=== PATIENT | male | born 1955 | race Caucasian/White ===

== ENCOUNTER 2016-09-22 17:16 | Inpatient (IN) | payer MEDICARE, MEDICAID ==
--- NOTE | 2016-09-22 17:53 | ED Physician Chart ---
Chief Complaint/HPI - Patient Information Date Seen:: 09/22/16 Time Seen:: 17:45 Chief Complaint:: aggressive behavior History of Present Illness:: Patient has been exhibiting aggressive behavior towards staff at his retirement facility for the last 2 weeks. His aggressive behavior was apparently more severe today. Patient was medicated at the facility before being transferred here. Historian:: EMS Review:: Transfer documents Reviewed Review of Systems - Review of Systems General/Constitutional: No fever, No chills Skin: Skin lesions Head: No headache Eyes: No loss of vision ENT: No earache Neck: No neck pain Cardio Vascular: No chest pain, No palpitations Pulmonary: No SOB GI: No nausea, No vomiting G/U: No dysuria, No frequency Musculoskeletal: Bone or joint pain Endocrine: No polyuria, Polydipsia Psychiatric: Prior psych history Hematopoietic: No bruising Neurological: No syncope Past Medical History - Past Medical History Past Medical History: HTN (hyperlipidemia; hypothyroidism; schizophrenia; anxiety; MRSA), DM, Asthma/COPD, PUD/GERD, Thyroid disorder, Other Family History: Other (unavailable) Social History: Smoker, Alcohol, Homeless Surgical History: other (unavailable) Psychiatricy History: Schizophrenia Medication Reviewed:: Unavailable Family Medical History - Family Member Mother History Unknown: Yes Ethnicity: Living Status: Physical Exam - Physical Examination Other Gen/Cons comments:: Somnolent Head: Atraumatic Eyes: Lids, conjuctiva normal, PERRL Skin: Nl inspection, No rash ENMT: External ears, nose nl Other ENMT comments:: Several dental caries noted Neck: No nuchal rigidity Respiratory: Nl effort/Exclusion, Clear to Auscultation Cardio Vascular: RRR, No murmur, gallop, rubs GI: No tenderness/rebounding/guarding : No CVA tenderness Extremities: Normal digits & nails Neuro/Psych: No focal deficits Misc: No paraspinal tenderness Labs/Radiology/EKG Results - Lab Results Results: Laboratory Results - last 24 hr 09/22/16 09/22/16 09/22/16 18:11 18:11 18:11 WBC 4.7 L RBC 4.41 Hgb 13.2 Hct 38.2 L MCV 86.6 MCH 30.0 MCHC Differential 34.6 RDW 13.6 Plt Count 163 MPV 8.9 Neutrophils % 54.3 Lymphocytes % 24.7 Monocytes % 14.9 H Eosinophils % 5.4 H Basophils % 0.7 Sodium 137 Potassium 3.9 Chloride 108 H Carbon Dioxide 25.7 Anion Gap 7.2 BUN 27 H Creatinine 1.6 H Est GFR ( Amer) 57.2 Est GFR (Non-Af Amer) 47.3 BUN/Creatinine Ratio 16.9 Glucose 104 Calcium 9.8 Triglycerides 122 Cholesterol 143 LDL Cholesterol Direct 97 HDL Cholesterol 36 TSH 0.74 RPR 09/22/16 18:11 WBC RBC Hgb Hct MCV MCH MCHC Differential RDW Plt Count MPV Neutrophils % Lymphocytes % Monocytes % Eosinophils % Basophils % Sodium Potassium Chloride Carbon Dioxide Anion Gap BUN Creatinine Est GFR ( Amer) Est GFR (Non-Af Amer) BUN/Creatinine Ratio Glucose Calcium Triglycerides Cholesterol LDL Cholesterol Direct HDL Cholesterol TSH RPR NONREACTIVE - Radiology Results Results: CXR normal; no infiltrate; no cardiomegaly ED Septic Shock - . Is Septic Shock (SBP<90, OR Lactate>4 mmol\L) present?: No Reassessment (Disposition) - Reassessment Reassessment Condition:: Unchanged - Diagnosis Diagnosis:: schizophrenia; altered mental status; aggressive behavior - Patient Disposition Admitted to:: Med/Surg Condition at Disposition:: Stable, Unchanged ED Discharge Plan - Patient Disposition Instructions: Psychosis
[2016-09-22 18:22] LABS: % BASOPHILS 0.7 % (0.0-2.0); % EOSINOPHILS 5.4 % (0.0-5.0); % LYMPHOCYTES 24.7 % (20.0-50.0); % MONOCYTES 14.9 % (2.0-10.0); % NEUTROPHILS 54.3 % (40.0-80.0); HEMATOCRIT 38.2 % (39.0-49.0); HEMOGLOBIN 13.2 gm/dL (13.2-17.3); MEAN CELL VOLUME 86.6 fl (80-99); MEAN CORPUSCULAR HGB CONC 34.6 pg (28.0-36.0); MEAN PLATELET VOLUME 8.9 fl; NEUTROPHILE ABSOLUTE 2.5 Th/cmm (1.8-8.0); PLATELET COUNT 163 Th/cmm (150-400); RED BLOOD COUNT 4.41 Mil/cmm (4.30-5.70); RED CELL DISTRIBUTION WIDTH 13.6 % (11.5-20.0); WHITE BLOOD COUNT 4.7 Th/cmm (4.8-10.8)
[2016-09-22 18:35] LABS: ANION GAP 7.2 (7.0-16.0); BUN/CREATININE RATIO 16.9; CALCIUM SERUM 9.8 mg/dL (8.6-10.3); CARBON DIOXIDE 25.7 mEq/L (21.0-31.0); CREATININE - SERUM 1.6 mg/dL (0.7-1.3); POTASSIUM SERUM 3.9 mEq/L (3.5-5.1)
[2016-09-22] MEDS ORDERED: Maalox 30 mL Cup PO PRN (22:35)
[2016-09-23] MEDS: Sodium Chloride 0.45% 1,000 ML IV SCH ×2 (00:32→09:03)
[2016-09-23] MEDS ORDERED: Levothyroxine 0.088 Mg Tab PO SCH (07:30)
[2016-09-23] MEDS ORDERED: Pantoprazole 40 mg EC Tab PO SCH (07:30)
--- NOTE | 2016-09-23 08:09 | Diagnostic Imaging Report ---
Portable chest x-ray History: Cough Allowing for portable technique the heart size is normal. No focal pulmonary parenchymal processes. No hilar or mediastinal abnormalities. Impression: No acute abnormalities.
[2016-09-23] MEDS ORDERED: Benztropine 1 MG TAB PO SCH (09:00)
[2016-09-23] MEDS ORDERED: Vitamin B Complex w/Vitamin C Tab PO SCH (09:00)
[2016-09-23] MEDS ORDERED: Fenofibrate, Micronized 134 mg Cap PO SCH ×2 (09:00→16:38)
[2016-09-23] MEDS: INSULIN ASPART, RECOMBINANT 100 UNITS/ML SUBQ SCH ×2 (09:02→11:29)
[2016-09-23 11:12] LABS: HEP B CORE IGM Negative (Negative); HEP C ANTIBODY <0.1 s/co ratio (0.0-0.9)
--- NOTE | 2016-09-23 13:21 | Admit Criteria Form ---
Admit Criteria Forms - Admit Criteria Diagnosis: MENTAL STATUS CHANGE Clinical Indications for Inpatient Care (Place 'X' for any and all applicable criteria): Ongoing inpatient care may be needed for ANY ONE of the following(1)(2)(3)(5)(6) : [ ]I. Suspected serious etiology (eg, medical disorder, [employer] event) of mental status change [ ]II. Danger to self or others not manageable at lower level of care [ ]III. Grave disability (eg, inability to perform self care necessary at lower level of care) [X]IV. Agitation or inappropriate behavior interfering with care for primary condition (eg, attempting to discontinue lines or drains prematurely, unable to cooperate with respiratory care) [ ]V. Delirium [A] [D][E] as described by ANY ONE of the following(26): [ ]a) Delirium due to alcohol or sedative [F] withdrawal [ ]b) Delirium of uncertain etiology that has not responded to appropriate empiric treatment [ ]c) Delirium that prevents performance of a life-sustaining function (eg, feeding or hydrating oneself) [ ]. General contraindications and/or Inappropriate clinical situations for Observational Care in patients with Mental Status Change, when ANY ONE of the following is required: [ ]a) Prediction of prolongation of LOS based on ANY ONE of the following may be considered as a contraindication for observational care 2, 3, 4, 5, 6, 7, 8, 9, 10, 11 [ ]i) Age > 65 yrs. [ ]ii) Patient arriving by ambulance [ ]iii) Patient with high acuity [ ]iv) Patient requiring vital sign monitoring [ ]v) Patient on IV medication [ ]b) Systolic blood pressures 180mmHg 3,12 [ ]c) Patient with altered mental status including delirium and other alteration of consciousness, (3) [ ]d) Patient whose discharge disposition will be to a group home home or rehabilitation home should not be managed in Emergency Department Observation Unit. CMS rule requires 3 days hospital stay before such placement.3,13 [ ]e) Patient with failure to thrive due to broad array of etiologies 3,16,17 [ ]f) Inability to ambulate 3,14 Extended stay beyond goal length of stay for the primary condition may be needed until ALL of the following are present(3)(5): [ ]a) Underlying medical etiology of mental status change is absent, or has been established and adequately treated [ ]b) Danger to self or others is absent or manageable at lower level of care. [ ]c) Behavior crisis management, including physical or chemical restraints, is not required or available at lower level of car [ ]d) Substance or alcohol withdrawal is absent or manageable at lower level of care. [ ]e) Behavioral symptoms (eg, agitation, somnolence, inappropriate behavior) are absent, or are manageable at lower level of care. The original [facility] content created by [facility] has been revised. The portions of the content which have been revised are identified through the use of italic text or in bold, and [facility] has neither reviewed nor approved the modified material. All other unmodified content is copyright [facility]. Please see references footnoted in the original [facility] edition 2016 Admit Criteria Met?: Yes
--- NOTE | 2016-09-23 16:40 | Internal Medicine Prog Note ---
Internal Medicine Subjective - Subjective Service Date: 09/23/16 ([id number]) Internal Medicine Objective - Results Result Diagrams: 09/22/16 18:11 09/22/16 18:11 Recent Labs: Laboratory Last Values WBC 4.7 Th/cmm (4.8-10.8) L 09/22/16 18:11 RBC 4.41 Mil/cmm (4.30-5.70) 09/22/16 18:11 Hgb 13.2 gm/dL (13.2-17.3) 09/22/16 18:11 Hct 38.2 % (39.0-49.0) L 09/22/16 18:11 MCV 86.6 fl (80-99) 09/22/16 18:11 MCH 30.0 pg (26.0-30.0) 09/22/16 18:11 MCHC Differential 34.6 pg (28.0-36.0) 09/22/16 18:11 RDW 13.6 % (11.5-20.0) 09/22/16 18:11 Plt Count 163 Th/cmm (150-400) 09/22/16 18:11 MPV 8.9 fl 09/22/16 18:11 Neutrophils % 54.3 % (40.0-80.0) 09/22/16 18:11 Lymphocytes % 24.7 % (20.0-50.0) 09/22/16 18:11 Monocytes % 14.9 % (2.0-10.0) H 09/22/16 18:11 Eosinophils % 5.4 % (0.0-5.0) H 09/22/16 18:11 Basophils % 0.7 % (0.0-2.0) 09/22/16 18:11 Sodium 137 mEq/L (136-145) 09/22/16 18:11 Potassium 3.9 mEq/L (3.5-5.1) 09/22/16 18:11 Chloride 108 mEq/L (98-107) H 09/22/16 18:11 Carbon Dioxide 25.7 mEq/L (21.0-31.0) 09/22/16 18:11 Anion Gap 7.2 (7.0-16.0) 09/22/16 18:11 BUN 27 mg/dL (7-25) H 09/22/16 18:11 Creatinine 1.6 mg/dL (0.7-1.3) H 09/22/16 18:11 Est GFR ( Amer) 57.2 ml/min (>90) 09/22/16 18:11 Est GFR (Non-Af Amer) 47.3 ml/min 09/22/16 18:11 BUN/Creatinine Ratio 16.9 09/22/16 18:11 Glucose 104 mg/dL (70-105) 09/22/16 18:11 Calcium 9.8 mg/dL (8.6-10.3) 09/22/16 18:11 Triglycerides 122 mg/dL (<150) 09/22/16 18:11 Cholesterol 143 mg/dL (<200) 09/22/16 18:11 LDL Cholesterol Direct 97 mg/dL (75-193) 09/22/16 18:11 HDL Cholesterol 36 mg/dL (23-92) 09/22/16 18:11 TSH 0.74 uIU/ml (0.34-5.60) 09/22/16 18:11 RPR NONREACTIVE (NONREACTIVE) 09/22/16 18:11 Hepatitis A IgM Ab Negative (Negative) 09/22/16 18:11 Hep Bs Antigen Negative (Negative) 09/22/16 18:11 Hep B Core IgM Ab Negative (Negative) 09/22/16 18:11 Hepatitis C Antibody <0.1 s/co ratio (0.0-0.9) 09/22/16 18:11 - Physical Exam Vitals and I&O: Vital Signs Temp 97.8 F 09/23/16 15:10 Pulse 94 09/23/16 15:10 Resp 18 09/23/16 15:10 BP 147/89 09/23/16 15:10 Pulse Ox 99 09/23/16 15:10 Intake & Output 09/22/16 09/23/16 09/23/16 18:59 06:59 18:59 Intake Total 100 350 Balance 100 350 Intake: Oral 100 350 Other: # Voids 3 Active Medications: Current Medications Fenofibrate (Tricor) 67 mg PO DAILY [facility] Stop: 11/22/16 08:59 Internal Medicine Assmt/Plan - Assessment Assessment: aloc agitation htn hyperlipidemia hypothyroid dm-2
--- NOTE | 2016-09-23 17:54 | History & Physical ---
CHIEF COMPLAINT: Aggressive behavior. HISTORY OF PRESENT ILLNESS: This is a 60-year-old male who is a detention resident who is brought here to [facility] for 1-day history of aggressive behavior towards the staff. For medical evaluation and clearance, the patient is admitted. PAST MEDICAL HISTORY: Hypertension, hypothyroidism, schizophrenia and anxiety, MRSA, COPD, GERD, hypothyroidism. SOCIAL HISTORY: The patient is a detention resident, requiring 24-hour nursing care. The patient is also a smoker. PAST SURGICAL HISTORY: Unknown. REVIEW OF SYSTEMS: Unable to obtain, patient is refusing to answer my questions. PHYSICAL EXAMINATION: GENERAL: The patient is well developed, well nourished, no acute distress. VITAL SIGNS: Temperature 97.8, heart rate ____, blood pressure 147/89, respirations 18, O2 99. HEENT: Head: Normocephalic, atraumatic. NECK: Supple. No mass. LUNGS: Clear bilaterally. HEART: Regular rhythm. ABDOMEN: Soft, nontender. LABORATORY DATA: WBC ____, H and H 13.2 and 38.2. Sodium 137, potassium 3.9, chloride 108, carbon dioxide 25.7, BUN 27, creatinine 1.6. The patient had a chest x-ray done and the impression is no acute abnormalities. ASSESSMENT: Altered level of consciousness, increased agitation. PLAN: The patient to be admitted to the med/surg unit. Once bed available, the patient will be at the Geropsych Unit. JOB# [id number]
[2016-09-23] MEDS ORDERED: Non-Formulary Item 1 EA (Melatonin [Melatonin] 3 MG) PO SCH (21:00)
== END 2016-09-23 16:15 | DRG 884 ==
LOC: ER 17:16 → MERGE 23:09 → MSI 23:09
PROVIDERS: ADMIT Internal Medicine; ATTEND Internal Medicine
DX: R40.4 Transient alteration of awareness (principal); F20.9 Schizophrenia, unspecified; I10 Essential (primary) hypertension; E03.9 Hypothyroidism, unspecified; F41.9 Anxiety disorder, unspecified; E11.9 Type 2 diabetes mellitus without complications; F17.210 Nicotine dependence, cigarettes, uncomplicated; J44.9 Chronic obstructive pulmonary disease, unspecified; K21.9 Gastro-esophageal reflux disease without esophagitis; Z59.0 Homelessness; Z88.0 Allergy status to penicillin; I12.9 Hypertensive chronic kidney disease with stage 1 through stage 4 chronic kidney disease, or unspecified chronic kidney disease; N18.9 Chronic kidney disease, unspecified
CPT/HCPCS: 36415-UA; 71010-TC; 80048-TC; 80061-TC; 80074-90; 84443-TC; 85025-TC; 86592-TC; 93005; J1815; Z7610

== ENCOUNTER 2016-09-23 16:15 | Inpatient (IN) | payer MEDICARE, MEDICAID ==
[2016-09-23] MEDS ORDERED: Maalox 30 mL Cup PO PRN (17:15)
[2016-09-23 17:16] VITALS: BP 139/79
[2016-09-23] MEDS ORDERED: INSULIN ASPART, RECOMBINANT 100 UNITS/ML SUBQ SCH (21:00)
[2016-09-23] MEDS ORDERED: Non-Formulary Item 1 EA (Melatonin [Melatonin] 3 MG) PO SCH (21:00)
[2016-09-23] MEDS: INSULIN ASPART, RECOMBINANT 100 UNITS/ML SUBQ SCH (21:24)
--- NOTE | 2016-09-23 22:23 | Consultation ---
The patient was seen, chart reviewed, and discussed with staff. HISTORY OF PRESENT ILLNESS: The patient is a 60-year-old male with a history of schizoaffective disorder, has been becoming more agitating, angry, paranoid, talking to himself. The patient has altered level of consciousness, currently on medical floor. The patient has been displaying bizarre sexual behavior, attempting to masturbate at times and has been inappropriate with staff. PAST PSYCHIATRIC HISTORY: Multiple hospitalizations and chronic history of mental illness. PAST MEDICAL HISTORY: As per Dr. Sagastume. PSYCHOSOCIAL HISTORY: The patient resides in a longterm facility and requires complete care. MENTAL STATUS EXAMINATION: The patient is guarded and irritable. The patient appears to be paranoid, internally preoccupied, remains aggressive at times, attempting to push staff. His insight is poor and judgment is impaired. He is oriented to person, knows he is in the hospital, not oriented to time. ASSESSMENT: Schizoaffective disorder in psychotic phase. Medical, as per medical history. PLAN: At this time, it was recommended continuation of medical supportive measures. We will increase Seroquel to 250 mg p.o. b.i.d. for day or two, then increase it to 300 mg p.o. b.i.d. as tolerated. Monitor condition closely. The patient would require inpatient psychiatric hospitalization once medically stable. Thank you for the consultation. JOB# [id number]
[2016-09-24] MEDS: Levothyroxine 0.088 Mg Tab PO SCH ×2 (07:04→07:51)
[2016-09-24] MEDS: Pantoprazole 40 mg EC Tab PO SCH ×2 (07:04→07:51)
[2016-09-24] MEDS: INSULIN ASPART, RECOMBINANT 100 UNITS/ML SUBQ SCH ×4 (07:05→20:17)
[2016-09-24] MEDS ORDERED: Haloperidol Lactate 5 mg/mL 1mL Vial ONE (07:18)
[2016-09-24] MEDS ORDERED: Haloperidol Lactate 5 mg/mL 1mL Vial IM ONE (07:52)
[2016-09-24] MEDS: Benztropine 1 MG TAB PO SCH ×2 (09:18→16:43)
[2016-09-24] MEDS: Fenofibrate, Micronized 134 mg Cap PO SCH (09:18)
[2016-09-24] MEDS: Vitamin B Complex w/Vitamin C Tab PO SCH (09:19)
--- NOTE | 2016-09-24 10:07 | Internal Medicine Prog Note ---
Internal Medicine Subjective - Subjective Service Date: 09/24/16 Patient seen and examined:: with staff Patient is:: awake Per staff patient is:: no adverse event Internal Medicine Objective - Results Recent Labs: Laboratory Last Values POC Glucose 141 MG/DL (70 - 105) H 09/24/16 06:52 - Physical Exam Vitals and I&O: Vital Signs Temp 97.1 F 09/23/16 20:51 Pulse 101 09/24/16 09:18 Resp 18 09/23/16 20:51 BP 132/100 09/24/16 09:18 Pulse Ox 97 09/23/16 20:51 Intake & Output 09/23/16 09/24/16 09/24/16 18:59 06:59 18:59 Intake Total 460 Balance 460 Intake: Oral 460 Other: # Voids 1 2 # Bowel Movements 0 Active Medications: Current Medications Acetaminophen (Tylenol) 650 mg PO Q4H PRN PRN Reason: Pain (Mild) Stop: 11/22/16 17:14 Al Hydrox/Mg Hydrox/Simethicone (Maalox) 30 ml PO Q6H PRN PRN Reason: GI UPSET Stop: 11/22/16 17:14 Benztropine Mesylate (Cogentin) 1 mg PO BID [facility] Stop: 11/23/16 08:59 Last Admin: 09/24/16 09:18 Dose: 1 mg Clonidine HCl (Catapres) 0.1 mg PO Q6H PRN PRN Reason: FOR SBP > 160 Stop: 11/22/16 17:14 Docusate Sodium (Colace) 100 mg PO BID [facility] Stop: 11/23/16 08:59 Last Admin: 09/24/16 09:18 Dose: Not Given Fenofibrate (Tricor) 134 mg PO QOD [facility] Stop: 11/23/16 08:59 Last Admin: 09/24/16 09:18 Dose: Not Given Glipizide (Glucotrol) 10 mg PO BIDAC [facility] Stop: 11/23/16 07:29 Last Admin: 09/24/16 07:11 Dose: Not Given Insulin Aspart (Novolog) 0 units SUBQ ACHS [facility] PRN Reason: Protocol Stop: 11/22/16 20:59 Last Admin: 09/24/16 07:05 Dose: Not Given Levothyroxine Sodium (Synthroid) 0.088 mg PO QDAC [facility] Stop: 11/23/16 07:29 Last Admin: 09/24/16 07:51 Dose: Not Given Lisinopril (Zestril) 10 mg PO DAILY [facility] Stop: 11/23/16 08:59 Last Admin: 09/24/16 09:18 Dose: 10 mg Lorazepam (Ativan) 1 mg PO Q6H PRN; Protocol PRN Reason: Anxiety Stop: 11/22/16 17:14 Last Admin: 09/24/16 00:24 Dose: 1 mg Pantoprazole Sodium (Protonix) 40 mg PO QDAC [facility] Stop: 11/23/16 07:29 Last Admin: 09/24/16 07:51 Dose: Not Given Pioglitazone HCl (Actos) 30 mg PO QDAC [facility] Stop: 11/23/16 07:29 Last Admin: 09/24/16 07:12 Dose: Not Given Quetiapine Fumarate (Seroquel) 250 mg PO Q12H [facility] PRN Reason: Protocol Stop: 11/22/16 18:59 Last Admin: 09/24/16 07:51 Dose: Not Given Sodium Bicarbonate (Sodium Bicarbonate) 650 mg PO TID [facility] PRN Reason: Protocol Stop: 11/22/16 20:59 Last Admin: 09/24/16 09:18 Dose: Not Given Vitamin B Complex/Vit C/Folic Acid (Vitamin B Complex W/Vitamin C) 1 tab PO DAILY [facility] Stop: 11/23/16 08:59 Last Admin: 09/24/16 09:19 Dose: Not Given General: alert HEENT: NC/AT, PERRLA Neck: Supple Lungs: CTAB Cardiovascular: RRR, Normal S1, Normal S2, without murmur Abdomen: soft non-tender, non-distended Extremities: clear Internal Medicine Assmt/Plan - Assessment Assessment: agitation htn hyperlipidemia hypothyroid dm-2
--- NOTE | 2016-09-24 15:22 | Admit Criteria Form ---
Admit Criteria Forms - Admit Criteria Diagnosis: PSYCHIATRIC DISORDERS Clinical Indications for Inpatient Care (Place 'X' for any and all applicable criteria): Ongoing inpatient care may be needed for ANY ONE of the following(1)(2)(3)(4)(6) (7)(8): [ ]I. Danger to self or others not manageable at lower level of care. [ ]II. Grave disability (eg, inability to perform self care necessary at lower level of care) [X]III. Agitation or inappropriate behavior interfering with care for primary condition (eg, attempting to discontinue lines or drains prematurely, unable to cooperate with respiratory care) [ ]IV. Severe disability or disorder indicated by ALL of the following: [ ]a) Severe behavioral health disorder-related symptoms or condition indicated by ANY ONE of the following: [ ]i) Severe problem with cognition, memory, judgment, or impulse control [ ]ii) Severe clinical manifestations (eg, hallucinations, delusions, other acute psychotic symptoms, cassie, extreme agitation or anxiety) [ ]b) Patient management at lower level of care is not feasible until acute intervention or modification is initiated. Extended stay beyond goal length of stay for the primary condition may be indicated when ANY ONE of the following is present: (1)(2)(3)(4): [ ]a) Patient is a danger to self or others and not manageable at lower level of care. [ ]b) Behavior crisis management, including physical or chemical restraints, is required and is not available at a lower level of care. [ ]c) Behavioral symptoms (e.g., agitation, somnolence, inappropriate behavior) are present, and are not manageable at a lower level of care. [ ]d) Patient cannot understand follow-up treatment and crisis plan. [ ]e) Provider and supports are not sufficiently available at lower level of care. [ ]f) Patient cannot participate (e.g., verify absence of plan for harm) and is in needed of monitoring. The original [facility] [employer] content created by [facility] [employer] has been revised. The portions of the content which have been revised are identified through the use of italic text or in bold, and [facility] [employer] has neither reviewed nor approved the modified material. All other unmodified content is copyright [facility] [employer]. Please see references footnoted in the original [facility] edition 2016 Admit Criteria Met?: Yes
--- NOTE | 2016-09-25 03:42 | Psychosocial Evaluation ---
ATTENDING PHYSICIAN: Dr. Kerns. IDENTIFYING DATA: The patient is a 60-year-old male, resident of [facility], admitted here on a voluntary basis in view of his acute psychosis. CHIEF COMPLAINT: "I don't know they are trying to hurt me." HISTORY OF PRESENT ILLNESS: This is the first psychiatric hospitalization to [facility] for this 60-year-old who is reported to have been out of control, screaming and yelling and actively responding to internal stimuli. The patient could not be contained at a lower level of care and hence the patient has been referred over here for stabilization. Chart is reviewed. The patient is interviewed. During the interview, the patient has been not able to contract for safety. The patient is actively responding to internal stimuli. The patient is laughing and giggling and making gestures with his hands. The patient has to be redirected. Sleep and appetite prior to the hospitalization are reported to be poor. PAST PSYCHIATRIC HISTORY: Details are not known. MEDICAL HISTORY AND PHYSICAL EXAMINATION: Requested to be done by Dr. Sagastume. SUBSTANCE ABUSE HISTORY: None. PHYSICAL OR SEXUAL ABUSE HISTORY: None. LEGAL PROBLEMS: None at this time. STRENGTH AND ASSETS: The patient is motivated. MENTAL STATUS EXAMINATION: The patient is a 60-year-old, looking his stated age, superficially cooperative. Eye contact is poor. Mood is noted to be irritable. Affect is constricted. Insight and judgment at this time are noted to be very much impaired. Impulse control is noted to be poor. Coping skills are also noted to be poor. The patient is actively responding to internal stimuli. The patient is alert and oriented. DIAGNOSTIC IMPRESSION: The patient's behavior is likely a danger to self and others. DIAGNOSTIC IMPRESSION: ASIX I: Schizophrenia, chronic paranoid type with acute exacerbation. AXIS II: None. AXIS III: As per Dr. Sagastume. IMMEDIATE TREATMENT PLAN: The patient is going to be continued on the Seroquel 250 mg twice a day. The patient is going to be continued on the Haldol Decanoate once a month and the patient is going to be closely observed. Once stabilized, the patient is going to be discharged to [facility] for further followup. ESTIMATED LENGTH OF STAY: 5-7 days. JOB# [id number]
[2016-09-25] MEDS: Levothyroxine 0.088 Mg Tab PO SCH (06:41)
[2016-09-25] MEDS: Pantoprazole 40 mg EC Tab PO SCH (06:41)
[2016-09-25] MEDS: INSULIN ASPART, RECOMBINANT 100 UNITS/ML SUBQ SCH ×4 (06:44→22:26)
[2016-09-25] MEDS: Benztropine 1 MG TAB PO SCH ×2 (08:15→17:04)
[2016-09-25] MEDS: Vitamin B Complex w/Vitamin C Tab PO SCH (08:16)
--- NOTE | 2016-09-25 14:32 | Internal Medicine Prog Note ---
Internal Medicine Subjective - Subjective Service Date: 09/25/16 Patient seen and examined:: with staff Patient is:: awake Per staff patient is:: no adverse event Internal Medicine Objective - Results Recent Labs: Laboratory Last Values POC Glucose 90 MG/DL (70 - 105) 09/25/16 11:34 - Physical Exam Vitals and I&O: Vital Signs Temp 98.6 F 09/24/16 19:55 Pulse 83 09/25/16 08:15 Resp 19 09/24/16 19:55 BP 130/78 09/25/16 08:15 Pulse Ox 92 09/24/16 19:55 Intake & Output 09/24/16 09/25/16 09/25/16 18:59 06:59 18:59 Intake Total 750 240 Balance 750 240 Intake: Oral 750 240 Other: # Voids 3 1 # Bowel Movements 1 Active Medications: Current Medications Acetaminophen (Tylenol) 650 mg PO Q4H PRN PRN Reason: Pain (Mild) Stop: 11/22/16 17:14 Al Hydrox/Mg Hydrox/Simethicone (Maalox) 30 ml PO Q6H PRN PRN Reason: GI UPSET Stop: 11/22/16 17:14 Benztropine Mesylate (Cogentin) 1 mg PO BID [facility] Stop: 11/23/16 08:59 Last Admin: 09/25/16 08:15 Dose: 1 mg Clonidine HCl (Catapres) 0.1 mg PO Q6H PRN PRN Reason: FOR SBP > 160 Stop: 11/22/16 17:14 Docusate Sodium (Colace) 100 mg PO BID [facility] Stop: 11/23/16 08:59 Last Admin: 09/25/16 08:14 Dose: 100 mg Fenofibrate (Tricor) 134 mg PO QOD [facility] Stop: 11/23/16 08:59 Last Admin: 09/24/16 09:18 Dose: Not Given Glipizide (Glucotrol) 10 mg PO BIDAC [facility] Stop: 11/23/16 07:29 Last Admin: 09/25/16 06:41 Dose: 10 mg Insulin Aspart (Novolog) 0 units SUBQ ACHS [facility] PRN Reason: Protocol Stop: 11/22/16 20:59 Last Admin: 09/25/16 12:05 Dose: Not Given Levothyroxine Sodium (Synthroid) 0.088 mg PO QDAC [facility] Stop: 11/23/16 07:29 Last Admin: 09/25/16 06:41 Dose: 0.088 mg Lisinopril (Zestril) 10 mg PO DAILY [facility] Stop: 11/23/16 08:59 Last Admin: 09/25/16 08:15 Dose: 10 mg Lorazepam (Ativan) 1 mg PO Q6H PRN; Protocol PRN Reason: Anxiety Stop: 11/22/16 17:14 Last Admin: 09/25/16 14:06 Dose: 1 mg Pantoprazole Sodium (Protonix) 40 mg PO QDAC [facility] Stop: 11/23/16 07:29 Last Admin: 09/25/16 06:41 Dose: 40 mg Pioglitazone HCl (Actos) 30 mg PO QDAC [facility] Stop: 11/23/16 07:29 Last Admin: 09/25/16 06:40 Dose: 30 mg Quetiapine Fumarate (Seroquel) 250 mg PO Q12H [facility] PRN Reason: Protocol Stop: 11/22/16 18:59 Last Admin: 09/25/16 06:41 Dose: 250 mg Sodium Bicarbonate (Sodium Bicarbonate) 650 mg PO TID [facility] PRN Reason: Protocol Stop: 11/22/16 20:59 Last Admin: 09/25/16 14:06 Dose: 650 mg Vitamin B Complex/Vit C/Folic Acid (Vitamin B Complex W/Vitamin C) 1 tab PO DAILY [facility] Stop: 11/23/16 08:59 Last Admin: 09/25/16 08:16 Dose: 1 tab General: alert HEENT: NC/AT, PERRLA Neck: Supple Lungs: CTAB Cardiovascular: RRR, Normal S1, Normal S2, without murmur Abdomen: soft non-tender, non-distended Extremities: clear Internal Medicine Assmt/Plan - Assessment Assessment: agitation htn hyperlipidemia hypothyroid dm-2 - Plan Plan: monitor glucose low fat diet cpm
[2016-09-25] MEDS: Triple Antibiotic 0.94 gm Pkt TP SCH (22:29)
--- NOTE | 2016-09-25 23:10 | Progress Notes ---
TIME PATIENT SEEN: 12 noon. SUBJECTIVE: Staff was spoken to. The patient is interviewed. Mood is noted to be irritable. Affect is constricted. The patient is still responding to internal stimuli and trying to follow the staff members. The patient has no insight into his illness. Coping skills are noted to be very poor. Sleep and appetite are also noted to be very poor. ASSESSMENT: The patient is still grossly psychotic. PLAN: To continue the patient with the current medications. I encouraged the patient to verbalize the concerns rather than to act out. JOB# [id number]
[2016-09-26] MEDS: INSULIN ASPART, RECOMBINANT 100 UNITS/ML SUBQ SCH ×4 (06:54→20:31)
[2016-09-26] MEDS: Levothyroxine 0.088 Mg Tab PO SCH (06:56)
[2016-09-26] MEDS: Pantoprazole 40 mg EC Tab PO SCH (06:56)
[2016-09-26] MEDS: Vitamin B Complex w/Vitamin C Tab PO SCH (09:39)
[2016-09-26] MEDS: Triple Antibiotic 0.94 gm Pkt TP SCH (09:39)
[2016-09-26] MEDS: Benztropine 1 MG TAB PO SCH ×2 (09:39→16:46)
[2016-09-26] MEDS: Fenofibrate, Micronized 134 mg Cap PO SCH (09:39)
--- NOTE | 2016-09-26 15:48 | Internal Medicine Prog Note ---
Internal Medicine Subjective - Subjective Patient seen and examined:: with staff, chart reviewed Patient is:: awake, verbal, interactive Per staff patient is:: no adverse event, agitated, noncompliant Internal Medicine Objective - Results Recent Labs: Laboratory Last Values POC Glucose 81 MG/DL (70 - 105) 09/26/16 12:01 - Physical Exam Vitals and I&O: Vital Signs Temp 97.2 F 09/26/16 15:09 Pulse 90 09/26/16 15:09 Resp 18 09/26/16 15:09 BP 142/82 09/26/16 15:09 Pulse Ox 99 09/26/16 15:09 Intake & Output 09/25/16 09/26/16 09/26/16 18:59 06:59 18:59 Intake Total 240 Balance 240 Intake: Oral 240 Other: # Voids 2 # Bowel Movements 0 Active Medications: Current Medications Acetaminophen (Tylenol) 650 mg PO Q4H PRN PRN Reason: Pain (Mild) Stop: 11/22/16 17:14 Al Hydrox/Mg Hydrox/Simethicone (Maalox) 30 ml PO Q6H PRN PRN Reason: GI UPSET Stop: 11/22/16 17:14 Benztropine Mesylate (Cogentin) 1 mg PO BID [facility] Stop: 11/23/16 08:59 Last Admin: 09/26/16 09:39 Dose: 1 mg Clonidine HCl (Catapres) 0.1 mg PO Q6H PRN PRN Reason: FOR SBP > 160 Stop: 11/22/16 17:14 Docusate Sodium (Colace) 100 mg PO BID [facility] Stop: 11/23/16 08:59 Last Admin: 09/26/16 09:39 Dose: 100 mg Fenofibrate (Tricor) 134 mg PO QOD [facility] Stop: 11/23/16 08:59 Last Admin: 09/26/16 09:39 Dose: 134 mg Glipizide (Glucotrol) 10 mg PO BIDAC [facility] Stop: 11/23/16 07:29 Last Admin: 09/26/16 06:58 Dose: Not Given Insulin Aspart (Novolog) 0 units SUBQ ACHS GARRY PRN Reason: Protocol Stop: 11/22/16 20:59 Last Admin: 09/26/16 12:13 Dose: Not Given Levothyroxine Sodium (Synthroid) 0.088 mg PO QDAC [facility] Stop: 11/23/16 07:29 Last Admin: 09/26/16 06:56 Dose: Not Given Lisinopril (Zestril) 10 mg PO DAILY GARR[facility] Stop: 11/23/16 08:59 Last Admin: 09/26/16 09:39 Dose: 10 mg Lorazepam (Ativan) 1 mg PO Q6H PRN; Protocol PRN Reason: Anxiety Stop: 11/22/16 17:14 Last Admin: 09/26/16 01:05 Dose: 1 mg Neomycin/Polymyxin/Bacitracin (Triple Antibiotic Pkt) 1 pkt TP DAILY GARR[facility] Stop: 09/29/16 09:01 Last Admin: 09/26/16 09:39 Dose: 1 pkt Pantoprazole Sodium (Protonix) 40 mg PO QDAC [facility] Stop: 11/23/16 07:29 Last Admin: 09/26/16 06:56 Dose: Not Given Pioglitazone HCl (Actos) 30 mg PO QDAC [facility] Stop: 11/23/16 07:29 Last Admin: 09/26/16 06:56 Dose: Not Given Quetiapine Fumarate (Seroquel) 300 mg PO Q12H GARRY PRN Reason: Protocol Stop: 11/25/16 13:33 Last Admin: 09/26/16 15:29 Dose: 300 mg Sodium Bicarbonate (Sodium Bicarbonate) 650 mg PO TID GARRY PRN Reason: Protocol Stop: 11/22/16 20:59 Last Admin: 09/26/16 15:29 Dose: 650 mg Vitamin B Complex/Vit C/Folic Acid (Vitamin B Complex W/Vitamin C) 1 tab PO DAILY GARRY Stop: 11/23/16 08:59 Last Admin: 09/26/16 09:39 Dose: 1 tab Zolpidem Tartrate (Ambien) 5 mg PO HS PRN PRN Reason: Insomnia Stop: 11/25/16 00:23 General: demented HEENT: NC/AT, PERRLA Neck: Supple, No JVD Lungs: CTAB Cardiovascular: RRR, Normal S1, Normal S2 Abdomen: soft non-tender, globular Extremities: excoriation Neurological: no change, disorganized, unable to follow command Internal Medicine Assmt/Plan - Assessment Assessment: agitation htn hyperlipidemia hypothyroid dm-2 - Plan Plan: cont on ada iss fall precaution dw rn
--- NOTE | 2016-09-27 00:30 | Progress Notes ---
SUBJECTIVE: The patient was seen. Remains anxious, angry, still irritable, easily agitated, with episodes where he still tries to expose himself, especially to female staff. The patient also has some episodes where he is trying to masturbate. His insight is poor. Judgment remains impaired. ASSESSMENT: The patient is still in psychotic phase. PLAN: We will continue stabilization. Continue to monitor closely. Increase Seroquel to 300 mg p.o. b.i.d. Monitor condition closely for any sedation. JOB# [id number]
[2016-09-27] MEDS: INSULIN ASPART, RECOMBINANT 100 UNITS/ML SUBQ SCH ×4 (06:30→20:31)
[2016-09-27] MEDS: Pantoprazole 40 mg EC Tab PO SCH (06:32)
[2016-09-27] MEDS: Levothyroxine 0.088 Mg Tab PO SCH (06:32)
[2016-09-27] MEDS: Triple Antibiotic 0.94 gm Pkt TP SCH (09:33)
[2016-09-27] MEDS: Benztropine 1 MG TAB PO SCH ×2 (09:33→17:03)
[2016-09-27] MEDS: Vitamin B Complex w/Vitamin C Tab PO SCH (09:33)
--- NOTE | 2016-09-27 15:11 | Internal Medicine Prog Note ---
Internal Medicine Subjective - Subjective Patient seen and examined:: with staff, chart reviewed Patient is:: awake, verbal, interactive Per staff patient is:: no adverse event, no episodes of fall, noncompliant, confused Internal Medicine Objective - Results Recent Labs: Laboratory Last Values POC Glucose 73 MG/DL (70 - 105) 09/27/16 12:08 - Physical Exam Vitals and I&O: Vital Signs Temp 0 F 09/27/16 06:12 Pulse 100 09/27/16 09:33 Resp 20 09/26/16 20:00 BP 150/94 09/27/16 09:33 Pulse Ox 98 09/26/16 20:00 Intake & Output 09/26/16 09/27/16 09/27/16 18:59 06:59 18:59 Intake Total 900 0 Balance 900 0 Intake: Oral 900 0 Other: # Voids 3 4 # Bowel Movements 1 0 Active Medications: Current Medications Acetaminophen (Tylenol) 650 mg PO Q4H PRN PRN Reason: Pain (Mild) Stop: 11/22/16 17:14 Al Hydrox/Mg Hydrox/Simethicone (Maalox) 30 ml PO Q6H PRN PRN Reason: GI UPSET Stop: 11/22/16 17:14 Benztropine Mesylate (Cogentin) 1 mg PO BID [facility] Stop: 11/23/16 08:59 Last Admin: 09/27/16 09:33 Dose: 1 mg Clonidine HCl (Catapres) 0.1 mg PO Q6H PRN PRN Reason: FOR SBP > 160 Stop: 11/22/16 17:14 Docusate Sodium (Colace) 100 mg PO BID [facility] Stop: 11/23/16 08:59 Last Admin: 09/27/16 09:33 Dose: 100 mg Fenofibrate (Tricor) 134 mg PO QOD [facility] Stop: 11/23/16 08:59 Last Admin: 09/26/16 09:39 Dose: 134 mg Glipizide (Glucotrol) 10 mg PO BIDAC [facility] Stop: 11/23/16 07:29 Last Admin: 09/27/16 06:32 Dose: Not Given Insulin Aspart (Novolog) 0 units SUBQ ACHS GARRY PRN Reason: Protocol Stop: 11/22/16 20:59 Last Admin: 09/27/16 11:49 Dose: Not Given Levothyroxine Sodium (Synthroid) 0.088 mg PO QDAC [facility] Stop: 11/23/16 07:29 Last Admin: 09/27/16 06:32 Dose: Not Given Lisinopril (Zestril) 10 mg PO DAILY [facility] Stop: 11/23/16 08:59 Last Admin: 09/27/16 09:33 Dose: 10 mg [place] Carbonate (Eskalith) 300 mg PO BID [facility] PRN Reason: Protocol Stop: 11/26/16 16:59 Lorazepam (Ativan) 1 mg PO Q6H PRN; Protocol PRN Reason: Anxiety Stop: 11/22/16 17:14 Last Admin: 09/27/16 09:39 Dose: 1 mg Neomycin/Polymyxin/Bacitracin (Triple Antibiotic Pkt) 1 pkt TP DAILY [facility] Stop: 09/29/16 09:01 Last Admin: 09/27/16 09:33 Dose: 1 pkt Pantoprazole Sodium (Protonix) 40 mg PO QDAC [facility] Stop: 11/23/16 07:29 Last Admin: 09/27/16 06:32 Dose: Not Given Pioglitazone HCl (Actos) 30 mg PO QDAC [facility] Stop: 11/23/16 07:29 Last Admin: 09/27/16 06:32 Dose: Not Given Quetiapine Fumarate (Seroquel) 300 mg PO Q12H GARRY PRN Reason: Protocol Stop: 11/25/16 13:33 Last Admin: 09/27/16 13:51 Dose: 300 mg Sodium Bicarbonate (Sodium Bicarbonate) 650 mg PO TID GARRY PRN Reason: Protocol Stop: 11/22/16 20:59 Last Admin: 09/27/16 13:51 Dose: 650 mg Vitamin B Complex/Vit C/Folic Acid (Vitamin B Complex W/Vitamin C) 1 tab PO DAILY [facility] Stop: 11/23/16 08:59 Last Admin: 09/27/16 09:33 Dose: 1 tab Zolpidem Tartrate (Ambien) 5 mg PO HS PRN PRN Reason: Insomnia Stop: 11/25/16 00:23 General: demented HEENT: NC/AT, PERRLA Neck: Supple, No JVD Lungs: CTAB Cardiovascular: RRR, Normal S1, Normal S2 Abdomen: soft non-tender, globular, positive bowel sound Extremities: excoriation Neurological: no change, disorganized Internal Medicine Assmt/Plan - Assessment Assessment: agitation htn hyperlipidemia hypothyroid dm-2 - Plan Plan: cont on ada iss fall precaution dw rn
--- NOTE | 2016-09-28 01:48 | Progress Notes ---
SUBJECTIVE: The patient was seen, chart reviewed, and discussed with staff. Still agitated, angry, and still irritable. Continues to have mood swings and episodes where he is hypersexual. He was trying to masturbate in front of others, ____ discussed his condition in detail. The patient took lithium many years ago, and the patient had a history of some manic symptoms. PLAN: We will add lithium 300 mg p.o. b.i.d. We will monitor closely. Continue supportive measures. [facility]# [id number]
[2016-09-28] MEDS: Levothyroxine 0.088 Mg Tab PO SCH (06:32)
[2016-09-28] MEDS: Pantoprazole 40 mg EC Tab PO SCH (06:32)
[2016-09-28] MEDS: INSULIN ASPART, RECOMBINANT 100 UNITS/ML SUBQ SCH ×4 (06:32→20:21)
[2016-09-28] MEDS: Fenofibrate, Micronized 134 mg Cap PO SCH (08:14)
[2016-09-28] MEDS: Benztropine 1 MG TAB PO SCH ×2 (08:14→16:53)
[2016-09-28] MEDS: Vitamin B Complex w/Vitamin C Tab PO SCH (08:15)
[2016-09-28] MEDS: Triple Antibiotic 0.94 gm Pkt TP SCH (10:15)
--- NOTE | 2016-09-28 14:55 | Internal Medicine Prog Note ---
Internal Medicine Subjective - Subjective Patient seen and examined:: with staff, chart reviewed Patient is:: awake, verbal, interactive Per staff patient is:: no episodes of fall, noncompliant, confused Internal Medicine Objective - Results Recent Labs: Laboratory Last Values POC Glucose 66 MG/DL (70 - 105) L 09/28/16 12:17 - Physical Exam Vitals and I&O: Vital Signs Temp 97.6 F 09/27/16 20:00 Pulse 101 09/28/16 08:16 Resp 20 09/28/16 08:00 BP 130/75 09/28/16 08:16 Pulse Ox 98 09/27/16 20:00 Intake & Output 09/27/16 09/28/16 09/28/16 18:59 06:59 18:59 Intake Total 1800 120 Balance 1800 120 Intake: Oral 1800 120 Other: # Voids 7 3 # Bowel Movements 1 Active Medications: Current Medications Acetaminophen (Tylenol) 650 mg PO Q4H PRN PRN Reason: Pain (Mild) Stop: 11/22/16 17:14 Al Hydrox/Mg Hydrox/Simethicone (Maalox) 30 ml PO Q6H PRN PRN Reason: GI UPSET Stop: 11/22/16 17:14 Benztropine Mesylate (Cogentin) 1 mg PO BID [facility] Stop: 11/23/16 08:59 Last Admin: 09/28/16 08:14 Dose: 1 mg Clonidine HCl (Catapres) 0.1 mg PO Q6H PRN PRN Reason: FOR SBP > 160 Stop: 11/22/16 17:14 Docusate Sodium (Colace) 100 mg PO BID [facility] Stop: 11/23/16 08:59 Last Admin: 09/28/16 08:14 Dose: 100 mg Fenofibrate (Tricor) 134 mg PO QOD [facility] Stop: 11/23/16 08:59 Last Admin: 09/28/16 08:14 Dose: 134 mg Glipizide (Glucotrol) 10 mg PO BIDAC [facility] Stop: 11/23/16 07:29 Last Admin: 09/28/16 06:32 Dose: 10 mg Insulin Aspart (Novolog) 0 units SUBQ ACHS GARRY PRN Reason: Protocol Stop: 11/22/16 20:59 Last Admin: 09/28/16 12:41 Dose: Not Given Levothyroxine Sodium (Synthroid) 0.088 mg PO QDAC [facility] Stop: 11/23/16 07:29 Last Admin: 09/28/16 06:32 Dose: 0.088 mg Lisinopril (Zestril) 10 mg PO DAILY [facility] Stop: 11/23/16 08:59 Last Admin: 09/28/16 08:16 Dose: 10 mg [place] Carbonate (Eskalith) 300 mg PO BID [facility] PRN Reason: Protocol Stop: 11/26/16 16:59 Last Admin: 09/28/16 08:16 Dose: 300 mg Lorazepam (Ativan) 1 mg PO Q6H PRN; Protocol PRN Reason: Anxiety Stop: 11/22/16 17:14 Last Admin: 09/28/16 08:55 Dose: 1 mg Neomycin/Polymyxin/Bacitracin (Triple Antibiotic Pkt) 1 pkt TP DAILY [facility] Stop: 09/29/16 09:01 Last Admin: 09/28/16 10:15 Dose: 1 pkt Pantoprazole Sodium (Protonix) 40 mg PO QDAC [facility] Stop: 11/23/16 07:29 Last Admin: 09/28/16 06:32 Dose: 40 mg Pioglitazone HCl (Actos) 30 mg PO QDAC [facility] Stop: 11/23/16 07:29 Last Admin: 09/28/16 06:31 Dose: 30 mg Quetiapine Fumarate (Seroquel) 300 mg PO Q12HR [facility] PRN Reason: Protocol Stop: 11/26/16 23:44 Last Admin: 09/28/16 08:15 Dose: 300 mg Sodium Bicarbonate (Sodium Bicarbonate) 650 mg PO TID [facility] PRN Reason: Protocol Stop: 11/22/16 20:59 Last Admin: 09/28/16 08:10 Dose: 650 mg Vitamin B Complex/Vit C/Folic Acid (Vitamin B Complex W/Vitamin C) 1 tab PO DAILY [facility] Stop: 11/23/16 08:59 Last Admin: 09/28/16 08:15 Dose: 1 tab Zolpidem Tartrate (Ambien) 5 mg PO HS PRN PRN Reason: Insomnia Stop: 11/25/16 00:23 General: demented HEENT: NC/AT, PERRLA Neck: Supple, No JVD Lungs: CTAB Cardiovascular: RRR, Normal S1, Normal S2 Abdomen: soft non-tender, non-distended, positive bowel sound Extremities: excoriation Neurological: no change, disorganized Internal Medicine Assmt/Plan - Assessment Assessment: agitation htn hyperlipidemia hypothyroid dm-2 - Plan Plan: cont on ada iss fall precaution dw rn Nutritional Asmnt/Malnutr-PDOC - Dietary Evaluation Malnutrition Findings (Please click <Entered> for more info): Nutritional Asmnt/Malnutrition Start: 09/27/16 16: 56 Text: Status: Complete Freq: Document 09/27/16 16:56 GSUN (Rec: 09/27/16 17:09 [email or web address] [email or web address]) Nutritional Asmnt/Malnutrition Patient General Information Nutritional Screening Diagnosis Diagnosis Schizophrenia chronic paranoid thype with acute exacerbation Pertinent Medical Hx/Surgical Hx HTN, hyperlipidemia, hypothyroidism, DM2 Subjective Information 60 [facility] Pt was asleep during visit, unable to be woken up. Pt usually seen ambulating around unit. RD has spoken to pt on unit prior to initial assessment, pt was verbally sexual, unable to have proper conversation with RD. Per nursing staff, pt is a poor historian, often times inappropriate, no nutrition concerns noted. Avg PO intake 100% since adm, meeting nutritional needs. Current Diet Order/ Nutrition Support [id number] Pertinent Medications Maalox, Colace, Glucotrol, Novolog, Synthroid, Protonix, Seroquel, Vitamin B Complex w/ Vitamin C Pertinent Labs POC glucose 73-128 past 3 days with 1 episode of 62L Nutritional Hx/Data Height 1.83 m Height (Calculated Centimeters) 182.9 Current Weight (lbs) 84.822 kg Weight (Calculated Kilograms) 84.8 Weight (Calculated Grams) 13707.8 [place] Body Weight 178lb Weight Status Approriate GI Symptoms Food Allergies No Skin Integrity/Comment: Richard 19. Skin intact, some scratches. Current %PO Good (75-100%) Estimated Nutritional Goals BEE in Kcals: Using Current wt Calories/Kcals/Kg IBW 178lb/80.9kg Kcals Calculated 2022-2427kcal (25-30kcal/kg) Protein: Using Current wt Protein Calculated 65-81g (0.8-1g/kg) Fluid: ml 2022-2427ml (1ml/kcal) Nutritional Problem 1. Problem Problem Inadequate carbohydrate intake related to Etiology estimated nutritional needs aeb Signs/Symptoms: current [id number] not meeting estimated cho/kcal needs Intervention/Recommendation Comments 1. Recommend [id number]. Current [id number] is inadequate to meet nutritional needs. Avg PO intake 100%. 2. Nursing staff to monitor glucose levels, 1 episode of hypoglycemia 62L noted. If multiple episodes of hypoglycemia noted, recommend liberalizing diet to regular diet. Expected Outcomes/Goals Expected Outcomes/Goals 1. PO intake to meet at least 75% of estimated nutritional needs.
--- NOTE | 2016-09-29 03:56 | Progress Notes ---
SUBJECTIVE: The patient was seen today, remains anxious and irritable, still easily agitated, and continues to have episodes of hypersexual behavior. Continues to require redirecting by staff, but he is taking his medications and he was started on lithium, so far has no side effects. ASSESSMENT: The patient is still in psychotic phase and highly impulsive. PLAN: We will continue medication management. We will continue stabilization. We will continue to monitor closely. [facility]# [id number]
[2016-09-29] MEDS: Pantoprazole 40 mg EC Tab PO SCH (06:33)
[2016-09-29] MEDS: Levothyroxine 0.088 Mg Tab PO SCH (06:34)
[2016-09-29] MEDS: INSULIN ASPART, RECOMBINANT 100 UNITS/ML SUBQ SCH ×4 (06:34→20:54)
[2016-09-29] MEDS: Benztropine 1 MG TAB PO SCH ×2 (08:26→16:44)
[2016-09-29] MEDS: Triple Antibiotic 0.94 gm Pkt TP SCH (08:26)
[2016-09-29] MEDS: Vitamin B Complex w/Vitamin C Tab PO SCH (08:28)
--- NOTE | 2016-09-29 21:26 | Internal Medicine Prog Note ---
Internal Medicine Subjective - Subjective Patient seen and examined:: with staff, chart reviewed Patient is:: awake, verbal, interactive Per staff patient is:: no adverse event, confused Internal Medicine Objective - Results Recent Labs: Laboratory Last Values POC Glucose 119 MG/DL (70 - 105) H 09/29/16 20:37 - Physical Exam Vitals and I&O: Vital Signs Temp 98.0 F 09/29/16 14:00 Pulse 87 09/29/16 14:00 Resp 19 09/29/16 14:00 BP 128/74 09/29/16 14:00 Pulse Ox 97 09/29/16 14:00 Intake & Output 09/29/16 09/29/16 09/30/16 06:59 18:59 06:59 Intake Total 1200 Balance 1200 Intake: Oral 1200 Other: # Voids 2 3 # Bowel Movements 1 Stool Characteristics Soft Soft Formed Formed Active Medications: Current Medications Acetaminophen (Tylenol) 650 mg PO Q4H PRN PRN Reason: Pain (Mild) Stop: 11/22/16 17:14 Al Hydrox/Mg Hydrox/Simethicone (Maalox) 30 ml PO Q6H PRN PRN Reason: GI UPSET Stop: 11/22/16 17:14 Benztropine Mesylate (Cogentin) 1 mg PO BID [facility] Stop: 11/23/16 08:59 Last Admin: 09/29/16 16:44 Dose: 1 mg Clonidine HCl (Catapres) 0.1 mg PO Q6H PRN PRN Reason: FOR SBP > 160 Stop: 11/22/16 17:14 Docusate Sodium (Colace) 100 mg PO BID [facility] Stop: 11/23/16 08:59 Last Admin: 09/29/16 16:48 Dose: 100 mg Fenofibrate (Tricor) 134 mg PO QOD [facility] Stop: 11/23/16 08:59 Last Admin: 09/28/16 08:14 Dose: 134 mg Glipizide (Glucotrol) 10 mg PO BIDAC [facility] Stop: 11/23/16 07:29 Last Admin: 09/29/16 16:44 Dose: 10 mg Insulin Aspart (Novolog) 0 units SUBQ ACHS [facility] PRN Reason: Protocol Stop: 11/22/16 20:59 Last Admin: 09/29/16 20:54 Dose: Not Given Levothyroxine Sodium (Synthroid) 0.088 mg PO QDAC [facility] Stop: 11/23/16 07:29 Last Admin: 09/29/16 06:34 Dose: 0.088 mg Lisinopril (Zestril) 10 mg PO DAILY [facility] Stop: 11/23/16 08:59 Last Admin: 09/29/16 08:27 Dose: 10 mg [place] Carbonate (Eskalith) 300 mg PO BID [facility] PRN Reason: Protocol Stop: 11/26/16 16:59 Last Admin: 09/29/16 16:40 Dose: 300 mg Lorazepam (Ativan) 1 mg PO Q6H PRN; Protocol PRN Reason: Anxiety Stop: 11/22/16 17:14 Last Admin: 09/29/16 16:44 Dose: 1 mg Pantoprazole Sodium (Protonix) 40 mg PO QDAC [facility] Stop: 11/23/16 07:29 Last Admin: 09/29/16 06:33 Dose: 40 mg Pioglitazone HCl (Actos) 30 mg PO QDAC [facility] Stop: 11/23/16 07:29 Last Admin: 09/29/16 06:34 Dose: Not Given Quetiapine Fumarate (Seroquel) 300 mg PO Q12HR [facility] PRN Reason: Protocol Stop: 11/26/16 23:44 Last Admin: 09/29/16 20:52 Dose: 300 mg Sodium Bicarbonate (Sodium Bicarbonate) 650 mg PO TID [facility] PRN Reason: Protocol Stop: 11/22/16 20:59 Last Admin: 09/29/16 20:52 Dose: 650 mg Vitamin B Complex/Vit C/Folic Acid (Vitamin B Complex W/Vitamin C) 1 tab PO DAILY [facility] Stop: 11/23/16 08:59 Last Admin: 09/29/16 08:28 Dose: 1 tab Zolpidem Tartrate (Ambien) 5 mg PO HS PRN PRN Reason: Insomnia Stop: 11/25/16 00:23 General: demented HEENT: NC/AT, PERRLA Neck: Supple Lungs: CTAB Cardiovascular: RRR, Normal S1, Normal S2 Abdomen: soft non-tender, globular, positive bowel sound Extremities: excoriation Internal Medicine Assmt/Plan - Assessment Assessment: agitation htn hyperlipidemia hypothyroid dm-2 - Plan Plan: cont on ada iss fall precaution dw rn Nutritional Asmnt/Malnutr-PDOC - Dietary Evaluation Malnutrition Findings (Please click <Entered> for more info): Nutritional Asmnt/Malnutrition Start: 09/27/16 16: 56 Text: Status: Complete Freq: Document 09/27/16 16:56 GSUN (Rec: 09/27/16 17:09 [email or web address] [id number]) Nutritional Asmnt/Malnutrition Patient General Information Nutritional Screening Diagnosis Diagnosis Schizophrenia chronic paranoid thype with acute exacerbation Pertinent Medical Hx/Surgical Hx HTN, hyperlipidemia, hypothyroidism, DM2 Subjective Information 60 [facility] Pt was asleep during visit, unable to be woken up. Pt usually seen ambulating around unit. RD has spoken to pt on unit prior to initial assessment, pt was verbally sexual, unable to have proper conversation with RD. Per nursing staff, pt is a poor historian, often times inappropriate, no nutrition concerns noted. Avg PO intake 100% since adm, meeting nutritional needs. Current Diet Order/ Nutrition Support [id number] Pertinent Medications Maalox, Colace, Glucotrol, Novolog, Synthroid, Protonix, Seroquel, Vitamin B Complex w/ Vitamin C Pertinent Labs POC glucose 73-128 past 3 days with 1 episode of 62L Nutritional Hx/Data Height 1.83 m Height (Calculated Centimeters) 182.9 Current Weight (lbs) 84.822 kg Weight (Calculated Kilograms) 84.8 Weight (Calculated Grams) 89615.8 [place] Body Weight 178lb Weight Status Approriate GI Symptoms Food Allergies No Skin Integrity/Comment: Richard 19. Skin intact, some scratches. Current %PO Good (75-100%) Estimated Nutritional Goals BEE in Kcals: Using Current wt Calories/Kcals/Kg IBW 178lb/80.9kg Kcals Calculated 202-2427kcal (25-30kcal/kg) Protein: Using Current wt Protein Calculated 65-81g (0.8-1g/kg) Fluid: ml 2022-2427ml (1ml/kcal) Nutritional Problem 1. Problem Problem Inadequate carbohydrate intake related to Etiology estimated nutritional needs aeb Signs/Symptoms: current [id number] not meeting estimated cho/kcal needs Intervention/Recommendation Comments 1. Recommend [id number]. Current [id number] is inadequate to meet nutritional needs. Avg PO intake 100%. 2. Nursing staff to monitor glucose levels, 1 episode of hypoglycemia 62L noted. If multiple episodes of hypoglycemia noted, recommend liberalizing diet to regular diet. Expected Outcomes/Goals Expected Outcomes/Goals 1. PO intake to meet at least 75% of estimated nutritional needs.
--- NOTE | 2016-09-30 04:06 | Progress Notes ---
SUBJECTIVE: The patient was seen, discussed with staff, chart is reviewed. Still intrusive, talking to himself, easily agitated, but his anger outbursts are less frequent, he is easier to redirect by staff. His insight remains poor, judgment remains impaired, his hypersexual behavior appears to be slightly less compared to at time of admission. ASSESSMENT: The patient still in psychotic phase. PLAN: We will continue stabilization, continue to monitor closely. Check lithium level in a.m. JOB# [id number]
[2016-09-30] MEDS: Levothyroxine 0.088 Mg Tab PO SCH (06:39)
[2016-09-30] MEDS: Pantoprazole 40 mg EC Tab PO SCH (06:39)
[2016-09-30] MEDS: INSULIN ASPART, RECOMBINANT 100 UNITS/ML SUBQ SCH ×4 (06:53→21:13)
[2016-09-30] MEDS: Fenofibrate, Micronized 134 mg Cap PO SCH (09:08)
[2016-09-30] MEDS: Vitamin B Complex w/Vitamin C Tab PO SCH (09:08)
[2016-09-30] MEDS: Benztropine 1 MG TAB PO SCH ×2 (09:08→16:58)
[2016-09-30] MEDS ORDERED: Haloperidol Lactate 5 mg/mL 1mL Vial IM ONE (12:30)
[2016-09-30] MEDS ORDERED: Haloperidol Lactate 5 mg/mL 1mL Vial ONE (12:32)
[2016-09-30] MEDS ORDERED: guaiFENesin 200 MG/10 ML UDC PO PRN (13:32)
--- NOTE | 2016-09-30 15:39 | Internal Medicine Prog Note ---
Internal Medicine Subjective - Subjective Patient seen and examined:: with staff, chart reviewed Patient is:: verbal, interactive Patient Complaints of:: cough Per staff patient is:: no adverse event, confused Internal Medicine Objective - Results Recent Labs: Laboratory Last Values POC Glucose 178 MG/DL (70 - 105) H 09/30/16 11:46 [place] 0.42 MEQ/L (0.50-1.00) 09/30/16 08:10 - Physical Exam Vitals and I&O: Vital Signs Temp 97 F 09/30/16 06:47 Pulse 89 09/30/16 09:08 Resp 18 09/30/16 06:47 BP 136/79 09/30/16 09:08 Pulse Ox 97 09/30/16 06:47 Intake & Output 09/29/16 09/30/16 09/30/16 18:59 06:59 18:59 Intake Total 1200 Balance 1200 Intake: Oral 1200 Other: # Voids 3 2 # Bowel Movements 1 Stool Characteristics Soft Formed Active Medications: Current Medications Acetaminophen (Tylenol) 650 mg PO Q4H PRN PRN Reason: Pain (Mild) Stop: 11/22/16 17:14 Al Hydrox/Mg Hydrox/Simethicone (Maalox) 30 ml PO Q6H PRN PRN Reason: GI UPSET Stop: 11/22/16 17:14 Benztropine Mesylate (Cogentin) 1 mg PO BID [facility] Stop: 11/23/16 08:59 Last Admin: 09/30/16 09:08 Dose: 1 mg Clonidine HCl (Catapres) 0.1 mg PO Q6H PRN PRN Reason: FOR SBP > 160 Stop: 11/22/16 17:14 Docusate Sodium (Colace) 100 mg PO BID [facility] Stop: 11/23/16 08:59 Last Admin: 09/30/16 09:08 Dose: 100 mg Fenofibrate (Tricor) 134 mg PO QOD [facility] Stop: 11/23/16 08:59 Last Admin: 09/30/16 09:08 Dose: 134 mg Glipizide (Glucotrol) 10 mg PO BIDAC [facility] Stop: 11/23/16 07:29 Last Admin: 09/30/16 06:39 Dose: 10 mg Guaifenesin (Robitussin) 200 mg PO Q4HR PRN PRN Reason: Cough or Congestion Stop: 11/29/16 13:31 Insulin Aspart (Novolog) 0 units SUBQ ACHS GARRY PRN Reason: Protocol Stop: 11/22/16 20:59 Last Admin: 09/30/16 11:47 Dose: Not Given Levothyroxine Sodium (Synthroid) 0.088 mg PO QDAC GARRY Stop: 11/23/16 07:29 Last Admin: 09/30/16 06:39 Dose: 0.088 mg Lisinopril (Zestril) 10 mg PO DAILY GARRY Stop: 11/23/16 08:59 Last Admin: 09/30/16 09:08 Dose: 10 mg [place] Carbonate (Eskalith) 300 mg PO BID GARRY PRN Reason: Protocol Stop: 11/26/16 16:59 Last Admin: 09/30/16 09:08 Dose: 300 mg Lorazepam (Ativan) 1 mg PO Q6H PRN; Protocol PRN Reason: Anxiety Stop: 11/22/16 17:14 Last Admin: 09/30/16 09:36 Dose: 1 mg Pantoprazole Sodium (Protonix) 40 mg PO QDAC GARRY Stop: 11/23/16 07:29 Last Admin: 09/30/16 06:39 Dose: 40 mg Pioglitazone HCl (Actos) 30 mg PO QDAC GARRY Stop: 11/23/16 07:29 Last Admin: 09/30/16 06:39 Dose: 30 mg Quetiapine Fumarate 300 mg/ (Quetiapine Fumarate 50 mg) 350 mg PO Q12HR GARRY Stop: 11/29/16 20:59 Sodium Bicarbonate (Sodium Bicarbonate) 650 mg PO TID GARRY PRN Reason: Protocol Stop: 11/22/16 20:59 Last Admin: 09/30/16 14:00 Dose: Not Given Vitamin B Complex/Vit C/Folic Acid (Vitamin B Complex W/Vitamin C) 1 tab PO DAILY GARRY Stop: 11/23/16 08:59 Last Admin: 09/30/16 09:08 Dose: 1 tab Zolpidem Tartrate (Ambien) 5 mg PO HS PRN PRN Reason: Insomnia Stop: 11/25/16 00:23 General: demented HEENT: NC/AT, PERRLA Neck: Supple, No JVD Lungs: CTAB Cardiovascular: RRR, Normal S1, Normal S2 Abdomen: soft non-tender, globular, distended Extremities: excoriation Neurological: no change, disorganized, unable to follow command Internal Medicine Assmt/Plan - Assessment Assessment: cough agitation htn hyperlipidemia hypothyroid dm-2 - Plan Plan: cont on ada iss fall precaution dw rn Nutritional Asmnt/Malnutr-PDOC - Dietary Evaluation Malnutrition Findings (Please click <Entered> for more info): Nutritional Asmnt/Malnutrition Start: 09/27/16 16: 56 Text: Status: Complete Freq: Document 09/27/16 16:56 GSUN (Rec: 09/27/16 17:09 GSUN [email or web address]) Nutritional Asmnt/Malnutrition Patient General Information Nutritional Screening Diagnosis Diagnosis Schizophrenia chronic paranoid thype with acute exacerbation Pertinent Medical Hx/Surgical Hx HTN, hyperlipidemia, hypothyroidism, DM2 Subjective Information 60 [facility] Pt was asleep during visit, unable to be woken up. Pt usually seen ambulating around unit. RD has spoken to pt on unit prior to initial assessment, pt was verbally sexual, unable to have proper conversation with RD. Per nursing staff, pt is a poor historian, often times inappropriate, no nutrition concerns noted. Avg PO intake 100% since adm, meeting nutritional needs. Current Diet Order/ Nutrition Support [id number] Pertinent Medications Maalox, Colace, Glucotrol, Novolog, Synthroid, Protonix, Seroquel, Vitamin B Complex w/ Vitamin C Pertinent Labs POC glucose 73-128 past 3 days with 1 episode of 62L Nutritional Hx/Data Height 1.83 m Height (Calculated Centimeters) 182.9 Current Weight (lbs) 84.822 kg Weight (Calculated Kilograms) 84.8 Weight (Calculated Grams) 88419.8 [place] Body Weight 178lb Weight Status Approriate GI Symptoms Food Allergies No Skin Integrity/Comment: Richard 19. Skin intact, some scratches. Current %PO Good (75-100%) Estimated Nutritional Goals BEE in Kcals: Using Current wt Calories/Kcals/Kg IBW 178lb/80.9kg Kcals Calculated 2022-2427kcal (25-30kcal/kg) Protein: Using Current wt Protein Calculated 65-81g (0.8-1g/kg) Fluid: ml 2022-2427ml (1ml/kcal) Nutritional Problem 1. Problem Problem Inadequate carbohydrate intake related to Etiology estimated nutritional needs aeb Signs/Symptoms: current [id number] not meeting estimated cho/kcal needs Intervention/Recommendation Comments 1. Recommend [id number]. Current [id number] is inadequate to meet nutritional needs. Avg PO intake 100%. 2. Nursing staff to monitor glucose levels, 1 episode of hypoglycemia 62L noted. If multiple episodes of hypoglycemia noted, recommend liberalizing diet to regular diet. Expected Outcomes/Goals Expected Outcomes/Goals 1. PO intake to meet at least 75% of estimated nutritional needs.
--- NOTE | 2016-09-30 22:20 | Progress Notes ---
SUBJECTIVE: The patient was seen, discussed with staff, still hostile, irritable, angry. Still easily agitated, woke up this morning, was yelling at staff for no apparent reason. The patient, on the other hand, is taking his medications, does not appear to have any side effects. His insight is still poor, judgment remains impaired. ASSESSMENT: The patient still in psychotic phase. PLAN: We will continue stabilization, increase Seroquel to 350 mg p.o. b.i.d. Monitor mood closely. JOB# [id number]
[2016-10-01] MEDS: INSULIN ASPART, RECOMBINANT 100 UNITS/ML SUBQ SCH ×4 (06:44→20:09)
[2016-10-01] MEDS: Levothyroxine 0.088 Mg Tab PO SCH (06:45)
[2016-10-01] MEDS: Pantoprazole 40 mg EC Tab PO SCH (06:45)
[2016-10-01] MEDS: Vitamin B Complex w/Vitamin C Tab PO SCH (08:24)
[2016-10-01] MEDS: Benztropine 1 MG TAB PO SCH ×2 (08:25→16:50)
--- NOTE | 2016-10-01 21:45 | Internal Medicine Prog Note ---
Internal Medicine Subjective - Subjective Patient seen and examined:: with staff, chart reviewed Patient is:: awake, verbal, interactive Per staff patient is:: no adverse event, agitated Internal Medicine Objective - Results Recent Labs: Laboratory Last Values POC Glucose 95 MG/DL (70 - 105) 10/01/16 19:58 [place] 0.42 MEQ/L (0.50-1.00) 09/30/16 08:10 - Physical Exam Vitals and I&O: Vital Signs Temp 97.6 F 10/01/16 14:00 Pulse 98 10/01/16 14:00 Resp 18 10/01/16 14:00 BP 128/82 10/01/16 14:00 Pulse Ox 96 10/01/16 14:00 Intake & Output 10/01/16 10/01/16 10/02/16 06:59 18:59 06:59 Intake Total 2600 Output Total 2 Balance -2 2600 Intake: Oral 2600 Output: Stool 2 Other: # Voids 2 4 # Bowel Movements 0 Active Medications: Current Medications Acetaminophen (Tylenol) 650 mg PO Q4H PRN PRN Reason: Pain (Mild) Stop: 11/22/16 17:14 Al Hydrox/Mg Hydrox/Simethicone (Maalox) 30 ml PO Q6H PRN PRN Reason: GI UPSET Stop: 11/22/16 17:14 Benztropine Mesylate (Cogentin) 1 mg PO BID [facility] Stop: 11/23/16 08:59 Last Admin: 10/01/16 16:50 Dose: 1 mg Clonidine HCl (Catapres) 0.1 mg PO Q6H PRN PRN Reason: FOR SBP > 160 Stop: 11/22/16 17:14 Docusate Sodium (Colace) 100 mg PO BID [facility] Stop: 11/23/16 08:59 Last Admin: 10/01/16 16:50 Dose: 100 mg Fenofibrate (Tricor) 134 mg PO QOD [facility] Stop: 11/23/16 08:59 Last Admin: 09/30/16 09:08 Dose: 134 mg Glipizide (Glucotrol) 10 mg PO BIDAC [facility] Stop: 11/23/16 07:29 Last Admin: 10/01/16 16:50 Dose: 10 mg Guaifenesin (Robitussin) 200 mg PO Q4HR PRN PRN Reason: Cough or Congestion Stop: 11/29/16 13:31 Insulin Aspart (Novolog) 0 units SUBQ ACHS GARRY PRN Reason: Protocol Stop: 11/22/16 20:59 Last Admin: 10/01/16 20:09 Dose: Not Given Levothyroxine Sodium (Synthroid) 0.088 mg PO QDAC GARRY Stop: 11/23/16 07:29 Last Admin: 10/01/16 06:45 Dose: 0.088 mg Lisinopril (Zestril) 10 mg PO DAILY GARRY Stop: 11/23/16 08:59 Last Admin: 10/01/16 08:24 Dose: 10 mg [place] Carbonate (Eskalith) 300 mg PO BID GARRY PRN Reason: Protocol Stop: 11/26/16 16:59 Last Admin: 10/01/16 16:50 Dose: 300 mg Lorazepam (Ativan) 1 mg PO Q6H PRN; Protocol PRN Reason: Anxiety Stop: 11/22/16 17:14 Last Admin: 10/01/16 16:49 Dose: 1 mg Pantoprazole Sodium (Protonix) 40 mg PO QDAC [facility]ARRY Stop: 11/23/16 07:29 Last Admin: 10/01/16 06:45 Dose: 40 mg Pioglitazone HCl (Actos) 30 mg PO QDAC [facility] Stop: 11/23/16 07:29 Last Admin: 10/01/16 06:45 Dose: Not Given Quetiapine Fumarate 300 mg/ (Quetiapine Fumarate 50 mg) 350 mg PO Q12HR GARRY Stop: 11/29/16 20:59 Last Admin: 10/01/16 20:10 Dose: 350 mg Sodium Bicarbonate (Sodium Bicarbonate) 650 mg PO TID GARRY PRN Reason: Protocol Stop: 11/22/16 20:59 Last Admin: 10/01/16 20:10 Dose: 650 mg Vitamin B Complex/Vit C/Folic Acid (Vitamin B Complex W/Vitamin C) 1 tab PO DAILY GARRY Stop: 11/23/16 08:59 Last Admin: 10/01/16 08:24 Dose: 1 tab Zolpidem Tartrate (Ambien) 5 mg PO HS PRN PRN Reason: Insomnia Stop: 11/25/16 00:23 General: demented HEENT: NC/AT, PERRLA Neck: Supple, No JVD Lungs: CTAB Cardiovascular: RRR, Normal S1, Normal S2 Abdomen: soft non-tender, non-distended, positive bowel sound Extremities: excoriation Neurological: disorganized Internal Medicine Assmt/Plan - Assessment Assessment: cough agitation htn hyperlipidemia hypothyroid dm-2 - Plan Plan: cont on ada iss fall precaution dw rn Nutritional Asmnt/Malnutr-PDOC - Dietary Evaluation Malnutrition Findings (Please click <Entered> for more info): Nutritional Asmnt/Malnutrition Start: 09/27/16 16: 56 Text: Status: Complete Freq: Document 09/27/16 16:56 GSUN (Rec: 09/27/16 17:09 GSUN [email or web address]) Nutritional Asmnt/Malnutrition Patient General Information Nutritional Screening Diagnosis Diagnosis Schizophrenia chronic paranoid thype with acute exacerbation Pertinent Medical Hx/Surgical Hx HTN, hyperlipidemia, hypothyroidism, DM2 Subjective Information 60 [facility] Pt was asleep during visit, unable to be woken up. Pt usually seen ambulating around unit. RD has spoken to pt on unit prior to initial assessment, pt was verbally sexual, unable to have proper conversation with RD. Per nursing staff, pt is a poor historian, often times inappropriate, no nutrition concerns noted. Avg PO intake 100% since adm, meeting nutritional needs. Current Diet Order/ Nutrition Support [id number] Pertinent Medications Maalox, Colace, Glucotrol, Novolog, Synthroid, Protonix, Seroquel, Vitamin B Complex w/ Vitamin C Pertinent Labs POC glucose 73-128 past 3 days with 1 episode of 62L Nutritional Hx/Data Height 1.83 m Height (Calculated Centimeters) 182.9 Current Weight (lbs) 84.822 kg Weight (Calculated Kilograms) 84.8 Weight (Calculated Grams) 09390.8 [place] Body Weight 178lb Weight Status Approriate GI Symptoms Food Allergies No Skin Integrity/Comment: Richard 19. Skin intact, some scratches. Current %PO Good (75-100%) Estimated Nutritional Goals BEE in Kcals: Using Current wt Calories/Kcals/Kg IBW 178lb/80.9kg Kcals Calculated 2022-2427kcal (25-30kcal/kg) Protein: Using Current wt Protein Calculated 65-81g (0.8-1g/kg) Fluid: ml 2023-2427ml (1ml/kcal) Nutritional Problem 1. Problem Problem Inadequate carbohydrate intake related to Etiology estimated nutritional needs aeb Signs/Symptoms: current [id number] not meeting estimated cho/kcal needs Intervention/Recommendation Comments 1. Recommend [id number]. Current [id number] is inadequate to meet nutritional needs. Avg PO intake 100%. 2. Nursing staff to monitor glucose levels, 1 episode of hypoglycemia 62L noted. If multiple episodes of hypoglycemia noted, recommend liberalizing diet to regular diet. Expected Outcomes/Goals Expected Outcomes/Goals 1. PO intake to meet at least 75% of estimated nutritional needs.
[2016-10-02] MEDS: INSULIN ASPART, RECOMBINANT 100 UNITS/ML SUBQ SCH ×4 (06:56→21:00)
[2016-10-02] MEDS: Pantoprazole 40 mg EC Tab PO SCH (06:57)
[2016-10-02] MEDS: Levothyroxine 0.088 Mg Tab PO SCH (06:57)
--- NOTE | 2016-10-02 07:28 | Progress Notes ---
PSYCHIATRIC PROGRESS NOTE TIME PATIENT SEEN: 10:00 a.m. SUBJECTIVE: Staff was spoken to. The patient is interviewed. Mood is noted to be irritable. Affect is constricted. Insight and judgment are noted to be still impaired. The patient is still responding to the internal stimuli. The patient is pacing most of the time on the unit. No side effects to the medications are noted. The patient is currently on quetiapine 350 mg ____. The patient has been able to tolerate these medications. No side effects to the medications are noted. The patient has been having difficult time to cope with the stress. The patient is grossly psychotic at this time and is not ready to be discharged to a lower level of care. ASSESSMENT: The patient is still psychotic. PLAN: To continue the patient with the current medications and followup. JOB# [id number]
[2016-10-02] MEDS: Vitamin B Complex w/Vitamin C Tab PO SCH (08:18)
[2016-10-02] MEDS: Fenofibrate, Micronized 134 mg Cap PO SCH (08:20)
[2016-10-02] MEDS: Benztropine 1 MG TAB PO SCH ×2 (08:20→16:48)
--- NOTE | 2016-10-02 20:18 | Internal Medicine Prog Note ---
Internal Medicine Subjective - Subjective Patient seen and examined:: with staff, chart reviewed Patient is:: awake, verbal, interactive Per staff patient is:: no adverse event, poor oral intake, noncompliant Internal Medicine Objective - Results Recent Labs: Laboratory Last Values POC Glucose 127 MG/DL (70 - 105) H 10/02/16 16:28 [place] 0.42 MEQ/L (0.50-1.00) 09/30/16 08:10 - Physical Exam Vitals and I&O: Vital Signs Temp 97 F 10/02/16 14:00 Pulse 95 10/02/16 14:00 Resp 20 10/02/16 14:00 BP 134/72 10/02/16 14:00 Pulse Ox 99 10/02/16 14:00 Intake & Output 10/02/16 10/02/16 10/03/16 06:59 18:59 06:59 Intake Total 120 2400 Balance 120 2400 Intake: Oral 120 2400 Other: # Voids 3 4 # Bowel Movements 1 Active Medications: Current Medications Acetaminophen (Tylenol) 650 mg PO Q4H PRN PRN Reason: Pain (Mild) Stop: 11/22/16 17:14 [place] Hydrox/Mg Hydrox/Simethicone (Maalox) 30 ml PO Q6H PRN PRN Reason: GI UPSET Stop: 11/22/16 17:14 Benztropine Mesylate (Cogentin) 1 mg PO BID [facility] Stop: 11/23/16 08:59 Last Admin: 10/02/16 16:48 Dose: 1 mg Clonidine HCl (Catapres) 0.1 mg PO Q6H PRN PRN Reason: FOR SBP > 160 Stop: 11/22/16 17:14 Docusate Sodium (Colace) 100 mg PO BID [facility] Stop: 11/23/16 08:59 Last Admin: 10/02/16 16:48 Dose: 100 mg Fenofibrate (Tricor) 134 mg PO QOD [facility] Stop: 11/23/16 08:59 Last Admin: 10/02/16 08:20 Dose: 134 mg Glipizide (Glucotrol) 10 mg PO BIDAC [facility] Stop: 11/23/16 07:29 Last Admin: 10/02/16 16:48 Dose: 10 mg Guaifenesin (Robitussin) 200 mg PO Q4HR PRN PRN Reason: Cough or Congestion Stop: 11/29/16 13:31 Insulin Aspart (Novolog) 0 units SUBQ ACHS GARRY PRN Reason: Protocol Stop: 11/22/16 20:59 Last Admin: 10/02/16 16:43 Dose: Not Given Levothyroxine Sodium (Synthroid) 0.088 mg PO QDAC GARRY Stop: 11/23/16 07:29 Last Admin: 10/02/16 06:57 Dose: 0.088 mg Lisinopril (Zestril) 10 mg PO DAILY [facility]Y Stop: 11/23/16 08:59 Last Admin: 10/02/16 08:20 Dose: 10 mg [place] Carbonate (Eskalith) 300 mg PO BID GARRY PRN Reason: Protocol Stop: 11/26/16 16:59 Last Admin: 10/02/16 16:48 Dose: 300 mg Lorazepam (Ativan) 1 mg PO Q6H PRN; Protocol PRN Reason: Anxiety Stop: 11/22/16 17:14 Last Admin: 10/02/16 16:48 Dose: 1 mg Pantoprazole Sodium (Protonix) 40 mg PO QDAC GARRY Stop: 11/23/16 07:29 Last Admin: 10/02/16 06:57 Dose: 40 mg Pioglitazone HCl (Actos) 30 mg PO QDAC GARRY Stop: 11/23/16 07:29 Last Admin: 10/02/16 06:57 Dose: 30 mg Quetiapine Fumarate 300 mg/ (Quetiapine Fumarate 50 mg) 350 mg PO Q12HR GARRY Stop: 11/29/16 20:59 Last Admin: 10/02/16 08:19 Dose: 350 mg Sodium Bicarbonate (Sodium Bicarbonate) 650 mg PO TID GARRY PRN Reason: Protocol Stop: 11/22/16 20:59 Last Admin: 10/02/16 13:55 Dose: 650 mg Vitamin B Complex/Vit C/Folic Acid (Vitamin B Complex W/Vitamin C) 1 tab PO DAILY GARRY Stop: 11/23/16 08:59 Last Admin: 10/02/16 08:18 Dose: 1 tab Zolpidem Tartrate (Ambien) 5 mg PO HS PRN PRN Reason: Insomnia Stop: 11/25/16 00:23 Last Admin: 10/01/16 23:09 Dose: 5 mg General: demented HEENT: NC/AT, PERRLA Neck: Supple, No JVD Lungs: CTAB Cardiovascular: RRR, Normal S1, Normal S2 Abdomen: soft non-tender, globular, non-distended, positive bowel sound Extremities: excoriation Neurological: no change, disorganized Internal Medicine Assmt/Plan - Assessment Assessment: cough agitation htn hyperlipidemia hypothyroid dm-2 - Plan Plan: cont on ada iss fall precaution dw rn Nutritional Asmnt/Malnutr-PDOC - Dietary Evaluation Malnutrition Findings (Please click <Entered> for more info): Nutritional Asmnt/Malnutrition Start: 09/27/16 16: 56 Text: Status: Complete Freq: Document 09/27/16 16:56 GSUN (Rec: 09/27/16 17:09 GSUN [email or web address]) Nutritional Asmnt/Malnutrition Patient General Information Nutritional Screening Diagnosis Diagnosis Schizophrenia chronic paranoid thype with acute exacerbation Pertinent Medical Hx/Surgical Hx HTN, hyperlipidemia, hypothyroidism, DM2 Subjective Information 60 [facility] male[facility] Pt was asleep during visit, unable to be woken up. Pt usually seen ambulating around unit. RD has spoken to pt on unit prior to initial assessment, pt was verbally sexual, unable to have proper conversation with RD. Per nursing staff, pt is a poor historian, often times inappropriate, no nutrition concerns noted. Avg PO intake 100% since adm, meeting nutritional needs. Current Diet Order/ Nutrition Support [id number] Pertinent Medications Maalox, Colace, Glucotrol, Novolog, Synthroid, Protonix, Seroquel, Vitamin B Complex w/ Vitamin C Pertinent Labs POC glucose 73-128 past 3 days with 1 episode of 62L Nutritional Hx/Data Height 1.83 m Height (Calculated Centimeters) 182.9 Current Weight (lbs) 84.822 kg Weight (Calculated Kilograms) 84.8 Weight (Calculated Grams) 54554.8 [place] Body Weight 178lb Weight Status Approriate GI Symptoms Food Allergies No Skin Integrity/Comment: Richard 19. Skin intact, some scratches. Current %PO Good (75-100%) Estimated Nutritional Goals BEE in Kcals: Using Current wt Calories/Kcals/Kg IBW 178lb/80.9kg Kcals Calculated 3-2427kcal (25-30kcal/kg) Protein: Using Current wt Protein Calculated 65-81g (0.8-1g/kg) Fluid: ml 2023-2427ml (1ml/kcal) Nutritional Problem 1. Problem Problem Inadequate carbohydrate intake related to Etiology estimated nutritional needs aeb Signs/Symptoms: current [id number] not meeting estimated cho/kcal needs Intervention/Recommendation Comments 1. Recommend [id number]. Current [id number] is inadequate to meet nutritional needs. Avg PO intake 100%. 2. Nursing staff to monitor glucose levels, 1 episode of hypoglycemia 62L noted. If multiple episodes of hypoglycemia noted, recommend liberalizing diet to regular diet. Expected Outcomes/Goals Expected Outcomes/Goals 1. PO intake to meet at least 75% of estimated nutritional needs.
--- NOTE | 2016-10-03 00:02 | Progress Notes ---
TIME PATIENT SEEN: 12 noon. SUBJECTIVE: Staff was spoken to. The patient is interviewed. Mood is noted to be irritable. Affect is constricted. The patient is screaming and yelling. The patient needs to be relocated to a different room close to the nurses' station. The patient has no insight into his illness. Coping skills are noted to be extremely poor at this time. ASSESSMENT: The patient is still grossly psychotic and impulsive. PLAN: To continue the patient with the supportive therapy. I encouraged the patient to verbalize the concerns rather than to act out. JOB# [id number]
[2016-10-03] MEDS: INSULIN ASPART, RECOMBINANT 100 UNITS/ML SUBQ SCH ×4 (06:38→20:32)
[2016-10-03] MEDS: Levothyroxine 0.088 Mg Tab PO SCH (06:43)
[2016-10-03] MEDS: Pantoprazole 40 mg EC Tab PO SCH (06:43)
[2016-10-03] MEDS: Vitamin B Complex w/Vitamin C Tab PO SCH (08:36)
[2016-10-03] MEDS: Benztropine 1 MG TAB PO SCH ×2 (08:37→16:45)
--- NOTE | 2016-10-03 20:21 | Internal Medicine Prog Note ---
Internal Medicine Subjective - Subjective Patient seen and examined:: with staff, chart reviewed Patient is:: awake, verbal, interactive, ambulating, denies SOB Per staff patient is:: no adverse event, confused Internal Medicine Objective - Results Recent Labs: Laboratory Last Values POC Glucose 112 MG/DL (70 - 105) H 10/03/16 17:16 [place] 0.83 MEQ/L (0.50-1.00) 10/03/16 13:00 - Physical Exam Vitals and I&O: Vital Signs Temp 98.4 F 10/03/16 19:51 Pulse 93 10/03/16 19:51 Resp 19 10/03/16 19:51 BP 137/79 10/03/16 19:51 Pulse Ox 98 10/03/16 19:51 Intake & Output 10/03/16 10/03/16 10/04/16 06:59 18:59 06:59 Intake Total 900 480 Balance 900 480 Intake: Oral 900 480 Other: # Voids 4 2 # Bowel Movements 1 Active Medications: Current Medications Acetaminophen (Tylenol) 650 mg PO Q4H PRN PRN Reason: Pain (Mild) Stop: 11/22/16 17:14 Al Hydrox/Mg Hydrox/Simethicone (Maalox) 30 ml PO Q6H PRN PRN Reason: GI UPSET Stop: 11/22/16 17:14 Benztropine Mesylate (Cogentin) 1 mg PO BID [facility] Stop: 11/23/16 08:59 Last Admin: 10/03/16 16:45 Dose: 1 mg Clonidine HCl (Catapres) 0.1 mg PO Q6H PRN PRN Reason: FOR SBP > 160 Stop: 11/22/16 17:14 Docusate Sodium (Colace) 100 mg PO BID [facility] Stop: 11/23/16 08:59 Last Admin: 10/03/16 16:46 Dose: 100 mg Fenofibrate (Tricor) 134 mg PO QOD [facility] Stop: 11/23/16 08:59 Last Admin: 10/02/16 08:20 Dose: 134 mg Glipizide (Glucotrol) 10 mg PO BIDAC [facility] Stop: 11/23/16 07:29 Last Admin: 10/03/16 15:52 Dose: Not Given Guaifenesin (Robitussin) 200 mg PO Q4HR PRN PRN Reason: Cough or Congestion Stop: 11/29/16 13:31 Insulin Aspart (Novolog) 0 units SUBQ ACHS [facility] PRN Reason: Protocol Stop: 11/22/16 20:59 Last Admin: 10/03/16 17:22 Dose: Not Given Levothyroxine Sodium (Synthroid) 0.088 mg PO QDAC [facility] Stop: 11/23/16 07:29 Last Admin: 10/03/16 06:43 Dose: 0.088 mg Lisinopril (Zestril) 10 mg PO DAILY [facility] Stop: 11/23/16 08:59 Last Admin: 10/03/16 08:43 Dose: 10 mg [place] Carbonate (Eskalith) 300 mg PO BID [facility] PRN Reason: Protocol Stop: 11/26/16 16:59 Last Admin: 10/03/16 16:45 Dose: 300 mg Lorazepam (Ativan) 1 mg PO Q6H PRN; Protocol PRN Reason: Anxiety Stop: 11/22/16 17:14 Last Admin: 10/03/16 08:37 Dose: 1 mg Pantoprazole Sodium (Protonix) 40 mg PO QDAC [facility] Stop: 11/23/16 07:29 Last Admin: 10/03/16 06:43 Dose: 40 mg Pioglitazone HCl (Actos) 30 mg PO QDAC [facility] Stop: 11/23/16 07:29 Last Admin: 10/03/16 06:43 Dose: 30 mg Quetiapine Fumarate (Seroquel) 400 mg PO Q12HR [facility] Stop: 12/02/16 12:44 Last Admin: 10/03/16 15:49 Dose: Not Given Sodium Bicarbonate (Sodium Bicarbonate) 650 mg PO TID [facility] PRN Reason: Protocol Stop: 11/22/16 20:59 Last Admin: 10/03/16 15:48 Dose: 650 mg Vitamin B Complex/Vit C/Folic Acid (Vitamin B Complex W/Vitamin C) 1 tab PO DAILY [facility] Stop: 11/23/16 08:59 Last Admin: 10/03/16 08:36 Dose: 1 tab Zolpidem Tartrate (Ambien) 5 mg PO HS PRN PRN Reason: Insomnia Stop: 11/25/16 00:23 Last Admin: 10/02/16 21:24 Dose: 5 mg General: demented HEENT: NC/AT, PERRLA Neck: Supple, No JVD Lungs: CTAB Cardiovascular: RRR, Normal S1, Normal S2 Abdomen: soft non-tender, globular, positive bowel sound Extremities: excoriation Neurological: no change Internal Medicine Assmt/Plan - Assessment Assessment: cough agitation htn hyperlipidemia hypothyroid dm-2 - Plan Plan: cont on ada iss fall precaution dw rn Nutritional Asmnt/Malnutr-PDOC - Dietary Evaluation Malnutrition Findings (Please click <Entered> for more info): Nutritional Asmnt/Malnutrition Start: 09/27/16 16: 56 Text: Status: Complete Freq: Document 09/27/16 16:56 GSUN (Rec: 09/27/16 17:09 GSUN [email or web address]) Nutritional Asmnt/Malnutrition Patient General Information Nutritional Screening Diagnosis Diagnosis Schizophrenia chronic paranoid thype with acute exacerbation Pertinent Medical Hx/Surgical Hx HTN, hyperlipidemia, hypothyroidism, DM2 Subjective Information 60 [facility] male, [facility] Pt was asleep during visit, unable to be woken up. Pt usually seen ambulating around unit. RD has spoken to pt on unit prior to initial assessment, pt was verbally sexual, unable to have proper conversation with RD. Per nursing staff, pt is a poor historian, often times inappropriate, no nutrition concerns noted. Avg PO intake 100% since adm, meeting nutritional needs. Current Diet Order/ Nutrition Support [id number] Pertinent Medications Maalox, Colace, Glucotrol, Novolog, Synthroid, Protonix, Seroquel, Vitamin B Complex w/ Vitamin C Pertinent Labs POC glucose 73-128 past 3 days with 1 episode of 62L Nutritional Hx/Data Height 1.83 m Height (Calculated Centimeters) 182.9 Current Weight (lbs) 84.822 kg Weight (Calculated Kilograms) 84.8 Weight (Calculated Grams) 76829.8 [place] Body Weight 178lb Weight Status Approriate GI Symptoms Food Allergies No Skin Integrity/Comment: Richard 19. Skin intact, some scratches. Current %PO Good (75-100%) Estimated Nutritional Goals BEE in Kcals: Using Current wt Calories/Kcals/Kg IBW 178lb/80.9kg Kcals Calculated 2022-7kcal (25-30kcal/kg) Protein: Using Current wt Protein Calculated 65-81g (0.8-1g/kg) Fluid: ml 2022-2427ml (1ml/kcal) Nutritional Problem 1. Problem Problem Inadequate carbohydrate intake related to Etiology estimated nutritional needs aeb Signs/Symptoms: current [id number] not meeting estimated cho/kcal needs Intervention/Recommendation Comments 1. Recommend [id number]. Current [id number] is inadequate to meet nutritional needs. Avg PO intake 100%. 2. Nursing staff to monitor glucose levels, 1 episode of hypoglycemia 62L noted. If multiple episodes of hypoglycemia noted, recommend liberalizing diet to regular diet. Expected Outcomes/Goals Expected Outcomes/Goals 1. PO intake to meet at least 75% of estimated nutritional needs.
--- NOTE | 2016-10-04 00:24 | Progress Notes ---
DATE: 10/03/2016 SUBJECTIVE: The patient was seen, discussed with staff, and chart reviewed. Still anxious, intrusive, irritable, and still with episodes of agitation, yelling, some episodes of hypersexual behavior. His insight is poor and judgment remains impaired. ASSESSMENT: The patient is still in psychotic phase. PLAN: We will continue stabilization. Increase Seroquel to 400 mg p.o. b.i.d. Monitor closely. The patient also was started on lithium 300 mg p.o. b.i.d. We will check lithium level. JOB# [id number]
[2016-10-04] MEDS: Levothyroxine 0.088 Mg Tab PO SCH (06:46)
[2016-10-04] MEDS: Pantoprazole 40 mg EC Tab PO SCH (06:46)
[2016-10-04] MEDS: INSULIN ASPART, RECOMBINANT 100 UNITS/ML SUBQ SCH ×4 (07:00→21:07)
[2016-10-04] MEDS: Vitamin B Complex w/Vitamin C Tab PO SCH (08:30)
[2016-10-04] MEDS: Fenofibrate, Micronized 134 mg Cap PO SCH (08:30)
[2016-10-04] MEDS: Benztropine 1 MG TAB PO SCH ×2 (08:31→16:35)
--- NOTE | 2016-10-04 13:04 | Internal Medicine Prog Note ---
Internal Medicine Subjective - Subjective Patient seen and examined:: with staff, chart reviewed Patient is:: verbal, interactive Per staff patient is:: no adverse event, noncompliant, confused Internal Medicine Objective - Results Recent Labs: Laboratory Last Values POC Glucose 89 MG/DL (70 - 105) 10/04/16 11:49 [place] 0.83 MEQ/L (0.50-1.00) 10/03/16 13:00 - Physical Exam Vitals and I&O: Vital Signs Temp 98.0 F 10/04/16 05:54 Pulse 88 10/04/16 08:31 Resp 20 10/04/16 05:54 BP 145/75 10/04/16 08:31 Pulse Ox 95 10/04/16 05:54 Intake & Output 10/03/16 10/04/16 10/04/16 18:59 06:59 18:59 Intake Total 900 480 Balance 900 480 Intake: Oral 900 480 Other: # Voids 4 2 # Bowel Movements 1 0 Active Medications: Current Medications Acetaminophen (Tylenol) 650 mg PO Q4H PRN PRN Reason: Pain (Mild) Stop: 11/22/16 17:14 Al Hydrox/Mg Hydrox/Simethicone (Maalox) 30 ml PO Q6H PRN PRN Reason: GI UPSET Stop: 11/22/16 17:14 Benztropine Mesylate (Cogentin) 1 mg PO BID [facility] Stop: 11/23/16 08:59 Last Admin: 10/04/16 08:31 Dose: 1 mg Clonidine HCl (Catapres) 0.1 mg PO Q6H PRN PRN Reason: FOR SBP > 160 Stop: 11/22/16 17:14 Docusate Sodium (Colace) 100 mg PO BID [facility] Stop: 11/23/16 08:59 Last Admin: 10/04/16 08:31 Dose: 100 mg Fenofibrate (Tricor) 134 mg PO QOD [facility] Stop: 11/23/16 08:59 Last Admin: 10/04/16 08:30 Dose: 134 mg Glipizide (Glucotrol) 10 mg PO BIDAC [facility] Stop: 11/23/16 07:29 Last Admin: 10/04/16 06:45 Dose: 10 mg Guaifenesin (Robitussin) 200 mg PO Q4HR PRN PRN Reason: Cough or Congestion Stop: 11/29/16 13:31 Insulin Aspart (Novolog) 0 units SUBQ ACHS [facility] PRN Reason: Protocol Stop: 11/22/16 20:59 Last Admin: 10/04/16 12:04 Dose: Not Given Levothyroxine Sodium (Synthroid) 0.088 mg PO QDAC [facility] Stop: 11/23/16 07:29 Last Admin: 10/04/16 06:46 Dose: 0.088 mg Lisinopril (Zestril) 10 mg PO DAILY [facility] Stop: 11/23/16 08:59 Last Admin: 10/04/16 08:31 Dose: 10 mg [place] Carbonate (Eskalith) 300 mg PO BID [facility] PRN Reason: Protocol Stop: 11/26/16 16:59 Last Admin: 10/04/16 08:31 Dose: 300 mg Lorazepam (Ativan) 1 mg PO Q6H PRN; Protocol PRN Reason: Anxiety Stop: 11/22/16 17:14 Last Admin: 10/03/16 08:37 Dose: 1 mg Pantoprazole Sodium (Protonix) 40 mg PO QDAC [facility] Stop: 11/23/16 07:29 Last Admin: 10/04/16 06:46 Dose: 40 mg Pioglitazone HCl (Actos) 30 mg PO QDAC [facility] Stop: 11/23/16 07:29 Last Admin: 10/04/16 06:46 Dose: 30 mg Quetiapine Fumarate (Seroquel) 400 mg PO Q12HR [facility] Stop: 12/02/16 12:44 Last Admin: 10/04/16 08:29 Dose: 400 mg Sodium Bicarbonate (Sodium Bicarbonate) 650 mg PO TID [facility] PRN Reason: Protocol Stop: 11/22/16 20:59 Last Admin: 10/04/16 08:29 Dose: 650 mg Vitamin B Complex/Vit C/Folic Acid (Vitamin B Complex W/Vitamin C) 1 tab PO DAILY [facility] Stop: 11/23/16 08:59 Last Admin: 10/04/16 08:30 Dose: 1 tab Zolpidem Tartrate (Ambien) 5 mg PO HS PRN PRN Reason: Insomnia Stop: 11/25/16 00:23 Last Admin: 10/02/16 21:24 Dose: 5 mg General: demented HEENT: NC/AT, PERRLA Neck: Supple, No JVD Lungs: CTAB Cardiovascular: RRR, Normal S1, Normal S2 Abdomen: soft non-tender, globular, distended Extremities: excoriation Neurological: no change Internal Medicine Assmt/Plan - Assessment Assessment: cough agitation htn hyperlipidemia hypothyroid dm-2 - Plan Plan: cont on ada iss fall precaution dw rn Nutritional Asmnt/Malnutr-PDOC - Dietary Evaluation Malnutrition Findings (Please click <Entered> for more info): Nutritional Asmnt/Malnutrition Start: 09/27/16 16: 56 Text: Status: Complete Freq: Document 09/27/16 16:56 GSUN (Rec: 09/27/16 17:09 GSUN [email or web address]) Nutritional Asmnt/Malnutrition Patient General Information Nutritional Screening Diagnosis Diagnosis Schizophrenia chronic paranoid thype with acute exacerbation Pertinent Medical Hx/Surgical Hx HTN, hyperlipidemia, hypothyroidism, DM2 Subjective Information 60 [facility] male, [facility] Pt was asleep during visit, unable to be woken up. Pt usually seen ambulating around unit. RD has spoken to pt on unit prior to initial assessment, pt was verbally sexual, unable to have proper conversation with RD. Per nursing staff, pt is a poor historian, often times inappropriate, no nutrition concerns noted. Avg PO intake 100% since adm, meeting nutritional needs. Current Diet Order/ Nutrition Support [id number] Pertinent Medications Maalox, Colace, Glucotrol, Novolog, Synthroid, Protonix, Seroquel, Vitamin B Complex w/ Vitamin C Pertinent Labs POC glucose 73-128 past 3 days with 1 episode of 62L Nutritional Hx/Data Height 1.83 m Height (Calculated Centimeters) 182.9 Current Weight (lbs) 84.822 kg Weight (Calculated Kilograms) 84.8 Weight (Calculated Grams) 81020.8 [place] Body Weight 178lb Weight Status Approriate GI Symptoms Food Allergies No Skin Integrity/Comment: [place] 19. Skin intact, some scratches. Current %PO Good (75-100%) Estimated Nutritional Goals BEE in Kcals: Using Current wt Calories/Kcals/Kg IBW 178lb/80.9kg Kcals Calculated 2022-2427kcal (25-30kcal/kg) Protein: Using Current wt Protein Calculated 65-81g (0.8-1g/kg) Fluid: ml 2023-2427ml (1ml/kcal) Nutritional Problem 1. Problem Problem Inadequate carbohydrate intake related to Etiology estimated nutritional needs aeb Signs/Symptoms: current [id number] not meeting estimated cho/kcal needs Intervention/Recommendation Comments 1. Recommend [id number]. Current [id number] is inadequate to meet nutritional needs. Avg PO intake 100%. 2. Nursing staff to monitor glucose levels, 1 episode of hypoglycemia 62L noted. If multiple episodes of hypoglycemia noted, recommend liberalizing diet to regular diet. Expected Outcomes/Goals Expected Outcomes/Goals 1. PO intake to meet at least 75% of estimated nutritional needs.
--- NOTE | 2016-10-05 04:15 | Progress Notes ---
DATE: 10/04/2016 SUBJECTIVE: I met this patient, discussed with staff. Still anxious, angry, still irritable, labile, intrusive, episodes of yelling. His insight is poor. Judgment remains impaired. The patient is taking his medications. He does not appear to have any side effects. His Seroquel was increased. ASSESSMENT: The patient is still in psychotic phase, highly agitated. PLAN: We will continue medication management. Consider the use of the second antipsychotic medication. JOB# [id number]
[2016-10-05] MEDS: Pantoprazole 40 mg EC Tab PO SCH (06:44)
[2016-10-05] MEDS: Levothyroxine 0.088 Mg Tab PO SCH (06:45)
[2016-10-05] MEDS: INSULIN ASPART, RECOMBINANT 100 UNITS/ML SUBQ SCH ×4 (06:47→20:32)
[2016-10-05] MEDS: Vitamin B Complex w/Vitamin C Tab PO SCH (08:51)
[2016-10-05] MEDS: Benztropine 1 MG TAB PO SCH ×2 (08:51→16:57)
--- NOTE | 2016-10-05 15:23 | Internal Medicine Prog Note ---
Internal Medicine Subjective - Subjective Patient seen and examined:: with staff, chart reviewed Patient is:: awake, verbal, interactive Per staff patient is:: no adverse event, confused Internal Medicine Objective - Results Recent Labs: Laboratory Last Values POC Glucose 99 MG/DL (70 - 105) 10/05/16 12:05 [place] 0.83 MEQ/L (0.50-1.00) 10/03/16 13:00 - Physical Exam Vitals and I&O: Vital Signs Temp 97.9 F 10/05/16 06:12 Pulse 82 10/05/16 11:05 Resp 20 10/05/16 11:05 BP 139/89 10/05/16 08:50 Pulse Ox 97 10/05/16 06:12 Intake & Output 10/04/16 10/05/16 10/05/16 18:59 06:59 18:59 Intake Total 1000 480 Balance 1000 480 Intake: Oral 1000 480 Other: # Voids 4 3 # Bowel Movements 1 0 Active Medications: Current Medications Acetaminophen (Tylenol) 650 mg PO Q4H PRN PRN Reason: Pain (Mild) Stop: 11/22/16 17:14 Al Hydrox/Mg Hydrox/Simethicone (Maalox) 30 ml PO Q6H PRN PRN Reason: GI UPSET Stop: 11/22/16 17:14 Benztropine Mesylate (Cogentin) 1 mg PO BID [facility] Stop: 11/23/16 08:59 Last Admin: 10/05/16 08:51 Dose: 1 mg Clonidine HCl (Catapres) 0.1 mg PO Q6H PRN PRN Reason: FOR SBP > 160 Stop: 11/22/16 17:14 Docusate Sodium (Colace) 100 mg PO BID [facility] Stop: 11/23/16 08:59 Last Admin: 10/05/16 08:50 Dose: 100 mg Fenofibrate (Tricor) 134 mg PO QOD [facility] Stop: 11/23/16 08:59 Last Admin: 10/04/16 08:30 Dose: 134 mg Glipizide (Glucotrol) 10 mg PO BIDAC [facility] Stop: 11/23/16 07:29 Last Admin: 10/05/16 06:44 Dose: 10 mg Guaifenesin (Robitussin) 200 mg PO Q4HR PRN PRN Reason: Cough or Congestion Stop: 11/29/16 13:31 Insulin Aspart (Novolog) 0 units SUBQ ACHS GARRY PRN Reason: Protocol Stop: 11/22/16 20:59 Last Admin: 10/05/16 13:13 Dose: Not Given Levothyroxine Sodium (Synthroid) 0.088 mg PO QDAC [facility] Stop: 11/23/16 07:29 Last Admin: 10/05/16 06:45 Dose: 0.088 mg Lisinopril (Zestril) 10 mg PO DAILY [facility] Stop: 11/23/16 08:59 Last Admin: 10/05/16 08:50 Dose: 10 mg [place] Carbonate (Eskalith) 300 mg PO BID [facility] PRN Reason: Protocol Stop: 11/26/16 16:59 Last Admin: 10/05/16 08:50 Dose: 300 mg Lorazepam (Ativan) 1 mg PO Q6H PRN; Protocol PRN Reason: Anxiety Stop: 11/22/16 17:14 Last Admin: 10/03/16 08:37 Dose: 1 mg Pantoprazole Sodium (Protonix) 40 mg PO QDAC [facility] Stop: 11/23/16 07:29 Last Admin: 10/05/16 06:44 Dose: 40 mg Pioglitazone HCl (Actos) 30 mg PO QDAC [facility] Stop: 11/23/16 07:29 Last Admin: 10/05/16 06:44 Dose: 30 mg Quetiapine Fumarate (Seroquel) 400 mg PO Q12HR [facility] Stop: 12/02/16 12:44 Last Admin: 10/05/16 08:50 Dose: 400 mg Sodium Bicarbonate (Sodium Bicarbonate) 650 mg PO TID [facility] PRN Reason: Protocol Stop: 11/22/16 20:59 Last Admin: 10/05/16 08:50 Dose: 650 mg Vitamin B Complex/Vit C/Folic Acid (Vitamin B Complex W/Vitamin C) 1 tab PO DAILY [facility] Stop: 11/23/16 08:59 Last Admin: 10/05/16 08:51 Dose: 1 tab Zolpidem Tartrate (Ambien) 5 mg PO HS PRN PRN Reason: Insomnia Stop: 11/25/16 00:23 Last Admin: 10/02/16 21:24 Dose: 5 mg General: demented, cachectic HEENT: PERRLA Neck: Supple, No JVD Lungs: CTAB Cardiovascular: RRR, Normal S1, Normal S2 Abdomen: soft non-tender, globular Extremities: excoriation, contracture Neurological: disorganized, unable to follow command Internal Medicine Assmt/Plan - Assessment Assessment: cough agitation htn hyperlipidemia hypothyroid dm-2 - Plan Plan: cont on ada iss fall precaution dw rn Nutritional Asmnt/Malnutr-PDOC - Dietary Evaluation Malnutrition Findings (Please click <Entered> for more info): Nutritional Asmnt/Malnutrition Start: 09/27/16 16: 56 Text: Status: Complete Freq: Document 09/27/16 16:56 GSUN (Rec: 09/27/16 17:09 GSUN [email or web address]) Nutritional Asmnt/Malnutrition Patient General Information Nutritional Screening Diagnosis Diagnosis Schizophrenia chronic paranoid thype with acute exacerbation Pertinent Medical Hx/Surgical Hx HTN, hyperlipidemia, hypothyroidism, DM2 Subjective Information 60 [facility] male[facility] Pt was asleep during visit, unable to be woken up. Pt usually seen ambulating around unit. RD has spoken to pt on unit prior to initial assessment, pt was verbally sexual, unable to have proper conversation with RD. Per nursing staff, pt is a poor historian, often times inappropriate, no nutrition concerns noted. Avg PO intake 100% since adm, meeting nutritional needs. Current Diet Order/ Nutrition Support [id number] Pertinent Medications Maalox, Colace, Glucotrol, Novolog, Synthroid, Protonix, Seroquel, Vitamin B Complex w/ Vitamin C Pertinent Labs POC glucose 73-128 past 3 days with 1 episode of 62L Nutritional Hx/Data Height 1.83 m Height (Calculated Centimeters) 182.9 Current Weight (lbs) 84.822 kg Weight (Calculated Kilograms) 84.8 Weight (Calculated Grams) 20117.8 [place] Body Weight 178lb Weight Status Approriate GI Symptoms Food Allergies No Skin Integrity/Comment: Richard 19. Skin intact, some scratches. Current %PO Good (75-100%) Estimated Nutritional Goals BEE in Kcals: Using Current wt Calories/Kcals/Kg IBW 178lb/80.9kg Kcals Calculated 2022-2427kcal (25-30kcal/kg) Protein: Using Current wt Protein Calculated 65-81g (0.8-1g/kg) Fluid: ml 2023-2427ml (1ml/kcal) Nutritional Problem 1. Problem Problem Inadequate carbohydrate intake related to Etiology estimated nutritional needs aeb Signs/Symptoms: current [id number] not meeting estimated cho/kcal needs Intervention/Recommendation Comments 1. Recommend [id number]. Current [id number] is inadequate to meet nutritional needs. Avg PO intake 100%. 2. Nursing staff to monitor glucose levels, 1 episode of hypoglycemia 62L noted. If multiple episodes of hypoglycemia noted, recommend liberalizing diet to regular diet. Expected Outcomes/Goals Expected Outcomes/Goals 1. PO intake to meet at least 75% of estimated nutritional needs.
--- NOTE | 2016-10-05 23:17 | Progress Notes ---
DATE: 10/05/2016 SUBJECTIVE: The patient was seen, discussed with staff. Still restless, paranoid, some agitation, irritability and he is pacing on the unit. On the other hand, he is taking his medications and his anger outbursts have decreased. His insight is still limited, judgment remains impaired. The patient is tolerating lithium and Seroquel well. ASSESSMENT: The patient is still in psychotic phase. PLAN: Continue hospitalization, monitor closely, continue supportive measures. JOB# [id number]
[2016-10-06] MEDS: Levothyroxine 0.088 Mg Tab PO SCH (06:40)
[2016-10-06] MEDS: Pantoprazole 40 mg EC Tab PO SCH (06:40)
[2016-10-06] MEDS: INSULIN ASPART, RECOMBINANT 100 UNITS/ML SUBQ SCH ×4 (06:41→20:54)
[2016-10-06] MEDS: Vitamin B Complex w/Vitamin C Tab PO SCH (09:49)
[2016-10-06] MEDS: Fenofibrate, Micronized 134 mg Cap PO SCH (09:49)
[2016-10-06] MEDS: Benztropine 1 MG TAB PO SCH ×2 (09:49→16:51)
--- NOTE | 2016-10-06 13:50 | Internal Medicine Prog Note ---
Internal Medicine Subjective - Subjective Patient seen and examined:: with staff, chart reviewed Patient is:: awake, verbal, interactive Per staff patient is:: no adverse event, no episodes of fall, confused Internal Medicine Objective - Results Recent Labs: Laboratory Last Values POC Glucose 158 MG/DL (70 - 105) H 10/06/16 11:30 [place] 1.86 MEQ/L (0.50-1.00) H* 10/05/16 16:05 - Physical Exam Vitals and I&O: Vital Signs Temp 97.4 F 10/06/16 07:22 Pulse 78 10/06/16 09:50 Resp 19 10/06/16 07:22 BP 126/87 10/06/16 09:50 Pulse Ox 98 10/06/16 07:22 Intake & Output 10/05/16 10/06/16 10/06/16 18:59 06:59 18:59 Intake Total 1200 Balance 1200 Intake: Oral 1200 Other: # Voids 3 2 # Bowel Movements 1 Active Medications: Current Medications Acetaminophen (Tylenol) 650 mg PO Q4H PRN PRN Reason: Pain (Mild) Stop: 11/22/16 17:14 Al Hydrox/Mg Hydrox/Simethicone (Maalox) 30 ml PO Q6H PRN PRN Reason: GI UPSET Stop: 11/22/16 17:14 Benztropine Mesylate (Cogentin) 1 mg PO BID [facility] Stop: 11/23/16 08:59 Last Admin: 10/06/16 09:49 Dose: 1 mg Clonidine HCl (Catapres) 0.1 mg PO Q6H PRN PRN Reason: FOR SBP > 160 Stop: 11/22/16 17:14 Docusate Sodium (Colace) 100 mg PO BID [facility] Stop: 11/23/16 08:59 Last Admin: 10/06/16 09:49 Dose: 100 mg Fenofibrate (Tricor) 134 mg PO QOD [facility] Stop: 11/23/16 08:59 Last Admin: 10/06/16 09:49 Dose: 134 mg Glipizide (Glucotrol) 10 mg PO BIDAC [facility] Stop: 11/23/16 07:29 Last Admin: 10/06/16 06:40 Dose: 10 mg Guaifenesin (Robitussin) 200 mg PO Q4HR PRN PRN Reason: Cough or Congestion Stop: 11/29/16 13:31 Insulin Aspart (Novolog) 0 units SUBQ ACHS GARRY PRN Reason: Protocol Stop: 11/22/16 20:59 Last Admin: 10/06/16 11:43 Dose: Not Given Levothyroxine Sodium (Synthroid) 0.088 mg PO QDAC [facility] Stop: 11/23/16 07:29 Last Admin: 10/06/16 06:40 Dose: 0.088 mg Lisinopril (Zestril) 10 mg PO DAILY [facility] Stop: 11/23/16 08:59 Last Admin: 10/06/16 09:50 Dose: 10 mg Lorazepam (Ativan) 1 mg PO Q6H PRN; Protocol PRN Reason: Anxiety Stop: 11/22/16 17:14 Last Admin: 10/03/16 08:37 Dose: 1 mg Pantoprazole Sodium (Protonix) 40 mg PO QDAC [facility] Stop: 11/23/16 07:29 Last Admin: 10/06/16 06:40 Dose: 40 mg Pioglitazone HCl (Actos) 30 mg PO QDAC [facility] Stop: 11/23/16 07:29 Last Admin: 10/06/16 06:40 Dose: 30 mg Quetiapine Fumarate (Seroquel) 400 mg PO Q12HR [facility] Stop: 12/02/16 12:44 Last Admin: 10/06/16 09:49 Dose: 400 mg Sodium Bicarbonate (Sodium Bicarbonate) 650 mg PO TID [facility]ARRY PRN Reason: Protocol Stop: 11/22/16 20:59 Last Admin: 10/06/16 09:49 Dose: 650 mg Vitamin B Complex/Vit C/Folic Acid (Vitamin B Complex W/Vitamin C) 1 tab PO DAILY [facility] Stop: 11/23/16 08:59 Last Admin: 10/06/16 09:49 Dose: 1 tab Zolpidem Tartrate (Ambien) 5 mg PO HS PRN PRN Reason: Insomnia Stop: 11/25/16 00:23 Last Admin: 10/02/16 21:24 Dose: 5 mg General: demented HEENT: NC/AT, PERRLA Neck: Supple, No JVD Lungs: CTAB Cardiovascular: RRR, Normal S1, Normal S2 Abdomen: soft non-tender, globular, non-distended, positive bowel sound Extremities: excoriation Neurological: no change Internal Medicine Assmt/Plan - Assessment Assessment: cough agitation htn hyperlipidemia hypothyroid dm-2 - Plan Plan: cont on ada iss fall precaution dw rn Nutritional Asmnt/Malnutr-PDOC - Dietary Evaluation Malnutrition Findings (Please click <Entered> for more info): Nutritional Asmnt/Malnutrition Start: 09/27/16 16: 56 Text: Status: Complete Freq: Document 09/27/16 16:56 GSUN (Rec: 09/27/16 17:09 GSUN [email or web address]) Nutritional Asmnt/Malnutrition Patient General Information Nutritional Screening Diagnosis Diagnosis Schizophrenia chronic paranoid thype with acute exacerbation Pertinent Medical Hx/Surgical Hx HTN, hyperlipidemia, hypothyroidism, DM2 Subjective Information 60 year old male, [facility] Pt was asleep during visit, unable to be woken up. Pt usually seen ambulating around unit. RD has spoken to pt on unit prior to initial assessment, pt was verbally sexual, unable to have proper conversation with RD. Per nursing staff, pt is a poor historian, often times inappropriate, no nutrition concerns noted. Avg PO intake 100% since adm, meeting nutritional needs. Current Diet Order/ Nutrition Support [id number] Pertinent Medications Maalox, Colace, Glucotrol, Novolog, Synthroid, Protonix, Seroquel, Vitamin B Complex w/ Vitamin C Pertinent Labs POC glucose 73-128 past 3 days with 1 episode of 62L Nutritional Hx/Data Height 1.83 m Height (Calculated Centimeters) 182.9 Current Weight (lbs) 84.822 kg Weight (Calculated Kilograms) 84.8 Weight (Calculated Grams) 98873.8 [place] Body Weight 178lb Weight Status Approriate GI Symptoms Food Allergies No Skin Integrity/Comment: Richard 19. Skin intact, some scratches. Current %PO Good (75-100%) Estimated Nutritional Goals BEE in Kcals: Using Current wt Calories/Kcals/Kg IBW 178lb/80.9kg Kcals Calculated 2022-2427kcal (25-30kcal/kg) Protein: Using Current wt Protein Calculated 65-81g (0.8-1g/kg) Fluid: ml 2022-2427ml (1ml/kcal) Nutritional Problem 1. Problem Problem Inadequate carbohydrate intake related to Etiology estimated nutritional needs aeb Signs/Symptoms: current [id number] not meeting estimated cho/kcal needs Intervention/Recommendation Comments 1. Recommend [id number]. Current [id number] is inadequate to meet nutritional needs. Avg PO intake 100%. 2. Nursing staff to monitor glucose levels, 1 episode of hypoglycemia 62L noted. If multiple episodes of hypoglycemia noted, recommend liberalizing diet to regular diet. Expected Outcomes/Goals Expected Outcomes/Goals 1. PO intake to meet at least 75% of estimated nutritional needs.
--- NOTE | 2016-10-07 01:48 | Progress Notes ---
DATE: 10/06/2016 SUBJECTIVE: The patient was seen, discussed with staff, and chart reviewed. Still restless at times and episodes of agitation, requires redirecting by staff. The patient, however, is eating better and sleeps fair. The patient's lithium level was 1.86, high. ASSESSMENT: The patient is still disorganized, highly confused, and still has some episodes of irritability. PLAN: We will hold lithium for a day or so, then restart at a lower dose and monitor closely. JOB# [id number]
[2016-10-07] MEDS: Levothyroxine 0.088 Mg Tab PO SCH (06:38)
[2016-10-07] MEDS: Pantoprazole 40 mg EC Tab PO SCH (06:38)
[2016-10-07] MEDS: INSULIN ASPART, RECOMBINANT 100 UNITS/ML SUBQ SCH ×4 (06:46→21:00)
[2016-10-07] MEDS: Vitamin B Complex w/Vitamin C Tab PO SCH (08:40)
[2016-10-07] MEDS: Benztropine 1 MG TAB PO SCH ×2 (08:41→16:31)
--- NOTE | 2016-10-07 13:22 | Internal Medicine Prog Note ---
Internal Medicine Subjective - Subjective Patient seen and examined:: with staff, chart reviewed Patient is:: awake, verbal, interactive Per staff patient is:: no adverse event, confused Internal Medicine Objective - Results Recent Labs: Laboratory Last Values POC Glucose 141 MG/DL (70 - 105) H 10/07/16 11:05 [place] 1.86 MEQ/L (0.50-1.00) H* 10/05/16 16:05 - Physical Exam Vitals and I&O: Vital Signs Temp 97.4 F 10/07/16 07:01 Pulse 89 10/07/16 08:40 Resp 18 10/07/16 07:01 BP 126/78 10/07/16 08:40 Pulse Ox 97 10/07/16 07:01 Intake & Output 10/06/16 10/07/16 10/07/16 18:59 06:59 18:59 Intake Total 1200 Balance 1200 Intake: Oral 1200 Other: # Voids 3 2 # Bowel Movements 1 Active Medications: Current Medications Acetaminophen (Tylenol) 650 mg PO Q4H PRN PRN Reason: Pain (Mild) Stop: 11/22/16 17:14 Al Hydrox/Mg Hydrox/Simethicone (Maalox) 30 ml PO Q6H PRN PRN Reason: GI UPSET Stop: 11/22/16 17:14 Benztropine Mesylate (Cogentin) 1 mg PO BID [facility] Stop: 11/23/16 08:59 Last Admin: 10/07/16 08:41 Dose: 1 mg Clonidine HCl (Catapres) 0.1 mg PO Q6H PRN PRN Reason: FOR SBP > 160 Stop: 11/22/16 17:14 Docusate Sodium (Colace) 100 mg PO BID [facility] Stop: 11/23/16 08:59 Last Admin: 10/07/16 08:41 Dose: 100 mg Fenofibrate (Tricor) 134 mg PO QOD [facility] Stop: 11/23/16 08:59 Last Admin: 10/06/16 09:49 Dose: 134 mg Glipizide (Glucotrol) 10 mg PO BIDAC [facility] Stop: 11/23/16 07:29 Last Admin: 10/07/16 06:38 Dose: 10 mg Guaifenesin (Robitussin) 200 mg PO Q4HR PRN PRN Reason: Cough or Congestion Stop: 11/29/16 13:31 Haloperidol Lactate (Haldol Concentrate 10mg/5ml Susp) 2 mg PO BID GARRY PRN Reason: Protocol Stop: 12/06/16 16:59 Insulin Aspart (Novolog) 0 units SUBQ ACHS GARRY PRN Reason: Protocol Stop: 11/22/16 20:59 Last Admin: 10/07/16 11:22 Dose: Not Given Levothyroxine Sodium (Synthroid) 0.088 mg PO QDAC [facility] Stop: 11/23/16 07:29 Last Admin: 10/07/16 06:38 Dose: 0.088 mg Lisinopril (Zestril) 10 mg PO DAILY [facility] Stop: 11/23/16 08:59 Last Admin: 10/07/16 08:40 Dose: 10 mg [place] Carbonate (Eskalith) 150 mg PO BID [facility]ARRY PRN Reason: Protocol Stop: 12/06/16 16:59 Lorazepam (Ativan) 1 mg PO Q6H PRN; Protocol PRN Reason: Anxiety Stop: 11/22/16 17:14 Last Admin: 10/03/16 08:37 Dose: 1 mg Pantoprazole Sodium (Protonix) 40 mg PO QDAC [facility] Stop: 11/23/16 07:29 Last Admin: 10/07/16 06:38 Dose: 40 mg Pioglitazone HCl (Actos) 30 mg PO QDAC [facility] Stop: 11/23/16 07:29 Last Admin: 10/07/16 06:37 Dose: 30 mg Quetiapine Fumarate (Seroquel) 400 mg PO Q12HR [facility] Stop: 12/02/16 12:44 Last Admin: 10/07/16 08:40 Dose: 400 mg Sodium Bicarbonate (Sodium Bicarbonate) 650 mg PO TID [facility]ARRY PRN Reason: Protocol Stop: 11/22/16 20:59 Last Admin: 10/07/16 08:40 Dose: 650 mg Vitamin B Complex/Vit C/Folic Acid (Vitamin B Complex W/Vitamin C) 1 tab PO DAILY [facility] Stop: 11/23/16 08:59 Last Admin: 10/07/16 08:40 Dose: 1 tab Zolpidem Tartrate (Ambien) 5 mg PO HS PRN PRN Reason: Insomnia Stop: 11/25/16 00:23 Last Admin: 10/02/16 21:24 Dose: 5 mg General: demented HEENT: NC/AT, PERRLA Neck: Supple Lungs: CTAB Cardiovascular: RRR, Normal S1, Normal S2 Abdomen: soft non-tender, globular, positive bowel sound Extremities: excoriation Neurological: no change Internal Medicine Assmt/Plan - Assessment Assessment: cough agitation htn hyperlipidemia hypothyroid dm-2 - Plan Plan: cont on ada iss fall precaution dw rn Nutritional Asmnt/Malnutr-PDOC - Dietary Evaluation Malnutrition Findings (Please click <Entered> for more info): Nutritional Asmnt/Malnutrition Start: 09/27/16 16: 56 Text: Status: Complete Freq: Document 09/27/16 16:56 GSUN (Rec: 09/27/16 17:09 GSUN [email or web address]) Nutritional Asmnt/Malnutrition Patient General Information Nutritional Screening Diagnosis Diagnosis Schizophrenia chronic paranoid thype with acute exacerbation Pertinent Medical Hx/Surgical Hx HTN, hyperlipidemia, hypothyroidism, DM2 Subjective Information 60 year old male, transfered from [facility] unit. Pt was asleep during visit, unable to be woken up. Pt usually seen ambulating around unit. RD has spoken to pt on unit prior to initial assessment, pt was verbally sexual, unable to have proper conversation with RD. Per nursing staff, pt is a poor historian, often times inappropriate, no nutrition concerns noted. Avg PO intake 100% since adm, meeting nutritional needs. Current Diet Order/ Nutrition Support [id number] Pertinent Medications Maalox, Colace, Glucotrol, Novolog, Synthroid, Protonix, Seroquel, Vitamin B Complex w/ Vitamin C Pertinent Labs POC glucose 73-128 past 3 days with 1 episode of 62L Nutritional Hx/Data Height 1.83 m Height (Calculated Centimeters) 182.9 Current Weight (lbs) 84.822 kg Weight (Calculated Kilograms) 84.8 Weight (Calculated Grams) 47288.8 [place] Body Weight 178lb Weight Status Approriate GI Symptoms Food Allergies No Skin Integrity/Comment: Richard 19. Skin intact, some scratches. Current %PO Good (75-100%) Estimated Nutritional Goals BEE in Kcals: Using Current wt Calories/Kcals/Kg IBW 178lb/80.9kg Kcals Calculated 2022-2427kcal (25-30kcal/kg) Protein: Using Current wt Protein Calculated 65-81g (0.8-1g/kg) Fluid: ml 3-2427ml (1ml/kcal) Nutritional Problem 1. Problem Problem Inadequate carbohydrate intake related to Etiology estimated nutritional needs aeb Signs/Symptoms: current [id number] not meeting estimated cho/kcal needs Intervention/Recommendation Comments 1. Recommend [id number]. Current [id number] is inadequate to meet nutritional needs. Avg PO intake 100%. 2. Nursing staff to monitor glucose levels, 1 episode of hypoglycemia 62L noted. If multiple episodes of hypoglycemia noted, recommend liberalizing diet to regular diet. Expected Outcomes/Goals Expected Outcomes/Goals 1. PO intake to meet at least 75% of estimated nutritional needs.
--- NOTE | 2016-10-08 04:59 | Progress Notes ---
DATE: 10/07/2016 SUBJECTIVE: The patient was seen. Still anxious, restless, still paranoid, talking about people trying to kill him. The patient still has mood swings, episodes of agitation, and anger outburst. ASSESSMENT: The patient is still highly paranoid and still agitated. PLAN: We will add Haldol to 2 mg p.o. b.i.d. Continue rest of his medications. Restart lithium at 150 mg p.o. b.i.d., which is a small dose. We will check lithium level in 3-4. [facility]# [id number]
[2016-10-08] MEDS: Levothyroxine 0.088 Mg Tab PO SCH (06:50)
[2016-10-08] MEDS: Pantoprazole 40 mg EC Tab PO SCH (06:52)
[2016-10-08] MEDS: INSULIN ASPART, RECOMBINANT 100 UNITS/ML SUBQ SCH ×4 (06:54→20:34)
[2016-10-08] MEDS: Vitamin B Complex w/Vitamin C Tab PO SCH (08:09)
[2016-10-08] MEDS: Fenofibrate, Micronized 134 mg Cap PO SCH (08:09)
[2016-10-08] MEDS: Benztropine 1 MG TAB PO SCH ×2 (08:10→16:12)
[2016-10-08] MEDS: Haldol Oral Sol.(concentrate) 10 mg/5 mL Udc PO SCH ×3 (10:59→16:11)
--- NOTE | 2016-10-08 16:53 | Internal Medicine Prog Note ---
Internal Medicine Subjective - Subjective Patient seen and examined:: with staff, chart reviewed Patient is:: awake, verbal, interactive Per staff patient is:: no adverse event, confused Internal Medicine Objective - Results Recent Labs: Laboratory Last Values POC Glucose 89 MG/DL (70 - 105) 10/08/16 11:52 [place] 1.86 MEQ/L (0.50-1.00) H* 10/05/16 16:05 - Physical Exam Vitals and I&O: Vital Signs Temp 98.0 F 10/08/16 14:38 Pulse 98 10/08/16 14:38 Resp 18 10/08/16 14:38 BP 133/76 10/08/16 14:38 Pulse Ox 97 10/08/16 14:38 Intake & Output 10/07/16 10/08/16 10/08/16 18:59 06:59 18:59 Intake Total 1200 Balance 1200 Intake: Oral 1200 Other: # Voids 3 2 # Bowel Movements 1 Stool Characteristics Soft Formed Active Medications: Current Medications Acetaminophen (Tylenol) 650 mg PO Q4H PRN PRN Reason: Pain (Mild) Stop: 11/22/16 17:14 Al Hydrox/Mg Hydrox/Simethicone (Maalox) 30 ml PO Q6H PRN PRN Reason: GI UPSET Stop: 11/22/16 17:14 Benztropine Mesylate (Cogentin) 1 mg PO BID [facility] Stop: 11/23/16 08:59 Last Admin: 10/08/16 16:12 Dose: 1 mg Clonidine HCl (Catapres) 0.1 mg PO Q6H PRN PRN Reason: FOR SBP > 160 Stop: 11/22/16 17:14 Docusate Sodium (Colace) 100 mg PO BID [facility] Stop: 11/23/16 08:59 Last Admin: 10/08/16 16:10 Dose: 100 mg Fenofibrate (Tricor) 134 mg PO QOD [facility] Stop: 11/23/16 08:59 Last Admin: 10/08/16 08:09 Dose: 134 mg Glipizide (Glucotrol) 10 mg PO BIDAC [facility] Stop: 11/23/16 07:29 Last Admin: 10/08/16 16:11 Dose: 10 mg Guaifenesin (Robitussin) 200 mg PO Q4HR PRN PRN Reason: Cough or Congestion Stop: 11/29/16 13:31 Haloperidol Lactate (Haldol Concentrate 10mg/5ml Susp) 2 mg PO BID GARRY PRN Reason: Protocol Stop: 12/06/16 16:59 Last Admin: 10/08/16 16:11 Dose: 2 mg Insulin Aspart (Novolog) 0 units SUBQ ACHS GARRY PRN Reason: Protocol Stop: 11/22/16 20:59 Last Admin: 10/08/16 11:57 Dose: Not Given Levothyroxine Sodium (Synthroid) 0.088 mg PO QDAC [facility] Stop: 11/23/16 07:29 Last Admin: 10/08/16 06:50 Dose: 0.088 mg Lisinopril (Zestril) 10 mg PO DAILY [facility] Stop: 11/23/16 08:59 Last Admin: 10/08/16 08:10 Dose: 10 mg Lorazepam (Ativan) 1 mg PO Q6H PRN; Protocol PRN Reason: Anxiety Stop: 11/22/16 17:14 Last Admin: 10/03/16 08:37 Dose: 1 mg Pantoprazole Sodium (Protonix) 40 mg PO QDAC [facility] Stop: 11/23/16 07:29 Last Admin: 10/08/16 06:52 Dose: 40 mg Pioglitazone HCl (Actos) 30 mg PO QDAC [facility] Stop: 11/23/16 07:29 Last Admin: 10/08/16 06:52 Dose: 30 mg Quetiapine Fumarate (Seroquel) 400 mg PO Q12HR [facility] Stop: 12/02/16 12:44 Last Admin: 10/08/16 08:10 Dose: 400 mg Sodium Bicarbonate (Sodium Bicarbonate) 650 mg PO TID GARRY PRN Reason: Protocol Stop: 11/22/16 20:59 Last Admin: 10/08/16 14:23 Dose: 650 mg Vitamin B Complex/Vit C/Folic Acid (Vitamin B Complex W/Vitamin C) 1 tab PO DAILY [facility] Stop: 11/23/16 08:59 Last Admin: 10/08/16 08:09 Dose: 1 tab Zolpidem Tartrate (Ambien) 5 mg PO HS PRN PRN Reason: Insomnia Stop: 11/25/16 00:23 Last Admin: 10/02/16 21:24 Dose: 5 mg General: demented HEENT: NC/AT, PERRLA Neck: Supple, No JVD Lungs: CTAB Cardiovascular: RRR, Normal S1, Normal S2 Abdomen: soft non-tender, globular, positive bowel sound Extremities: excoriation Neurological: disorganized Internal Medicine Assmt/Plan - Assessment Assessment: cough agitation htn hyperlipidemia hypothyroid dm-2 - Plan Plan: cont on ada iss fall precaution dw rn Nutritional Asmnt/Malnutr-PDOC - Dietary Evaluation Malnutrition Findings (Please click <Entered> for more info): Nutritional Asmnt/Malnutrition Start: 09/27/16 16: 56 Text: Status: Complete Freq: Document 09/27/16 16:56 GSUN (Rec: 09/27/16 17:09 GSUN [email or web address]) Nutritional Asmnt/Malnutrition Patient General Information Nutritional Screening Diagnosis Diagnosis Schizophrenia chronic paranoid thype with acute exacerbation Pertinent Medical Hx/Surgical Hx HTN, hyperlipidemia, hypothyroidism, DM2 Subjective Information 60 [facility] old male, [facility] Pt was asleep during visit, unable to be woken up. Pt usually seen ambulating around unit. RD has spoken to pt on unit prior to initial assessment, pt was verbally sexual, unable to have proper conversation with RD. Per nursing staff, pt is a poor historian, often times inappropriate, no nutrition concerns noted. Avg PO intake 100% since adm, meeting nutritional needs. Current Diet Order/ Nutrition Support [id number] Pertinent Medications Maalox, Colace, Glucotrol, Novolog, Synthroid, Protonix, Seroquel, Vitamin B Complex w/ Vitamin C Pertinent Labs POC glucose 73-128 past 3 days with 1 episode of 62L Nutritional Hx/Data Height 1.83 m Height (Calculated Centimeters) 182.9 Current Weight (lbs) 84.822 kg Weight (Calculated Kilograms) 84.8 Weight (Calculated Grams) 42604.8 [place] Body Weight 178lb Weight Status Approriate GI Symptoms Food Allergies No Skin Integrity/Comment: Richard 19. Skin intact, some scratches. Current %PO Good (75-100%) Estimated Nutritional Goals BEE in Kcals: Using Current wt Calories/Kcals/Kg IBW 178lb/80.9kg Kcals Calculated 2022-7kcal (25-30kcal/kg) Protein: Using Current wt Protein Calculated 65-81g (0.8-1g/kg) Fluid: ml 2022-2427ml (1ml/kcal) Nutritional Problem 1. Problem Problem Inadequate carbohydrate intake related to Etiology estimated nutritional needs aeb Signs/Symptoms: current [id number] not meeting estimated cho/kcal needs Intervention/Recommendation Comments 1. Recommend [id number]. Current [id number] is inadequate to meet nutritional needs. Avg PO intake 100%. 2. Nursing staff to monitor glucose levels, 1 episode of hypoglycemia 62L noted. If multiple episodes of hypoglycemia noted, recommend liberalizing diet to regular diet. Expected Outcomes/Goals Expected Outcomes/Goals 1. PO intake to meet at least 75% of estimated nutritional needs.
--- NOTE | 2016-10-09 03:46 | Progress Notes ---
DATE: 10/08/2016 TIME PATIENT SEEN: 11:00 a.m. SUBJECTIVE: Staff was spoken to. The patient is interviewed. Mood is noted to be irritable. Affect is constricted. The patient is pacing most of the time on the unit. Insight and judgment at this time are noted to be still impaired. Impulse control seems to be limited. Coping skills are noted to be poor. No side effects to the medications are noted. The patient is currently on Haldol 2 mg twice a day and has been able to tolerate the medications. The patient is also on Seroquel 400 mg twice a day. The patient has been able to verbalize the concerns rather than to act out. The patient is currently on lithium 150 mg twice a day along with the lisinopril. The patient's coping skills are noted to be fair at this time. ASSESSMENT: The patient is still psychotic. PLAN: To continue the patient with the supportive therapy. I encouraged the patient to verbalize the concerns rather than to act out. [facility]# [id number]
[2016-10-09] MEDS: INSULIN ASPART, RECOMBINANT 100 UNITS/ML SUBQ SCH ×4 (07:38→21:52)
[2016-10-09] MEDS: Levothyroxine 0.088 Mg Tab PO SCH (07:58)
[2016-10-09] MEDS: Pantoprazole 40 mg EC Tab PO SCH (07:58)
[2016-10-09] MEDS: Benztropine 1 MG TAB PO SCH ×2 (08:04→17:27)
[2016-10-09] MEDS: Vitamin B Complex w/Vitamin C Tab PO SCH (08:04)
[2016-10-09] MEDS: Haldol Oral Sol.(concentrate) 10 mg/5 mL Udc PO SCH ×2 (08:05→17:26)
--- NOTE | 2016-10-09 21:48 | Internal Medicine Prog Note ---
Internal Medicine Subjective - Subjective Patient seen and examined:: with staff, chart reviewed Patient is:: awake, verbal, interactive Per staff patient is:: no adverse event, confused Internal Medicine Objective - Results Recent Labs: Laboratory Last Values POC Glucose 129 MG/DL (70 - 105) H 10/09/16 20:18 [place] 1.86 MEQ/L (0.50-1.00) H* 10/05/16 16:05 - Physical Exam Vitals and I&O: Vital Signs Temp 98.1 F 10/09/16 19:52 Pulse 99 10/09/16 19:52 Resp 19 10/09/16 19:52 BP 143/82 10/09/16 19:52 Pulse Ox 98 10/09/16 19:52 Intake & Output 10/09/16 10/09/16 10/10/16 06:59 18:59 06:59 Intake Total 480 1000 480 Balance 480 1000 480 Intake: Oral 480 1000 480 Other: # Voids 1 4 1 # Bowel Movements 1 Stool Characteristics Soft Formed Active Medications: Current Medications Acetaminophen (Tylenol) 650 mg PO Q4H PRN PRN Reason: Pain (Mild) Stop: 11/22/16 17:14 Al Hydrox/Mg Hydrox/Simethicone (Maalox) 30 ml PO Q6H PRN PRN Reason: GI UPSET Stop: 11/22/16 17:14 Benztropine Mesylate (Cogentin) 1 mg PO BID [facility] Stop: 11/23/16 08:59 Last Admin: 10/09/16 17:27 Dose: 1 mg Clonidine HCl (Catapres) 0.1 mg PO Q6H PRN PRN Reason: FOR SBP > 160 Stop: 11/22/16 17:14 Docusate Sodium (Colace) 100 mg PO BID [facility] Stop: 11/23/16 08:59 Last Admin: 10/09/16 17:26 Dose: 100 mg Fenofibrate (Tricor) 134 mg PO QOD [facility] Stop: 11/23/16 08:59 Last Admin: 10/08/16 08:09 Dose: 134 mg Glipizide (Glucotrol) 10 mg PO BIDAC [facility] Stop: 11/23/16 07:29 Last Admin: 10/09/16 17:27 Dose: 10 mg Guaifenesin (Robitussin) 200 mg PO Q4HR PRN PRN Reason: Cough or Congestion Stop: 11/29/16 13:31 Haloperidol Lactate (Haldol Concentrate 10mg/5ml Susp) 2 mg PO BID GARRY PRN Reason: Protocol Stop: 12/06/16 16:59 Last Admin: 10/09/16 17:26 Dose: 2 mg Insulin Aspart (Novolog) 0 units SUBQ ACHS GARRY PRN Reason: Protocol Stop: 11/22/16 20:59 Last Admin: 10/09/16 17:27 Dose: Not Given Levothyroxine Sodium (Synthroid) 0.088 mg PO QDAC [facility] Stop: 11/23/16 07:29 Last Admin: 10/09/16 07:58 Dose: 0.088 mg Lisinopril (Zestril) 10 mg PO DAILY [facility] Stop: 11/23/16 08:59 Last Admin: 10/09/16 08:04 Dose: 10 mg Lorazepam (Ativan) 1 mg PO Q6H PRN; Protocol PRN Reason: Anxiety Stop: 11/22/16 17:14 Last Admin: 10/03/16 08:37 Dose: 1 mg Pantoprazole Sodium (Protonix) 40 mg PO QDAC [facility] Stop: 11/23/16 07:29 Last Admin: 10/09/16 07:58 Dose: 40 mg Pioglitazone HCl (Actos) 30 mg PO QDAC [facility] Stop: 11/23/16 07:29 Last Admin: 10/09/16 07:55 Dose: 30 mg Quetiapine Fumarate (Seroquel) 400 mg PO Q12HR [facility] Stop: 12/02/16 12:44 Last Admin: 10/09/16 21:02 Dose: 400 mg Sodium Bicarbonate (Sodium Bicarbonate) 650 mg PO TID GARRY PRN Reason: Protocol Stop: 11/22/16 20:59 Last Admin: 10/09/16 21:01 Dose: 650 mg Vitamin B Complex/Vit C/Folic Acid (Vitamin B Complex W/Vitamin C) 1 tab PO DAILY [facility] Stop: 11/23/16 08:59 Last Admin: 10/09/16 08:04 Dose: 1 tab Zolpidem Tartrate (Ambien) 5 mg PO HS PRN PRN Reason: Insomnia Stop: 11/25/16 00:23 Last Admin: 10/02/16 21:24 Dose: 5 mg General: demented HEENT: NC/AT, PERRLA Neck: Supple, No JVD Lungs: CTAB Cardiovascular: RRR, Normal S1, Normal S2 Abdomen: soft non-tender, globular, positive bowel sound Extremities: excoriation Neurological: no change Internal Medicine Assmt/Plan - Assessment Assessment: cough agitation htn hyperlipidemia hypothyroid dm-2 - Plan Plan: cont on ada iss fall precaution dw rn Nutritional Asmnt/Malnutr-PDOC - Dietary Evaluation Malnutrition Findings (Please click <Entered> for more info): Nutritional Asmnt/Malnutrition Start: 09/27/16 16: 56 Text: Status: Complete Freq: Document 09/27/16 16:56 GSUN (Rec: 09/27/16 17:09 [email or web address] [email or web address]) Nutritional Asmnt/Malnutrition Patient General Information Nutritional Screening Diagnosis Diagnosis Schizophrenia chronic paranoid thype with acute exacerbation Pertinent Medical Hx/Surgical Hx HTN, hyperlipidemia, hypothyroidism, DM2 Subjective Information 60 [facility] Pt was asleep during visit, unable to be woken up. Pt usually seen ambulating around unit. RD has spoken to pt on unit prior to initial assessment, pt was verbally sexual, unable to have proper conversation with RD. Per nursing staff, pt is a poor historian, often times inappropriate, no nutrition concerns noted. Avg PO intake 100% since adm, meeting nutritional needs. Current Diet Order/ Nutrition Support [id number] Pertinent Medications Maalox, Colace, Glucotrol, Novolog, Synthroid, Protonix, Seroquel, Vitamin B Complex w/ Vitamin C Pertinent Labs POC glucose 73-128 past 3 days with 1 episode of 62L Nutritional Hx/Data Height 1.83 m Height (Calculated Centimeters) 182.9 Current Weight (lbs) 84.822 kg Weight (Calculated Kilograms) 84.8 Weight (Calculated Grams) 42265.8 [place] Body Weight 178lb Weight Status Approriate GI Symptoms Food Allergies No Skin Integrity/Comment: Richard 19. Skin intact, some scratches. Current %PO Good (75-100%) Estimated Nutritional Goals BEE in Kcals: Using Current wt Calories/Kcals/Kg IBW 178lb/80.9kg Kcals Calculated 3-2427kcal (25-30kcal/kg) Protein: Using Current wt Protein Calculated 65-81g (0.8-1g/kg) Fluid: ml 2023-2427ml (1ml/kcal) Nutritional Problem 1. Problem Problem Inadequate carbohydrate intake related to Etiology estimated nutritional needs aeb Signs/Symptoms: current [id number] not meeting estimated cho/kcal needs Intervention/Recommendation Comments 1. Recommend [id number]. Current [id number] is inadequate to meet nutritional needs. Avg PO intake 100%. 2. Nursing staff to monitor glucose levels, 1 episode of hypoglycemia 62L noted. If multiple episodes of hypoglycemia noted, recommend liberalizing diet to regular diet. Expected Outcomes/Goals Expected Outcomes/Goals 1. PO intake to meet at least 75% of estimated nutritional needs.
--- NOTE | 2016-10-10 04:30 | Progress Notes ---
DATE: 10/09/2016 TIME PATIENT SEEN: 10:45 a.m. SUBJECTIVE: Staff was spoken to. The patient is interviewed. The patient's family, particularly his sister has been spoken to in detail yesterday. They are very much worried. The patient has been pacing on the unit. Continues to be responding to the internal stimuli, but denies any command hallucinations today because of the interaction between the lisinopril and then lithium. [place] has been discontinued and patient is going to be maintained on antipsychotics. The patient's coping skills are noted to be still poor. The patient is not ready to be discharged to a lower level of care. PLAN: To continue the patient with the supportive therapy. I encouraged the patient to verbalize the concerns rather than to act out. JOB# [id number]
[2016-10-10] MEDS: Levothyroxine 0.088 Mg Tab PO SCH (06:47)
[2016-10-10] MEDS: Pantoprazole 40 mg EC Tab PO SCH (06:47)
[2016-10-10] MEDS: INSULIN ASPART, RECOMBINANT 100 UNITS/ML SUBQ SCH ×3 (06:49→17:06)
[2016-10-10] MEDS: Haldol Oral Sol.(concentrate) 10 mg/5 mL Udc PO SCH ×2 (08:37→16:26)
[2016-10-10] MEDS: Fenofibrate, Micronized 134 mg Cap PO SCH (08:38)
[2016-10-10] MEDS: Benztropine 1 MG TAB PO SCH ×2 (08:38→16:27)
[2016-10-10] MEDS: Vitamin B Complex w/Vitamin C Tab PO SCH (08:38)
--- NOTE | 2016-10-10 12:35 | Internal Medicine Prog Note ---
Internal Medicine Subjective - Subjective Patient seen and examined:: with staff, chart reviewed Patient is:: awake, verbal, interactive Per staff patient is:: no adverse event, confused Internal Medicine Objective - Results Recent Labs: Laboratory Last Values POC Glucose 85 MG/DL (70 - 105) 10/10/16 11:59 [place] 1.86 MEQ/L (0.50-1.00) H* 10/05/16 16:05 - Physical Exam Vitals and I&O: Vital Signs Temp 97.9 F 10/10/16 06:02 Pulse 89 10/10/16 08:38 Resp 20 10/10/16 06:02 BP 154/86 10/10/16 08:38 Pulse Ox 98 10/10/16 06:02 Intake & Output 10/09/16 10/10/16 10/10/16 18:59 06:59 18:59 Intake Total 1000 480 Balance 1000 480 Intake: Oral 1000 480 Other: # Voids 4 1 # Bowel Movements 1 0 Stool Characteristics Soft Formed Active Medications: Current Medications Acetaminophen (Tylenol) 650 mg PO Q4H PRN PRN Reason: Pain (Mild) Stop: 11/22/16 17:14 Al Hydrox/Mg Hydrox/Simethicone (Maalox) 30 ml PO Q6H PRN PRN Reason: GI UPSET Stop: 11/22/16 17:14 Benztropine Mesylate (Cogentin) 1 mg PO BID [facility] Stop: 11/23/16 08:59 Last Admin: 10/10/16 08:38 Dose: 1 mg Clonidine HCl (Catapres) 0.1 mg PO Q6H PRN PRN Reason: FOR SBP > 160 Stop: 11/22/16 17:14 Docusate Sodium (Colace) 100 mg PO BID [facility] Stop: 11/23/16 08:59 Last Admin: 10/10/16 08:38 Dose: 100 mg Fenofibrate (Tricor) 134 mg PO QOD [facility] Stop: 11/23/16 08:59 Last Admin: 10/10/16 08:38 Dose: 134 mg Glipizide (Glucotrol) 10 mg PO BIDAC [facility] Stop: 11/23/16 07:29 Last Admin: 10/10/16 06:47 Dose: 10 mg Guaifenesin (Robitussin) 200 mg PO Q4HR PRN PRN Reason: Cough or Congestion Stop: 06/06/17 13:31 Haloperidol Lactate (Haldol Concentrate 10mg/5ml Susp) 2 mg PO BID GARRY PRN Reason: Protocol Stop: 12/06/16 16:59 Last Admin: 10/10/16 08:37 Dose: 2 mg Insulin Aspart (Novolog) 0 units SUBQ ACHS GARRY PRN Reason: Protocol Stop: 11/22/16 20:59 Last Admin: 10/10/16 12:01 Dose: Not Given Levothyroxine Sodium (Synthroid) 0.088 mg PO QDAC [facility] Stop: 11/23/16 07:29 Last Admin: 10/10/16 06:47 Dose: 0.088 mg Lisinopril (Zestril) 10 mg PO DAILY [facility] Stop: 11/23/16 08:59 Last Admin: 10/10/16 08:38 Dose: 10 mg Lorazepam (Ativan) 1 mg PO Q6H PRN; Protocol PRN Reason: Anxiety Stop: 11/22/16 17:14 Last Admin: 10/10/16 08:38 Dose: 1 mg Pantoprazole Sodium (Protonix) 40 mg PO QDAC [facility] Stop: 11/23/16 07:29 Last Admin: 10/10/16 06:47 Dose: 40 mg Pioglitazone HCl (Actos) 30 mg PO QDAC [facility] Stop: 11/23/16 07:29 Last Admin: 10/10/16 06:46 Dose: 30 mg Quetiapine Fumarate (Seroquel) 400 mg PO Q12HR [facility] Stop: 12/02/16 12:44 Last Admin: 10/10/16 08:38 Dose: 400 mg Sodium Bicarbonate (Sodium Bicarbonate) 650 mg PO TID GARRY PRN Reason: Protocol Stop: 11/22/16 20:59 Last Admin: 10/10/16 08:38 Dose: 650 mg Vitamin B Complex/Vit C/Folic Acid (Vitamin B Complex W/Vitamin C) 1 tab PO DAILY [facility] Stop: 11/23/16 08:59 Last Admin: 10/10/16 08:38 Dose: 1 tab Zolpidem Tartrate (Ambien) 5 mg PO HS PRN PRN Reason: Insomnia Stop: 11/25/16 00:23 Last Admin: 10/02/16 21:24 Dose: 5 mg General: demented HEENT: NC/AT, PERRLA Neck: Supple, No JVD Lungs: CTAB Cardiovascular: RRR, Normal S1, Normal S2 Abdomen: soft non-tender, globular, positive bowel sound Extremities: excoriation Neurological: no change, disorganized Internal Medicine Assmt/Plan - Assessment Assessment: cough agitation htn hyperlipidemia hypothyroid dm-2 - Plan Plan: cont on ada iss fall precaution dw rn Nutritional Asmnt/Malnutr-PDOC - Dietary Evaluation Malnutrition Findings (Please click <Entered> for more info): Nutritional Asmnt/Malnutrition Start: 09/27/16 16: 56 Text: Status: Complete Freq: Document 09/27/16 16:56 GSUN (Rec: 09/27/16 17:09 [email or web address] [email or web address]) Nutritional Asmnt/Malnutrition Patient General Information Nutritional Screening Diagnosis Diagnosis Schizophrenia chronic paranoid thype with acute exacerbation Pertinent Medical Hx/Surgical Hx HTN, hyperlipidemia, hypothyroidism, DM2 Subjective Information 60 year old male, transfered from [facility] unit. Pt was asleep during visit, unable to be woken up. Pt usually seen ambulating around unit. RD has spoken to pt on unit prior to initial assessment, pt was verbally sexual, unable to have proper conversation with RD. Per nursing staff, pt is a poor historian, often times inappropriate, no nutrition concerns noted. Avg PO intake 100% since adm, meeting nutritional needs. Current Diet Order/ Nutrition Support [id number] Pertinent Medications Maalox, Colace, Glucotrol, Novolog, Synthroid, Protonix, Seroquel, Vitamin B Complex w/ Vitamin C Pertinent Labs POC glucose 73-128 past 3 days with 1 episode of 62L Nutritional Hx/Data Height 1.83 m Height (Calculated Centimeters) 182.9 Current Weight (lbs) 84.822 kg Weight (Calculated Kilograms) 84.8 Weight (Calculated Grams) 47128.8 [place] Body Weight 178lb Weight Status Approriate GI Symptoms Food Allergies No Skin Integrity/Comment: [place] 19. Skin intact, some scratches. Current %PO Good (75-100%) Estimated Nutritional Goals BEE in Kcals: Using Current wt Calories/Kcals/Kg IBW 178lb/80.9kg Kcals Calculated 2022-2427kcal (25-30kcal/kg) Protein: Using Current wt Protein Calculated 65-81g (0.8-1g/kg) Fluid: ml 3-2427ml (1ml/kcal) Nutritional Problem 1. Problem Problem Inadequate carbohydrate intake related to Etiology estimated nutritional needs aeb Signs/Symptoms: current [id number] not meeting estimated cho/kcal needs Intervention/Recommendation Comments 1. Recommend [id number]. Current [id number] is inadequate to meet nutritional needs. Avg PO intake 100%. 2. Nursing staff to monitor glucose levels, 1 episode of hypoglycemia 62L noted. If multiple episodes of hypoglycemia noted, recommend liberalizing diet to regular diet. Expected Outcomes/Goals Expected Outcomes/Goals 1. PO intake to meet at least 75% of estimated nutritional needs.
--- NOTE | 2016-10-10 23:12 | Discharge Summary ---
DATE OF DISCHARGE: 10/10/2016 REASON FOR HOSPITALIZATION: Schizoaffective disorder, psychotic phase. HISTORY OF PRESENT ILLNESS: The patient is a 61-year-old male, who was sent from his longterm facility for increased agitation, paranoia, anger outburst. The patient was also masturbating in front of other patients who become hypersexual. The patient was having yelling episodes, aggressive behavior. The patient was admitted. HOSPITALIZATION COURSE: Individual, milieu, and group therapy was started. Medications were implemented Seroquel dose was maximized at 400 mg p.o. b.i.d. The patient continued to have symptoms of anger outburst and agitation. [place] was added. Unfortunately, on a small dose 300 mg p.o. b.i.d., the patient developed some toxicity. Even though he was asymptomatic but his level was over 1.6, so this medication was discontinued. The patient was given Haldol 2 mg p.o. b.i.d. Anger outburst and agitation subsided down. The patient on 10/10/2016 was discharged back to his longterm facility. The patient denied feeling depressed; he was no longer angry or agitated. The patient was taking his medications. His sleep was fair. The patient was no longer having hypersexual behavior. FINAL DIAGNOSIS: Schizoaffective disorder. MEDICAL: Hypertension. CONDITION ON DISCHARGE: Improved. No agitation, no aggressive behavior. DISPOSITION: The patient was discharged to [facility]. EXPECTED COURSE OF RECOVERY: Chronic. [facility]# [id number]
== END 2016-10-10 18:30 | DRG 885 ==
LOC: GERO 16:15 → MERGE 16:15 → GERO 10-09 13:28
DX: F20.0 Paranoid schizophrenia (principal); E11.9 Type 2 diabetes mellitus without complications; I10 Essential (primary) hypertension; E78.5 Hyperlipidemia, unspecified; E03.9 Hypothyroidism, unspecified; Z91.14 Patient's other noncompliance with medication regimen; Z88.0 Allergy status to penicillin
CPT/HCPCS: 80178-TC; 82948-90; 90899; J1200; J1630; J1815; J2060; Z7610

== ENCOUNTER 2017-02-28 12:51 | Inpatient (IN) | payer MEDICARE, MEDICAID ==
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
[2017-02-28] MEDS ORDERED: Levofloxacin 750mg/150mL 750 MG/150 ML BAG IV ONE ×2 (13:32→13:53)
[2017-02-28 13:47] LABS: % BASOPHILS 0.6 % (0.0-2.0); % EOSINOPHILS 0.7 % (0.0-5.0); % LYMPHOCYTES 11.8 % (20.0-50.0); % MONOCYTES 9.4 % (2.0-10.0); % NEUTROPHILS 77.5 % (40.0-80.0); HEMATOCRIT 37.4 % (39.0-49.0); HEMOGLOBIN 12.8 gm/dL (13.2-17.3); MEAN CELL VOLUME 92.4 fl (80-99); MEAN CORPUSCULAR HEMOGLOBIN 31.5 pg (26.0-30.0); MEAN CORPUSCULAR HGB CONC 34.1 pg (28.0-36.0); MEAN PLATELET VOLUME 9.5 fl; NEUTROPHILE ABSOLUTE 8.4 Th/cmm (1.8-8.0); PLATELET COUNT 204 Th/cmm (150-400); RED BLOOD COUNT 4.05 Mil/cmm (4.30-5.70); RED CELL DISTRIBUTION WIDTH 12.6 % (11.5-20.0); WHITE BLOOD COUNT 10.9 Th/cmm (4.8-10.8)
[2017-02-28 13:57] LABS: ALB/GLOB RATIO 1.2 (1.0-1.8); ALKALINE PHOSPHATASE 74 U/L (34-104); ANION GAP 10.3 (7.0-16.0); BILIRUBIN,TOTAL 0.6 mg/dL (0.3-1.0); BUN - UREA NITROGEN 27 mg/dL (7-25); BUN/CREATININE RATIO 19.3; CALCIUM SERUM 9.7 mg/dL (8.6-10.3); CARBON DIOXIDE 22.6 mEq/L (21.0-31.0); CHLORIDE 104 mEq/L (98-107); CREATININE - SERUM 1.4 mg/dL (0.7-1.3); GLUCOSE 93 mg/dL (70-105); POTASSIUM SERUM 3.9 mEq/L (3.5-5.1); SGOT 26 U/L (13-39); SGPT/ALT 17 U/L (7-52); SODIUM SERUM 133 mEq/L (136-145)
[2017-02-28] MEDS ORDERED: Magnesium Hydroxide (MOM) 30 mL UDC PO PRN (15:21)
[2017-02-28] MEDS ORDERED: GLUCAGON HCl 1 MG KIT IM PRN (15:21)
[2017-02-28] MEDS ORDERED: Maalox 30 mL Cup PO PRN (15:21)
[2017-02-28] MEDS ORDERED: Albuterol Nebulizer 2.5mg/3mL HHN PRN (15:26)
[2017-02-28] MEDS ORDERED: Hydrocodone/APAP 5mg/325mg Tab PO PRN (15:26)
--- NOTE | 2017-02-28 15:33 | Diagnostic Imaging Report ---
Ultrasound soft tissues right elbow HISTORY: Swelling Sonographic sector images were obtained of the soft tissues of the right elbow. The exam demonstrates an ill-defined heterogeneous hypoechoic area within the soft tissues over the posterior aspect of the elbow. This extends over the region of approximately 5.0 x 3 point centimeters. No discrete margins are seen. IMPRESSION: 1. Ill-defined heterogeneous changes within the soft tissues over the posterior aspect of the elbow. Findings may be associated with inflammatory change. However, no discrete loculated abscess is defined.
--- NOTE | 2017-02-28 15:59 | History & Physical ---
ADMIT DATE: 02/28/2017 CHIEF COMPLAINT: Fever and right arm pain. HISTORY OF PRESENT ILLNESS: This is a 61 years old male with history of schizoaffective disorder, hypertension, hypothyroidism, diabetes, COPD, noncompliant, was admitted from nursing facility secondary to fever and right hand pain and swelling. The patient is not the best historian. Denies any trauma but pain has been increasing and same thing with the swelling. PAST MEDICAL HISTORY: As mentioned in the history of present illness. PAST SURGICAL HISTORY: Denies previous surgeries in the past. ALLERGIES: PENICILLIN. MEDICATIONS: Glipizide, Tylenol, glucagon, Haldol, Zestril, Seroquel, Actos, Protonix, sodium bicarbonate. FAMILY HISTORY: Noncontributory. SOCIAL HISTORY: The patient is nonsmoker and nondrinker, no intravenous drug use. REVIEW OF SYSTEMS: This is limited secondary to the patient's current mental state. We will try to obtain more detailed review of systems at a later date by talking to family members. There is a sister, Kassie Jimenez, ____ [phone]. We will also try to get information from nursing staff at [facility] at [phone]. PHYSICAL EXAMINATION: VITAL SIGNS: Blood pressure 126/74, respirations 16, pulse 76, temperature 101.0. GENERAL: Elderly male who appears his stated age. NECK: Supple. No mass. LUNGS: Equal breath sounds, few rhonchi. HEART: Regular rate and rhythm without appreciable murmurs. ABDOMEN: Soft, nontender. EXTREMITIES: Positive excoriations. Positive right elbow redness and edema. LABORATORY DATA: WBC 10.9, hemoglobin 12, platelets 204. Sodium 133, potassium 3.9, BUN 27, creatinine 1.4, albumin 3.6. ASSESSMENT AND PLAN: Right elbow cellulitis, fever, leukocytosis, anemia, hyponatremia, moderate protein calorie malnutrition, renal insufficiency, hypertension, hypothyroidism, schizoaffective disorder, COPD, diabetes. We will continue the patient on IV antibiotics. Continue oxygen and bronchodilator treatment. We will perform blood culture if not done. We will review the patient's x-ray. We will continue monitoring the patient closely. We will also has Psychiatry to adjust his psychotropic medication. JOB# [id number]
[2017-02-28] MEDS ORDERED: VTE Chemical Prophylaxis Screen/Admission MC PRN (17:09)
[2017-02-28] MEDS: INSULIN ASPART, RECOMBINANT 100 UNITS/ML SUBQ SCH ×2 (17:11→21:01)
[2017-02-28] MEDS: Benztropine 1 MG TAB PO SCH (17:15)
[2017-02-28] MEDS: Ascorbic Acid/Vit B Complex Tab PO SCH (17:45)
[2017-02-28] MEDS: Sodium Chloride 0.45% 1,000 ML IV SCH (18:12)
[2017-03-01] MEDS: INSULIN ASPART, RECOMBINANT 100 UNITS/ML SUBQ SCH ×4 (06:48→21:55)
[2017-03-01] MEDS: Benztropine 1 MG TAB PO SCH ×2 (08:48→17:09)
[2017-03-01] MEDS: Levofloxacin 500mg/100mL 500 MG/100 ML BAG IV SCH (08:55)
[2017-03-01] MEDS ORDERED: Fenofibrate, Micronized 134 mg Cap PO SCH (09:00)
[2017-03-01] MEDS: Levothyroxine 0.088 Mg Tab PO SCH (09:04)
[2017-03-01] MEDS: Pantoprazole 40 mg EC Tab PO SCH (09:04)
--- NOTE | 2017-03-01 14:39 | Internal Medicine Prog Note ---
Internal Medicine Subjective - Subjective Service Date: 03/01/17 Patient seen and examined:: with staff Patient is:: awake, confused Per staff patient has:: no adverse event, tolerating meds Internal Medicine Objective - Results Result Diagrams: 02/28/17 13:28 02/28/17 13:28 Recent Labs: Laboratory Last Values WBC 10.9 Th/cmm (4.8-10.8) H D 02/28/17 13:28 RBC 4.05 Mil/cmm (4.30-5.70) L 02/28/17 13:28 Hgb 12.8 gm/dL (13.2-17.3) L 02/28/17 13:28 Hct 37.4 % (39.0-49.0) L 02/28/17 13:28 MCV 92.4 fl (80-99) 02/28/17 13:28 MCH 31.5 pg (26.0-30.0) H 02/28/17 13:28 MCHC Differential 34.1 pg (28.0-36.0) 02/28/17 13:28 RDW 12.6 % (11.5-20.0) 02/28/17 13:28 Plt Count 204 Th/cmm (150-400) D 02/28/17 13:28 MPV 9.5 fl 02/28/17 13:28 Neutrophils % 77.5 % (40.0-80.0) 02/28/17 13:28 Lymphocytes % 11.8 % (20.0-50.0) L 02/28/17 13:28 Monocytes % 9.4 % (2.0-10.0) 02/28/17 13:28 Eosinophils % 0.7 % (0.0-5.0) 02/28/17 13:28 Basophils % 0.6 % (0.0-2.0) 02/28/17 13:28 Sodium 133 mEq/L (136-145) L 02/28/17 13:28 Potassium 3.9 mEq/L (3.5-5.1) 02/28/17 13:28 Chloride 104 mEq/L (98-107) 02/28/17 13:28 Carbon Dioxide 22.6 mEq/L (21.0-31.0) 02/28/17 13:28 Anion Gap 10.3 (7.0-16.0) 02/28/17 13:28 BUN 27 mg/dL (7-25) H 02/28/17 13:28 Creatinine 1.4 mg/dL (0.7-1.3) H 02/28/17 13:28 Est GFR ( Amer) > 60.0 ml/min (>90) 02/28/17 13:28 Est GFR (Non-Af Amer) 54.9 ml/min 02/28/17 13:28 BUN/Creatinine Ratio 19.3 02/28/17 13:28 Glucose 93 mg/dL (70-105) 02/28/17 13:28 POC Glucose 130 MG/DL (70 - 105) H 03/01/17 06:45 Whole Bld Lactic Acid 0.66 mmol/L (0.60-1.99) 02/28/17 13:28 Calcium 9.7 mg/dL (8.6-10.3) 02/28/17 13:28 Total Bilirubin 0.6 mg/dL (0.3-1.0) 02/28/17 13:28 AST 26 U/L (13-39) 02/28/17 13:28 ALT 17 U/L (7-52) 02/28/17 13:28 Alkaline Phosphatase 74 U/L (34-104) 02/28/17 13:28 Total Protein 6.5 gm/dL (6.0-8.3) 02/28/17 13:28 Albumin 3.6 gm/dL (4.2-5.5) L 02/28/17 13:28 Globulin 2.9 gm/dL 02/28/17 13:28 Albumin/Globulin Ratio 1.2 (1.0-1.8) 02/28/17 13:28 - Physical Exam Vitals and I&O: Vital Signs Temp 97.3 F 03/01/17 12:00 Pulse 81 03/01/17 12:00 Resp 19 03/01/17 12:00 BP 120/74 03/01/17 08:49 Pulse Ox 100 03/01/17 12:00 Intake & Output 02/28/17 03/01/17 03/01/17 18:59 06:59 18:59 Intake Total 500 100 Balance 500 100 Weight (lbs) 168 lb 9.6 oz 163 lb 8 oz Intake: Intake, IV Amount 150 Levofloxacin 750mg/150mL 150 750 mg In 150 ml @ 100 mls/hr IV X1 ONE Rx#: [id number] Oral 350 100 Other: # Voids 0 5 # Bowel Movements 0 1 Active Medications: Current Medications Acetaminophen (Tylenol) 650 mg PO Q4H PRN PRN Reason: Pain (Mild) Stop: 04/29/17 15:20 Acetaminophen/Hydrocodone Bitart ([place] 5mg/325mg) 1 tab PO Q4H PRN PRN Reason: Pain (Severe) Stop: 04/29/17 15:25 Al Hydrox/Mg Hydrox/Simethicone (Maalox) 30 ml PO Q4HR PRN PRN Reason: GI DISTRESS Stop: 04/29/17 15:20 Albuterol Sulfate (Albuterol 2.5mg/3ml Neb Ud) 2.5 mg HHN Q2HRT PRN PRN Reason: Shortness of Breath or Wheeze Stop: 04/29/17 15:25 Aspirin (Ecotrin) 81 mg PO DAILY [facility] Stop: 04/30/17 08:59 Last Admin: 03/01/17 08:50 Dose: 81 mg Benztropine Mesylate (Cogentin) 1 mg PO BID [facility] Stop: 04/29/17 16:59 Last Admin: 03/01/17 08:48 Dose: 1 mg Docusate Sodium (Colace) 100 mg PO BID [facility] Stop: 04/29/17 16:59 Last Admin: 03/01/17 08:49 Dose: 100 mg Fenofibrate (Tricor) 48 mg PO DAILY [facility] Stop: 04/30/17 08:59 Glipizide (Glucotrol) 10 mg PO BIDAC [facility] Stop: 04/29/17 16:29 Last Admin: 03/01/17 06:55 Dose: 10 mg Glucagon (Glucagen) 1 mg IM PRN PRN PRN Reason: Blood Glucose Less Than 60 Stop: 04/29/17 15:20 Haloperidol (Haldol) 2 mg PO BID [facility] PRN Reason: Protocol Stop: 04/29/17 16:59 Last Admin: 03/01/17 08:48 Dose: 2 mg Haloperidol Decanoate (Haldol Dec) 50 mg IM QMONTH [facility] PRN Reason: Protocol Stop: 04/29/17 17:59 Last Admin: 02/28/17 17:27 Dose: Not Given Heparin Sodium (Porcine) (Heparin) 5,000 units SUBQ Q12HR [facility] Stop: 04/29/17 20:59 Last Admin: 03/01/17 08:56 Dose: 5,000 units Levofloxacin (Levaquin Pb) 500 mg in 100 mls @ 100 mls/hr IV Q24HR [facility] Stop: 04/30/17 08:59 Last Admin: 03/01/17 08:55 Dose: 100 mls/hr Sodium Chloride (Nacl 0.45%) 1,000 mls @ 80 mls/hr IV .[id number] [facility] Stop: 04/29/17 15:29 Last Admin: 02/28/17 18:12 Dose: 80 mls/hr Vancomycin HCl 1.5 gm/ Sodium (Chloride) 500 mls @ 250 mls/hr IV Q24HR@0900 [facility] Stop: 04/30/17 13:59 Insulin Aspart (Novolog) 0 units SUBQ ACHS [facility] PRN Reason: Protocol Stop: 04/29/17 16:29 Last Admin: 03/01/17 12:01 Dose: Not Given Levothyroxine Sodium (Synthroid) 0.088 mg PO QDAC [facility] Stop: 04/30/17 07:29 Last Admin: 03/01/17 09:04 Dose: 0.088 mg Lisinopril (Zestril) 10 mg PO DAILY [facility] Stop: 04/30/17 08:59 Last Admin: 03/01/17 08:49 Dose: 10 mg Lorazepam (Ativan) 1 mg PO Q6H PRN; Protocol PRN Reason: Anxiety Stop: 04/29/17 15:20 Last Admin: 03/01/17 01:58 Dose: 1 mg Magnesium Hydroxide (Milk Of Magnesia) 30 ml PO HS PRN PRN Reason: Constipation Stop: 04/29/17 15:20 Miscellaneous (Vte Chemical Prophylaxis Screen/ Admission) 1 ea PRN PRN PRN Reason: PROTOCOL Stop: 04/29/17 17:08 Miscellaneous (Vancomycin Iv Per Pharmacy) 1 ea PRN [facility] Stop: 04/30/17 12:59 Ondansetron HCl (Zofran) 4 mg IV Q8H PRN PRN Reason: Nausea / Vomiting Stop: 04/29/17 15:25 Pantoprazole Sodium (Protonix) 40 mg PO QDAC [facility] Stop: 04/30/17 07:29 Last Admin: 03/01/17 09:04 Dose: 40 mg Pioglitazone HCl (Actos) 30 mg PO QDAC [facility] Stop: 04/30/17 07:29 Last Admin: 03/01/17 09:04 Dose: 30 mg Quetiapine Fumarate (Seroquel) 400 mg PO Q12HR [facility] PRN Reason: Protocol Stop: 04/29/17 20:59 Last Admin: 03/01/17 08:48 Dose: 400 mg Sodium Bicarbonate (Sodium Bicarbonate) 650 mg PO TID [facility] PRN Reason: Protocol Stop: 04/29/17 20:59 Last Admin: 03/01/17 14:11 Dose: 650 mg Vitamin B Complex/Vitamin C (Vitamin B Complex W/C) 1 tab PO DAILY [facility] Stop: 04/29/17 17:59 Last Admin: 02/28/17 17:45 Dose: Not Given General: alert HEENT: NC/AT, PERRLA Neck: Supple Lungs: CTAB Cardiovascular: RRR, Normal S1, Normal S2, without murmur Abdomen: soft, non-tender, non-distended Extremities: excoriation Neurological: alert, disorganized - Procedures Procedures: Procedures Procedure Code Date COLONOSCOPY 45.23 09/19/11 DIAGNOSTIC COLONOSCOPY 38573 09/19/11 EMERGENCY DEPT VISIT 43987 09/19/11 OTHER GROUP THERAPY 94.44 10/17/11 RECREATIONAL THERAPY 93.81 10/17/11 Internal Medicine Assmt/Plan - Assessment Assessment: RIGHT ELBOW CELLULITIS FEVER LEUKOCYTOSIS ANEMIA HYPONATREMIA MODERATE PROTEIN CALORIE MALNUTRITION RENAL INSUFFICIENCY HTN HYPOTHYROIDISM SCHIZOAFFECTIVE DISORDER COPD DM-2 - Plan Plan: continue ivabx await for would cx psych f/u am labs continue current plan of care
[2017-03-01] MEDS: Ascorbic Acid/Vit B Complex Tab PO SCH (17:09)
[2017-03-01] MEDS: Vancomycin HCl 1.5 GM in Sodium Chloride 0.9% 500 ML IV SCH (17:17)
--- NOTE | 2017-03-02 00:17 | Consultation ---
DATE OF CONSULTATION: 03/01/2017 CHIEF COMPLAINT: Psychotic disorder. HISTORY OF PRESENT ILLNESS: The patient is a 61-year-old male with a history of schizophrenia, known to myself from treatment at his assisted facility. Also, he was recently at [facility], was transferred to the ER with possible cellulitis and now he is on medical floor for treatment. The patient has been agitated, restless, talking to himself, requiring redirecting by staff, but he is taking his medications mostly at time. PAST PSYCHIATRIC HISTORY: Multiple hospitalizations and chronic history of mental illness. PAST MEDICAL HISTORY: Upper extremity cellulitis, right elbow area. Please review H and P as per Dr. Sagastume, also ER notation report. PSYCHOSOCIAL HISTORY: The patient resides at [facility] and requires complete care. MENTAL STATUS EXAMINATION: The patient is oriented to person who is in the hospital, not oriented to time, but knew his age. The patient also knows his date of . The patient appears to be paranoid, suspicious, having episodes of talking to himself. Insight is poor. Judgment is impaired. ASSESSMENT: Schizophrenia, paranoid type versus schizoaffective disorder, bipolar type. PLAN: We will continue Seroquel at 400 mg p.o. b.i.d. and Haldol 2 mg p.o. b.i.d. The patient is also on Haldol Decanoate. Use Ativan 1 mg q. 6 hours p.r.n. anxiety. Monitor closely while on the medical floor. Consider psychiatric hospitalization if the patient continues to be agitated, once his treatment for his cellulitis is complete. Thank you for the consultation. JOB# [id number]
[2017-03-02 06:11] LABS: % BASOPHILS 0.1 % (0.0-2.0); % EOSINOPHILS 1.6 % (0.0-5.0); % LYMPHOCYTES 19.7 % (20.0-50.0); % MONOCYTES 11.2 % (2.0-10.0); % NEUTROPHILS 67.4 % (40.0-80.0); HEMATOCRIT 37.3 % (39.0-49.0); HEMOGLOBIN 12.6 gm/dL (13.2-17.3); MEAN CORPUSCULAR HEMOGLOBIN 30.9 pg (26.0-30.0); MEAN CORPUSCULAR HGB CONC 33.6 pg (28.0-36.0); MEAN PLATELET VOLUME 8.9 fl; PLATELET COUNT 220 Th/cmm (150-400); RED BLOOD COUNT 4.06 Mil/cmm (4.30-5.70); RED CELL DISTRIBUTION WIDTH 12.5 % (11.5-20.0)
[2017-03-02 06:29] LABS: WHITE BLOOD COUNT 5.8 Th/cmm (4.8-10.8)
[2017-03-02 06:31] LABS: ANION GAP 8.8 (7.0-16.0); BUN - UREA NITROGEN 28 mg/dL (7-25); BUN/CREATININE RATIO 18.7; CALCIUM SERUM 10.1 mg/dL (8.6-10.3); CARBON DIOXIDE 25.1 mEq/L (21.0-31.0); CHLORIDE 105 mEq/L (98-107); CREATININE - SERUM 1.5 mg/dL (0.7-1.3); GLUCOSE 149 mg/dL (70-105); POTASSIUM SERUM 3.9 mEq/L (3.5-5.1); SODIUM SERUM 135 mEq/L (136-145)
[2017-03-02] MEDS: INSULIN ASPART, RECOMBINANT 100 UNITS/ML SUBQ SCH ×4 (06:48→21:29)
[2017-03-02] MEDS: Levothyroxine 0.088 Mg Tab PO SCH (07:49)
[2017-03-02] MEDS: Pantoprazole 40 mg EC Tab PO SCH (07:49)
[2017-03-02] MEDS: Benztropine 1 MG TAB PO SCH ×2 (09:28→16:49)
[2017-03-02] MEDS: Fenofibrate, Micronized 134 mg Cap PO SCH (09:28)
[2017-03-02] MEDS: Sodium Chloride 0.45% 1,000 ML IV SCH (09:39)
[2017-03-02] MEDS: Levofloxacin 500mg/100mL 500 MG/100 ML BAG IV SCH (09:42)
[2017-03-02] MEDS: Vancomycin HCl 1.5 GM in Sodium Chloride 0.9% 500 ML IV SCH (09:58)
--- NOTE | 2017-03-02 10:36 | Internal Medicine Prog Note ---
Internal Medicine Subjective - Subjective Service Date: 03/02/17 Patient is:: awake, confused Per staff patient has:: no adverse event, tolerating meds Internal Medicine Objective - Results Result Diagrams: 03/02/17 05:40 03/02/17 05:40 Recent Labs: Laboratory Last Values WBC 5.8 Th/cmm (4.8-10.8) D 03/02/17 05:40 RBC 4.06 Mil/cmm (4.30-5.70) L 03/02/17 05:40 Hgb 12.6 gm/dL (13.2-17.3) L 03/02/17 05:40 Hct 37.3 % (39.0-49.0) L 03/02/17 05:40 MCV 92.0 fl (80-99) 03/02/17 05:40 MCH 30.9 pg (26.0-30.0) H 03/02/17 05:40 MCHC Differential 33.6 pg (28.0-36.0) 03/02/17 05:40 RDW 12.5 % (11.5-20.0) 03/02/17 05:40 Plt Count 220 Th/cmm (150-400) 03/02/17 05:40 MPV 8.9 fl 03/02/17 05:40 Neutrophils % 67.4 % (40.0-80.0) 03/02/17 05:40 Lymphocytes % 19.7 % (20.0-50.0) L 03/02/17 05:40 Monocytes % 11.2 % (2.0-10.0) H 03/02/17 05:40 Eosinophils % 1.6 % (0.0-5.0) 03/02/17 05:40 Basophils % 0.1 % (0.0-2.0) 03/02/17 05:40 ESR 61 mm/hr (0-20) H 03/02/17 05:40 Sodium 135 mEq/L (136-145) L 03/02/17 05:40 Potassium 3.9 mEq/L (3.5-5.1) 03/02/17 05:40 Chloride 105 mEq/L (98-107) 03/02/17 05:40 Carbon Dioxide 25.1 mEq/L (21.0-31.0) 03/02/17 05:40 Anion Gap 8.8 (7.0-16.0) 03/02/17 05:40 BUN 28 mg/dL (7-25) H 03/02/17 05:40 Creatinine 1.5 mg/dL (0.7-1.3) H 03/02/17 05:40 Est GFR ( Amer) > 60.0 ml/min (>90) 03/02/17 05:40 Est GFR (Non-Af Amer) 50.7 ml/min 03/02/17 05:40 BUN/Creatinine Ratio 18.7 03/02/17 05:40 Glucose 149 mg/dL (70-105) H 03/02/17 05:40 POC Glucose 108 MG/DL (70 - 105) H 03/02/17 06:35 Whole Bld Lactic Acid 0.66 mmol/L (0.60-1.99) 02/28/17 13:28 Calcium 10.1 mg/dL (8.6-10.3) 03/02/17 05:40 Total Bilirubin 0.6 mg/dL (0.3-1.0) 02/28/17 13:28 AST 26 U/L (13-39) 02/28/17 13:28 ALT 17 U/L (7-52) 02/28/17 13:28 Alkaline Phosphatase 74 U/L (34-104) 02/28/17 13:28 Total Protein 6.5 gm/dL (6.0-8.3) 02/28/17 13:28 Albumin 3.6 gm/dL (4.2-5.5) L 02/28/17 13:28 Globulin 2.9 gm/dL 02/28/17 13:28 Albumin/Globulin Ratio 1.2 (1.0-1.8) 02/28/17 13:28 - Physical Exam Vitals and I&O: Vital Signs Temp 97.6 F 03/02/17 04:00 Pulse 92 03/02/17 09:27 Resp 18 03/02/17 04:00 BP 138/95 03/02/17 09:27 Pulse Ox 97 03/02/17 04:00 Intake & Output 03/01/17 03/02/17 03/02/17 18:59 06:59 18:59 Intake Total 100 2350 Balance 100 2350 Weight (lbs) 168 lb Intake: Intake, IV Amount 100 500 Levofloxacin 500mg/100mL 100 500 mg In 100 ml @ 100 mls/hr IV Q24HR [facility] Rx#: [id number] Vancomycin HCl 1.5 gm In 500 Sodium Chloride 0.9% 500 ml @ 250 mls/hr IV Q24HR@ 0900 [facility] Rx#:[id number] Oral 1850 Other: # Voids 5 # Bowel Movements 0 Stool Characteristics Soft Formed Brown Active Medications: Current Medications Acetaminophen (Tylenol) 650 mg PO Q4H PRN PRN Reason: Pain (Mild) Stop: 04/29/17 15:20 Acetaminophen/Hydrocodone Bitart ([place] 5mg/325mg) 1 tab PO Q4H PRN PRN Reason: Pain (Severe) Stop: 04/29/17 15:25 Al Hydrox/Mg Hydrox/Simethicone (Maalox) 30 ml PO Q4HR PRN PRN Reason: GI DISTRESS Stop: 04/29/17 15:20 Albuterol Sulfate (Albuterol 2.5mg/3ml Neb Ud) 2.5 mg HHN Q2HRT PRN PRN Reason: Shortness of Breath or Wheeze Stop: 04/29/17 15:25 Aspirin (Ecotrin) 81 mg PO DAILY [facility] Stop: 04/30/17 08:59 Last Admin: 03/02/17 09:28 Dose: 81 mg Benztropine Mesylate (Cogentin) 1 mg PO BID [facility] Stop: 04/29/17 16:59 Last Admin: 03/02/17 09:28 Dose: 1 mg Docusate Sodium (Colace) 100 mg PO BID [facility] Stop: 04/29/17 16:59 Last Admin: 03/02/17 09:27 Dose: 100 mg Fenofibrate (Tricor) 134 mg PO DAILY [facility] Stop: 05/01/17 08:59 Last Admin: 03/02/17 09:28 Dose: 134 mg [facility] Stop: 04/29/17 16:29 Last Admin: 03/02/17 06:53 Dose: 10 mg Glucagon (Glucagen) 1 mg IM PRN PRN PRN Reason: Blood Glucose Less Than 60 Stop: 04/29/17 15:20 Haloperidol (Haldol) 2 mg PO BID [facility] PRN Reason: Protocol Stop: 04/29/17 16:59 Last Admin: 03/02/17 09:28 Dose: 2 mg Haloperidol Decanoate (Haldol Dec) 50 mg IM QMONTH [facility] PRN Reason: Protocol Stop: 04/29/17 17:59 Last Admin: 02/28/17 17:27 Dose: Not Given Heparin Sodium (Porcine) (Heparin) 5,000 units SUBQ Q12HR [facility] Stop: 04/29/17 20:59 Last Admin: 03/02/17 09:24 Dose: 5,000 units Levofloxacin (Levaquin Pb) 500 mg in 100 mls @ 100 mls/hr IV Q24HR [facility] Stop: 04/30/17 08:59 Last Admin: 03/02/17 09:42 Dose: 100 mls/hr Sodium Chloride (Nacl 0.45%) 1,000 mls @ 80 mls/hr IV .[id number] [facility] Stop: 04/29/17 15:29 Last Admin: 03/02/17 09:39 Dose: 80 mls/hr Vancomycin HCl 1.5 gm/ Sodium (Chloride) 500 mls @ 250 mls/hr IV Q24HR@0900 [facility] Stop: 04/30/17 13:59 Last Admin: 03/02/17 09:58 Dose: 250 mls/hr Insulin Aspart (Novolog) 0 units SUBQ ACHS [facility] PRN Reason: Protocol Stop: 04/29/17 16:29 Last Admin: 03/02/17 06:48 Dose: Not Given Levothyroxine Sodium (Synthroid) 0.088 mg PO QDAC [facility] Stop: 04/30/17 07:29 Last Admin: 03/02/17 07:49 Dose: 0.088 mg Lisinopril (Zestril) 10 mg PO DAILY [facility] Stop: 04/30/17 08:59 Last Admin: 03/02/17 09:27 Dose: 10 mg Lorazepam (Ativan) 1 mg PO Q6H PRN; Protocol PRN Reason: Anxiety Stop: 04/29/17 15:20 Last Admin: 03/01/17 20:42 Dose: 1 mg Magnesium Hydroxide (Milk Of Magnesia) 30 ml PO HS PRN PRN Reason: Constipation Stop: 04/29/17 15:20 Miscellaneous (Vte Chemical Prophylaxis Screen/ Admission) 1 ea [facility] PRN PRN PRN Reason: PROTOCOL Stop: 04/29/17 17:08 Miscellaneous (Vancomycin Iv Per Pharmacy) 1 ea [facility] PRN [facility] Stop: 04/30/17 12:59 Ondansetron HCl (Zofran) 4 mg IV Q8H PRN PRN Reason: Nausea / Vomiting Stop: 04/29/17 15:25 Pantoprazole Sodium (Protonix) 40 mg PO QDAC [facility] Stop: 04/30/17 07:29 Last Admin: 03/02/17 07:49 Dose: 40 mg Pioglitazone HCl (Actos) 30 mg PO QDAC [facility] Stop: 04/30/17 07:29 Last Admin: 03/02/17 07:49 Dose: 30 mg Quetiapine Fumarate (Seroquel) 400 mg PO Q12HR [facility] PRN Reason: Protocol Stop: 04/29/17 20:59 Last Admin: 03/02/17 09:28 Dose: 400 mg Sodium Bicarbonate (Sodium Bicarbonate) 650 mg PO TID [facility] PRN Reason: Protocol Stop: 04/29/17 20:59 Last Admin: 03/02/17 09:28 Dose: 650 mg Vitamin B Complex/Vitamin C (Vitamin B Complex W/C) 1 tab PO DAILY [facility] Stop: 04/29/17 17:59 Last Admin: 03/01/17 17:09 Dose: 1 tab General: alert HEENT: NC/AT, PERRLA Neck: Supple Lungs: CTAB Cardiovascular: RRR, Normal S1, Normal S2, without murmur Abdomen: soft, non-tender, non-distended Extremities: excoriation Neurological: alert, disorganized - Procedures Procedures: Procedures Procedure Code Date COLONOSCOPY 45.23 09/19/11 DIAGNOSTIC COLONOSCOPY 92917 09/19/11 EMERGENCY DEPT VISIT [id number] 09/19/11 OTHER GROUP THERAPY 94.44 10/17/11 RECREATIONAL THERAPY 93.81 10/17/11 Internal Medicine Assmt/Plan - Assessment Assessment: RIGHT ELBOW CELLULITIS FEVER LEUKOCYTOSIS- improved ANEMIA HYPONATREMIA MODERATE PROTEIN CALORIE MALNUTRITION RENAL INSUFFICIENCY HTN HYPOTHYROIDISM SCHIZOAFFECTIVE DISORDER COPD DM-2 - Plan Plan: continue ivabx monitor for fever psych f/u am labs continue current plan of care
[2017-03-02] MEDS: Ascorbic Acid/Vit B Complex Tab PO SCH (11:45)
--- NOTE | 2017-03-02 15:46 | Diagnostic Imaging Report ---
CT right upper extremity without IV contrast History: Pain rule out abscess Comparison: Right upper extremity ultrasound on 03/10/2017 Technique: Axial images were obtained from the proximal right humerus to the distal radius without IV contrast. Reconstructions were made. Findings: There is no evidence of an acute fracture. Mild distal olecranon spurring is noted. There is extensive subcutaneous edema greatest along the olecranon region. Evaluation for discrete fluid collections limited due to lack of IV contrast. No elbow effusion identified. There are mild edema involving the triceps muscles. A few mildly prominent lymph nodes of the distal humeral subcutaneous soft tissues are noted largest measuring 5 mm. IMPRESSION Extensive subcutaneous edema with edema extending deep to the fascial planes. Findings are likely due to extensive cellulitis. This appears to be most pronounced along the olecranon region. Small amount of fluid in this region cannot be completely excluded. Evaluation for discrete abscess was limited due to lack of IV contrast, however, no definite drainable abscess is suspected. Consider short-term follow-up exam would IV contrast.. Heterogeneously of the triceps muscles. Underlying myositis in this region cannot be excluded. A few borderline prominent lymph nodes along the distal humerus nonspecific and possibly reactive.
--- NOTE | 2017-03-02 23:19 | Progress Notes ---
DATE: 03/02/2017 SUBJECTIVE: The patient was seen, still intrusive, angry, irritable, still talking to himself, some episodes of yelling. The patient, however, is taking his medications, does not appear to have any side effects. ASSESSMENT: The patient still in psychotic phase. PLAN: We will increase Haldol to 5 mg p.o. b.i.d. Monitor closely for any EPS. [facility]# [id number]
--- NOTE | 2017-03-03 03:22 | Admit Criteria Form ---
Admit Criteria Forms - Admit Criteria Diagnosis: GENERAL ADMISSION CRITERIA (Place 'X' for any and all applicable criteria): Admission is indicated for ANY ONE of the following: [ ]I. Hemodynamic instability as indicated by ANY ONE of the following(1)(2) (3)(4)(5): [ ]a) Vital sign abnormality not readily corrected by appropriate treatment within 12 to 24 hours indicated by ANY ONE of the following: [ ]i) Hypotension [ ]ii) Symptomatic Tachycardia unresponsive to treatment (eg , analgesia, fluids, sedation as indicated) [ ]iii) Orthostatic vital sign changes unresponsive to treatment (eg, fluids) [ ]b) Vital sign abnormality that is severe indicated by ANY ONE of the following: [ ]i) Inadequate perfusion indicated by ANY ONE of the following: [ ]1) Lactic acidosis (greater than 2 mmol/L) [ ]2) New abnormal capillary refill (greater than 3 seconds) [ ]3) Other metabolic acidosis (arterial pH less than 7.35) not otherwise explained [ ]4) Reduced urine output [ ]5) Altered mental status [ ]6) Myocardial Ischemia [ ]v) Mean arterial pressure[A] less than 60 mm Hg [ ]vi) Mean arterial pressure[A] less than 70 mm Hg after 30 minutes of appropriate treatment (eg, fluid resuscitation) [ ]vii) IV inotropic or vasopressor medication required to maintain adequate blood pressure or perfusion [ ]viii) Sustained heart rate greater than 120 beats per minute in adult or child 6 years or older[B]] [ ]II. Hypertension requiring inpatient treatment as indicated by ANY ONE of the following(6)(7)(8): [ ]a) SBP greater than 220 mm Hg or DBP greater than 120 mm Hg despite treatment [ ]b) SBP greater than 140 mm Hg or DBP greater than 100 mm Hg with evidence of acute end organ damage as indicated by ANY ONE of the following: [ ]i) Encephalopathy [ ]ii) Acute renal failure as indicated by new onset of ANY ONE of the following(9)(10)(11)(12)(13): [ ]1) A 3-fold rise in serum creatinine from baseline [ ]2) Serum creatinine greater than 4 mg/dL ( 354 micromoles/L) with acute rise greater than 0.5 mg/dL (44.2 micromoles/L) [ ]3) Reduction of more than 75% in estimated glomerular filtration rate from baseline [ ]4) Estimated glomerular filtration rate less than 35 mL/min/1.73m2 (0.59 mL/sec/1.73m2) in child up to 18 years of age [ ]5) Cessation of urine output indicated by ALL of the following: [ ]A. Adequate volume status [ ]B. Inadequate urine output as indicated by ANY ONE of the following: [ ]a. Urine output less than 0.3 mL/kg/hr for 24 hours [ ]b. Anuria (urine output less than 0.1 mL/kg/hr) for 12 hours [ ]iii) Aortic dissection [ ]iv) Myocardial ischemia [ ]v) Left ventricular heart failure [ ]vi) Retinal hemorrhage [ ]vii) Other significant finding [ ]c) Hypertension in child requiring inpatient treatment as indicated by ALL of the following(14)(15)(16): [ ]i) Outpatient treatment not effective, not available, or not appropriate [ ]ii) SBP or DBP greater than 95th percentile for age [ ]iii) Evidence of acute end organ damage as indicated by ANY ONE of the following: [ ]1) Altered mental status [ ]2) Acute renal failure as indicated by new onset of ANY ONE of the following(9)(10)(11)(12)(13): [ ]A. A 3-fold rise in serum creatinine from baseline [ ]B. Serum creatinine greater than 4 mg/dL (354 micromoles/L) with acute rise greater than 0.5 mg/dL (44.2 micromoles/L) [ ]C. Reduction of more than 75% in estimated glomerular filtration rate from baseline [ ]D. Estimated glomerular filtration rate less than 35 mL/min/1.73m2 (0.59 mL/sec/1.73m2)in child up to 18 years of age [ ]E. Cessation of urine output indicated by ALL of the following: [ ]a. Adequate volume status [ ]b. Inadequate urine output as indicated by ANY ONE of the following: [ ]1) Urine output less than 0.3 mL/kg/hr for 24 hours [ ]2) Anuria (urine output less than 0.1 mL/kg/hr) for 12 hours [ ]3) Severe headache [ ]4) Visual disturbance [ ]5) Retinal hemorrhage [ ]6) Other significant finding [ ]III. Acute cardiac or peripheral ischemia as indicated by ANY ONE of the following: [ ]a) Acute coronary syndrome(17)(18) [ ]b) Acute peripheral ischemia (eg, pulseless, cool, mottled, or cyanotic extremity)(19) [ ]IV. Cardiac arrhythmias or findings of immediate concern indicated by ANY ONE of the following(20)(21): [ ]a) Heart rhythms that are inherently dangerous or unstable indicated by ANY ONE of the following(22)(23)(24): [ ]i) Resuscitated ventricular fibrillation or cardiac arrest [ ]ii) Ventricular escape rhythm [ ]iii) Sustained ventricular tachycardia (30 seconds or more of ventricular rhythm at greater than 100 beats per minute) [ ]iv) Nonsustained ventricular tachycardia and ANY ONE of the following: [ ]1) Suspected cardiac ischemia as cause or consequence of ventricular tachycardia [ ]2) In setting of acute myocarditis [ ]b) Unstable cardiac conduction defects indicated by ANY ONE of the following(24)(25)(26): [ ]i) Type II second-degree atrioventricular block [ ]ii) Third-degree atrioventricular block [ ]iii) New-onset left bundle branch block with suspected myocardial ischemia [ ]c) Any heart rhythm and ANY ONE of the following(22)(23)(27)(28)( 29): [ ] i) Continuous long-term ECG monitoring needed (eg, initiation of drug requiring monitoring for more than 24 hours) [ ] ii) Patient has automatic implanted cardioverter defibrillator that is repeatedly firing, malfunctioning, or in need of immediate adjustment of settings beyond the scope of ambulatory or observation care. [ ]d) Heart rhythms of concern due to ANY ONE of the following: [ ]i) Hypotension [ ]ii) Respiratory distress [ ]iii) Association with other significant symptoms (eg, bradycardia with syncope or ongoing dizziness, supraventricular tachycardia with chest pain) (27)(28) (30) [ ] V. Severe heart failure as indicated by ANY ONE of the following ( 31)(32): [ ]a) Respiratory distress [ ]b) Hypotension [ ]c) Anasarca (refractory to outpatient therapy) [ ]d) Cardiac arrhythmias of immediate concern [ ]e) Myocardial ischemia [ ]. Respiratory abnormalities, including ANY ONE of the following(33)(34) (35)(36): [ ]a) Respiratory rate greater than 30 breaths per minute unresponsive to treatment [A] [ ]b) New saturation of arterial oxygen less than 90% [ ]c) New partial pressure of carbon dioxide greater than 44 mm Hg ( 5.9 kPa) [ ]d) Supplemental oxygen or respiratory treatments needed that are new or not performable at other levels of care [ ]e) New-onset cyanosis [ ]f) Inability to protect airway [ ]g) Chronic lung disease with severe deterioration (not responsive to emergency and observation care treatment as appropriate) as indicated by ANY ONE of the following(34)(36 ): [ ]i) SaO2 5% below baseline in patient with chronic hypoxemia [ ]ii) New requirement for supplemental oxygen to keep SaO2 at baseline or acceptable level [ ]iii) Required supplemental oxygen performable only in acute inpatient setting [ ]iv) Severe airflow or ventilation abnormalities [ ]v) Previously mobile patient unable to walk between rooms [ ]vi Inability to eat or sleep due to dyspnea [ ]vii) Rapid rate of exacerbation onset [ ]viii) Altered mental status ]VII. Severe airflow or ventilation abnormalities (not responsive to emergency and observation care treatment as appropriate) as indicated by ANY ONE of the following(33)(34)(35)(37): [ ]a) PCO2 greater than 42 mm Hg (5.6 kPa) and pH less than 7.35 (new ) [ ]b) Documented PCO2 increased more than 5 mm Hg (0.7 kPa) from disease baseline [ ]c) Airflow measurements [B] less than 60% of previous best or predicted (eg, peak expiratory flow rate less than 300 L/minute) despite intensive emergent treatment [C] [ ]d) Required respiratory treatments that are performable only in acute inpatient setting [ ]VIII. Impending or actual respiratory arrest ( Also use Respiratory Failure GRG for severe respiratory disease and long-term mechanical ventilation patients) [ ]IX. Neurologic abnormalities, including ANY ONE of the following: [ ]a) New findings that suggest ANY ONE of the following: [ ]i) GLOST PLACER infection(38) [ ]ii) Cerebral bleeding, ischemia, or vasospasm(39)(40) [ ]iii) Increased intracranial pressure, hydrocephalus, or cerebral edema(41)(42)(43) [ ]iv) Spinal cord injury(44) [ ]b) Uncontrolled seizures(45) [ ]c) New-onset coma (eg, Eladia coma scale score less than 9) or unexplained abnormal mental status (eg, Eladia coma scale score less than 14) [D](41)(46)(47) [ ]X. New-onset severe neurologic findings requiring inpatient care; examples include(42)(48)(49): [ ]a) Papilledema [ ]b) Cerebral edema [ ]c) Mass effect on CT scan [ ]XI. Suspected acute intra-abdominal process with peritoneal signs, abdominal mass, or similar findings (50)(51)(52) [ ]XII. Severe physiologic disorder remaining after emergency or observation level care (as appropriate) as indicated by ANY ONE of the following (53): [ ]a) Significant dehydration [ ]b) Diabetic ketoacidosis [ ]c) Hyperglycemic hyperosmolar state (eg, osmolality greater than 320 mOsm/kg (mmol/kg) [ ]d) Hypoglycemia [ ]e) Other (new) acid-base disorder with pH less than 7.35 or greater than 7.5(54) [ ]f) Thyroid storm (55) [ ]g) Myxedema coma (55) [ ]XIII. Abdominal abnormalities with ANY ONE of the following(56)(57): [ ]a) Absent bowel sounds with complete ileus [ ]b) Signs of intestinal obstruction or peritonitis [E] [ ]c) Nausea and vomiting that cannot be controlled with outpatient or observation care [ ]XIV. Acute renal failure as indicated by new onset of ANY ONE of the following(9)(10)(11)(12)(13): [ ]a) A 3-fold rise in serum creatinine from baseline [ ]b) Serum creatinine greater than 4 mg/dL (354 micromoles/L) with acute rise greater than 0.5 mg/dL (44.2 micromoles/L) [ ]c) Reduction of more than 75% in estimated glomerular filtration rate from baseline [ ]d) Estimated glomerular filtration rate less than 35 mL/min/ 1.73m2 (0.59 mL/sec/1.73m2) in child up to 18 years of age [ ]e) Cessation of urine output indicated by ALL of the following: [ ]i) Adequate volume status [ ]ii) Inadequate urine output as indicated by ANY ONE of the following: [ ]1) Urine output less than 0.3 mL/kg/hr for 24 hours [ ]2) Anuria (urine output less than 0.1 mL/kg/hr) for 12 hours [ ]XV. Significant uremic complications as indicated by ANY ONE of the following(58)(59)(60): [ ]a) Outpatient therapy is ineffective or not feasible for ANY ONE of the following: [ ]i) Severe heart failure [ ]ii) Severehypertension [ ]iii) Pleural effusion [ ]iv) Pericarditis or pericardial effusion [ ]b) Cardiac arrhythmias of immediate concern [ ]c) Intractable nausea or vomiting [ ]d) Recurrent seizures [ ]e) Encephalopathy [ ]f) Bleeding abnormalities (eg, platelet dysfunction) with active (eg, gastrointestinal) bleeding [ ]g) Dialysis indicated before long-term access or ambulatory arrangements can be made [ ]h) Significant metabolic or electrolyte abnormalities (eg, severe acidosis or hyperkalemia) [ ]XVI. High fever or other high-risk infection situation as indicated by ANY ONE of the following(61)(62)(63)(64): [ ]a) Outpatient and observation care antimicrobial treatment unavailable, not effective, or not appropriate [ ]b) Documented bacteremia [ ]c) Temperature greater than 40.5 degrees C (104.9 degrees F) ( oral) [ ]d) Temperature greater than 39.5 degrees C (103.1 degrees F) ( oral) or less than 36 degrees C (96.8 degrees F) (rectal) that does not respond to e treatment and observation care [ ] XVII. Temperature less than 95 degrees F (35 degrees C)(rectal)(65) [ ] XVIII. Severe nutritional abnormalities as indicated by ALL of the following (66)(67): [ ]a) Inability to tolerate or establish sufficient oral or other enteral nutrition in outpatient setting [ ]b) Parenteral nutrition regimen need that must be implemented on inpatient basis [ ] XIX. Severe electrolyte abnormalities indicated by ALL of the following(68) (69)(70): [ ]a) Electrolytes and associated findings are not as expected for patient baseline or acceptable treatment effects. [ ]b) Severe abnormalities indicated by ANY ONE of the following: [ ]i) Sodium less than 130 mEq/L (mmol/L) (new) [ ]ii)Sodium less than 135 mEq/L (mmol/L) with ANY ONE of the following: [ ]1) Uncorrectable (to near normal or chronic baseline) after trial of outpatient and emergency treatment [ ]2) Altered mental status [ ]3) Seizures [ ]4) Severe medical etiology requiring inpatient management (eg, heart failure, hypovolemia) [ ]iii) Sodium greater than 155 mEq/L (mmol/L) [ ]iv) Sodium greater than 150 mEq/L (mmol/L) with ANY ONE of the following: [ ]1) Uncorrectable (to near normal or chronic baseline) with outpatient and emergency treatment [ ]2) Altered mental status [ ]3) Seizures [ ]4) Severe medical etiology (eg, hypovolemia, diabetes insipidus) [ ]v) Potassium less than 2.5 mEq/L (mmol/L) despite outpatient and emergency treatment [ ]vi) Potassium less than 3 mEq/L (mmol/L) with ANY ONE of the following: [ ]1) Weakness [ ]2) Cardiac abnormality (eg, arrhythmia, conduction disturbance) [ ]3) Cardiac ischemia [ ]4) Ileus [ ]5) Ongoing medical cause requiring inpatient management (eg, acute renal wasting or SIADH) [ ]6) Other severe symptoms [ ]vii) Potassium greater than 6.5 mEq/L (mmol/L) [ ]viii) Potassium greater than 5 mEq/L (mmol/L) with ANY ONE of the following: [ ]1) Uncorrectable (to near normal or chronic baseline) with outpatient and emergency treatment [ ]2) Severe ECG findings [F] [ ]3) Acute worsening of renal failure (creatinine greater than 2.5 mg/dL (221 micromoles/L) or significant elevation for age and size) [ ]4) Severe weakness [ ]5) Severe medical etiology (eg, hemolysis, infection, drug overdose) [ ]ix) Calcium less than 7 mg/dL (1.75 mmol/L) despite outpatient and emergency treatment (72) [ ]x) Calcium less than 8 mg/dL (2 mmol/L) with significant symptoms or findings; examples include(72): [ ]1) Altered mental status [ ]2) Muscle spasms [ ]3) Seizures [ ]4) Breathing difficulty [ ]5) Cardiac abnormality (eg, arrhythmia or conduction disturbance) [ ]xi) Calcium greater than 14 mg/dL (3.5 mmol/L)(72) [ ]xii) Calcium greater than 12 mg/dL (3 mmol/L) with ANY ONE of the following(72): [ ]1) Uncorrectable (to near normal or chronic baseline) with outpatient and emergency treatment [ ]2) Significant dehydration or hypovolemia as indicated by ALL of the following(70)(73)(74): [ ]A. Not resolved with initial treatments [ ]B. Clinically significant dehydration as indicated by ANY ONE of the following: [ ]a. Vomiting refractory to outpatient treatment (ie, precluding oral rehydration) [ ]b. Inability to drink [ ]c. Hypernatremia or other electrolyte abnormality unable to be corrected with outpatient and emergency treatment [ ]d. Failure to remain hydrated with outpatient therapy [ ]e. Reduced urine output [ ]f. Hypotension [ ]g. Serious cause for dehydration requiring acute hospitalization (eg, bowel obstruction, increased intracranial pressure, infectious cause) [ ]h. Child with ANY ONE of the following(75): [ ]1) Severe abdominal tenderness [ ]2) Adequate care not available at home [ ]3) Severe dehydration ( greater than 9% loss of body weight) [ ]4) Significant symptoms or findings; examples include: [ ]A. Altered mental status [ ]B. Cardiac abnormality (eg, arrhythmia, conduction disturbance) [ ]C. Malignant etiology requiring inpatient treatment [ ]xiii) Phosphorus less than 1 mg/dL (0.32 mmol/L) [ ]xiv) Phosphorus less than 1.5 mg/dL (0.48 mmol/L) with ANY ONE of the following: [ ]1) Patient unresponsive to outpatient and emergency treatment [ ]2) Significant symptoms or findings; examples include: [ ]A. Weakness [ ]B. Altered mental status [ ]C. Breathing difficulty [ ]D. Seizures [ ]E. Rhabdomyolysis [ ]xv) Phosphorus greater than 10 mg/dL (3.2 mmol/L) [ ]xvi) Phosphorus greater than 4.5 mg/dL (1.45 mmol/L) (new) with ANY ONE of the following: [ ]1) Severe medical etiology (eg, crush injury, acute renal failure) [ ]2) Associated hypocalcemia with significant findings; examples include: [ ]A. Neurologic symptoms [ ]B. Altered mental status [ ]C. Muscle spasms [ ]D. Seizures [ ]E. Breathing difficulty [ ]F. Cardiac abnormality (eg, arrhythmia, conduction disturbance) [ ]xvii) Magnesium less than 1 mg/dL (0.41 mmol/L) [ ]xviii) Magnesium less than 1.5 mg/dL (0.62 mmol/L) with ANY ONE of the following: [ ]1) Patient unresponsive to outpatient and emergency treatment [ ]2) Associated hypocalcemia with significant findings; examples include: [ ]A. Altered mental status [ ]B. Muscle spasms [ ]C. Seizures [ ]D. Breathing difficulty [ ]E. Cardiac abnormality (eg, arrhythmia , conduction disturbance) [ ]3) Associated hypokalemia (potassium less than 3 mEq/L (mmol/L)) with risk of arrhythmia [ ]xix) Magnesium greater than 4 mEq/L (2 mmol/L) [ ]xx) Magnesium greater than 2.5 mEq/L (1.25 mmol/L) with significant symptoms or findings; examples include: [ ]1) Weakness [ ]2) Altered mental status [ ]3) Cardiac abnormality (eg, arrhythmia, conduction disturbance) [ ]4) Breathing difficulty [ ]5) Severe medical etiology (eg, renal failure, hypovolemia) [ ]xxi) Uric acid greater than 20 mg/dL (1190 micromoles/L)(76) [ ]xxii) Uric acid greater than 8 mg/dL (476 micromoles/L) with significant symptoms or findings of tumor lysis syndrome; examples include(76): [ ]1) Creatinine greater than 1.5 times upper limit of normal [ ]2) Cardiac abnormality (eg, arrhythmia, conduction disturbance) [ ]3) Seizure [ ]XX. Acute blood loss causing significant abnormality as indicated by ANY ONE of the following(77)(78): [ ]a) Hemoglobin less than 10 g/dL (100 g/L) (not baseline) [ ]b) Hematocrit less than 30% (0.30) (not baseline) [ ]c) Repeat hematocrit decreased more than 2% (0.02) [ ]d) Uncontrolled bleeding [ ]XXI. Severe anemia indicated by ANY ONE of the following(78)(79): [ ]a) Altered mental status [ ]b) Chest pain [ ]c) Exertional dyspnea [ ]d) Syncope [ ]e) Other findings suggesting inadequate perfusion [ ]f) Treatment with transfusion or volume replacement is ineffective at resolving ANY ONE of the following [G]: [ ]i) Tachycardia for age [ ]ii) Orthostatic vital sign changes as indicated by ANY ONE of the following(80): [ ]1) Fall in SBP of 20 mm Hg or more 1 to 3 minutes after patient sits or stands from recumbent position [ ]2) Fall in DBP of 10 mm Hg or more 1 to 3 minutes after patient sits or stands from recumbent position [ ]XXII. High-risk low platelet count as indicated by ANY ONE of the following( 81)(82): [ ]a) Severe or life-threatening bleeding (eg, intracranial, major gastrointestinal, or extensive mucosal bleeding), with any reduced platelet count [ ]b) Platelet count less than 20,000/mm3 (20 x109/L) with any active bleeding [ ]c) Platelet count less than 10,000/mm3 (10 x109/L) with minor purpura or petechiae [ ]d) Platelet count less than 5000/mm3 (5 x109/L) [ ]e) Low platelet count with hemolytic anemia [ ]XXIII. Disseminated intravascular coagulation(77)(83) [ ]XXIV. Severe adverse drug or systemic toxin reaction requiring inpatient treatment; examples include(84)(85): [ ]a) Serotonin syndrome(86) [ ]b) Neuroleptic malignant syndrome(86) [ ]c) Cholinergic syndrome with severe symptoms (eg, bronchorrhea, weakness, mental status changes, seizures) [ ]d) Sympathetic syndrome with severe symptoms (eg, seizures, mental status changes, cardiac dysrhythmias) [ ]e) Anticholinergic syndrome [ ]XXV. Severe pain requiring acute inpatient management as indicated by ALL of the following (87)(88)(89): [ ]a) Continuous or frequent (eg, every 2 to 4 hours) parenteral analgesics required [H] [ ]b) Rapid improvement expected from treatment or acute intervention (eg, surgery, anesthesia procedure) [ ]XXVI.Severe behavioral health issues judged unmanageable at a lower level of care (eg, residential) in a patient who is ANY ONE of the following(91) [ ]a) Acutely suicidal [ ]b) A danger to self (eg, self-mutilating or suicidal behavior) [ ]c) A danger to others (eg, assaultive or homicidal behavior) [ ]d) Incapacitated because of grave disability (eg, inability to provide for self at lower level of care) (92) [X ]XXVII. Inpatient monitoring needed; examples include(1)(3)(87)(93)(94)(95)( 96): [X ]a) Vital signs, neurologic signs, or vascular checks more frequently than every 4 hours [ ]b) Cardiac or respiratory monitoring beyond the scope (eg, over 24 hours) of observation care [ ]c) Pulmonary artery catheter monitoring [ ]d) Suspected compartment syndrome(97) (98) [ ]e) Cerebral bleeding, hydrocephalus, or vasospasm monitoring [ ]f) Increased intracranial pressure or cerebral edema monitoring [ ]g) monitoring [ ]XXVIII. Treatment requiring inpatient care; examples include: [ ]a) IV fluid to replace significant ongoing losses (greater than 3 L/m2 per day)(53) [ ]b) High concentration oxygen (greater than 40%)(33)(99)(100) [ ]c) Frequent respiratory therapy (more frequently than every 4 hours) to maintain airflow rates greater than 60% of baseline(33)(99)(100) [ ]d) Epidural analgesia(87) [ ]e) IV anticoagulation, vasoactive, or antiarrhythmic medication(19 )(23) [ ]f) Acute thrombolytics (generally require 24 hours of observation )(101)(102) [ ]XXIX. Emergency procedures needed; examples include: [ ]a) Emergency inpatient surgery [ ]b) Temporary pacemaker placement(103) [ ]c) Chest tube placement with active evacuation (eg, suction, drainage)(104) [ ]d) Emergent cardioversion(105) [ ]e) Emergent cardiac or vascular procedures (eg, cardiac catheterization, angioplasty) (17)(18) [ ]f) Emergent dialysis access placement and institution(10)(106) [ ]g) Emergent pericardiocentesis(107) [ ]h) Emergent plasmapheresis or leukapheresis(83) [ ]i) Emergent tracheostomy The original [employer] content created by [employer] has been revised. The portions of the content which have been revised are identified through the use of italic text or in bold, and [facility] [employer] has neither reviewed nor approved the modified material. All other unmodified content is copyright [employer]. Please see references footnoted in the original [employer] edition 2016 Admit Criteria Met?: Yes
[2017-03-03 06:17] LABS: % BASOPHILS 0.1 % (0.0-2.0); % LYMPHOCYTES 23.4 % (20.0-50.0); % MONOCYTES 13.3 % (2.0-10.0); % NEUTROPHILS 61.2 % (40.0-80.0); HEMATOCRIT 37.1 % (39.0-49.0); HEMOGLOBIN 12.6 gm/dL (13.2-17.3); MEAN CELL VOLUME 90.7 fl (80-99); MEAN CORPUSCULAR HEMOGLOBIN 30.7 pg (26.0-30.0); MEAN CORPUSCULAR HGB CONC 33.9 pg (28.0-36.0); MEAN PLATELET VOLUME 9.2 fl; NEUTROPHILE ABSOLUTE 3.3 Th/cmm (1.8-8.0); PLATELET COUNT 234 Th/cmm (150-400); RED BLOOD COUNT 4.08 Mil/cmm (4.30-5.70); RED CELL DISTRIBUTION WIDTH 12.1 % (11.5-20.0); WHITE BLOOD COUNT 5.3 Th/cmm (4.8-10.8)
[2017-03-03 06:23] LABS: ANION GAP 9.4 (7.0-16.0); BUN - UREA NITROGEN 26 mg/dL (7-25); BUN/CREATININE RATIO 17.3; CALCIUM SERUM 10.3 mg/dL (8.6-10.3); CARBON DIOXIDE 27.5 mEq/L (21.0-31.0); CHLORIDE 103 mEq/L (98-107); CREATININE - SERUM 1.5 mg/dL (0.7-1.3); GLUCOSE 165 mg/dL (70-105); POTASSIUM SERUM 3.9 mEq/L (3.5-5.1); SODIUM SERUM 136 mEq/L (136-145)
[2017-03-03] MEDS: Fenofibrate, Micronized 134 mg Cap PO SCH (08:17)
[2017-03-03] MEDS: Benztropine 1 MG TAB PO SCH ×2 (08:17→16:07)
[2017-03-03] MEDS: Pantoprazole 40 mg EC Tab PO SCH (08:17)
[2017-03-03] MEDS: Levothyroxine 0.088 Mg Tab PO SCH (08:17)
[2017-03-03] MEDS: Levofloxacin 500mg/100mL 500 MG/100 ML BAG IV SCH (09:03)
[2017-03-03] MEDS: INSULIN ASPART, RECOMBINANT 100 UNITS/ML SUBQ SCH ×4 (09:31→20:20)
[2017-03-03] MEDS: Ascorbic Acid/Vit B Complex Tab PO SCH (10:37)
[2017-03-03] MEDS: Vancomycin HCl 1.5 GM in Sodium Chloride 0.9% 500 ML IV SCH (12:25)
--- NOTE | 2017-03-03 12:26 | Internal Medicine Prog Note ---
Internal Medicine Subjective - Subjective Service Date: 03/03/17 Patient seen and examined:: with staff Patient is:: awake, confused Per staff patient has:: no adverse event, tolerating meds Internal Medicine Objective - Results Result Diagrams: 03/03/17 05:30 03/03/17 05:30 Recent Labs: Laboratory Last Values WBC 5.3 Th/cmm (4.8-10.8) 03/03/17 05:30 RBC 4.08 Mil/cmm (4.30-5.70) L 03/03/17 05:30 Hgb 12.6 gm/dL (13.2-17.3) L 03/03/17 05:30 Hct 37.1 % (39.0-49.0) L 03/03/17 05:30 MCV 90.7 fl (80-99) 03/03/17 05:30 MCH 30.7 pg (26.0-30.0) H 03/03/17 05:30 MCHC Differential 33.9 pg (28.0-36.0) 03/03/17 05:30 RDW 12.1 % (11.5-20.0) 03/03/17 05:30 Plt Count 234 Th/cmm (150-400) 03/03/17 05:30 MPV 9.2 fl 03/03/17 05:30 Neutrophils % 61.2 % (40.0-80.0) 03/03/17 05:30 Lymphocytes % 23.4 % (20.0-50.0) 03/03/17 05:30 Monocytes % 13.3 % (2.0-10.0) H 03/03/17 05:30 Eosinophils % 2.0 % (0.0-5.0) 03/03/17 05:30 Basophils % 0.1 % (0.0-2.0) 03/03/17 05:30 ESR 61 mm/hr (0-20) H 03/02/17 05:40 Sodium 136 mEq/L (136-145) 03/03/17 05:30 Potassium 3.9 mEq/L (3.5-5.1) 03/03/17 05:30 Chloride 103 mEq/L (98-107) 03/03/17 05:30 Carbon Dioxide 27.5 mEq/L (21.0-31.0) 03/03/17 05:30 Anion Gap 9.4 (7.0-16.0) 03/03/17 05:30 BUN 26 mg/dL (7-25) H 03/03/17 05:30 Creatinine 1.5 mg/dL (0.7-1.3) H 03/03/17 05:30 Est GFR ( Amer) > 60.0 ml/min (>90) 03/03/17 05:30 Est GFR (Non-Af Amer) 50.7 ml/min 03/03/17 05:30 BUN/Creatinine Ratio 17.3 03/03/17 05:30 Glucose 165 mg/dL (70-105) H 03/03/17 05:30 POC Glucose 81 MG/DL (70 - 105) 03/03/17 11:43 Whole Bld Lactic Acid 0.66 mmol/L (0.60-1.99) 02/28/17 13:28 Calcium 10.3 mg/dL (8.6-10.3) 03/03/17 05:30 Total Bilirubin 0.6 mg/dL (0.3-1.0) 02/28/17 13:28 AST 26 U/L (13-39) 02/28/17 13:28 ALT 17 U/L (7-52) 02/28/17 13:28 Alkaline Phosphatase 74 U/L (34-104) 02/28/17 13:28 Total Protein 6.5 gm/dL (6.0-8.3) 02/28/17 13:28 Albumin 3.6 gm/dL (4.2-5.5) L 02/28/17 13:28 Globulin 2.9 gm/dL 02/28/17 13:28 Albumin/Globulin Ratio 1.2 (1.0-1.8) 02/28/17 13:28 Vancomycin Trough 10.1 ug/mL (10-20) 03/03/17 07:45 - Physical Exam Vitals and I&O: Vital Signs Temp 99.3 F 03/03/17 08:00 Pulse 89 03/03/17 08:47 Resp 16 03/03/17 08:47 BP 136/92 03/03/17 08:17 Pulse Ox 96 03/03/17 08:47 Intake & Output 03/02/17 03/03/1717 18:59 06:59 18:59 Intake Total 2500 120 Balance 2500 120 Weight (lbs) 168 lb 168 lb Intake: Intake, IV Amount 600 Levofloxacin 500mg/100mL 100 500 mg In 100 ml @ 100 mls/hr IV Q24HR [facility] Rx#: [id number] Vancomycin HCl 1.5 gm In 500 Sodium Chloride 0.9% 500 ml @ 250 mls/hr IV Q24HR@ 0900 [facility] Rx#:[id number] Oral 1900 120 Other: # Voids 4 # Bowel Movements 0 Stool Characteristics Soft Soft Formed Formed Brown Brown Active Medications: Current Medications Acetaminophen (Tylenol) 650 mg PO Q4H PRN PRN Reason: Pain (Mild) Stop: 04/29/17 15:20 Acetaminophen/Hydrocodone Bitart ([place] [employer] 5mg/325mg) 1 tab PO Q4H PRN PRN Reason: Pain (Severe) Stop: 04/29/17 15:25 Al Hydrox/Mg Hydrox/Simethicone (Maalox) 30 ml PO Q4HR PRN PRN Reason: GI DISTRESS Stop: 04/29/17 15:20 Albuterol Sulfate (Albuterol 2.5mg/3ml Neb Ud) 2.5 mg HHN Q2HRT PRN PRN Reason: Shortness of Breath or Wheeze Stop: 04/29/17 15:25 Aspirin (Ecotrin) 81 mg PO DAILY [facility] Stop: 04/30/17 08:59 Last Admin: 03/03/17 08:17 Dose: 81 mg Benztropine Mesylate (Cogentin) 1 mg PO BID [facility] Stop: 04/29/17 16:59 Last Admin: 03/03/17 08:17 Dose: 1 mg Docusate Sodium (Colace) 100 mg PO BID [facility] Stop: 04/29/17 16:59 Last Admin: 03/03/17 08:16 Dose: 100 mg Fenofibrate (Tricor) 134 mg PO DAILY [facility] Stop: 05/01/17 08:59 Last Admin: 03/03/17 08:17 Dose: 134 mg Glipizide (Glucotrol) 10 mg PO BIDAC [facility] Stop: 04/29/17 16:29 Last Admin: 03/03/17 08:18 Dose: 10 mg Glucagon (Glucagen) 1 mg IM PRN PRN PRN Reason: Blood Glucose Less Than 60 Stop: 04/29/17 15:20 Haloperidol (Haldol) 5 mg PO BID GARRY PRN Reason: Protocol Stop: 05/01/17 12:25 Last Admin: 03/03/17 08:18 Dose: 5 mg Haloperidol Decanoate (Haldol Dec) 50 mg IM QMONTH GARRY PRN Reason: Protocol Stop: 04/29/17 17:59 Last Admin: 02/28/17 17:27 Dose: Not Given Heparin Sodium (Porcine) (Heparin) 5,000 units SUBQ Q12HR [facility] Stop: 04/29/17 20:59 Last Admin: 03/03/17 08:16 Dose: 5,000 units Levofloxacin (Levaquin Pb) 500 mg in 100 mls @ 100 mls/hr IV Q24HR [facility] Stop: 04/30/17 08:59 Last Admin: 03/03/17 09:03 Dose: 100 mls/hr Sodium Chloride (Nacl 0.45%) 1,000 mls @ 80 mls/hr IV .[id number] [facility] Stop: 04/29/17 15:29 Last Admin: 03/02/17 09:39 Dose: 80 mls/hr Vancomycin HCl 1.5 gm/ Sodium (Chloride) 500 mls @ 250 mls/hr IV Q24HR@0900 [facility] Stop: 04/30/17 13:59 Last Admin: 03/03/17 12:25 Dose: 250 mls/hr Insulin Aspart (Novolog) 0 units SUBQ ACHS GARRY PRN Reason: Protocol Stop: 04/29/17 16:29 Last Admin: 03/03/17 11:46 Dose: Not Given Levothyroxine Sodium (Synthroid) 0.088 mg PO QDAC [facility] Stop: 04/30/17 07:29 Last Admin: 03/03/17 08:17 Dose: 0.088 mg Lisinopril (Zestril) 10 mg PO DAILY [facility] Stop: 04/30/17 08:59 Last Admin: 03/03/17 08:17 Dose: 10 mg Lorazepam (Ativan) 1 mg PO Q6H PRN; Protocol PRN Reason: Anxiety Stop: 04/29/17 15:20 Last Admin: 03/01/17 20:42 Dose: 1 mg Magnesium Hydroxide (Milk Of Magnesia) 30 ml PO HS PRN PRN Reason: Constipation Stop: 04/29/17 15:20 Miscellaneous (Vte Chemical Prophylaxis Screen/ Admission) 1 ea PRN PRN PRN Reason: PROTOCOL Stop: 04/29/17 17:08 Miscellaneous (Vancomycin Iv Per Pharmacy) 1 ea PRN [facility] Stop: 04/30/17 12:59 Ondansetron HCl (Zofran) 4 mg IV Q8H PRN PRN Reason: Nausea / Vomiting Stop: 04/29/17 15:25 Pantoprazole Sodium (Protonix) 40 mg PO QDAC [facility] Stop: 04/30/17 07:29 Last Admin: 03/03/17 08:17 Dose: 40 mg Pioglitazone HCl (Actos) 30 mg PO QDAC [facility] Stop: 04/30/17 07:29 Last Admin: 03/03/17 08:17 Dose: 30 mg Quetiapine Fumarate (Seroquel) 400 mg PO Q12HR [facility] PRN Reason: Protocol Stop: 04/29/17 20:59 Last Admin: 03/03/17 08:17 Dose: 400 mg Sodium Bicarbonate (Sodium Bicarbonate) 650 mg PO TID GARRY PRN Reason: Protocol Stop: 04/29/17 20:59 Last Admin: 03/03/17 08:17 Dose: 650 mg Vitamin B Complex/Vitamin C (Vitamin B Complex W/C) 1 tab PO DAILY [facility] Stop: 04/29/17 17:59 Last Admin: 03/03/17 10:37 Dose: Not Given General: alert HEENT: NC/AT, PERRLA Neck: Supple Lungs: CTAB Cardiovascular: RRR, Normal S1, Normal S2, without murmur Abdomen: soft, non-tender, non-distended Extremities: excoriation Neurological: alert, disorganized - Procedures Procedures: Procedures Procedure Code Date COLONOSCOPY 45.23 09/19/11 DIAGNOSTIC COLONOSCOPY 42863 09/19/11 EMERGENCY DEPT VISIT 37781 09/19/11 OTHER GROUP THERAPY 94.44 10/17/11 RECREATIONAL THERAPY 93.81 10/17/11 Internal Medicine Assmt/Plan - Assessment Assessment: RIGHT ELBOW CELLULITIS FEVER LEUKOCYTOSIS- improved ANEMIA HYPONATREMIA MODERATE PROTEIN CALORIE MALNUTRITION RENAL INSUFFICIENCY HTN HYPOTHYROIDISM SCHIZOAFFECTIVE DISORDER COPD DM-2 - Plan Plan: will order ct of right upper ext. with contrast continue ivabx monitor for fever psych f/u am labs continue current plan of care
[2017-03-03] MEDS ORDERED: IOHEXOL 300MG/ML 100 ML VIAL PO ONE (17:11)
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
[2017-03-04 05:46] LABS: % BASOPHILS 0.6 % (0.0-2.0); % EOSINOPHILS 1.8 % (0.0-5.0); % LYMPHOCYTES 27.9 % (20.0-50.0); % NEUTROPHILS 55.7 % (40.0-80.0); HEMATOCRIT 38.1 % (39.0-49.0); MEAN CELL VOLUME 90.7 fl (80-99); MEAN CORPUSCULAR HGB CONC 34.2 pg (28.0-36.0); MEAN PLATELET VOLUME 8.8 fl; NEUTROPHILE ABSOLUTE 2.6 Th/cmm (1.8-8.0); PLATELET COUNT 248 Th/cmm (150-400); RED CELL DISTRIBUTION WIDTH 12.3 % (11.5-20.0); WHITE BLOOD COUNT 4.6 Th/cmm (4.8-10.8)
[2017-03-04] MEDS: Sodium Chloride 0.45% 1,000 ML IV SCH ×2 (05:55→08:49)
[2017-03-04 06:02] LABS: ANION GAP 8.7 (7.0-16.0); BUN - UREA NITROGEN 24 mg/dL (7-25); BUN/CREATININE RATIO 17.1; CALCIUM SERUM 10.3 mg/dL (8.6-10.3); CARBON DIOXIDE 25.4 mEq/L (21.0-31.0); CHLORIDE 107 mEq/L (98-107); CREATININE - SERUM 1.4 mg/dL (0.7-1.3); GLUCOSE 113 mg/dL (70-105); POTASSIUM SERUM 4.1 mEq/L (3.5-5.1); SODIUM SERUM 137 mEq/L (136-145)
[2017-03-04] MEDS: Pantoprazole 40 mg EC Tab PO SCH (08:37)
[2017-03-04] MEDS: Benztropine 1 MG TAB PO SCH ×2 (08:37→16:35)
[2017-03-04] MEDS: Fenofibrate, Micronized 134 mg Cap PO SCH (08:37)
[2017-03-04] MEDS: Levofloxacin 500mg/100mL 500 MG/100 ML BAG IV SCH (09:46)
[2017-03-04] MEDS: INSULIN ASPART, RECOMBINANT 100 UNITS/ML SUBQ SCH ×4 (09:47→20:31)
[2017-03-04] MEDS: Levothyroxine 0.088 Mg Tab PO SCH (09:48)
[2017-03-04] MEDS: Ascorbic Acid/Vit B Complex Tab PO SCH (09:50)
[2017-03-04] MEDS: Vancomycin HCl 1.5 GM in Sodium Chloride 0.9% 500 ML IV SCH (11:10)
--- NOTE | 2017-03-04 13:40 | General Progress Note ---
Subjective - Review of Systems Service Date: 03/04/17 Events since last encounter: consult dictated no apparent abscess in irgfht arm on Ct and US cold legs, left more than right Plan: doppler arterial and venous study of both lower ext and right arm Objective - Results Result Diagrams: 03/04/17 05:30 03/04/17 05:30 Recent Labs: Laboratory Last Values WBC 4.6 Th/cmm (4.8-10.8) L 03/04/17 05:30 RBC 4.20 Mil/cmm (4.30-5.70) L 03/04/17 05:30 Hgb 13.0 gm/dL (13.2-17.3) L 03/04/17 05:30 Hct 38.1 % (39.0-49.0) L 03/04/17 05:30 MCV 90.7 fl (80-99) 03/04/17 05:30 MCH 31.0 pg (26.0-30.0) H 03/04/17 05:30 MCHC Differential 34.2 pg (28.0-36.0) 03/04/17 05:30 RDW 12.3 % (11.5-20.0) 03/04/17 05:30 Plt Count 248 Th/cmm (150-400) 03/04/17 05:30 MPV 8.8 fl 03/04/17 05:30 Neutrophils % 55.7 % (40.0-80.0) 03/04/17 05:30 Lymphocytes % 27.9 % (20.0-50.0) 03/04/17 05:30 Monocytes % 14.0 % (2.0-10.0) H 03/04/17 05:30 Eosinophils % 1.8 % (0.0-5.0) 03/04/17 05:30 Basophils % 0.6 % (0.0-2.0) 03/04/17 05:30 ESR 61 mm/hr (0-20) H 03/02/17 05:40 Sodium 137 mEq/L (136-145) 03/04/17 05:30 Potassium 4.1 mEq/L (3.5-5.1) 03/04/17 05:30 Chloride 107 mEq/L (98-107) 03/04/17 05:30 Carbon Dioxide 25.4 mEq/L (21.0-31.0) 03/04/17 05:30 Anion Gap 8.7 (7.0-16.0) 03/04/17 05:30 BUN 24 mg/dL (7-25) 03/04/17 05:30 Creatinine 1.4 mg/dL (0.7-1.3) H 03/04/17 05:30 Est GFR ( Amer) > 60.0 ml/min (>90) 03/04/17 05:30 Est GFR (Non-Af Amer) 54.9 ml/min 03/04/17 05:30 BUN/Creatinine Ratio 17.1 03/04/17 05:30 Glucose 113 mg/dL (70-105) H 03/04/17 05:30 POC Glucose 93 MG/DL (70 - 105) 03/04/17 11:45 Whole Bld Lactic Acid 0.66 mmol/L (0.60-1.99) 02/28/17 13:28 Calcium 10.3 mg/dL (8.6-10.3) 03/04/17 05:30 Total Bilirubin 0.6 mg/dL (0.3-1.0) 02/28/17 13:28 AST 26 U/L (13-39) 02/28/17 13:28 ALT 17 U/L (7-52) 02/28/17 13:28 Alkaline Phosphatase 74 U/L (34-104) 02/28/17 13:28 Total Protein 6.5 gm/dL (6.0-8.3) 02/28/17 13:28 Albumin 3.6 gm/dL (4.2-5.5) L 02/28/17 13:28 Globulin 2.9 gm/dL 02/28/17 13:28 Albumin/Globulin Ratio 1.2 (1.0-1.8) 02/28/17 13:28 Vancomycin Trough 10.1 ug/mL (10-20) 03/03/17 07:45 - Physical Exam Vitals and I&O: Vital Signs Temp 97.3 F 03/04/17 08:00 Pulse 86 03/04/17 09:47 Resp 20 03/04/17 08:00 BP 113/73 03/04/17 09:47 Pulse Ox 98 03/04/17 08:00 Intake & Output 03/03/17 03/04/17 03/04/17 18:59 06:59 18:59 Intake Total 800 332 Balance 800 332 Weight (lbs) 76.204 kg 76.204 kg Intake: Intake, IV Amount 600 332 Levofloxacin 500mg/100mL 100 100 500 mg In 100 ml @ 100 mls/hr IV Q24HR [facility] Rx#: [id number] Sodium Chloride 0.45% 1, 232 000 ml @ 80 mls/hr IV . [id number] [facility] Rx#:[id number] Vancomycin HCl 1.5 gm In 500 Sodium Chloride 0.9% 500 ml @ 250 mls/hr IV Q24HR@ 0900 [facility] Rx#:[id number] Oral 200 Other: # Voids 3 4 # Bowel Movements 1 Stool Characteristics Soft Formed Brown Active Medications: Current Medications Acetaminophen (Tylenol) 650 mg PO Q4H PRN PRN Reason: Pain (Mild) Stop: 04/29/17 15:20 Acetaminophen/Hydrocodone Bitart ([place] 5mg/325mg) 1 tab PO Q4H PRN PRN Reason: Pain (Severe) Stop: 04/29/17 15:25 Al Hydrox/Mg Hydrox/Simethicone (Maalox) 30 ml PO Q4HR PRN PRN Reason: GI DISTRESS Stop: 04/29/17 15:20 Albuterol Sulfate (Albuterol 2.5mg/3ml Neb Ud) 2.5 mg HHN Q2HRT PRN PRN Reason: Shortness of Breath or Wheeze Stop: 04/29/17 15:25 Benztropine Mesylate (Cogentin) 1 mg PO BID [facility] Stop: 04/29/17 16:59 Last Admin: 03/04/17 08:37 Dose: 1 mg Docusate Sodium (Colace) 100 mg PO BID [facility] Stop: 04/29/17 16:59 Last Admin: 03/04/17 08:37 Dose: 100 mg Fenofibrate (Tricor) 134 mg PO DAILY [facility] Stop: 05/01/17 08:59 Last Admin: 03/04/17 08:37 Dose: 134 mg Glipizide (Glucotrol) 10 mg PO BIDAC [facility] Stop: 04/29/17 16:29 Last Admin: 03/04/17 08:38 Dose: 10 mg Glucagon (Glucagen) 1 mg IM PRN PRN PRN Reason: Blood Glucose Less Than 60 Stop: 04/29/17 15:20 Haloperidol (Haldol) 5 mg PO BID [facility] PRN Reason: Protocol Stop: 05/01/17 12:25 Last Admin: 03/04/17 08:37 Dose: 5 mg Haloperidol Decanoate (Haldol Dec) 50 mg IM QMONTH [facility] PRN Reason: Protocol Stop: 04/29/17 17:59 Last Admin: 02/28/17 17:27 Dose: Not Given Heparin Sodium (Porcine) (Heparin) 5,000 units SUBQ Q12HR [facility] Stop: 04/29/17 20:59 Last Admin: 03/04/17 08:38 Dose: 5,000 units Levofloxacin (Levaquin Pb) 500 mg in 100 mls @ 100 mls/hr IV Q24HR [facility] Stop: 04/30/17 08:59 Last Infusion: 03/04/17 11:10 Dose: Infused Sodium Chloride (Nacl 0.45%) 1,000 mls @ 80 mls/hr IV .[id number] [facility] Stop: 04/29/17 15:29 Last Admin: 03/04/17 08:49 Dose: 80 mls/hr Vancomycin HCl 1.5 gm/ Sodium (Chloride) 500 mls @ 250 mls/hr IV Q24HR@0900 [facility] Stop: 04/30/17 13:59 Last Admin: 03/04/17 11:10 Dose: 250 mls/hr Insulin Aspart (Novolog) 0 units SUBQ ACHS [facility] PRN Reason: Protocol Stop: 04/29/17 16:29 Last Admin: 03/04/17 09:47 Dose: Not Given Levothyroxine Sodium (Synthroid) 0.088 mg PO QDAC [facility] Stop: 04/30/17 07:29 Last Admin: 03/04/17 09:48 Dose: 0.088 mg Lorazepam (Ativan) 1 mg PO Q6H PRN; Protocol PRN Reason: Anxiety Stop: 04/29/17 15:20 Last Admin: 03/01/17 20:42 Dose: 1 mg Losartan Potassium (Cozaar) 25 mg PO DAILY [facility] Stop: 05/03/17 08:59 Last Admin: 03/04/17 09:47 Dose: 25 mg Magnesium Hydroxide (Milk Of Magnesia) 30 ml PO HS PRN PRN Reason: Constipation Stop: 04/29/17 15:20 Miscellaneous (Vte Chemical Prophylaxis Screen/ Admission) 1 ea [facility] PRN PRN PRN Reason: PROTOCOL Stop: 04/29/17 17:08 Miscellaneous (Vancomycin Iv Per Pharmacy) 1 ea MC PRN [facility] Stop: 04/30/17 12:59 Ondansetron HCl (Zofran) 4 mg IV Q8H PRN PRN Reason: Nausea / Vomiting Stop: 04/29/17 15:25 Pantoprazole Sodium (Protonix) 40 mg PO QDAC [facility] Stop: 04/30/17 07:29 Last Admin: 03/04/17 08:37 Dose: 40 mg Pioglitazone HCl (Actos) 30 mg PO QDAC [facility] Stop: 04/30/17 07:29 Last Admin: 03/04/17 08:37 Dose: 30 mg Quetiapine Fumarate (Seroquel) 400 mg PO Q12HR [facility] PRN Reason: Protocol Stop: 04/29/17 20:59 Last Admin: 03/04/17 08:37 Dose: 400 mg Sodium Bicarbonate (Sodium Bicarbonate) 650 mg PO TID [facility] PRN Reason: Protocol Stop: 04/29/17 20:59 Last Admin: 03/04/17 08:38 Dose: 650 mg Vitamin B Complex/Vitamin C (Vitamin B Complex W/C) 1 tab PO DAILY [facility] Stop: 04/29/17 17:59 Last Admin: 03/04/17 09:50 Dose: 1 tab - Procedures Procedures: Procedures Procedure Code Date COLONOSCOPY 45.23 09/19/11 DIAGNOSTIC COLONOSCOPY 23587 09/19/11 EMERGENCY DEPT VISIT 14157 09/19/11 OTHER GROUP THERAPY 94.44 10/17/11 RECREATIONAL THERAPY 93.81 10/17/11 Assessment/Plan - Problem List Patient Problems: All Active Problems Abnormality of gait (Acute) R26.9 Aggressive behavior (Acute) R45.89 DM type 2 (diabetes mellitus, type 2) (Acute) HTN (Acute) Hypothyroidism (Acute) E03.9 INCREASED AGITATION (Acute ~09/22/16) Kidney failure (Acute) MUSCLE WEA (Acute) Muscle weakness (Acute) M62.81 Protein calorie malnutrition (Acute) E46 Psychosis (Acute) F29 Schizoaffective disorder (Acute) F25.9 Nutritional Asmnt/Malnutr-PDOC - Dietary Evaluation Malnutrition Findings (Please click <Entered> for more info): Nutritional Asmnt/Malnutrition Start: 03/04/17 12: 38 Text: Status: Complete Freq: Document 03/04/17 12:39 LISA (Rec: 03/04/17 12:44 LISA [id number]) Nutritional Asmnt/Malnutrition Patient General Information Nutritional Screening Moderate Risk Screening Diagnosis Upper extremity cellulitis Pertinent Medical Hx/Surgical Hx DM, COPD, schizoaffective d/o, HTN, hypothyroidism Subjective Information Pt unable to answer RD questions appropriately. Current Diet Order/ Nutrition Support [facility] Patient / S.O Not Indicated Pertinent Medications norco, maalox, colace, clipizide, haldol, heparin, novolog (not given), synthroid , MOM, zofran, protonix, NS @ 80ml/hr, vit B complex Pertinent Labs 03/04: Na 137, K 4.1, Cl 107, CO2 25.4, BUN 24, Cr 1.4, Ca 10.3, glucose 113 Nutritional Hx/Data Height 1.91 m Height (Calculated Centimeters) 190.5 Current Weight (lbs) 76.204 kg Weight (Calculated Kilograms) 76.2 Weight (Calculated Grams) 17422.5 Recent Weight Change No Weight Status Approriate GI Symptoms GI Symptoms None Food Allergies No Cultural/Ethnic/[place] Belief Unable to obtain from pt Usual diet at home unable to obtain from pt Skin Integrity/Comment: maribel score 15 Estimated Nutritional Goals BEE in Kcals: Using Current wt Calories/Kcals/Kg 25-30kcals/kg Kcals Calculated 1900-2280kcals/day Protein: Using Current wt Protein g/k-1.2g/kg Protein Calculated 76-91g/day Fluid: ml 1900-2280ml/day (1ml/kcal) Nutritional Problem 1. Problem Problem No nutrition Etiology diagnosis at Signs/Symptoms: this time. Intervention/Recommendation Comments Recommend continuing [facility] diet Expected Outcomes/Goals Expected Outcomes/Goals PO Intake >75%
--- NOTE | 2017-03-04 13:53 | Consultation ---
DATE OF CONSULTATION: 03/04/2017 REFERRING PHYSICIAN: Dr. Sagastume. REASON FOR CONSULTATION: 1. Swelling, right upper extremity. 2. Cold lower extremities. Thank you for referring this patient to me. HISTORY OF PRESENT ILLNESS: This is a 61-year-old male who, per information from the sister who is at bedside, started scratching himself in the right arm and this became inflamed and swollen. Because of psychiatric disorder, he was sent to [facility] and a week ago, was admitted here because of the cellulitis. PAST MEDICAL HISTORY: Includes schizoaffective disorder, hypertension, hypothyroidism, diabetes and COPD. LABORATORY STUDIES: On this admission, the WBC is just slightly elevated to 10.9, hemoglobin is normal, platelet count is normal. Chemistry, there was some elevation of the blood sugar, but otherwise is close to normal. X-ray studies which include an upper extremity ultrasound of the soft tissues showed some soft tissue changes over the posterior aspect of the right elbow. No abscess noted. He underwent CT scan of the upper extremity and this showed extensive subcutaneous edema deep to the fascial planes. Findings consistent with extensive cellulitis. There, however, was no evidence of abscess. PHYSICAL EXAMINATION: Shows right upper extremity that is swollen, particularly just above the elbow on the right side with firm and tender area. The circulation to the upper extremity appears to be normal, but will document this with Doppler arterial and venous study. Additionally, he has cold extremities, particularly on the right foot extending to about the knee and on the left to the mid leg. No pedal pulses are palpable. This apparently is rather new finding on this patient. PLAN: We will recommend Doppler study venous and arterial of the right upper extremity and venous and arterial study of the right and left lower extremities as well. We will follow with you. JOB# [id number]
--- NOTE | 2017-03-04 13:57 | Progress Notes ---
DATE: 03/04/2017 SUBJECTIVE: The patient was seen and discussed with staff, still restless, anxious and episodes of anger outburst, talking to himself. The patient still with delusional thoughts, but his agitation is decreasing after his Haldol dose was increased. PLAN: We will continue medication management. Continue stabilization. The patient will benefit from psychiatric hospitalization once he is medically cleared. [facility]# [id number]
--- NOTE | 2017-03-04 15:04 | Internal Medicine Prog Note ---
Internal Medicine Subjective - Subjective Patient seen and examined:: with staff, chart reviewed Patient is:: awake, verbal, interactive, in bed, confused Patient Complaints of:: constipation, bloated, unable to sleep Per staff patient has:: no adverse event, agitated, noncompliant, tolerating meds Internal Medicine Objective - Results Result Diagrams: 03/04/17 05:30 03/04/17 05:30 Recent Labs: Laboratory Last Values WBC 4.6 Th/cmm (4.8-10.8) L 03/04/17 05:30 RBC 4.20 Mil/cmm (4.30-5.70) L 03/04/17 05:30 Hgb 13.0 gm/dL (13.2-17.3) L 03/04/17 05:30 Hct 38.1 % (39.0-49.0) L 03/04/17 05:30 MCV 90.7 fl (80-99) 03/04/17 05:30 MCH 31.0 pg (26.0-30.0) H 03/04/17 05:30 MCHC Differential 34.2 pg (28.0-36.0) 03/04/17 05:30 RDW 12.3 % (11.5-20.0) 03/04/17 05:30 Plt Count 248 Th/cmm (150-400) 03/04/17 05:30 MPV 8.8 fl 03/04/17 05:30 Neutrophils % 55.7 % (40.0-80.0) 03/04/17 05:30 Lymphocytes % 27.9 % (20.0-50.0) 03/04/17 05:30 Monocytes % 14.0 % (2.0-10.0) H 03/04/17 05:30 Eosinophils % 1.8 % (0.0-5.0) 03/04/17 05:30 Basophils % 0.6 % (0.0-2.0) 03/04/17 05:30 ESR 61 mm/hr (0-20) H 03/02/17 05:40 Sodium 137 mEq/L (136-145) 03/04/17 05:30 Potassium 4.1 mEq/L (3.5-5.1) 03/04/17 05:30 Chloride 107 mEq/L (98-107) 03/04/17 05:30 Carbon Dioxide 25.4 mEq/L (21.0-31.0) 03/04/17 05:30 Anion Gap 8.7 (7.0-16.0) 03/04/17 05:30 BUN 24 mg/dL (7-25) 03/04/17 05:30 Creatinine 1.4 mg/dL (0.7-1.3) H 03/04/17 05:30 Est GFR ( Amer) > 60.0 ml/min (>90) 03/04/17 05:30 Est GFR (Non-Af Amer) 54.9 ml/min 03/04/17 05:30 BUN/Creatinine Ratio 17.1 03/04/17 05:30 Glucose 113 mg/dL (70-105) H 03/04/17 05:30 POC Glucose 93 MG/DL (70 - 105) 03/04/17 11:45 Whole Bld Lactic Acid 0.66 mmol/L (0.60-1.99) 02/28/17 13:28 Calcium 10.3 mg/dL (8.6-10.3) 03/04/17 05:30 Total Bilirubin 0.6 mg/dL (0.3-1.0) 02/28/17 13:28 AST 26 U/L (13-39) 02/28/17 13:28 ALT 17 U/L (7-52) 02/28/17 13:28 Alkaline Phosphatase 74 U/L (34-104) 02/28/17 13:28 Total Protein 6.5 gm/dL (6.0-8.3) 02/28/17 13:28 Albumin 3.6 gm/dL (4.2-5.5) L 02/28/17 13:28 Globulin 2.9 gm/dL 02/28/17 13:28 Albumin/Globulin Ratio 1.2 (1.0-1.8) 02/28/17 13:28 Vancomycin Trough 10.1 ug/mL (10-20) 03/03/17 07:45 - Physical Exam Vitals and I&O: Vital Signs Temp 97.3 F 03/04/17 08:00 Pulse 86 03/04/17 09:47 Resp 20 03/04/17 08:00 BP 113/73 03/04/17 09:47 Pulse Ox 98 03/04/17 08:00 Intake & Output 03/03/17 03/04/17 03/04/17 18:59 06:59 18:59 Intake Total 800 332 Balance 800 332 Weight (lbs) 76.204 kg 76.204 kg Intake: Intake, IV Amount 600 332 Levofloxacin 500mg/100mL 100 100 500 mg In 100 ml @ 100 mls/hr IV Q24HR [facility] Rx#: [id number] Sodium Chloride 0.45% 1, 232 000 ml @ 80 mls/hr IV . [id number] [facility] Rx#:[id number] Vancomycin HCl 1.5 gm In 500 Sodium Chloride 0.9% 500 ml @ 250 mls/hr IV Q24HR@ 0900 [facility] Rx#:[id number] Oral 200 Other: # Voids 3 4 # Bowel Movements 1 Stool Characteristics Soft Formed Brown Active Medications: Current Medications Acetaminophen (Tylenol) 650 mg PO Q4H PRN PRN Reason: Pain (Mild) Stop: 04/29/17 15:20 Acetaminophen/Hydrocodone Bitart (Zullinger 5mg/325mg) 1 tab PO Q4H PRN PRN Reason: Pain (Severe) Stop: 04/29/17 15:25 Al Hydrox/Mg Hydrox/Simethicone (Maalox) 30 ml PO Q4HR PRN PRN Reason: GI DISTRESS Stop: 04/29/17 15:20 Albuterol Sulfate (Albuterol 2.5mg/3ml Neb Ud) 2.5 mg HHN Q2HRT PRN PRN Reason: Shortness of Breath or Wheeze Stop: 04/29/17 15:25 Benztropine Mesylate (Cogentin) 1 mg PO BID [facility] Stop: 04/29/17 16:59 Last Admin: 03/04/17 08:37 Dose: 1 mg Docusate Sodium (Colace) 100 mg PO BID [facility] Stop: 04/29/17 16:59 Last Admin: 03/04/17 08:37 Dose: 100 mg Fenofibrate (Tricor) 134 mg PO DAILY [facility] Stop: 05/01/17 08:59 Last Admin: 03/04/17 08:37 Dose: 134 mg Glipizide (Glucotrol) 10 mg PO BIDAC [facility] Stop: 04/29/17 16:29 Last Admin: 03/04/17 08:38 Dose: 10 mg Glucagon (Glucagen) 1 mg IM PRN PRN PRN Reason: Blood Glucose Less Than 60 Stop: 04/29/17 15:20 Haloperidol (Haldol) 5 mg PO BID [facility] PRN Reason: Protocol Stop: 05/01/17 12:25 Last Admin: 03/04/17 08:37 Dose: 5 mg Haloperidol Decanoate (Haldol Dec) 50 mg IM QMONTH [facility] PRN Reason: Protocol Stop: 04/29/17 17:59 Last Admin: 02/28/17 17:27 Dose: Not Given Heparin Sodium (Porcine) (Heparin) 5,000 units SUBQ Q12HR [facility] Stop: 04/29/17 20:59 Last Admin: 03/04/17 08:38 Dose: 5,000 units Levofloxacin (Levaquin Pb) 500 mg in 100 mls @ 100 mls/hr IV Q24HR [facility] Stop: 04/30/17 08:59 Last Infusion: 03/04/17 11:10 Dose: Infused Vancomycin HCl 1.5 gm/ Sodium (Chloride) 500 mls @ 250 mls/hr IV Q24HR@0900 [facility] Stop: 04/30/17 13:59 Last Admin: 03/04/17 11:10 Dose: 250 mls/hr Insulin Aspart (Novolog) 0 units SUBQ ACHS [facility] PRN Reason: Protocol Stop: 04/29/17 16:29 Last Admin: 03/04/17 13:47 Dose: Not Given Levothyroxine Sodium (Synthroid) 0.088 mg PO QDAC [facility] Stop: 04/30/17 07:29 Last Admin: 03/04/17 09:48 Dose: 0.088 mg Lorazepam (Ativan) 1 mg PO Q6H PRN; Protocol PRN Reason: Anxiety Stop: 04/29/17 15:20 Last Admin: 03/01/17 20:42 Dose: 1 mg Losartan Potassium (Cozaar) 25 mg PO DAILY [facility] Stop: 05/03/17 08:59 Last Admin: 03/04/17 09:47 Dose: 25 mg Magnesium Hydroxide (Milk Of Magnesia) 30 ml PO HS PRN PRN Reason: Constipation Stop: 04/29/17 15:20 Miscellaneous (Vte Chemical Prophylaxis Screen/ Admission) 1 ea [facility] PRN PRN PRN Reason: PROTOCOL Stop: 04/29/17 17:08 Miscellaneous (Vancomycin Iv Per Pharmacy) 1 ea [facility] PRN [facility] Stop: 04/30/17 12:59 Ondansetron HCl (Zofran) 4 mg IV Q8H PRN PRN Reason: Nausea / Vomiting Stop: 04/29/17 15:25 Pantoprazole Sodium (Protonix) 40 mg PO QDAC [facility] Stop: 04/30/17 07:29 Last Admin: 03/04/17 08:37 Dose: 40 mg Pioglitazone HCl (Actos) 30 mg PO QDAC [facility] Stop: 04/30/17 07:29 Last Admin: 03/04/17 08:37 Dose: 30 mg Quetiapine Fumarate (Seroquel) 400 mg PO Q12HR [facility] PRN Reason: Protocol Stop: 04/29/17 20:59 Last Admin: 03/04/17 08:37 Dose: 400 mg Vitamin B Complex/Vitamin C (Vitamin B Complex W/C) 1 tab PO DAILY [facility] Stop: 04/29/17 17:59 Last Admin: 03/04/17 09:50 Dose: 1 tab General: alert HEENT: NC/AT, PERRLA Neck: Supple Lungs: CTAB Cardiovascular: RRR, Normal S1, Normal S2, without murmur Abdomen: soft, non-tender, non-distended Extremities: excoriation, other (r elbow edema) Neurological: alert, disorganized - Procedures Procedures: Procedures Procedure Code Date COLONOSCOPY 45.23 09/19/11 DIAGNOSTIC COLONOSCOPY 06768 09/19/11 EMERGENCY DEPT VISIT 18001 09/19/11 OTHER GROUP THERAPY 94.44 10/17/11 RECREATIONAL THERAPY 93.81 10/17/11 Internal Medicine Assmt/Plan - Assessment Assessment: RIGHT ELBOW CELLULITIS FEVER LEUKOCYTOSIS- improved ANEMIA HYPONATREMIA MODERATE PROTEIN CALORIE MALNUTRITION RENAL INSUFFICIENCY HTN HYPOTHYROIDISM SCHIZOAFFECTIVE DISORDER COPD DM-2 - Plan Plan: - Plan Plan: will order ct of right upper ext. with contrast continue ivabx monitor for fever psych f/u am labs continue current plan of care Nutritional Asmnt/Malnutr-PDOC - Dietary Evaluation Malnutrition Findings (Please click <Entered> for more info): Nutritional Asmnt/Malnutrition Start: 03/04/17 12: 38 Text: Status: Complete Freq: Document 03/04/17 12:39 EGRIFFITH (Rec: 03/04/17 12:44 LISA LIU- [id number]) Nutritional Asmnt/Malnutrition Patient General Information Nutritional Screening Moderate Risk Screening Diagnosis Upper extremity cellulitis Pertinent Medical Hx/Surgical Hx DM, COPD, schizoaffective d/o, HTN, hypothyroidism Subjective Information Pt unable to answer RD questions appropriately. Current Diet Order/ Nutrition Support [facility] Patient / S.O Not Indicated Pertinent Medications norco, maalox, colace, clipizide, haldol, heparin, novolog (not given), synthroid , MOM, zofran, protonix, NS @ 80ml/hr, vit B complex Pertinent Labs 03/04: Na 137, K 4.1, Cl 107, CO2 25.4, BUN 24, Cr 1.4, Ca 10.3, glucose 113 Nutritional Hx/Data Height 1.91 m Height (Calculated Centimeters) 190.5 Current Weight (lbs) 76.204 kg Weight (Calculated Kilograms) 76.2 Weight (Calculated Grams) 23116.5 Recent Weight Change No Weight Status Approriate GI Symptoms GI Symptoms None Food Allergies No Cultural/Ethnic/Confucianist Belief Unable to obtain from pt Usual diet at home unable to obtain from pt Skin Integrity/Comment: maribel score 15 Estimated Nutritional Goals BEE in Kcals: Using Current wt Calories/Kcals/Kg 25-30kcals/kg Kcals Calculated 1900-2280kcals/day Protein: Using Current wt Protein g/k-1.2g/kg Protein Calculated 76-91g/day Fluid: ml 1900-2280ml/day (1ml/kcal) Nutritional Problem 1. Problem Problem No nutrition Etiology diagnosis at Signs/Symptoms: this time. Intervention/Recommendation Comments Recommend continuing [facility] diet Expected Outcomes/Goals Expected Outcomes/Goals PO Intake >75%
[2017-03-05] MEDS: INSULIN ASPART, RECOMBINANT 100 UNITS/ML SUBQ SCH ×4 (06:31→20:44)
[2017-03-05] MEDS: Benztropine 1 MG TAB PO SCH ×2 (08:12→16:17)
[2017-03-05] MEDS: Fenofibrate, Micronized 134 mg Cap PO SCH (08:12)
[2017-03-05] MEDS: Levothyroxine 0.088 Mg Tab PO SCH (08:12)
[2017-03-05] MEDS: Pantoprazole 40 mg EC Tab PO SCH (08:12)
--- NOTE | 2017-03-05 08:28 | Diagnostic Imaging Report ---
Exam: Ultrasound examination of the deep venous circulation lower extremities bilaterally. HISTORY: DVT Findings: Real-time ultrasound examination of the deep venous circulation lower extremities bilaterally was performed multiple planes utilizing color Doppler technique. The study demonstrates normal compressibility and augmentation of deep venous system throughout. IMPRESSION: No evidence for deep venous thrombosis lower extremities bilaterally
--- NOTE | 2017-03-05 08:40 | Diagnostic Imaging Report ---
Exam: Deep arterial ultrasound examination of the right lower extremity venous HISTORY: Peripheral vascular disease. Findings: Real-time ultrasound examination left lower extremity deep posterior circulation was performed in multiple planes utilizing color Doppler technique. The study demonstrates moderate plaque formation along the course of the common femoral artery superficial femoral laterally popliteal artery extending below trifurcation. Triphasic flow is noted in the common femoral lateral and popliteal artery. The flow calcification of biphasic. The ankle brachial indexes within obtained due to patient being uncooperative. IMPRESSION: 1. No significant stenosis or alteration of flow deep arterial circulation left lower extremity, moderate plaque formation is noted along the course of major common femoral artery and popliteal artery.
[2017-03-05] MEDS: Levofloxacin 500mg/100mL 500 MG/100 ML BAG IV SCH (09:40)
--- NOTE | 2017-03-05 11:13 | General Progress Note ---
Subjective - Review of Systems Service Date: 03/05/17 Events since last encounter: doppler: no DVT, no significant PVD right arm: very swollen and hard just above the elbow, excellent arterial pulses distally Plan: I and D upper arm Objective - Results Result Diagrams: 03/04/17 05:30 03/04/17 05:30 Recent Labs: Laboratory Last Values WBC 4.6 Th/cmm (4.8-10.8) L 03/04/17 05:30 RBC 4.20 Mil/cmm (4.30-5.70) L 03/04/17 05:30 Hgb 13.0 gm/dL (13.2-17.3) L 03/04/17 05:30 Hct 38.1 % (39.0-49.0) L 03/04/17 05:30 MCV 90.7 fl (80-99) 03/04/17 05:30 MCH 31.0 pg (26.0-30.0) H 03/04/17 05:30 MCHC Differential 34.2 pg (28.0-36.0) 03/04/17 05:30 RDW 12.3 % (11.5-20.0) 03/04/17 05:30 Plt Count 248 Th/cmm (150-400) 03/04/17 05:30 MPV 8.8 fl 03/04/17 05:30 Neutrophils % 55.7 % (40.0-80.0) 03/04/17 05:30 Lymphocytes % 27.9 % (20.0-50.0) 03/04/17 05:30 Monocytes % 14.0 % (2.0-10.0) H 03/04/17 05:30 Eosinophils % 1.8 % (0.0-5.0) 03/04/17 05:30 Basophils % 0.6 % (0.0-2.0) 03/04/17 05:30 ESR 61 mm/hr (0-20) H 03/02/17 05:40 Sodium 137 mEq/L (136-145) 03/04/17 05:30 Potassium 4.1 mEq/L (3.5-5.1) 03/04/17 05:30 Chloride 107 mEq/L (98-107) 03/04/17 05:30 Carbon Dioxide 25.4 mEq/L (21.0-31.0) 03/04/17 05:30 Anion Gap 8.7 (7.0-16.0) 03/04/17 05:30 BUN 24 mg/dL (7-25) 03/04/17 05:30 Creatinine 1.4 mg/dL (0.7-1.3) H 03/04/17 05:30 Est GFR ( Amer) > 60.0 ml/min (>90) 03/04/17 05:30 Est GFR (Non-Af Amer) 54.9 ml/min 03/04/17 05:30 BUN/Creatinine Ratio 17.1 03/04/17 05:30 Glucose 113 mg/dL (70-105) H 03/04/17 05:30 POC Glucose 74 MG/DL (70 - 105) 03/05/17 05:55 Whole Bld Lactic Acid 0.66 mmol/L (0.60-1.99) 02/28/17 13:28 Calcium 10.3 mg/dL (8.6-10.3) 03/04/17 05:30 Total Bilirubin 0.6 mg/dL (0.3-1.0) 02/28/17 13:28 AST 26 U/L (13-39) 02/28/17 13:28 ALT 17 U/L (7-52) 02/28/17 13:28 Alkaline Phosphatase 74 U/L (34-104) 02/28/17 13:28 Total Protein 6.5 gm/dL (6.0-8.3) 02/28/17 13:28 Albumin 3.6 gm/dL (4.2-5.5) L 02/28/17 13:28 Globulin 2.9 gm/dL 02/28/17 13:28 Albumin/Globulin Ratio 1.2 (1.0-1.8) 02/28/17 13:28 Vancomycin Trough 10.1 ug/mL (10-20) 03/03/17 07:45 - Physical Exam Vitals and I&O: Vital Signs Temp 97.7 F 03/05/17 08:00 Pulse 94 03/05/17 08:12 Resp 18 03/05/17 08:00 BP 141/79 03/05/17 08:12 Pulse Ox 98 03/05/17 08:00 Intake & Output 03/04/17 03/05/17 03/05/17 18:59 06:59 18:59 Intake Total 332 Balance 332 Weight (lbs) 76.204 kg Intake: Intake, IV Amount 332 Levofloxacin 500mg/100mL 100 500 mg In 100 ml @ 100 mls/hr IV Q24HR [facility] Rx#: [id number] Sodium Chloride 0.45% 1, 232 000 ml @ 80 mls/hr IV . [id number] [facility] Rx#:[id number] Other: Stool Characteristics Brown Brown Black Black Active Medications: Current Medications Acetaminophen (Tylenol) 650 mg PO Q4H PRN PRN Reason: Pain (Mild) Stop: 04/29/17 15:20 Acetaminophen/Hydrocodone Bitart (Vining 5mg/325mg) 1 tab PO Q4H PRN PRN Reason: Pain (Severe) Stop: 04/29/17 15:25 Al Hydrox/Mg Hydrox/Simethicone (Maalox) 30 ml PO Q4HR PRN PRN Reason: GI DISTRESS Stop: 04/29/17 15:20 Albuterol Sulfate (Albuterol 2.5mg/3ml Neb Ud) 2.5 mg HHN Q2HRT PRN PRN Reason: Shortness of Breath or Wheeze Stop: 04/29/17 15:25 Benztropine Mesylate (Cogentin) 1 mg PO BID [facility] Stop: 04/29/17 16:59 Last Admin: 03/05/17 08:12 Dose: 1 mg Docusate Sodium (Colace) 100 mg PO BID [facility] Stop: 04/29/17 16:59 Last Admin: 03/05/17 08:12 Dose: 100 mg Fenofibrate (Tricor) 134 mg PO DAILY [facility] Stop: 05/01/17 08:59 Last Admin: 03/05/17 08:12 Dose: 134 mg Glipizide (Glucotrol) 10 mg PO BIDAC [facility] Stop: 04/29/17 16:29 Last Admin: 03/05/17 08:13 Dose: 10 mg Glucagon (Glucagen) 1 mg IM PRN PRN PRN Reason: Blood Glucose Less Than 60 Stop: 04/29/17 15:20 Haloperidol (Haldol) 5 mg PO BID [facility] PRN Reason: Protocol Stop: 05/01/17 12:25 Last Admin: 03/05/17 08:11 Dose: 5 mg Haloperidol Decanoate (Haldol Dec) 50 mg IM QMONTH [facility] PRN Reason: Protocol Stop: 04/29/17 17:59 Last Admin: 02/28/17 17:27 Dose: Not Given Heparin Sodium (Porcine) (Heparin) 5,000 units SUBQ Q12HR [facility] Stop: 04/29/17 20:59 Last Admin: 03/05/17 08:12 Dose: 5,000 units Levofloxacin (Levaquin Pb) 500 mg in 100 mls @ 100 mls/hr IV Q24HR [facility] Stop: 04/30/17 08:59 Last Admin: 03/05/17 09:40 Dose: 100 mls/hr Vancomycin HCl 1.5 gm/ Sodium (Chloride) 500 mls @ 250 mls/hr IV Q24HR@0900 [facility] Stop: 04/30/17 13:59 Last Admin: 03/04/17 11:10 Dose: 250 mls/hr Insulin Aspart (Novolog) 0 units SUBQ ACHS [facility] PRN Reason: Protocol Stop: 04/29/17 16:29 Last Admin: 03/05/17 06:31 Dose: Not Given Levothyroxine Sodium (Synthroid) 0.088 mg PO QDAC [facility] Stop: 04/30/17 07:29 Last Admin: 03/05/17 08:12 Dose: 0.088 mg Lorazepam (Ativan) 1 mg PO Q6H PRN; Protocol PRN Reason: Anxiety Stop: 04/29/17 15:20 Last Admin: 03/04/17 23:40 Dose: 1 mg Losartan Potassium (Cozaar) 25 mg PO DAILY [facility] Stop: 05/03/17 08:59 Last Admin: 03/05/17 08:12 Dose: 25 mg Magnesium Hydroxide (Milk Of Magnesia) 30 ml PO HS PRN PRN Reason: Constipation Stop: 04/29/17 15:20 Miscellaneous (Vte Chemical Prophylaxis Screen/ Admission) 1 ea PRN PRN PRN Reason: PROTOCOL Stop: 04/29/17 17:08 Miscellaneous (Vancomycin Iv Per Pharmacy) 1 ea PRN [facility] Stop: 04/30/17 12:59 Ondansetron HCl (Zofran) 4 mg IV Q8H PRN PRN Reason: Nausea / Vomiting Stop: 04/29/17 15:25 Pantoprazole Sodium (Protonix) 40 mg PO QDAC [facility] Stop: 04/30/17 07:29 Last Admin: 03/05/17 08:12 Dose: 40 mg Pioglitazone HCl (Actos) 30 mg PO QDAC [facility] Stop: 04/30/17 07:29 Last Admin: 03/05/17 08:12 Dose: 30 mg Quetiapine Fumarate (Seroquel) 400 mg PO Q12HR [facility] PRN Reason: Protocol Stop: 04/29/17 20:59 Last Admin: 03/05/17 08:12 Dose: 400 mg Vitamin B Complex/Vitamin C (Vitamin B Complex W/C) 1 tab PO DAILY [facility] Stop: 04/29/17 17:59 Last Admin: 03/04/17 09:50 Dose: 1 tab - Procedures Procedures: Procedures Procedure Code Date COLONOSCOPY 45.23 09/19/11 DIAGNOSTIC COLONOSCOPY 81162 09/19/11 EMERGENCY DEPT VISIT 72937 09/19/11 OTHER GROUP THERAPY 94.44 10/17/11 RECREATIONAL THERAPY 93.81 10/17/11 Assessment/Plan - Problem List Patient Problems: All Active Problems Abnormality of gait (Acute) R26.9 Aggressive behavior (Acute) R45.89 DM type 2 (diabetes mellitus, type 2) (Acute) HTN (Acute) Hypothyroidism (Acute) E03.9 INCREASED AGITATION (Acute ~09/22/16) Kidney failure (Acute) MUSCLE WEA (Acute) Muscle weakness (Acute) M62.81 Protein calorie malnutrition (Acute) E46 Psychosis (Acute) F29 Schizoaffective disorder (Acute) F25.9 Nutritional Asmnt/Malnutr-PDOC - Dietary Evaluation Malnutrition Findings (Please click <Entered> for more info): Nutritional Asmnt/Malnutrition Start: 03/04/17 12: 38 Text: Status: Complete Freq: Document 03/04/17 12:39 LISA (Rec: 03/04/17 12:44 [facility]) Nutritional Asmnt/Malnutrition Patient General Information Nutritional Screening Moderate Risk Screening Diagnosis Upper extremity cellulitis Pertinent Medical Hx/Surgical Hx DM, COPD, schizoaffective d/o, HTN, hypothyroidism Subjective Information Pt unable to answer RD questions appropriately. Current Diet Order/ Nutrition Support [facility] Patient / S.O Not Indicated Pertinent Medications norco, maalox, colace, clipizide, haldol, heparin, novolog (not given), synthroid , MOM, zofran, protonix, NS @ 80ml/hr, vit B complex Pertinent Labs 03/04: Na 137, K 4.1, Cl 107, CO2 25.4, BUN 24, Cr 1.4, Ca 10.3, glucose 113 Nutritional Hx/Data Height 1.91 m Height (Calculated Centimeters) 190.5 Current Weight (lbs) 76.204 kg Weight (Calculated Kilograms) 76.2 Weight (Calculated Grams) 83005.5 Recent Weight Change No Weight Status Approriate GI Symptoms GI Symptoms None Food Allergies No Cultural/Ethnic/Hinduism Belief Unable to obtain from pt Usual diet at home unable to obtain from pt Skin Integrity/Comment: maribel score 15 Estimated Nutritional Goals BEE in Kcals: Using Current wt Calories/Kcals/Kg 25-30kcals/kg Kcals Calculated 1900-2280kcals/day Protein: Using Current wt Protein g/k-1.2g/kg Protein Calculated 76-91g/day Fluid: ml 1900-2280ml/day (1ml/kcal) Nutritional Problem 1. Problem Problem No nutrition Etiology diagnosis at Signs/Symptoms: this time. Intervention/Recommendation Comments Recommend continuing [facility] diet Expected Outcomes/Goals Expected Outcomes/Goals PO Intake >75%
[2017-03-05] MEDS: Vancomycin HCl 1.5 GM in Sodium Chloride 0.9% 500 ML IV SCH (11:24)
--- NOTE | 2017-03-05 13:07 | Progress Notes ---
DATE: 03/05/2017 SUBJECTIVE: The patient was seen, chart reviewed, discussed with staff. Still guarded at times, episodes where he is talking to himself, some agitation, but he is easier to redirect by staff and he is taking his medications. Insight is still poor. ASSESSMENT: The patient is still in psychotic phase. PLAN: Continue medication management. Continue supportive measures. Consider psychiatric hospitalization once his medical condition is stable. [facility]# [id number]
[2017-03-05] MEDS: Ascorbic Acid/Vit B Complex Tab PO SCH (14:01)
--- NOTE | 2017-03-05 14:09 | Internal Medicine Prog Note ---
Internal Medicine Subjective - Subjective Patient seen and examined:: with staff, chart reviewed Patient is:: awake, verbal, interactive, in bed, confused Patient Complaints of:: constipation, bloated, unable to sleep Per staff patient has:: no adverse event, agitated, noncompliant, tolerating meds Internal Medicine Objective - Results Result Diagrams: 03/04/17 05:30 03/04/17 05:30 Recent Labs: Laboratory Last Values WBC 4.6 Th/cmm (4.8-10.8) L 03/04/17 05:30 RBC 4.20 Mil/cmm (4.30-5.70) L 03/04/17 05:30 Hgb 13.0 gm/dL (13.2-17.3) L 03/04/17 05:30 Hct 38.1 % (39.0-49.0) L 03/04/17 05:30 MCV 90.7 fl (80-99) 03/04/17 05:30 MCH 31.0 pg (26.0-30.0) H 03/04/17 05:30 MCHC Differential 34.2 pg (28.0-36.0) 03/04/17 05:30 RDW 12.3 % (11.5-20.0) 03/04/17 05:30 Plt Count 248 Th/cmm (150-400) 03/04/17 05:30 MPV 8.8 fl 03/04/17 05:30 Neutrophils % 55.7 % (40.0-80.0) 03/04/17 05:30 Lymphocytes % 27.9 % (20.0-50.0) 03/04/17 05:30 Monocytes % 14.0 % (2.0-10.0) H 03/04/17 05:30 Eosinophils % 1.8 % (0.0-5.0) 03/04/17 05:30 Basophils % 0.6 % (0.0-2.0) 03/04/17 05:30 ESR 61 mm/hr (0-20) H 03/02/17 05:40 Sodium 137 mEq/L (136-145) 03/04/17 05:30 Potassium 4.1 mEq/L (3.5-5.1) 03/04/17 05:30 Chloride 107 mEq/L (98-107) 03/04/17 05:30 Carbon Dioxide 25.4 mEq/L (21.0-31.0) 03/04/17 05:30 Anion Gap 8.7 (7.0-16.0) 03/04/17 05:30 BUN 24 mg/dL (7-25) 03/04/17 05:30 Creatinine 1.4 mg/dL (0.7-1.3) H 03/04/17 05:30 Est GFR ( Amer) > 60.0 ml/min (>90) 03/04/17 05:30 Est GFR (Non-Af Amer) 54.9 ml/min 03/04/17 05:30 BUN/Creatinine Ratio 17.1 03/04/17 05:30 Glucose 113 mg/dL (70-105) H 03/04/17 05:30 POC Glucose 92 MG/DL (70 - 105) 03/05/17 11:29 Whole Bld Lactic Acid 0.66 mmol/L (0.60-1.99) 02/28/17 13:28 Calcium 10.3 mg/dL (8.6-10.3) 03/04/17 05:30 Total Bilirubin 0.6 mg/dL (0.3-1.0) 02/28/17 13:28 AST 26 U/L (13-39) 02/28/17 13:28 ALT 17 U/L (7-52) 02/28/17 13:28 Alkaline Phosphatase 74 U/L (34-104) 02/28/17 13:28 Total Protein 6.5 gm/dL (6.0-8.3) 02/28/17 13:28 Albumin 3.6 gm/dL (4.2-5.5) L 02/28/17 13:28 Globulin 2.9 gm/dL 02/28/17 13:28 Albumin/Globulin Ratio 1.2 (1.0-1.8) 02/28/17 13:28 Vancomycin Trough 10.1 ug/mL (10-20) 03/03/17 07:45 - Physical Exam Vitals and I&O: Vital Signs Temp 98.0 F 03/05/17 12:00 Pulse 99 03/05/17 12:00 Resp 19 03/05/17 12:00 BP 134/79 03/05/17 12:00 Pulse Ox 98 03/05/17 12:00 Intake & Output 03/04/17 03/05/17 03/05/17 18:59 06:59 18:59 Intake Total 832 Balance 832 Weight (lbs) 76.204 kg Intake: Intake, IV Amount 832 Levofloxacin 500mg/100mL 100 500 mg In 100 ml @ 100 mls/hr IV Q24HR [facility] Rx#: [id number] Sodium Chloride 0.45% 1, 232 000 ml @ 80 mls/hr IV . [id number] [facility] Rx#:[id number] Vancomycin HCl 1.5 gm In 500 Sodium Chloride 0.9% 500 ml @ 250 mls/hr IV Q24HR@ 0900 [facility] Rx#:[id number] Other: Stool Characteristics Brown Brown Black Black Active Medications: Current Medications Acetaminophen (Tylenol) 650 mg PO Q4H PRN PRN Reason: Pain (Mild) Stop: 04/29/17 15:20 Acetaminophen/Hydrocodone Bitart ([place] 5mg/325mg) 1 tab PO Q4H PRN PRN Reason: Pain (Severe) Stop: 04/29/17 15:25 Al Hydrox/Mg Hydrox/Simethicone (Maalox) 30 ml PO Q4HR PRN PRN Reason: GI DISTRESS Stop: 04/29/17 15:20 Albuterol Sulfate (Albuterol 2.5mg/3ml Neb Ud) 2.5 mg HHN Q2HRT PRN PRN Reason: Shortness of Breath or Wheeze Stop: 04/29/17 15:25 Benztropine Mesylate (Cogentin) 1 mg PO BID [facility] Stop: 04/29/17 16:59 Last Admin: 03/05/17 08:12 Dose: 1 mg Docusate Sodium (Colace) 100 mg PO BID GARR[facility] Stop: 04/29/17 16:59 Last Admin: 03/05/17 08:12 Dose: 100 mg Fenofibrate (Tricor) 134 mg PO DAILY [facility] Stop: 05/01/17 08:59 Last Admin: 03/05/17 08:12 Dose: 134 mg Glipizide (Glucotrol) 10 mg PO BIDAC [facility] Stop: 04/29/17 16:29 Last Admin: 03/05/17 08:13 Dose: 10 mg Glucagon (Glucagen) 1 mg IM PRN PRN PRN Reason: Blood Glucose Less Than 60 Stop: 04/29/17 15:20 Haloperidol (Haldol) 5 mg PO BID GARRY PRN Reason: Protocol Stop: 05/01/17 12:25 Last Admin: 03/05/17 08:11 Dose: 5 mg Haloperidol Decanoate (Haldol Dec) 50 mg IM QMONTH [facility] PRN Reason: Protocol Stop: 04/29/17 17:59 Last Admin: 02/28/17 17:27 Dose: Not Given Heparin Sodium (Porcine) (Heparin) 5,000 units SUBQ Q12HR [facility] Stop: 04/29/17 20:59 Levofloxacin (Levaquin Pb) 500 mg in 100 mls @ 100 mls/hr IV Q24HR [facility] Stop: 04/30/17 08:59 Last Admin: 03/05/17 09:40 Dose: 100 mls/hr Vancomycin HCl 1.5 gm/ Sodium (Chloride) 500 mls @ 250 mls/hr IV Q24HR@0900 [facility] Stop: 04/30/17 13:59 Last Admin: 03/05/17 11:24 Dose: 250 mls/hr Insulin Aspart (Novolog) 0 units SUBQ ACHS [facility] PRN Reason: Protocol Stop: 04/29/17 16:29 Last Admin: 03/05/17 14:00 Dose: Not Given Levothyroxine Sodium (Synthroid) 0.088 mg PO QDAC [facility] Stop: 04/30/17 07:29 Last Admin: 03/05/17 08:12 Dose: 0.088 mg Lorazepam (Ativan) 1 mg PO Q6H PRN; Protocol PRN Reason: Anxiety Stop: 04/29/17 15:20 Last Admin: 03/04/17 23:40 Dose: 1 mg Losartan Potassium (Cozaar) 25 mg PO DAILY [facility] Stop: 05/03/17 08:59 Last Admin: 03/05/17 08:12 Dose: 25 mg Magnesium Hydroxide (Milk Of Magnesia) 30 ml PO HS PRN PRN Reason: Constipation Stop: 04/29/17 15:20 Miscellaneous (Vte Chemical Prophylaxis Screen/ Admission) 1 ea PRN PRN PRN Reason: PROTOCOL Stop: 04/29/17 17:08 Miscellaneous (Vancomycin Iv Per Pharmacy) 1 ea PRN [facility] Stop: 04/30/17 12:59 Ondansetron HCl (Zofran) 4 mg IV Q8H PRN PRN Reason: Nausea / Vomiting Stop: 04/29/17 15:25 Pantoprazole Sodium (Protonix) 40 mg PO QDAC [facility] Stop: 04/30/17 07:29 Last Admin: 03/05/17 08:12 Dose: 40 mg Pioglitazone HCl (Actos) 30 mg PO QDAC [facility] Stop: 04/30/17 07:29 Last Admin: 03/05/17 08:12 Dose: 30 mg Quetiapine Fumarate (Seroquel) 400 mg PO Q12HR [facility] PRN Reason: Protocol Stop: 04/29/17 20:59 Last Admin: 03/05/17 08:12 Dose: 400 mg Vitamin B Complex/Vitamin C (Vitamin B Complex W/C) 1 tab PO DAILY [facility] Stop: 04/29/17 17:59 Last Admin: 03/05/17 14:01 Dose: Not Given General: alert HEENT: NC/AT, PERRLA Neck: Supple Lungs: CTAB Cardiovascular: RRR, Normal S1, Normal S2, without murmur Abdomen: soft, non-tender, non-distended Extremities: excoriation, other (r elbow edema) Neurological: alert, disorganized - Procedures Procedures: Procedures Procedure Code Date COLONOSCOPY 45.23 09/19/11 DIAGNOSTIC COLONOSCOPY 07555 09/19/11 EMERGENCY DEPT VISIT 38775 09/19/11 OTHER GROUP THERAPY 94.44 10/17/11 RECREATIONAL THERAPY 93.81 10/17/11 Internal Medicine Assmt/Plan - Assessment Assessment: RIGHT ELBOW CELLULITIS FEVER LEUKOCYTOSIS- improved ANEMIA HYPONATREMIA MODERATE PROTEIN CALORIE MALNUTRITION RENAL INSUFFICIENCY HTN HYPOTHYROIDISM SCHIZOAFFECTIVE DISORDER COPD DM-2 - Plan Plan: - Plan Plan: will order ct of right upper ext. with contrast continue ivabx monitor for fever psych f/u am labs continue current plan of care dr stanley to do i and d on 03-06, lexus stanley Nutritional Asmnt/Malnutr-PDOC - Dietary Evaluation Malnutrition Findings (Please click <Entered> for more info): Nutritional Asmnt/Malnutrition Start: 03/04/17 12: 38 Text: Status: Complete Freq: Document 03/04/17 12:39 LISA (Rec: 03/04/17 12:44 LISA LIU- [email or web address]) Nutritional Asmnt/Malnutrition Patient General Information Nutritional Screening Moderate Risk Screening Diagnosis Upper extremity cellulitis Pertinent Medical Hx/Surgical Hx DM, COPD, schizoaffective d/o, HTN, hypothyroidism Subjective Information Pt unable to answer RD questions appropriately. Current Diet Order/ Nutrition Support [facility] [place] Patient / S.O Not Indicated Pertinent Medications norco, maalox, colace, clipizide, haldol, heparin, novolog (not given), synthroid , MOM, zofran, protonix, NS @ 80ml/hr, vit B complex Pertinent Labs 03/04: Na 137, K 4.1, Cl 107, CO2 25.4, BUN 24, Cr 1.4, Ca 10.3, glucose 113 Nutritional Hx/Data Height 1.91 m Height (Calculated Centimeters) 190.5 Current Weight (lbs) 76.204 kg Weight (Calculated Kilograms) 76.2 Weight (Calculated Grams) 38171.5 Recent Weight Change No Weight Status Approriate GI Symptoms GI Symptoms None Food Allergies No Cultural/Ethnic/Alevism Belief Unable to obtain from pt Usual diet at home unable to obtain from pt Skin Integrity/Comment: maribel score 15 Estimated Nutritional Goals BEE in Kcals: Using Current wt Calories/Kcals/Kg 25-30kcals/kg Kcals Calculated 1900-2280kcals/day Protein: Using Current wt Protein g/k-1.2g/kg Protein Calculated 76-91g/day Fluid: ml 1900-2280ml/day (1ml/kcal) Nutritional Problem 1. Problem Problem No nutrition Etiology diagnosis at Signs/Symptoms: this time. Intervention/Recommendation Comments Recommend continuing [facility] [place] diet Expected Outcomes/Goals Expected Outcomes/Goals PO Intake >75%
[2017-03-06 05:00] LABS: % EOSINOPHILS 2.5 % (0.0-5.0); HEMOGLOBIN 12.6 gm/dL (13.2-17.3)
[2017-03-06 05:10] LABS: % BASOPHILS 0.3 % (0.0-2.0); % LYMPHOCYTES 32.9 % (20.0-50.0); % MONOCYTES 13.6 % (2.0-10.0); % NEUTROPHILS 50.7 % (40.0-80.0); HEMATOCRIT 36.5 % (39.0-49.0); MEAN CELL VOLUME 89.5 fl (80-99); MEAN CORPUSCULAR HEMOGLOBIN 30.9 pg (26.0-30.0); MEAN CORPUSCULAR HGB CONC 34.5 pg (28.0-36.0); MEAN PLATELET VOLUME 8.7 fl; NEUTROPHILE ABSOLUTE 2.6 Th/cmm (1.8-8.0); PLATELET COUNT 264 Th/cmm (150-400); RED BLOOD COUNT 4.08 Mil/cmm (4.30-5.70); RED CELL DISTRIBUTION WIDTH 12.3 % (11.5-20.0)
[2017-03-06 05:15] LABS: INR 1.02 (0.5-1.4); PROTHROMBIN TIME (TEST) 10.6 SECONDS (9.5-11.5)
[2017-03-06 05:39] LABS: ALB/GLOB RATIO 1.2 (1.0-1.8); ANION GAP 8.7 (7.0-16.0); BILIRUBIN,TOTAL 0.3 mg/dL (0.3-1.0); BUN/CREATININE RATIO 16.3; CALCIUM SERUM 9.8 mg/dL (8.6-10.3); CARBON DIOXIDE 25.3 mEq/L (21.0-31.0); CREATININE - SERUM 1.6 mg/dL (0.7-1.3)
[2017-03-06] MEDS: INSULIN ASPART, RECOMBINANT 100 UNITS/ML SUBQ SCH ×2 (06:31→12:15)
[2017-03-06] MEDS: Levothyroxine 0.088 Mg Tab PO SCH (06:33)
[2017-03-06] MEDS: Pantoprazole 40 mg EC Tab PO SCH (06:33)
[2017-03-06] MEDS ORDERED: Midazolam 1mg/ml 2 ml vial IV ONE (08:05)
[2017-03-06] MEDS ORDERED: fentaNYL Citrate 100 mcg/2mL Vial ONE (08:13)
--- NOTE | 2017-03-06 08:32 | General Progress Note ---
Subjective - Review of Systems Service Date: 03/06/17 Events since last encounter: I and D - no abscess serous fluid aspirated C and S done Objective - Results Result Diagrams: 03/06/17 04:45 03/06/17 04:45 Recent Labs: Laboratory Last Values WBC 5.0 Th/cmm (4.8-10.8) 03/06/17 04:45 RBC 4.08 Mil/cmm (4.30-5.70) L 03/06/17 04:45 Hgb 12.6 gm/dL (13.2-17.3) L 03/06/17 04:45 Hct 36.5 % (39.0-49.0) L 03/06/17 04:45 MCV 89.5 fl (80-99) 03/06/17 04:45 MCH 30.9 pg (26.0-30.0) H 03/06/17 04:45 MCHC Differential 34.5 pg (28.0-36.0) 03/06/17 04:45 RDW 12.3 % (11.5-20.0) 03/06/17 04:45 Plt Count 264 Th/cmm (150-400) 03/06/17 04:45 MPV 8.7 fl 03/06/17 04:45 Neutrophils % 50.7 % (40.0-80.0) 03/06/17 04:45 Lymphocytes % 32.9 % (20.0-50.0) 03/06/17 04:45 Monocytes % 13.6 % (2.0-10.0) H 03/06/17 04:45 Eosinophils % 2.5 % (0.0-5.0) 03/06/17 04:45 Basophils % 0.3 % (0.0-2.0) 03/06/17 04:45 ESR 61 mm/hr (0-20) H 03/02/17 05:40 PT 10.6 SECONDS (9.5-11.5) 03/06/17 04:45 INR 1.02 (0.5-1.4) 03/06/17 04:45 PTT (Actin FS) 26.1 SECONDS (26.0-38.0) 03/06/17 04:45 Sodium 137 mEq/L (136-145) 03/06/17 04:45 Potassium 4.0 mEq/L (3.5-5.1) 03/06/17 04:45 Chloride 107 mEq/L (98-107) 03/06/17 04:45 Carbon Dioxide 25.3 mEq/L (21.0-31.0) 03/06/17 04:45 Anion Gap 8.7 (7.0-16.0) 03/06/17 04:45 BUN 26 mg/dL (7-25) H 03/06/17 04:45 Creatinine 1.6 mg/dL (0.7-1.3) H 03/06/17 04:45 Est GFR ( Amer) 57.0 ml/min (>90) 03/06/17 04:45 Est GFR (Non-Af Amer) 47.1 ml/min 03/06/17 04:45 BUN/Creatinine Ratio 16.3 03/06/17 04:45 Glucose 105 mg/dL (70-105) 03/06/17 04:45 POC Glucose 100 MG/DL (70 - 105) 03/06/17 05:57 Whole Bld Lactic Acid 0.66 mmol/L (0.60-1.99) 02/28/17 13:28 Calcium 9.8 mg/dL (8.6-10.3) 03/06/17 04:45 Total Bilirubin 0.3 mg/dL (0.3-1.0) 03/06/17 04:45 AST 18 U/L (13-39) 03/06/17 04:45 ALT 16 U/L (7-52) 03/06/17 04:45 Alkaline Phosphatase 55 U/L (34-104) 03/06/17 04:45 Total Protein 6.2 gm/dL (6.0-8.3) 03/06/17 04:45 Albumin 3.4 gm/dL (4.2-5.5) L 03/06/17 04:45 Globulin 2.8 gm/dL 03/06/17 04:45 Albumin/Globulin Ratio 1.2 (1.0-1.8) 03/06/17 04:45 Vancomycin Trough 10.1 ug/mL (10-20) 03/03/17 07:45 - Physical Exam Vitals and I&O: Vital Signs Temp 98.0 F 03/06/17 04:00 Pulse 89 03/06/17 04:00 Resp 20 03/06/17 04:00 BP 114/67 03/06/17 04:00 Pulse Ox 97 03/06/17 04:00 Intake & Output 03/05/17 03/06/17 03/06/17 18:59 06:59 18:59 Intake Total 800 360 Output Total 3 Balance 797 360 Weight (lbs) 76.204 kg 76.204 kg Intake: Intake, IV Amount 600 Levofloxacin 500mg/100mL 100 500 mg In 100 ml @ 100 mls/hr IV Q24HR [facility] Rx#: [id number] Vancomycin HCl 1.5 gm In 500 Sodium Chloride 0.9% 500 ml @ 250 mls/hr IV Q24HR@ 0900 [facility] Rx#:[id number] Oral 200 360 Output: Urine 3 Other: # Voids 1 # Bowel Movements 0 Stool Characteristics Brown Brown Black Black Active Medications: Current Medications Acetaminophen (Tylenol) 650 mg PO Q4H PRN PRN Reason: Pain (Mild) Stop: 04/29/17 15:20 Acetaminophen/Hydrocodone Bitart ([place] 5mg/325mg) 1 tab PO Q4H PRN PRN Reason: Pain (Severe) Stop: 04/29/17 15:25 Al Hydrox/Mg Hydrox/Simethicone (Maalox) 30 ml PO Q4HR PRN PRN Reason: GI DISTRESS Stop: 04/29/17 15:20 Albuterol Sulfate (Albuterol 2.5mg/3ml Neb Ud) 2.5 mg HHN Q2HRT PRN PRN Reason: Shortness of Breath or Wheeze Stop: 04/29/17 15:25 Benztropine Mesylate (Cogentin) 1 mg PO BID [facility] Stop: 04/29/17 16:59 Last Admin: 03/05/17 16:17 Dose: 1 mg Docusate Sodium (Colace) 100 mg PO BID [facility] Stop: 04/29/17 16:59 Last Admin: 03/05/17 16:17 Dose: 100 mg Fenofibrate (Tricor) 134 mg PO DAILY [facility] Stop: 05/01/17 08:59 Last Admin: 03/05/17 08:12 Dose: 134 mg Glipizide (Glucotrol) 10 mg PO BIDAC [facility] Stop: 04/29/17 16:29 Last Admin: 03/06/17 06:33 Dose: Not Given Glucagon (Glucagen) 1 mg IM PRN PRN PRN Reason: Blood Glucose Less Than 60 Stop: 04/29/17 15:20 Haloperidol (Haldol) 5 mg PO BID [facility] PRN Reason: Protocol Stop: 05/01/17 12:25 Last Admin: 03/05/17 16:17 Dose: 5 mg Haloperidol Decanoate (Haldol Dec) 50 mg IM QMONTH [facility] PRN Reason: Protocol Stop: 04/29/17 17:59 Last Admin: 02/28/17 17:27 Dose: Not Given Heparin Sodium (Porcine) (Heparin) 5,000 units SUBQ Q12HR [facility] Stop: 03/06/17 23:59 Last Admin: 03/05/17 20:44 Dose: 5,000 units Levofloxacin (Levaquin Pb) 500 mg in 100 mls @ 100 mls/hr IV Q24HR [facility] Stop: 04/30/17 08:59 Last Infusion: 03/05/17 18:38 Dose: Infused Vancomycin HCl 1.5 gm/ Sodium (Chloride) 500 mls @ 250 mls/hr IV Q24HR@0900 [facility] Stop: 04/30/17 13:59 Last Infusion: 03/05/17 18:38 Dose: Infused Insulin Aspart (Novolog) 0 units SUBQ ACHS [facility] PRN Reason: Protocol Stop: 04/29/17 16:29 Last Admin: 03/06/17 06:31 Dose: Not Given Levothyroxine Sodium (Synthroid) 0.088 mg PO QDAC [facility] Stop: 04/30/17 07:29 Last Admin: 03/06/17 06:33 Dose: Not Given Lorazepam (Ativan) 1 mg PO Q6H PRN; Protocol PRN Reason: Anxiety Stop: 04/29/17 15:20 Last Admin: 03/04/17 23:40 Dose: 1 mg Losartan Potassium (Cozaar) 25 mg PO DAILY [facility] Stop: 05/03/17 08:59 Last Admin: 03/05/17 08:12 Dose: 25 mg Magnesium Hydroxide (Milk Of Magnesia) 30 ml PO HS PRN PRN Reason: Constipation Stop: 04/29/17 15:20 Miscellaneous (Vte Chemical Prophylaxis Screen/ Admission) 1 ea [facility] PRN PRN PRN Reason: PROTOCOL Stop: 04/29/17 17:08 Miscellaneous (Vancomycin Iv Per Pharmacy) 1 ea [facility] PRN [facility] Stop: 04/30/17 12:59 Ondansetron HCl (Zofran) 4 mg IV Q8H PRN PRN Reason: Nausea / Vomiting Stop: 04/29/17 15:25 Pantoprazole Sodium (Protonix) 40 mg PO QDAC [facility] Stop: 04/30/17 07:29 Last Admin: 03/06/17 06:33 Dose: Not Given Pioglitazone HCl (Actos) 30 mg PO QDAC [facility] Stop: 04/30/17 07:29 Last Admin: 03/06/17 06:33 Dose: Not Given Quetiapine Fumarate (Seroquel) 400 mg PO Q12HR [facility] PRN Reason: Protocol Stop: 04/29/17 20:59 Last Admin: 03/05/17 20:44 Dose: 400 mg Vitamin B Complex/Vitamin C (Vitamin B Complex W/C) 1 tab PO DAILY [facility] Stop: 04/29/17 17:59 Last Admin: 03/05/17 14:01 Dose: Not Given - Procedures Procedures: Procedures Procedure Code Date COLONOSCOPY 45.23 09/19/11 DIAGNOSTIC COLONOSCOPY 12231 09/19/11 EMERGENCY DEPT VISIT 98679 09/19/11 OTHER GROUP THERAPY 94.44 10/17/11 RECREATIONAL THERAPY 93.81 10/17/11 Assessment/Plan - Problem List Patient Problems: All Active Problems Abnormality of gait (Acute) R26.9 Aggressive behavior (Acute) R45.89 DM type 2 (diabetes mellitus, type 2) (Acute) HTN (Acute) Hypothyroidism (Acute) E03.9 INCREASED AGITATION (Acute ~09/22/16) Kidney failure (Acute) MUSCLE WEA (Acute) Muscle weakness (Acute) M62.81 Protein calorie malnutrition (Acute) E46 Psychosis (Acute) F29 Schizoaffective disorder (Acute) F25.9 Nutritional Asmnt/Malnutr-PDOC - Dietary Evaluation Malnutrition Findings (Please click <Entered> for more info): Nutritional Asmnt/Malnutrition Start: 03/04/17 12: 38 Text: Status: Complete Freq: Document 03/04/17 12:39 LISA (Rec: 03/04/17 12:44 LISA [facility]U- [facility]) Nutritional Asmnt/Malnutrition Patient General Information Nutritional Screening Moderate Risk Screening Diagnosis Upper extremity cellulitis Pertinent Medical Hx/Surgical Hx DM, COPD, schizoaffective d/o, HTN, hypothyroidism Subjective Information Pt unable to answer RD questions appropriately. Current Diet Order/ Nutrition Support [facility] [place] Patient / S.O Not Indicated Pertinent Medications norco, maalox, colace, clipizide, haldol, heparin, novolog (not given), synthroid , MOM, zofran, protonix, NS @ 80ml/hr, vit B complex Pertinent Labs 03/04: Na 137, K 4.1, Cl 107, CO2 25.4, BUN 24, Cr 1.4, Ca 10.3, glucose 113 Nutritional Hx/Data Height 1.91 m Height (Calculated Centimeters) 190.5 Current Weight (lbs) 76.204 kg Weight (Calculated Kilograms) 76.2 Weight (Calculated Grams) 29843.5 Recent Weight Change No Weight Status Approriate GI Symptoms GI Symptoms None Food Allergies No Cultural/Ethnic/Samaritan Belief Unable to obtain from pt Usual diet at home unable to obtain from pt Skin Integrity/Comment: maribel score 15 Estimated Nutritional Goals BEE in Kcals: Using Current wt Calories/Kcals/Kg 25-30kcals/kg Kcals Calculated 1900-2280kcals/day Protein: Using Current wt Protein g/k-1.2g/kg Protein Calculated 76-91g/day Fluid: ml 1900-2280ml/day (1ml/kcal) Nutritional Problem 1. Problem Problem No nutrition Etiology diagnosis at Signs/Symptoms: this time. Intervention/Recommendation Comments Recommend continuing [facility] [place] diet Expected Outcomes/Goals Expected Outcomes/Goals PO Intake >75%
[2017-03-06] MEDS ORDERED: Meperidine 25 mg/mL 1mL Syr IVP PRN (08:34)
[2017-03-06] MEDS ORDERED: Lactated Ringer 1,000 ML IV SCH (08:45)
--- NOTE | 2017-03-06 09:11 | Operative Report ---
DATE OF SURGERY: 03/06/2017 PREOPERATIVE DIAGNOSES: 1. Abscess (?), right arm. 2. Schizophrenia. 3. Hypertension. 4. Diabetes mellitus. 5. Chronic obstructive pulmonary disease. POSTOPERATIVE DIAGNOSES: 1. Abscess (?), right arm. 2. Schizophrenia. 3. Hypertension. 4. Diabetes mellitus. 5. Chronic obstructive pulmonary disease. OPERATION DONE: Incision and drainage, right arm. SURGEON: Valeri Bucio M.D. ANESTHESIA: MAC. ANESTHESIOLOGIST: Miguel Malagon M.D. PROCEDURE: Given IV sedation. The right arm was prepped with Betadine and draped the site of marked swelling seen on the CT scan as subfascial edema and incision was made along the skin line. Hemostat was introduced to go down deep into the fascia. No abscess noted. Serous fluid was drained. Cultures were taken. Iodoform gauze was used to pack the wound. The patient tolerated the procedure well. JOB# [id number]
[2017-03-06] MEDS: Ascorbic Acid/Vit B Complex Tab PO SCH (09:30)
[2017-03-06] MEDS: Fenofibrate, Micronized 134 mg Cap PO SCH (09:30)
[2017-03-06] MEDS: Benztropine 1 MG TAB PO SCH ×2 (09:31→17:20)
[2017-03-06] MEDS: Vancomycin HCl 1.5 GM in Sodium Chloride 0.9% 500 ML IV SCH (10:05)
--- NOTE | 2017-03-06 11:28 | Internal Medicine Prog Note ---
Internal Medicine Subjective - Subjective Service Date: 03/06/17 (s/p i+d urine ) Patient is:: awake, verbal, interactive, in bed, confused Patient Complaints of:: constipation, bloated, unable to sleep Per staff patient has:: no adverse event, agitated, noncompliant, tolerating meds Internal Medicine Objective - Results Result Diagrams: 03/06/17 04:45 03/06/17 04:45 Recent Labs: Laboratory Last Values WBC 5.0 Th/cmm (4.8-10.8) 03/06/17 04:45 RBC 4.08 Mil/cmm (4.30-5.70) L 03/06/17 04:45 Hgb 12.6 gm/dL (13.2-17.3) L 03/06/17 04:45 Hct 36.5 % (39.0-49.0) L 03/06/17 04:45 MCV 89.5 fl (80-99) 03/06/17 04:45 MCH 30.9 pg (26.0-30.0) H 03/06/17 04:45 MCHC Differential 34.5 pg (28.0-36.0) 03/06/17 04:45 RDW 12.3 % (11.5-20.0) 03/06/17 04:45 Plt Count 264 Th/cmm (150-400) 03/06/17 04:45 MPV 8.7 fl 03/06/17 04:45 Neutrophils % 50.7 % (40.0-80.0) 03/06/17 04:45 Lymphocytes % 32.9 % (20.0-50.0) 03/06/17 04:45 Monocytes % 13.6 % (2.0-10.0) H 03/06/17 04:45 Eosinophils % 2.5 % (0.0-5.0) 03/06/17 04:45 Basophils % 0.3 % (0.0-2.0) 03/06/17 04:45 ESR 61 mm/hr (0-20) H 03/02/17 05:40 PT 10.6 SECONDS (9.5-11.5) 03/06/17 04:45 INR 1.02 (0.5-1.4) 03/06/17 04:45 PTT (Actin FS) 26.1 SECONDS (26.0-38.0) 03/06/17 04:45 Sodium 137 mEq/L (136-145) 03/06/17 04:45 Potassium 4.0 mEq/L (3.5-5.1) 03/06/17 04:45 Chloride 107 mEq/L (98-107) 03/06/17 04:45 Carbon Dioxide 25.3 mEq/L (21.0-31.0) 03/06/17 04:45 Anion Gap 8.7 (7.0-16.0) 03/06/17 04:45 BUN 26 mg/dL (7-25) H 03/06/17 04:45 Creatinine 1.6 mg/dL (0.7-1.3) H 03/06/17 04:45 Est GFR ( Amer) 57.0 ml/min (>90) 03/06/17 04:45 Est GFR (Non-Af Amer) 47.1 ml/min 03/06/17 04:45 BUN/Creatinine Ratio 16.3 03/06/17 04:45 Glucose 105 mg/dL (70-105) 03/06/17 04:45 POC Glucose 100 MG/DL (70 - 105) 03/06/17 05:57 Whole Bld Lactic Acid 0.66 mmol/L (0.60-1.99) 02/28/17 13:28 Calcium 9.8 mg/dL (8.6-10.3) 03/06/17 04:45 Total Bilirubin 0.3 mg/dL (0.3-1.0) 03/06/17 04:45 AST 18 U/L (13-39) 03/06/17 04:45 ALT 16 U/L (7-52) 03/06/17 04:45 Alkaline Phosphatase 55 U/L (34-104) 03/06/17 04:45 Total Protein 6.2 gm/dL (6.0-8.3) 03/06/17 04:45 Albumin 3.4 gm/dL (4.2-5.5) L 03/06/17 04:45 Globulin 2.8 gm/dL 03/06/17 04:45 Albumin/Globulin Ratio 1.2 (1.0-1.8) 03/06/17 04:45 Vancomycin Trough 10.1 ug/mL (10-20) 03/03/17 07:45 - Physical Exam Vitals and I&O: Vital Signs Temp 98.0 F 03/06/17 04:00 Pulse 80 03/06/17 09:30 Resp 20 03/06/17 04:00 BP 134/85 03/06/17 09:30 Pulse Ox 97 03/06/17 04:00 Intake & Output 03/05/17 03/06/17 03/06/17 18:59 06:59 18:59 Intake Total 800 360 Output Total 3 Balance 797 360 Weight (lbs) 168 lb 168 lb Intake: Intake, IV Amount 600 Levofloxacin 500mg/100mL 100 500 mg In 100 ml @ 100 mls/hr IV Q24HR [facility] Rx#: [id number] Vancomycin HCl 1.5 gm In 500 Sodium Chloride 0.9% 500 ml @ 250 mls/hr IV Q24HR@ 0900 [facility] Rx#:[id number] Oral 200 360 Output: Urine 3 Other: # Voids 1 # Bowel Movements 0 Stool Characteristics Brown Brown Black Black Active Medications: Current Medications Acetaminophen (Tylenol) 650 mg PO Q4H PRN PRN Reason: Pain (Mild) Stop: 04/29/17 15:20 Acetaminophen/Hydrocodone Bitart ([place] 5mg/325mg) 1 tab PO Q4H PRN PRN Reason: Pain (Severe) Stop: 04/29/17 15:25 Al Hydrox/Mg Hydrox/Simethicone (Maalox) 30 ml PO Q4HR PRN PRN Reason: GI DISTRESS Stop: 04/29/17 15:20 Albuterol Sulfate (Albuterol 2.5mg/3ml Neb Ud) 2.5 mg HHN Q2HRT PRN PRN Reason: Shortness of Breath or Wheeze Stop: 04/29/17 15:25 Benztropine Mesylate (Cogentin) 1 mg PO BID [facility] Stop: 04/29/17 16:59 Last Admin: 03/06/17 09:31 Dose: 1 mg Docusate Sodium (Colace) 100 mg PO BID [facility] Stop: 04/29/17 16:59 Last Admin: 03/06/17 09:31 Dose: 100 mg Fenofibrate (Tricor) 134 mg PO DAILY [facility] Stop: 05/01/17 08:59 Last Admin: 03/06/17 09:30 Dose: 134 mg Glipizide (Glucotrol) 10 mg PO BIDAC [facility] Stop: 04/29/17 16:29 Last Admin: 03/06/17 06:33 Dose: Not Given Glucagon (Glucagen) 1 mg IM PRN PRN PRN Reason: Blood Glucose Less Than 60 Stop: 04/29/17 15:20 Haloperidol (Haldol) 5 mg PO BID [facility] PRN Reason: Protocol Stop: 05/01/17 12:25 Last Admin: 03/06/17 09:30 Dose: 5 mg Haloperidol Decanoate (Haldol Dec) 50 mg IM QMONTH [facility] PRN Reason: Protocol Stop: 04/29/17 17:59 Last Admin: 02/28/17 17:27 Dose: Not Given Heparin Sodium (Porcine) (Heparin) 5,000 units SUBQ Q12HR [facility] Stop: 03/06/17 23:59 Last Admin: 03/06/17 09:31 Dose: Not Given Levofloxacin (Levaquin Pb) 500 mg in 100 mls @ 100 mls/hr IV Q24HR [facility] Stop: 04/30/17 08:59 Last Infusion: 03/05/17 18:38 Dose: Infused Vancomycin HCl 1.5 gm/ Sodium (Chloride) 500 mls @ 250 mls/hr IV Q24HR@0900 [facility] Stop: 04/30/17 13:59 Last Admin: 03/06/17 10:05 Dose: 250 mls/hr Lactated Ringer's (Lactated Ringer) 1,000 mls @ 0 mls/hr IV .Q0M [facility] PRN Reason: TKO Stop: 03/07/17 08:44 Insulin Aspart (Novolog) 0 units SUBQ ACHS [facility] PRN Reason: Protocol Stop: 04/29/17 16:29 Last Admin: 03/06/17 06:31 Dose: Not Given Levothyroxine Sodium (Synthroid) 0.088 mg PO QDAC [facility] Stop: 04/30/17 07:29 Last Admin: 03/06/17 06:33 Dose: Not Given Lorazepam (Ativan) 1 mg PO Q6H PRN; Protocol PRN Reason: Anxiety Stop: 04/29/17 15:20 Last Admin: 03/04/17 23:40 Dose: 1 mg Losartan Potassium (Cozaar) 25 mg PO DAILY [facility] Stop: 05/03/17 08:59 Last Admin: 03/06/17 09:30 Dose: 25 mg Magnesium Hydroxide (Milk Of Magnesia) 30 ml PO HS PRN PRN Reason: Constipation Stop: 04/29/17 15:20 Meperidine HCl (Demerol) 12.5 mg IVP UD PRN PRN Reason: POST-OP PAIN Stop: 03/07/17 08:33 Miscellaneous (Vte Chemical Prophylaxis Screen/ Admission) 1 ea [facility] PRN PRN PRN Reason: PROTOCOL Stop: 04/29/17 17:08 Miscellaneous (Vancomycin Iv Per Pharmacy) 1 ea [facility] PRN [facility] Stop: 04/30/17 12:59 Ondansetron HCl (Zofran) 4 mg IV Q8H PRN PRN Reason: Nausea / Vomiting Stop: 04/29/17 15:25 Ondansetron HCl (Zofran) 4 mg IV X1 PRN PRN Reason: Nausea / Vomiting Stop: 03/07/17 08:33 Pantoprazole Sodium (Protonix) 40 mg PO QDAC [facility] Stop: 04/30/17 07:29 Last Admin: 03/06/17 06:33 Dose: Not Given Pioglitazone HCl (Actos) 30 mg PO QDAC [facility] Stop: 04/30/17 07:29 Last Admin: 03/06/17 06:33 Dose: Not Given Quetiapine Fumarate (Seroquel) 400 mg PO Q12HR [facility] PRN Reason: Protocol Stop: 04/29/17 20:59 Last Admin: 03/06/17 09:30 Dose: 400 mg Vitamin B Complex/Vitamin C (Vitamin B Complex W/C) 1 tab PO DAILY [facility] Stop: 04/29/17 17:59 Last Admin: 03/06/17 09:30 Dose: 1 tab General: alert HEENT: NC/AT, PERRLA Neck: Supple Lungs: CTAB Cardiovascular: RRR, Normal S1, Normal S2, without murmur Abdomen: soft, non-tender, non-distended Extremities: excoriation, other (r elbow edema) Neurological: alert, disorganized - Procedures Procedures: Procedures Procedure Code Date COLONOSCOPY 45.23 09/19/11 DIAGNOSTIC COLONOSCOPY 62387 09/19/11 EMERGENCY DEPT VISIT 76366 09/19/11 OTHER GROUP THERAPY 94.44 10/17/11 RECREATIONAL THERAPY 93.81 04/23/12 Internal Medicine Assmt/Plan - Assessment Assessment: RIGHT ELBOW CELLULITIS FEVER LEUKOCYTOSIS- improved ANEMIA HYPONATREMIA MODERATE PROTEIN CALORIE MALNUTRITION RENAL INSUFFICIENCY HTN HYPOTHYROIDISM SCHIZOAFFECTIVE DISORDER COPD DM-2 - Plan Plan: continue ivabx monitor for fever psych f/u am labs continue current plan of care Nutritional Asmnt/Malnutr-PDOC - Dietary Evaluation Malnutrition Findings (Please click <Entered> for more info): Nutritional Asmnt/Malnutrition Start: 03/04/17 12: 38 Text: Status: Complete Freq: Document 03/04/17 12:39 LISA (Rec: 03/04/17 12:44 EGRIFFNGHIA NOE- [id number]) Nutritional Asmnt/Malnutrition Patient General Information Nutritional Screening Moderate Risk Screening Diagnosis Upper extremity cellulitis Pertinent Medical Hx/Surgical Hx DM, COPD, schizoaffective d/o, HTN, hypothyroidism Subjective Information Pt unable to answer RD questions appropriately. Current Diet Order/ Nutrition Support [facility] Patient / S.O Not Indicated Pertinent Medications norco, maalox, colace, clipizide, haldol, heparin, novolog (not given), synthroid , MOM, zofran, protonix, NS @ 80ml/hr, vit B complex Pertinent Labs 03/04: Na 137, K 4.1, Cl 107, CO2 25.4, BUN 24, Cr 1.4, Ca 10.3, glucose 113 Nutritional Hx/Data Height 6 ft 3 in Height (Calculated Centimeters) 190.5 Current Weight (lbs) 168 lb Weight (Calculated Kilograms) 76.2 Weight (Calculated Grams) 86612.5 Recent Weight Change No Weight Status Approriate GI Symptoms GI Symptoms None Food Allergies No Cultural/Ethnic/Scientology Belief Unable to obtain from pt Usual diet at home unable to obtain from pt Skin Integrity/Comment: maribel score 15 Estimated Nutritional Goals BEE in Kcals: Using Current wt Calories/Kcals/Kg 25-30kcals/kg Kcals Calculated 1900-2280kcals/day Protein: Using Current wt Protein g/k-1.2g/kg Protein Calculated 76-91g/day Fluid: ml 1900-2280ml/day (1ml/kcal) Nutritional Problem 1. Problem Problem No nutrition Etiology diagnosis at Signs/Symptoms: this time. Intervention/Recommendation Comments Recommend continuing CCHO diet Expected Outcomes/Goals Expected Outcomes/Goals PO Intake >75%
[2017-03-06] MEDS: Levofloxacin 500mg/100mL 500 MG/100 ML BAG IV SCH (12:36)
[2017-03-06] MEDS ORDERED: Probiotic Screen MC PRN (17:58)
[2017-03-07] MEDS ORDERED: Lactobacillus Rhamnosus 10 Billion CFU Capsule PO SCH (09:00)
--- NOTE | 2017-03-25 00:09 | Discharge Summary ---
DATE OF DISCHARGE: 03/06/2017 DISCHARGE DIAGNOSES: Right elbow cellulitis, fever, leukocytosis, anemia, hyponatremia, moderate protein calorie malnutrition, renal insufficiency, hypertension, hypothyroidism, schizoaffective disorder, chronic obstructive pulmonary disease, type 2 diabetes. HISTORY OF PRESENT ILLNESS: This is a 61-year-old male with a history of schizoaffective disorder, hypertension, hypothyroidism, diabetes, COPD, noncompliance, was admitted from the nursing facility secondary to fever and right hand pain and swelling. The patient is a poor historian. PHYSICAL EXAMINATION: GENERAL: The patient is well developed, well nourished, in no acute distress. VITAL SIGNS: Stable. HEENT: Head is normocephalic and atraumatic. NECK: Supple. No mass. LUNGS: Clear. ABDOMEN: Soft, nontender. HOSPITAL COURSE: During the hospital stay, the patient was admitted to the med/surg unit. The patient was kept on empiric IV antibiotics. The patient had a consultation with Dr. Bucio. His plan of care for this patient to do Venous Doppler studies and arterial of the right upper extremity, ____ of the right and left lower extremities. On 02/28/2017, the patient had upper extremity ultrasound done and the impression is ill-defined heterogenous changes within the soft tissues over the posterior aspect of the elbow. Findings may be associated with inflammatory changes, however no discrete loculated abscesses to find. A CT of the upper extremity was done. The impression is extensive subcutaneous edema, edema extending deep ____. The patient explains, findings are likely due to extended cellulitis. This appears to be ____ along the ____ region ____ fluid in this region cannot be completely excluded. Evaluation for discrete abscess was limited due to lack of IV contrast, however, ____ is suspected. On 03/06/2017, the patient had an I and D done on the right arm, the patient tolerated well. Due to the need of extensive IV therapy, the patient was referred to [facility]. CONDITION UPON DISCHARGE: Fair. DISPOSITION: [facility]. [facility]# [id number]
== END 2017-03-06 19:04 | DRG 579 ==
LOC: ER 12:51 → MSI 14:45
PROVIDERS: ADMIT Internal Medicine; ATTEND Internal Medicine
PROC: 0J9G0ZZ Drainage of Right Lower Arm Subcutaneous Tissue and Fascia, Open Approach (ICD-10-PCS; principal; 2017-03-06)
DX: L03.113 Cellulitis of right upper limb (principal); N18.6 End stage renal disease; E44.0 Moderate protein-calorie malnutrition; E11.22 Type 2 diabetes mellitus with diabetic chronic kidney disease; F03.90 Unspecified dementia, unspecified severity, without behavioral disturbance, psychotic disturbance, mood disturbance, and anxiety; E87.1 Hypo-osmolality and hyponatremia; F25.9 Schizoaffective disorder, unspecified; D64.9 Anemia, unspecified; J44.9 Chronic obstructive pulmonary disease, unspecified; E03.9 Hypothyroidism, unspecified; K21.9 Gastro-esophageal reflux disease without esophagitis; N28.9 Disorder of kidney and ureter, unspecified; I12.9 Hypertensive chronic kidney disease with stage 1 through stage 4 chronic kidney disease, or unspecified chronic kidney disease; Z68.21 Body mass index [BMI] 21.0-21.9, adult; Z88.0 Allergy status to penicillin
CPT/HCPCS: 36415-UA; 73200-TC-RT; 76881-TC-RT; 80048-TC; 80053-TC; 80202-TC; 82948-90; 83605; 85025-TC; 85610-TC; 85652-TC; 87070-90; 87075-90; 87205-90; 93005; 93925-TC; 93970-TC-50; 94760; J1631; J1644; J1815; J1956; J2001; J2250; J2704; J3370; J7040; Q9967; X6206; Z7610

== ENCOUNTER 2018-04-05 06:33 | Inpatient (IN) | payer MEDICARE, MEDICAID ==
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
[2018-04-05 07:25] LABS: % BASOPHILS 0.2 % (0.0-2.0); % EOSINOPHILS 4.1 % (0.0-5.0); % LYMPHOCYTES 26.7 % (20.0-50.0); % MONOCYTES 10.1 % (2.0-10.0); % NEUTROPHILS 58.9 % (40.0-80.0); EOSINOPHILE ABSOLUTE 0.2 Th/cmm (0.1-0.4); HEMATOCRIT 43.2 % (41.0-60); HEMOGLOBIN 14.8 gm/dL (12-16); LYMPHOCYTE ABSOLUTE 1.4 Th/cmm (1.5-3.0); MEAN CELL VOLUME 92.1 fl (80-99); MEAN CORPUSCULAR HEMOGLOBIN 31.6 pg (26.0-30.0); MEAN CORPUSCULAR HGB CONC 34.3 pg (28.0-36.0); MEAN PLATELET VOLUME 8.7 fl; MONOCYTE ABSOLUTE 0.5 Th/cmm (0.3-1.0); NEUTROPHILE ABSOLUTE 3.3 Th/cmm (1.8-8.0); PLATELET COUNT 170 Th/cmm (150-400); RED BLOOD COUNT 4.69 Mil/cmm (4.30-5.70); RED CELL DISTRIBUTION WIDTH 12.3 % (11.5-20.0); WHITE BLOOD COUNT 5.4 Th/cmm (4.8-10.8)
[2018-04-05 07:25] LABS: URINE SOURCE CLEAN C
[2018-04-05 07:30] LABS: URINE BILIRUBIN NEGATIVE (NEGATIVE); URINE BLOOD NEGATIVE (NEGATIVE); URINE GLUCOSE (UA) NEGATIVE (NEGATIVE); URINE KETONE NEGATIVE (NEGATIVE); URINE LEUKOCYTE ESTERASE NEGATIVE (NEGATIVE); URINE NITRATE NEGATIVE (NEGATIVE); URINE PROTEIN NEGATIVE (NEGATIVE); URINE UROBILINOGEN 0.2 E.U./dL (0.2 - 1.0)
[2018-04-05 07:32] LABS: URINE CLARITY CLEAR (CLEAR); URINE COLOR YELLOW; URINE MICROSCOPIC INDICATED? YES
[2018-04-05 07:41] LABS: ALB/GLOB RATIO 1.4 (1.0-1.8); ALBUMIN 3.8 gm/dL (4.2-5.5); ALKALINE PHOSPHATASE 59 U/L (34-104); BILIRUBIN,TOTAL 0.3 mg/dL (0.3-1.0); BUN - UREA NITROGEN 24 mg/dL (7-25); CALCIUM SERUM 9.6 mg/dL (8.6-10.3); CARBON DIOXIDE 25.1 mEq/L (21.0-31.0); CHLORIDE 108 mEq/L (98-107); CHOLESTEROL 138 mg/dL (<200); CREATININE - SERUM 1.5 mg/dL (0.7-1.3); GFR AFRICAN-AMERICAN > 60.0 ml/min (>90); GFR NON AFRICAN-AMERICAN 50.6 ml/min; GLUCOSE 173 mg/dL (70-105); HDL -HIGH DENSITY LIPOPROTEIN 32 mg/dL (23-92); POTASSIUM SERUM 4.1 mEq/L (3.5-5.1); SGOT 20 U/L (13-39); SGPT/ALT 14 U/L (7-52); SODIUM SERUM 138 mEq/L (136-145); TOTAL PROTEIN,SERUM 6.5 gm/dL (6.0-8.3); TRIGLYCERIDES 167 mg/dL (<150)
[2018-04-05 07:45] LABS: URINE BACTERIA RARE /hpf (NONE SEEN); URINE EPITHELIAL CELLS RARE /lpf (FEW); URINE RBC NONE SEEN /hpf (0-5); URINE WBC 0-2 /hpf (0-5)
[2018-04-05] MEDS ORDERED: GLUCAGON HCl 1 MG KIT IM PRN (09:49)
[2018-04-05] MEDS ORDERED: Albuterol Nebulizer 2.5mg/3mL HHN PRN (09:49)
[2018-04-05] MEDS ORDERED: Magnesium Hydroxide (MOM) 30 mL UDC PO PRN (09:49)
[2018-04-05] MEDS ORDERED: Maalox 30 mL Cup PO PRN (09:49)
--- NOTE | 2018-04-05 09:50 | Internal Medicine Prog Note ---
Internal Medicine Subjective - Subjective Service Date: 04/05/18 ([id number] [facility]) Internal Medicine Objective - Results Result Diagrams: 04/05/18 07:15 04/05/18 07:15 Recent Labs: Laboratory Last Values WBC 5.4 Th/cmm (4.8-10.8) 04/05/18 07:15 RBC 4.69 Mil/cmm (4.30-5.70) 04/05/18 07:15 Hgb 14.8 gm/dL (12-16) 04/05/18 07:15 Hct 43.2 % (41.0-60) 04/05/18 07:15 MCV 92.1 fl (80-99) 04/05/18 07:15 MCH 31.6 pg (26.0-30.0) H 04/05/18 07:15 MCHC Differential 34.3 pg (28.0-36.0) 04/05/18 07:15 RDW 12.3 % (11.5-20.0) 04/05/18 07:15 Plt Count 170 Th/cmm (150-400) 04/05/18 07:15 MPV 8.7 fl 04/05/18 07:15 Neutrophils % 58.9 % (40.0-80.0) 04/05/18 07:15 Lymphocytes % 26.7 % (20.0-50.0) 04/05/18 07:15 Monocytes % 10.1 % (2.0-10.0) H 04/05/18 07:15 Eosinophils % 4.1 % (0.0-5.0) 04/05/18 07:15 Basophils % 0.2 % (0.0-2.0) 04/05/18 07:15 Sodium 138 mEq/L (136-145) 04/05/18 07:15 Potassium 4.1 mEq/L (3.5-5.1) 04/05/18 07:15 Chloride 108 mEq/L (98-107) H 04/05/18 07:15 Carbon Dioxide 25.1 mEq/L (21.0-31.0) 04/05/18 07:15 Anion Gap 9.0 (7.0-16.0) 04/05/18 07:15 BUN 24 mg/dL (7-25) 04/05/18 07:15 Creatinine 1.5 mg/dL (0.7-1.3) H 04/05/18 07:15 Est GFR ( Amer) > 60.0 ml/min (>90) 04/05/18 07:15 Est GFR (Non-Af Amer) 50.6 ml/min 04/05/18 07:15 BUN/Creatinine Ratio 16.0 04/05/18 07:15 Glucose 173 mg/dL (70-105) H 04/05/18 07:15 Calcium 9.6 mg/dL (8.6-10.3) 04/05/18 07:15 Total Bilirubin 0.3 mg/dL (0.3-1.0) 04/05/18 07:15 AST 20 U/L (13-39) 04/05/18 07:15 ALT 14 U/L (7-52) 04/05/18 07:15 Alkaline Phosphatase 59 U/L (34-104) 04/05/18 07:15 Total Protein 6.5 gm/dL (6.0-8.3) 04/05/18 07:15 Albumin 3.8 gm/dL (4.2-5.5) L 04/05/18 07:15 Globulin 2.7 gm/dL 04/05/18 07:15 Albumin/Globulin Ratio 1.4 (1.0-1.8) 04/05/18 07:15 Triglycerides 167 mg/dL (<150) H 04/05/18 07:15 Cholesterol 138 mg/dL (<200) 04/05/18 07:15 LDL Cholesterol Direct 79 mg/dL (75-193) 04/05/18 07:15 HDL Cholesterol 32 mg/dL (23-92) 04/05/18 07:15 TSH 1.16 uIU/ml (0.34-5.60) 04/05/18 07:15 Urine Source CLEAN C 04/05/18 06:45 Urine Color YELLOW 04/05/18 06:45 Urine Clarity CLEAR (CLEAR) 04/05/18 06:45 Urine pH 6.0 (4.6 - 8.0) 04/05/18 06:45 Ur Specific [place] <= 1.005 (1.005-1.030) 04/05/18 06:45 Urine Protein NEGATIVE mg/dL (NEGATIVE) 04/05/18 06:45 Urine Glucose (UA) NEGATIVE mg/dL (NEGATIVE) 04/05/18 06:45 Urine Ketones NEGATIVE mg/dL (NEGATIVE) 04/05/18 06:45 Urine Blood NEGATIVE (NEGATIVE) 04/05/18 06:45 Urine Nitrate NEGATIVE (NEGATIVE) 04/05/18 06:45 Urine Bilirubin NEGATIVE (NEGATIVE) 04/05/18 06:45 Urine Urobilinogen 0.2 E.U./dL (0.2 - 1.0) 04/05/18 06:45 Ur Leukocyte Esterase NEGATIVE (NEGATIVE) 04/05/18 06:45 Urine RBC NONE SEEN /hpf (0-5) 04/05/18 06:45 Urine WBC 0-2 /hpf (0-5) 04/05/18 06:45 Ur Epithelial Cells RARE /lpf (FEW) 04/05/18 06:45 Urine Bacteria RARE /hpf (NONE SEEN) 04/05/18 06:45 - Physical Exam Vitals and I&O: Vital Signs Temp 98 F 04/05/18 07:25 Pulse 90 04/05/18 07:25 Resp 18 04/05/18 07:25 BP 135/68 04/05/18 07:25 Pulse Ox 99 04/05/18 07:25 Intake & Output 04/04/18 04/05/18 04/05/18 18:59 06:59 18:59 Weight (lbs) 185 lb Other: Weight Source Estimated - Procedures Procedures: Procedures Procedure Code Date COLONOSCOPY 45.23 09/19/11 DIAGNOSTIC COLONOSCOPY 06022 09/19/11 DRAINAGE OF R LOW ARM SUBCU/FASCIA, OPEN APPROACH [id number] 02/28/17 DRAINAGE OF SKIN ABSCESS 02848 02/28/17 EMERGENCY DEPT VISIT 46555 09/19/11 OTHER GROUP THERAPY 94.44 10/17/11 RECREATIONAL THERAPY 93.81 10/17/11
[2018-04-05] MEDS ORDERED: HALOPERIDOL DECANOATE 100 MG IM SCH (10:00)
[2018-04-05 10:21] VITALS: BP 135/65
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
[2018-04-05] MEDS: INSULIN ASPART SLIDING SCALE 100 UNITS/ML UNIT SUBQ SCH ×3 (11:48→20:55)
[2018-04-05 11:57] LABS: CHOLESTEROL 141 mg/dL (<200); HDL -HIGH DENSITY LIPOPROTEIN 33 mg/dL (23-92); TRIGLYCERIDES 167 mg/dL (<150)
[2018-04-05] MEDS: Benztropine 1 MG TAB PO SCH (17:09)
[2018-04-05] MEDS: Fenofibrate, Micronized 134 mg Cap PO SCH (20:54)
[2018-04-05] MEDS ORDERED: Non-Formulary Item 1 EA (Melatonin [Melatonin] 6 MG) PO SCH (21:00)
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
[2018-04-06] MEDS: Pantoprazole 40 mg EC Tab PO SCH (06:33)
[2018-04-06] MEDS: INSULIN ASPART SLIDING SCALE 100 UNITS/ML UNIT SUBQ SCH ×3 (06:33→20:25)
[2018-04-06] MEDS: Levothyroxine 0.088 Mg Tab PO SCH (06:33)
--- NOTE | 2018-04-06 06:51 | Progress Notes ---
DATE: 04/06/2018 SUBJECTIVE: Chart reviewed and the patient interviewed. Also discussed the patient's condition with the staff and reviewed records and labs. The patient is extremely angry and is extremely agitated. The patient also is in irritable mood. The patient also is yelling and screaming and he is uncooperative. When I tried to talk to the patient, he kept yelling and screaming at me and did not want to carry on any conversation. The patient also has been refusing to take his medications in spite of my trial to explain to him that he needs to take medicine, yet he kept yelling and screaming. ASSESSMENT: The patient is still agitated and uncooperative with his treatment and can be dangerous to others. TREATMENT PLAN: We will continue to monitor his behavior and his condition closely. Also, we will add Haldol 5 mg 3 times a day. Hopefully, the patient will start to take it. Also, we will work on behavioral modification and his irritability and we will continue to follow up. Also, we will get Depakote blood level. JOB# [id number]
[2018-04-06] MEDS ORDERED: NEPHROVITE PO SCH (09:00)
[2018-04-06] MEDS ORDERED: Haloperidol Lactate 5 mg/mL 1mL Vial ONE (11:03)
[2018-04-06] MEDS ORDERED: Haloperidol Lactate 5 mg/mL 1mL Vial IM ONE (11:15)
[2018-04-06] MEDS: Benztropine 1 MG TAB PO SCH ×2 (11:34→18:32)
[2018-04-06] MEDS: Vitamin D3 2,000 IU SGL PO SCH (11:34)
[2018-04-06] MEDS: Vitamin B Complex w/Vitamin C Tab PO SCH (11:41)
[2018-04-06] MEDS: Multivitamin Tab PO SCH (11:41)
--- NOTE | 2018-04-06 13:44 | Internal Medicine Prog Note ---
Internal Medicine Subjective - Subjective Service Date: 04/06/18 Patient seen and examined:: with staff Patient is:: awake, verbal, talking, confused Per staff patient has:: tolerating meds Internal Medicine Objective - Results Result Diagrams: 04/05/18 07:15 04/05/18 07:15 Recent Labs: Laboratory Last Values WBC 5.4 Th/cmm (4.8-10.8) 04/05/18 07:15 RBC 4.69 Mil/cmm (4.30-5.70) 04/05/18 07:15 Hgb 14.8 gm/dL (12-16) 04/05/18 07:15 Hct 43.2 % (41.0-60) 04/05/18 07:15 MCV 92.1 fl (80-99) 04/05/18 07:15 MCH 31.6 pg (26.0-30.0) H 04/05/18 07:15 MCHC Differential 34.3 pg (28.0-36.0) 04/05/18 07:15 RDW 12.3 % (11.5-20.0) 04/05/18 07:15 Plt Count 170 Th/cmm (150-400) 04/05/18 07:15 MPV 8.7 fl 04/05/18 07:15 Neutrophils % 58.9 % (40.0-80.0) 04/05/18 07:15 Lymphocytes % 26.7 % (20.0-50.0) 04/05/18 07:15 Monocytes % 10.1 % (2.0-10.0) H 04/05/18 07:15 Eosinophils % 4.1 % (0.0-5.0) 04/05/18 07:15 Basophils % 0.2 % (0.0-2.0) 04/05/18 07:15 Sodium 138 mEq/L (136-145) 04/05/18 07:15 Potassium 4.1 mEq/L (3.5-5.1) 04/05/18 07:15 Chloride 108 mEq/L (98-107) H 04/05/18 07:15 Carbon Dioxide 25.1 mEq/L (21.0-31.0) 04/05/18 07:15 Anion Gap 9.0 (7.0-16.0) 04/05/18 07:15 BUN 24 mg/dL (7-25) 04/05/18 07:15 Creatinine 1.5 mg/dL (0.7-1.3) H 04/05/18 07:15 Est GFR ( Amer) > 60.0 ml/min (>90) 04/05/18 07:15 Est GFR (Non-Af Amer) 50.6 ml/min 04/05/18 07:15 BUN/Creatinine Ratio 16.0 04/05/18 07:15 Glucose 173 mg/dL (70-105) H 04/05/18 07:15 Calcium 9.6 mg/dL (8.6-10.3) 04/05/18 07:15 Total Bilirubin 0.3 mg/dL (0.3-1.0) 04/05/18 07:15 AST 20 U/L (13-39) 04/05/18 07:15 ALT 14 U/L (7-52) 04/05/18 07:15 Alkaline Phosphatase 59 U/L (34-104) 04/05/18 07:15 Total Protein 6.5 gm/dL (6.0-8.3) 04/05/18 07:15 Albumin 3.8 gm/dL (4.2-5.5) L 04/05/18 07:15 Globulin 2.7 gm/dL 04/05/18 07:15 Albumin/Globulin Ratio 1.4 (1.0-1.8) 04/05/18 07:15 Triglycerides 167 mg/dL (<150) H 04/05/18 07:15 Cholesterol 141 mg/dL (<200) 04/05/18 07:15 LDL Cholesterol Direct 80 mg/dL (75-193) 04/05/18 07:15 HDL Cholesterol 33 mg/dL (23-92) 04/05/18 07:15 TSH 1.16 uIU/ml (0.34-5.60) 04/05/18 07:15 Urine Source CLEAN C 04/05/18 06:45 Urine Color YELLOW 04/05/18 06:45 Urine Clarity CLEAR (CLEAR) 04/05/18 06:45 Urine pH 6.0 (4.6 - 8.0) 04/05/18 06:45 Ur Specific [place] <= 1.005 (1.005-1.030) 04/05/18 06:45 Urine Protein NEGATIVE mg/dL (NEGATIVE) 04/05/18 06:45 Urine Glucose (UA) NEGATIVE mg/dL (NEGATIVE) 04/05/18 06:45 Urine Ketones NEGATIVE mg/dL (NEGATIVE) 04/05/18 06:45 Urine Blood NEGATIVE (NEGATIVE) 04/05/18 06:45 Urine Nitrate NEGATIVE (NEGATIVE) 04/05/18 06:45 Urine Bilirubin NEGATIVE (NEGATIVE) 04/05/18 06:45 Urine Urobilinogen 0.2 E.U./dL (0.2 - 1.0) 04/05/18 06:45 Ur Leukocyte Esterase NEGATIVE (NEGATIVE) 04/05/18 06:45 Urine RBC NONE SEEN /hpf (0-5) 04/05/18 06:45 Urine WBC 0-2 /hpf (0-5) 04/05/18 06:45 Ur Epithelial Cells RARE /lpf (FEW) 04/05/18 06:45 Urine Bacteria RARE /hpf (NONE SEEN) 04/05/18 06:45 - Physical Exam Vitals and I&O: Vital Signs Temp 98 F 04/05/18 07:25 Pulse 91 04/05/18 20:16 Resp 20 04/05/18 20:16 BP 135/65 04/05/18 10:21 Pulse Ox 95 04/05/18 20:16 Intake & Output 04/05/18 04/06/18 04/06/18 18:59 06:59 18:59 Intake Total 1000 Balance 1000 Intake: Oral 1000 Other: # Voids 4 # Bowel Movements 1 Active Medications: Current Medications Acetaminophen (Tylenol) 650 mg PO Q4H PRN PRN Reason: Pain (Mild) Stop: 06/04/18 09:48 Acetaminophen (Tylenol) 650 mg PO Q4HR PRN PRN Reason: Fever > 101 Stop: 06/04/18 09:48 Al Hydrox/Mg Hydrox/Simethicone (Maalox) 30 ml PO Q4HR PRN PRN Reason: GI DISTRESS Stop: 06/04/18 09:48 Albuterol Sulfate (Albuterol 2.5mg/3ml Neb Ud) 2.5 mg HHN Q4HR PRN PRN Reason: Shortness of Breath Stop: 06/04/18 09:48 Benztropine Mesylate (Cogentin) 1 mg PO BID [facility] Stop: 06/04/18 16:59 Last Admin: 04/06/18 11:34 Dose: Not Given Clonazepam (Klonopin) 0.5 mg PO BID [facility]; Protocol Stop: 06/04/18 16:59 Last Admin: 04/06/18 11:34 Dose: Not Given Docusate Sodium (Colace) 100 mg PO BID [facility] Stop: 06/04/18 16:59 Last Admin: 04/06/18 11:34 Dose: Not Given Fenofibrate (Tricor) 134 mg PO HS [facility] Stop: 06/04/18 20:59 Last Admin: 04/05/18 20:54 Dose: Not Given Glipizide (Glucotrol) 10 mg PO BIDAC [facility] Stop: 06/04/18 16:29 Last Admin: 04/06/18 06:33 Dose: Not Given Glucagon (Glucagen) 1 mg IM PRN PRN PRN Reason: Blood Glucose Less Than 60 Stop: 06/04/18 09:48 Haloperidol Decanoate (Haldol Dec) 100 mg IM [id number] [facility] Stop: 06/04/18 11:59 Last Admin: 04/05/18 11:51 Dose: Not Given Haloperidol Lactate (Haldol Concentrate 10mg/5ml Susp) 5 mg PO TID [facility]; Protocol Stop: 06/05/18 08:59 Insulin Aspart (Novolog Insulin Sliding Scale) 0 units SUBQ ACHS [facility]; Protocol Stop: 06/04/18 11:29 Last Admin: 04/06/18 06:33 Dose: Not Given Levothyroxine Sodium (Synthroid) 0.1 mg PO QDAC [facility] Stop: 06/05/18 07:29 Last Admin: 04/06/18 06:33 Dose: Not Given Lisinopril (Zestril) 10 mg PO DAILY [facility] Stop: 06/05/18 08:59 Last Admin: 04/06/18 11:41 Dose: Not Given Lorazepam (Ativan) 0.5 mg PO Q4HR PRN; Protocol PRN Reason: Agitation Stop: 05/05/18 11:08 Last Admin: 04/05/18 13:26 Dose: 0.5 mg Magnesium Hydroxide (Milk Of Magnesia) 30 ml PO HS PRN PRN Reason: Constipation Stop: 06/04/18 09:48 Multivitamins/Vitamin C (Theragran) 1 tab PO DAILY [facility] Stop: 06/05/18 08:59 Last Admin: 04/06/18 11:41 Dose: Not Given Pantoprazole Sodium (Protonix) 40 mg PO QDAC [facility] Stop: 06/05/18 07:29 Last Admin: 04/06/18 06:33 Dose: Not Given Pioglitazone HCl (Actos) 30 mg PO QDAC [facility] Stop: 06/05/18 07:29 Last Admin: 04/06/18 06:34 Dose: Not Given Sodium Bicarbonate (Sodium Bicarbonate) 650 mg PO TID [facility]; Protocol Stop: 06/04/18 13:59 Last Admin: 04/06/18 11:41 Dose: Not Given Trazodone HCl (Desyrel) 50 mg PO HS [facility]; Protocol Stop: 06/04/18 20:59 Last Admin: 04/05/18 20:54 Dose: Not Given Valproate Sodium (Depakene) 750 mg PO BID [facility]; Protocol Stop: 06/05/18 08:59 Last Admin: 04/06/18 11:41 Dose: Not Given Vitamin B Complex/Vit C/Folic Acid (Vitamin B Complex W/Vitamin C) 1 tab PO DAILY [facility] Stop: 06/05/18 08:59 Last Admin: 04/06/18 11:41 Dose: Not Given Vitamin D (Vitamin D3) 2,000 iu PO DAILY [facility] Stop: 06/05/18 08:59 Last Admin: 04/06/18 11:34 Dose: Not Given Zolpidem Tartrate (Ambien) 5 mg PO HS PRN PRN Reason: Insomnia Stop: 06/04/18 11:08 General: alert HEENT: NC/AT, PERRLA Neck: Supple Lungs: CTAB Cardiovascular: RRR, Normal S1, Normal S2, without murmur Abdomen: soft, non-tender, non-distended Extremities: excoriation Neurological: alert - Procedures Procedures: Procedures Procedure Code Date COLONOSCOPY 45.23 09/19/11 DIAGNOSTIC COLONOSCOPY 51261 09/19/11 DRAINAGE OF R LOW ARM SUBCU/FASCIA, OPEN APPROACH [id number] 02/28/17 DRAINAGE OF SKIN ABSCESS 08635 02/28/17 EMERGENCY DEPT VISIT 89033 09/19/11 OTHER GROUP THERAPY 94.44 10/17/11 RECREATIONAL THERAPY 93.81 04/23/12 Internal Medicine Assmt/Plan - Assessment Assessment: aggressive behavior schizoaffective disorder htn hypothyroidism dm copd noncompliant - Plan Plan: fall precautions monitor glucose continue current plan of care
[2018-04-06] MEDS: Haldol Oral Sol.(concentrate) 10 mg/5 mL Udc PO SCH ×2 (18:29→20:11)
[2018-04-06] MEDS: Fenofibrate, Micronized 134 mg Cap PO SCH (20:11)
[2018-04-07] MEDS: Levothyroxine 0.088 Mg Tab PO SCH (06:39)
[2018-04-07] MEDS: INSULIN ASPART SLIDING SCALE 100 UNITS/ML UNIT SUBQ SCH ×4 (06:39→21:28)
[2018-04-07] MEDS: Pantoprazole 40 mg EC Tab PO SCH (06:40)
[2018-04-07] MEDS: Vitamin B Complex w/Vitamin C Tab PO SCH (08:59)
[2018-04-07] MEDS: Vitamin D3 2,000 IU SGL PO SCH (08:59)
[2018-04-07] MEDS: Multivitamin Tab PO SCH (09:00)
[2018-04-07] MEDS: Benztropine 1 MG TAB PO SCH ×2 (09:01→16:05)
[2018-04-07] MEDS: Haldol Oral Sol.(concentrate) 10 mg/5 mL Udc PO SCH ×3 (09:02→21:28)
--- NOTE | 2018-04-07 13:54 | Internal Medicine Prog Note ---
Internal Medicine Subjective - Subjective Service Date: 04/07/18 Patient is:: awake, verbal, talking, confused Per staff patient has:: tolerating meds Internal Medicine Objective - Results Result Diagrams: 04/05/18 07:15 04/05/18 07:15 Recent Labs: Laboratory Last Values WBC 5.4 Th/cmm (4.8-10.8) 04/05/18 07:15 RBC 4.69 Mil/cmm (4.30-5.70) 04/05/18 07:15 Hgb 14.8 gm/dL (12-16) 04/05/18 07:15 Hct 43.2 % (41.0-60) 04/05/18 07:15 MCV 92.1 fl (80-99) 04/05/18 07:15 MCH 31.6 pg (26.0-30.0) H 04/05/18 07:15 MCHC Differential 34.3 pg (28.0-36.0) 04/05/18 07:15 RDW 12.3 % (11.5-20.0) 04/05/18 07:15 Plt Count 170 Th/cmm (150-400) 04/05/18 07:15 MPV 8.7 fl 04/05/18 07:15 Neutrophils % 58.9 % (40.0-80.0) 04/05/18 07:15 Lymphocytes % 26.7 % (20.0-50.0) 04/05/18 07:15 Monocytes % 10.1 % (2.0-10.0) H 04/05/18 07:15 Eosinophils % 4.1 % (0.0-5.0) 04/05/18 07:15 Basophils % 0.2 % (0.0-2.0) 04/05/18 07:15 Sodium 138 mEq/L (136-145) 04/05/18 07:15 Potassium 4.1 mEq/L (3.5-5.1) 04/05/18 07:15 Chloride 108 mEq/L (98-107) H 04/05/18 07:15 Carbon Dioxide 25.1 mEq/L (21.0-31.0) 04/05/18 07:15 Anion Gap 9.0 (7.0-16.0) 04/05/18 07:15 BUN 24 mg/dL (7-25) 04/05/18 07:15 Creatinine 1.5 mg/dL (0.7-1.3) H 04/05/18 07:15 Est GFR ( Amer) > 60.0 ml/min (>90) 04/05/18 07:15 Est GFR (Non-Af Amer) 50.6 ml/min 04/05/18 07:15 BUN/Creatinine Ratio 16.0 04/05/18 07:15 Glucose 173 mg/dL (70-105) H 04/05/18 07:15 POC Glucose 162 MG/DL (70 - 105) H 04/06/18 19:46 Calcium 9.6 mg/dL (8.6-10.3) 04/05/18 07:15 Total Bilirubin 0.3 mg/dL (0.3-1.0) 04/05/18 07:15 AST 20 U/L (13-39) 04/05/18 07:15 ALT 14 U/L (7-52) 04/05/18 07:15 Alkaline Phosphatase 59 U/L (34-104) 04/05/18 07:15 Total Protein 6.5 gm/dL (6.0-8.3) 04/05/18 07:15 Albumin 3.8 gm/dL (4.2-5.5) L 04/05/18 07:15 Globulin 2.7 gm/dL 04/05/18 07:15 Albumin/Globulin Ratio 1.4 (1.0-1.8) 04/05/18 07:15 Triglycerides 167 mg/dL (<150) H 04/05/18 07:15 Cholesterol 141 mg/dL (<200) 04/05/18 07:15 LDL Cholesterol Direct 80 mg/dL (75-193) 04/05/18 07:15 HDL Cholesterol 33 mg/dL (23-92) 04/05/18 07:15 TSH 1.16 uIU/ml (0.34-5.60) 04/05/18 07:15 Urine Source CLEAN C 04/05/18 06:45 Urine Color YELLOW 04/05/18 06:45 Urine Clarity CLEAR (CLEAR) 04/05/18 06:45 Urine pH 6.0 (4.6 - 8.0) 04/05/18 06:45 Ur Specific [place] <= 1.005 (1.005-1.030) 04/05/18 06:45 Urine Protein NEGATIVE mg/dL (NEGATIVE) 04/05/18 06:45 Urine Glucose (UA) NEGATIVE mg/dL (NEGATIVE) 04/05/18 06:45 Urine Ketones NEGATIVE mg/dL (NEGATIVE) 04/05/18 06:45 Urine Blood NEGATIVE (NEGATIVE) 04/05/18 06:45 Urine Nitrate NEGATIVE (NEGATIVE) 04/05/18 06:45 Urine Bilirubin NEGATIVE (NEGATIVE) 04/05/18 06:45 Urine Urobilinogen 0.2 E.U./dL (0.2 - 1.0) 04/05/18 06:45 Ur Leukocyte Esterase NEGATIVE (NEGATIVE) 04/05/18 06:45 Urine RBC NONE SEEN /hpf (0-5) 04/05/18 06:45 Urine WBC 0-2 /hpf (0-5) 04/05/18 06:45 Ur Epithelial Cells RARE /lpf (FEW) 04/05/18 06:45 Urine Bacteria RARE /hpf (NONE SEEN) 04/05/18 06:45 Valproic Acid 29.4 ug/mL (50.0-100.0) L 04/06/18 18:39 - Physical Exam Vitals and I&O: Vital Signs Temp 98.1 F 04/06/18 20:00 Pulse 80 04/07/18 08:59 Resp 19 04/06/18 20:00 BP 140/80 04/07/18 08:59 Pulse Ox 98 04/06/18 20:00 Intake & Output 04/06/18 04/07/18 04/07/18 18:59 06:59 18:59 Intake Total 1100 Balance 1100 Intake: Oral 1100 Other: # Voids 3 # Bowel Movements 1 Active Medications: Current Medications Acetaminophen (Tylenol) 650 mg PO Q4H PRN PRN Reason: Pain (Mild) Stop: 06/04/18 09:48 Acetaminophen (Tylenol) 650 mg PO Q4HR PRN PRN Reason: Fever > 101 Stop: 06/04/18 09:48 Al Hydrox/Mg Hydrox/Simethicone (Maalox) 30 ml PO Q4HR PRN PRN Reason: GI DISTRESS Stop: 06/04/18 09:48 Albuterol Sulfate (Albuterol 2.5mg/3ml Neb Ud) 2.5 mg HHN Q4HR PRN PRN Reason: Shortness of Breath Stop: 06/04/18 09:48 Benztropine Mesylate (Cogentin) 1 mg PO BID [facility] Stop: 06/04/18 16:59 Last Admin: 04/07/18 09:01 Dose: 1 mg Clonazepam (Klonopin) 0.5 mg PO BID [facility]; Protocol Stop: 06/04/18 16:59 Last Admin: 04/07/18 09:01 Dose: 0.5 mg Docusate Sodium (Colace) 100 mg PO BID [facility] Stop: 06/04/18 16:59 Last Admin: 04/07/18 09:01 Dose: 100 mg Fenofibrate (Tricor) 134 mg PO HS [facility] Stop: 06/04/18 20:59 Last Admin: 04/06/18 20:11 Dose: 134 mg Glipizide (Glucotrol) 10 mg PO BIDAC [facility] Stop: 06/04/18 16:29 Last Admin: 04/07/18 06:39 Dose: Not Given Glucagon (Glucagen) 1 mg IM PRN PRN PRN Reason: Blood Glucose Less Than 60 Stop: 06/04/18 09:48 Haloperidol Decanoate (Haldol Dec) 100 mg IM [id number] [facility] Stop: 06/04/18 11:59 Last Admin: 04/05/18 11:51 Dose: Not Given Haloperidol Lactate (Haldol Concentrate 10mg/5ml Susp) 5 mg PO TID [facility]; Protocol Stop: 06/05/18 08:59 Last Admin: 04/07/18 09:02 Dose: 5 mg Insulin Aspart (Novolog Insulin Sliding Scale) 0 units SUBQ ACHS [facility]; Protocol Stop: 06/04/18 11:29 Last Admin: 04/07/18 11:13 Dose: Not Given Levothyroxine Sodium (Synthroid) 0.1 mg PO QDAC [facility] Stop: 06/05/18 07:29 Last Admin: 04/07/18 06:39 Dose: Not Given Lisinopril (Zestril) 10 mg PO DAILY [facility] Stop: 06/05/18 08:59 Last Admin: 04/07/18 08:59 Dose: 10 mg Lorazepam (Ativan) 0.5 mg PO Q4HR PRN; Protocol PRN Reason: Agitation Stop: 05/05/18 11:08 Last Admin: 04/07/18 09:01 Dose: 0.5 mg Magnesium Hydroxide (Milk Of Magnesia) 30 ml PO HS PRN PRN Reason: Constipation Stop: 06/04/18 09:48 Multivitamins/Vitamin C (Theragran) 1 tab PO DAILY [facility] Stop: 06/05/18 08:59 Last Admin: 04/07/18 09:00 Dose: 1 tab Pantoprazole Sodium (Protonix) 40 mg PO QDAC [facility] Stop: 06/05/18 07:29 Last Admin: 04/07/18 06:40 Dose: Not Given Pioglitazone HCl (Actos) 30 mg PO QDAC [facility] Stop: 06/05/18 07:29 Last Admin: 04/07/18 06:40 Dose: Not Given Sodium Bicarbonate (Sodium Bicarbonate) 650 mg PO TID [facility]; Protocol Stop: 06/04/18 13:59 Last Admin: 04/07/18 09:01 Dose: 650 mg Trazodone HCl (Desyrel) 50 mg PO HS [facility]; Protocol Stop: 06/04/18 20:59 Last Admin: 04/06/18 20:11 Dose: 50 mg Valproate Sodium (Depakene) 750 mg PO BID [facility]; Protocol Stop: 06/05/18 08:59 Last Admin: 04/07/18 09:00 Dose: 750 mg Vitamin B Complex/Vit C/Folic Acid (Vitamin B Complex W/Vitamin C) 1 tab PO DAILY [facility] Stop: 06/05/18 08:59 Last Admin: 04/07/18 08:59 Dose: 1 tab Vitamin D (Vitamin D3) 2,000 iu PO DAILY [facility] Stop: 06/05/18 08:59 Last Admin: 04/07/18 08:59 Dose: 2,000 iu Zolpidem Tartrate (Ambien) 5 mg PO HS PRN PRN Reason: Insomnia Stop: 06/04/18 11:08 General: alert HEENT: NC/AT, PERRLA Neck: Supple Lungs: CTAB Cardiovascular: RRR, Normal S1, Normal S2, without murmur Abdomen: soft, non-tender, non-distended Extremities: excoriation Neurological: alert - Procedures Procedures: Procedures Procedure Code Date COLONOSCOPY 45.23 09/19/11 DIAGNOSTIC COLONOSCOPY 05646 09/19/11 DRAINAGE OF R LOW ARM SUBCU/FASCIA, OPEN APPROACH [id number] 02/28/17 DRAINAGE OF SKIN ABSCESS 35804 02/28/17 EMERGENCY DEPT VISIT 59490 09/19/11 OTHER GROUP THERAPY 94.44 10/17/11 RECREATIONAL THERAPY 93.81 10/17/11 Internal Medicine Assmt/Plan - Assessment Assessment: aggressive behavior schizoaffective disorder htn hypothyroidism dm copd noncompliant - Plan Plan: fall precautions monitor glucose continue current plan of care
[2018-04-07] MEDS: Fenofibrate, Micronized 134 mg Cap PO SCH (21:28)
--- NOTE | 2018-04-08 01:50 | Progress Notes ---
DATE: 04/07/2018 SUMMARY: Case was discussed with staff of the patient and reviewed records. I am covering for Dr. Anguiano. This is a 62-year-old male who was admitted on 04/05/2018 because of depression, agitation with history of schizoaffective disorder, transferred from [facility] because of his behavior. The patient was unable to follow staff direction. He was physically aggressive and loud. Actually yesterday, I was on the unit and he started acting out, yelling and screaming, and had to be medicated. He has multiple psychiatric hospitalizations and treatments. The patient while I tried talk to him today, he was very upset and agitated. He said he is not interested in talking to anybody. He is suspicious, paranoid, delusional, threatening staff at times, internally preoccupied, restless, and unable to follow direction. He is compliant with the medication with no side effects, no sedation, no nausea, no extrapyramidal symptoms. He is on Haldol decanoate 100 mg every 2 weeks and Haldol up to 5 mg 3 times a day and that was increased yesterday. He has no known allergies. I will be adding Depakote to his medication to help him calm down as he is extremely agitated and very loud. Discussed side effects and we will continue to work with the patient in group therapy, milieu therapy, adjust medications as needed. I reviewed his lab work, CBC with high MCH, high monocyte. Chemistry panel showed high chloride, high creatinine, high blood sugar, but liver functions are within normal range. He has a high triglyceride. Urinalysis is within normal range. Depakote level is 29.4. Actually, he is already on Depakote. We will continue to work the patient in group therapy, milieu therapy, and adjust medications as needed. JOB# [id number]
[2018-04-08] MEDS: Pantoprazole 40 mg EC Tab PO SCH (06:30)
[2018-04-08] MEDS: INSULIN ASPART SLIDING SCALE 100 UNITS/ML UNIT SUBQ SCH ×4 (06:30→20:21)
[2018-04-08] MEDS: Levothyroxine 0.088 Mg Tab PO SCH (06:30)
[2018-04-08] MEDS: Multivitamin Tab PO SCH (08:53)
[2018-04-08] MEDS: Vitamin B Complex w/Vitamin C Tab PO SCH (08:54)
[2018-04-08] MEDS: Vitamin D3 2,000 IU SGL PO SCH (08:54)
[2018-04-08] MEDS: Benztropine 1 MG TAB PO SCH ×2 (08:55→16:26)
[2018-04-08] MEDS: Haldol Oral Sol.(concentrate) 10 mg/5 mL Udc PO SCH (08:55)
--- NOTE | 2018-04-08 12:19 | Internal Medicine Prog Note ---
Internal Medicine Subjective - Subjective Service Date: 04/08/18 Patient seen and examined:: with staff Patient is:: awake, verbal, talking, confused Per staff patient has:: tolerating meds Internal Medicine Objective - Results Result Diagrams: 04/05/18 07:15 04/05/18 07:15 Recent Labs: Laboratory Last Values WBC 5.4 Th/cmm (4.8-10.8) 04/05/18 07:15 RBC 4.69 Mil/cmm (4.30-5.70) 04/05/18 07:15 Hgb 14.8 gm/dL (12-16) 04/05/18 07:15 Hct 43.2 % (41.0-60) 04/05/18 07:15 MCV 92.1 fl (80-99) 04/05/18 07:15 MCH 31.6 pg (26.0-30.0) H 04/05/18 07:15 MCHC Differential 34.3 pg (28.0-36.0) 04/05/18 07:15 RDW 12.3 % (11.5-20.0) 04/05/18 07:15 Plt Count 170 Th/cmm (150-400) 04/05/18 07:15 MPV 8.7 fl 04/05/18 07:15 Neutrophils % 58.9 % (40.0-80.0) 04/05/18 07:15 Lymphocytes % 26.7 % (20.0-50.0) 04/05/18 07:15 Monocytes % 10.1 % (2.0-10.0) H 04/05/18 07:15 Eosinophils % 4.1 % (0.0-5.0) 04/05/18 07:15 Basophils % 0.2 % (0.0-2.0) 04/05/18 07:15 Sodium 138 mEq/L (136-145) 04/05/18 07:15 Potassium 4.1 mEq/L (3.5-5.1) 04/05/18 07:15 Chloride 108 mEq/L (98-107) H 04/05/18 07:15 Carbon Dioxide 25.1 mEq/L (21.0-31.0) 04/05/18 07:15 Anion Gap 9.0 (7.0-16.0) 04/05/18 07:15 BUN 24 mg/dL (7-25) 04/05/18 07:15 Creatinine 1.5 mg/dL (0.7-1.3) H 04/05/18 07:15 Est GFR ( Amer) > 60.0 ml/min (>90) 04/05/18 07:15 Est GFR (Non-Af Amer) 50.6 ml/min 04/05/18 07:15 BUN/Creatinine Ratio 16.0 04/05/18 07:15 Glucose 173 mg/dL (70-105) H 04/05/18 07:15 POC Glucose 209 MG/DL (70 - 105) H 04/08/18 11:08 Calcium 9.6 mg/dL (8.6-10.3) 04/05/18 07:15 Total Bilirubin 0.3 mg/dL (0.3-1.0) 04/05/18 07:15 AST 20 U/L (13-39) 04/05/18 07:15 ALT 14 U/L (7-52) 04/05/18 07:15 Alkaline Phosphatase 59 U/L (34-104) 04/05/18 07:15 Total Protein 6.5 gm/dL (6.0-8.3) 04/05/18 07:15 Albumin 3.8 gm/dL (4.2-5.5) L 04/05/18 07:15 Globulin 2.7 gm/dL 04/05/18 07:15 Albumin/Globulin Ratio 1.4 (1.0-1.8) 04/05/18 07:15 Triglycerides 167 mg/dL (<150) H 04/05/18 07:15 Cholesterol 141 mg/dL (<200) 04/05/18 07:15 LDL Cholesterol Direct 80 mg/dL (75-193) 04/05/18 07:15 HDL Cholesterol 33 mg/dL (23-92) 04/05/18 07:15 TSH 1.16 uIU/ml (0.34-5.60) 04/05/18 07:15 Urine Source CLEAN C 04/05/18 06:45 Urine Color YELLOW 04/05/18 06:45 Urine Clarity CLEAR (CLEAR) 04/05/18 06:45 Urine pH 6.0 (4.6 - 8.0) 04/05/18 06:45 Ur Specific [place] <= 1.005 (1.005-1.030) 04/05/18 06:45 Urine Protein NEGATIVE mg/dL (NEGATIVE) 04/05/18 06:45 Urine Glucose (UA) NEGATIVE mg/dL (NEGATIVE) 04/05/18 06:45 Urine Ketones NEGATIVE mg/dL (NEGATIVE) 04/05/18 06:45 Urine Blood NEGATIVE (NEGATIVE) 04/05/18 06:45 Urine Nitrate NEGATIVE (NEGATIVE) 04/05/18 06:45 Urine Bilirubin NEGATIVE (NEGATIVE) 04/05/18 06:45 Urine Urobilinogen 0.2 E.U./dL (0.2 - 1.0) 04/05/18 06:45 Ur Leukocyte Esterase NEGATIVE (NEGATIVE) 04/05/18 06:45 Urine RBC NONE SEEN /hpf (0-5) 04/05/18 06:45 Urine WBC 0-2 /hpf (0-5) 04/05/18 06:45 Ur Epithelial Cells RARE /lpf (FEW) 04/05/18 06:45 Urine Bacteria RARE /hpf (NONE SEEN) 04/05/18 06:45 Valproic Acid 29.4 ug/mL (50.0-100.0) L 04/06/18 18:39 - Physical Exam Vitals and I&O: Vital Signs Temp 0 F 04/08/18 05:59 Pulse 83 04/07/18 20:38 Resp 20 04/07/18 20:38 BP 138/81 04/07/18 20:38 Pulse Ox 95 04/07/18 20:38 Intake & Output 04/07/18 04/08/18 04/08/18 18:59 06:59 18:59 Intake Total 1200 240 Balance 1200 240 Intake: Oral 1200 240 Other: # Voids 4 3 # Bowel Movements 1 0 Active Medications: Current Medications Acetaminophen (Tylenol) 650 mg PO Q4H PRN PRN Reason: Pain (Mild) Stop: 06/04/18 09:48 Acetaminophen (Tylenol) 650 mg PO Q4HR PRN PRN Reason: Fever > 101 Stop: 06/04/18 09:48 Al Hydrox/Mg Hydrox/Simethicone (Maalox) 30 ml PO Q4HR PRN PRN Reason: GI DISTRESS Stop: 06/04/18 09:48 Albuterol Sulfate (Albuterol 2.5mg/3ml Neb Ud) 2.5 mg HHN Q4HR PRN PRN Reason: Shortness of Breath Stop: 06/04/18 09:48 Benztropine Mesylate (Cogentin) 1 mg PO BID [facility] Stop: 06/04/18 16:59 Last Admin: 04/08/18 08:55 Dose: 1 mg Clonazepam (Klonopin) 0.5 mg PO BID [facility]; Protocol Stop: 06/04/18 16:59 Last Admin: 04/08/18 08:55 Dose: 0.5 mg Docusate Sodium (Colace) 100 mg PO BID [facility] Stop: 06/04/18 16:59 Last Admin: 04/08/18 08:57 Dose: 100 mg Fenofibrate (Tricor) 134 mg PO HS [facility] Stop: 06/04/18 20:59 Last Admin: 04/07/18 21:28 Dose: 134 mg Glipizide (Glucotrol) 10 mg PO BIDAC [facility] Stop: 06/04/18 16:29 Last Admin: 04/08/18 06:30 Dose: Not Given Glucagon (Glucagen) 1 mg IM PRN PRN PRN Reason: Blood Glucose Less Than 60 Stop: 06/04/18 09:48 Haloperidol Decanoate (Haldol Dec) 100 mg IM [id number] [facility] Stop: 06/04/18 11:59 Last Admin: 04/05/18 11:51 Dose: Not Given Haloperidol Lactate (Haldol Concentrate 10mg/5ml Susp) 5 mg PO TID [facility]; Protocol Stop: 06/05/18 08:59 Last Admin: 04/08/18 08:55 Dose: 5 mg Insulin Aspart (Novolog Insulin Sliding Scale) 0 units SUBQ ACHS [facility]; Protocol Stop: 06/04/18 11:29 Last Admin: 04/08/18 11:10 Dose: 4 units Levothyroxine Sodium (Synthroid) 0.1 mg PO QDAC [facility] Stop: 06/05/18 07:29 Last Admin: 04/08/18 06:30 Dose: Not Given Lisinopril (Zestril) 10 mg PO DAILY [facility] Stop: 06/05/18 08:59 Last Admin: 04/08/18 09:23 Dose: Not Given Lorazepam (Ativan) 0.5 mg PO Q4HR PRN; Protocol PRN Reason: Agitation Stop: 05/05/18 11:08 Last Admin: 04/07/18 09:01 Dose: 0.5 mg Magnesium Hydroxide (Milk Of Magnesia) 30 ml PO HS PRN PRN Reason: Constipation Stop: 06/04/18 09:48 Multivitamins/Vitamin C (Theragran) 1 tab PO DAILY [facility] Stop: 06/05/18 08:59 Last Admin: 04/08/18 08:53 Dose: 1 tab Pantoprazole Sodium (Protonix) 40 mg PO QDAC [facility] Stop: 06/05/18 07:29 Last Admin: 04/08/18 06:30 Dose: Not Given Pioglitazone HCl (Actos) 30 mg PO QDAC [facility] Stop: 06/05/18 07:29 Last Admin: 04/08/18 06:31 Dose: Not Given Sodium Bicarbonate (Sodium Bicarbonate) 650 mg PO TID [facility]; Protocol Stop: 06/04/18 13:59 Last Admin: 04/08/18 08:53 Dose: 650 mg Trazodone HCl (Desyrel) 50 mg PO HS [facility]; Protocol Stop: 06/04/18 20:59 Last Admin: 04/07/18 21:27 Dose: 50 mg Valproate Sodium (Depakene) 750 mg PO BID [facility]; Protocol Stop: 06/05/18 08:59 Last Admin: 04/08/18 08:55 Dose: 750 mg Vitamin B Complex/Vit C/Folic Acid (Vitamin B Complex W/Vitamin C) 1 tab PO DAILY [facility] Stop: 06/05/18 08:59 Last Admin: 04/08/18 08:54 Dose: 1 tab Vitamin D (Vitamin D3) 2,000 iu PO DAILY [facility] Stop: 06/05/18 08:59 Last Admin: 04/08/18 08:54 Dose: 2,000 iu Zolpidem Tartrate (Ambien) 5 mg PO HS PRN PRN Reason: Insomnia Stop: 06/04/18 11:08 General: alert HEENT: NC/AT, PERRLA Neck: Supple Lungs: CTAB Cardiovascular: RRR, Normal S1, Normal S2, without murmur Abdomen: soft, non-tender, non-distended Extremities: excoriation Neurological: alert - Procedures Procedures: Procedures Procedure Code Date COLONOSCOPY 45.23 09/19/11 DIAGNOSTIC COLONOSCOPY 65688 09/19/11 DRAINAGE OF R LOW ARM SUBCU/FASCIA, OPEN APPROACH [id number] 02/28/17 DRAINAGE OF SKIN ABSCESS 90466 02/28/17 EMERGENCY DEPT VISIT 25110 09/19/11 OTHER GROUP THERAPY 94.44 10/17/11 RECREATIONAL THERAPY 93.81 10/17/11 Internal Medicine Assmt/Plan - Assessment Assessment: aggressive behavior schizoaffective disorder htn hypothyroidism dm copd noncompliant - Plan Plan: fall precautions monitor glucose continue current plan of care
--- NOTE | 2018-04-08 14:20 | Progress Notes ---
DATE: 04/08/2018 Case was discussed with staff of the patient and reviewed records. The patient continues to be very irritable, easily agitated, angry, unpredictable, poor impulse control. When I tried to talk to him, he kicked me out and locked the door. He continues to have poor insight. Unable to make safe plan for self-care, unpredictable, impulsive. I will be increasing his Haldol from 5 mg 3 times a day to 10 mg twice a day. No side effects to the medication, no sedation, no nausea and no extrapyramidal symptoms. He is on Depakote 750 mg twice a day. Depakote level was 29.4 upon admission, so that will be repeated and we will continue to work with the patient in group therapy, milieu therapy, adjust the medication as needed. JOB# [id number]
[2018-04-08] MEDS ORDERED: Haldol Oral Sol.(concentrate) 10 mg/5 mL Udc PO SCH (17:00)
[2018-04-08] MEDS: Fenofibrate, Micronized 134 mg Cap PO SCH (20:14)
[2018-04-09] MEDS: INSULIN ASPART SLIDING SCALE 100 UNITS/ML UNIT SUBQ SCH ×4 (06:50→20:24)
[2018-04-09] MEDS: Levothyroxine 0.088 Mg Tab PO SCH (06:50)
[2018-04-09] MEDS: Pantoprazole 40 mg EC Tab PO SCH (06:50)
[2018-04-09] MEDS: Vitamin B Complex w/Vitamin C Tab PO SCH (08:41)
[2018-04-09] MEDS: Vitamin D3 2,000 IU SGL PO SCH (08:42)
[2018-04-09] MEDS: Multivitamin Tab PO SCH (08:42)
[2018-04-09] MEDS: Benztropine 1 MG TAB PO SCH ×2 (08:43→16:22)
[2018-04-09] MEDS: Haldol Oral Sol.(concentrate) 10 mg/5 mL Udc PO SCH ×3 (08:58→20:18)
--- NOTE | 2018-04-09 12:51 | Internal Medicine Prog Note ---
Internal Medicine Subjective - Subjective Service Date: 04/09/18 Patient is:: awake, verbal, talking, confused Per staff patient has:: tolerating meds Internal Medicine Objective - Results Result Diagrams: 04/05/18 07:15 04/05/18 07:15 Recent Labs: Laboratory Last Values WBC 5.4 Th/cmm (4.8-10.8) 04/05/18 07:15 RBC 4.69 Mil/cmm (4.30-5.70) 04/05/18 07:15 Hgb 14.8 gm/dL (12-16) 04/05/18 07:15 Hct 43.2 % (41.0-60) 04/05/18 07:15 MCV 92.1 fl (80-99) 04/05/18 07:15 MCH 31.6 pg (26.0-30.0) H 04/05/18 07:15 MCHC Differential 34.3 pg (28.0-36.0) 04/05/18 07:15 RDW 12.3 % (11.5-20.0) 04/05/18 07:15 Plt Count 170 Th/cmm (150-400) 04/05/18 07:15 MPV 8.7 fl 04/05/18 07:15 Neutrophils % 58.9 % (40.0-80.0) 04/05/18 07:15 Lymphocytes % 26.7 % (20.0-50.0) 04/05/18 07:15 Monocytes % 10.1 % (2.0-10.0) H 04/05/18 07:15 Eosinophils % 4.1 % (0.0-5.0) 04/05/18 07:15 Basophils % 0.2 % (0.0-2.0) 04/05/18 07:15 Sodium 138 mEq/L (136-145) 04/05/18 07:15 Potassium 4.1 mEq/L (3.5-5.1) 04/05/18 07:15 Chloride 108 mEq/L (98-107) H 04/05/18 07:15 Carbon Dioxide 25.1 mEq/L (21.0-31.0) 04/05/18 07:15 Anion Gap 9.0 (7.0-16.0) 04/05/18 07:15 BUN 24 mg/dL (7-25) 04/05/18 07:15 Creatinine 1.5 mg/dL (0.7-1.3) H 04/05/18 07:15 Est GFR ( Amer) > 60.0 ml/min (>90) 04/05/18 07:15 Est GFR (Non-Af Amer) 50.6 ml/min 04/05/18 07:15 BUN/Creatinine Ratio 16.0 04/05/18 07:15 Glucose 173 mg/dL (70-105) H 04/05/18 07:15 POC Glucose 93 MG/DL (70 - 105) 04/08/18 20:20 Calcium 9.6 mg/dL (8.6-10.3) 04/05/18 07:15 Total Bilirubin 0.3 mg/dL (0.3-1.0) 04/05/18 07:15 AST 20 U/L (13-39) 04/05/18 07:15 ALT 14 U/L (7-52) 04/05/18 07:15 Alkaline Phosphatase 59 U/L (34-104) 04/05/18 07:15 Total Protein 6.5 gm/dL (6.0-8.3) 04/05/18 07:15 Albumin 3.8 gm/dL (4.2-5.5) L 04/05/18 07:15 Globulin 2.7 gm/dL 04/05/18 07:15 Albumin/Globulin Ratio 1.4 (1.0-1.8) 04/05/18 07:15 Triglycerides 167 mg/dL (<150) H 04/05/18 07:15 Cholesterol 141 mg/dL (<200) 04/05/18 07:15 LDL Cholesterol Direct 80 mg/dL (75-193) 04/05/18 07:15 HDL Cholesterol 33 mg/dL (23-92) 04/05/18 07:15 TSH 1.16 uIU/ml (0.34-5.60) 04/05/18 07:15 Urine Source CLEAN C 04/05/18 06:45 Urine Color YELLOW 04/05/18 06:45 Urine Clarity CLEAR (CLEAR) 04/05/18 06:45 Urine pH 6.0 (4.6 - 8.0) 04/05/18 06:45 Ur Specific [place] <= 1.005 (1.005-1.030) 04/05/18 06:45 Urine Protein NEGATIVE mg/dL (NEGATIVE) 04/05/18 06:45 Urine Glucose (UA) NEGATIVE mg/dL (NEGATIVE) 04/05/18 06:45 Urine Ketones NEGATIVE mg/dL (NEGATIVE) 04/05/18 06:45 Urine Blood NEGATIVE (NEGATIVE) 04/05/18 06:45 Urine Nitrate NEGATIVE (NEGATIVE) 04/05/18 06:45 Urine Bilirubin NEGATIVE (NEGATIVE) 04/05/18 06:45 Urine Urobilinogen 0.2 E.U./dL (0.2 - 1.0) 04/05/18 06:45 Ur Leukocyte Esterase NEGATIVE (NEGATIVE) 04/05/18 06:45 Urine RBC NONE SEEN /hpf (0-5) 04/05/18 06:45 Urine WBC 0-2 /hpf (0-5) 04/05/18 06:45 Ur Epithelial Cells RARE /lpf (FEW) 04/05/18 06:45 Urine Bacteria RARE /hpf (NONE SEEN) 04/05/18 06:45 Valproic Acid 29.4 ug/mL (50.0-100.0) L 04/06/18 18:39 - Physical Exam Vitals and I&O: Vital Signs Temp 97.9 F 04/08/18 19:58 Pulse 63 04/08/18 22:17 Resp 18 04/08/18 22:17 BP 109/63 04/08/18 19:58 Pulse Ox 97 04/08/18 22:17 Intake & Output 04/08/18 04/09/18 04/09/18 18:59 06:59 18:59 Intake Total 1200 240 Balance 1200 240 Intake: Oral 1200 240 Other: # Voids 4 1 # Bowel Movements 1 Active Medications: Current Medications Acetaminophen (Tylenol) 650 mg PO Q4H PRN PRN Reason: Pain (Mild) Stop: 06/04/18 09:48 Acetaminophen (Tylenol) 650 mg PO Q4HR PRN PRN Reason: Fever > 101 Stop: 06/04/18 09:48 Al Hydrox/Mg Hydrox/Simethicone (Maalox) 30 ml PO Q4HR PRN PRN Reason: GI DISTRESS Stop: 06/04/18 09:48 Albuterol Sulfate (Albuterol 2.5mg/3ml Neb Ud) 2.5 mg HHN Q4HR PRN PRN Reason: Shortness of Breath Stop: 06/04/18 09:48 Benztropine Mesylate (Cogentin) 1 mg PO BID [facility] Stop: 06/04/18 16:59 Last Admin: 04/09/18 08:43 Dose: 1 mg Clonazepam (Klonopin) 1 mg PO TID [facility]; Protocol Stop: 06/08/18 08:59 Last Admin: 04/09/18 08:44 Dose: 1 mg Docusate Sodium (Colace) 100 mg PO BID [facility] Stop: 06/04/18 16:59 Last Admin: 04/09/18 08:41 Dose: 100 mg Fenofibrate (Tricor) 134 mg PO HS [facility] Stop: 06/04/18 20:59 Last Admin: 04/08/18 20:14 Dose: 134 mg Glipizide (Glucotrol) 10 mg PO BIDAC [facility] Stop: 06/04/18 16:29 Last Admin: 04/09/18 06:50 Dose: Not Given Glucagon (Glucagen) 1 mg IM PRN PRN PRN Reason: Blood Glucose Less Than 60 Stop: 06/04/18 09:48 Haloperidol Decanoate (Haldol Dec) 100 mg IM [id number] [facility] Stop: 06/04/18 11:59 Last Admin: 04/05/18 11:51 Dose: Not Given Haloperidol Lactate (Haldol Concentrate 10mg/5ml Susp) 10 mg PO TID [facility]; Protocol Stop: 06/08/18 08:59 Last Admin: 04/09/18 08:58 Dose: 10 mg Insulin Aspart (Novolog Insulin Sliding Scale) 0 units SUBQ ACHS [facility]; Protocol Stop: 06/04/18 11:29 Last Admin: 04/09/18 11:30 Dose: Not Given Levothyroxine Sodium (Synthroid) 0.1 mg PO QDAC [facility] Stop: 06/05/18 07:29 Last Admin: 04/09/18 06:50 Dose: Not Given Lisinopril (Zestril) 10 mg PO DAILY [facility] Stop: 06/05/18 08:59 Last Admin: 04/09/18 10:00 Dose: Not Given Lorazepam (Ativan) 0.5 mg PO Q4HR PRN; Protocol PRN Reason: Agitation Stop: 05/05/18 11:08 Last Admin: 04/09/18 10:48 Dose: 0.5 mg Magnesium Hydroxide (Milk Of Magnesia) 30 ml PO HS PRN PRN Reason: Constipation Stop: 06/04/18 09:48 Multivitamins/Vitamin C (Theragran) 1 tab PO DAILY [facility] Stop: 06/05/18 08:59 Last Admin: 04/09/18 08:42 Dose: 1 tab Pantoprazole Sodium (Protonix) 40 mg PO QDAC [facility] Stop: 06/05/18 07:29 Last Admin: 04/09/18 06:50 Dose: Not Given Pioglitazone HCl (Actos) 30 mg PO QDAC [facility] Stop: 06/05/18 07:29 Last Admin: 04/09/18 06:50 Dose: Not Given Sodium Bicarbonate (Sodium Bicarbonate) 650 mg PO TID [facility]; Protocol Stop: 06/04/18 13:59 Last Admin: 04/09/18 08:40 Dose: 650 mg Trazodone HCl (Desyrel) 50 mg PO HS [facility]; Protocol Stop: 06/04/18 20:59 Last Admin: 04/08/18 20:14 Dose: 50 mg Valproate Sodium (Depakene) 750 mg PO BID [facility]; Protocol Stop: 06/05/18 08:59 Last Admin: 04/09/18 08:39 Dose: 750 mg Vitamin B Complex/Vit C/Folic Acid (Vitamin B Complex W/Vitamin C) 1 tab PO DAILY [facility] Stop: 06/05/18 08:59 Last Admin: 04/09/18 08:41 Dose: 1 tab Vitamin D (Vitamin D3) 2,000 iu PO DAILY [facility] Stop: 06/05/18 08:59 Last Admin: 04/09/18 08:42 Dose: 2,000 iu Zolpidem Tartrate (Ambien) 5 mg PO HS PRN PRN Reason: Insomnia Stop: 06/04/18 11:08 General: alert HEENT: NC/AT, PERRLA Neck: Supple Lungs: CTAB Cardiovascular: RRR, Normal S1, Normal S2, without murmur Abdomen: soft, non-tender, non-distended Extremities: excoriation Neurological: alert - Procedures Procedures: Procedures Procedure Code Date COLONOSCOPY 45.23 09/19/11 DIAGNOSTIC COLONOSCOPY 58923 09/19/11 DRAINAGE OF R LOW ARM SUBCU/FASCIA, OPEN APPROACH [id number] 02/28/17 DRAINAGE OF SKIN ABSCESS 72716 02/28/17 EMERGENCY DEPT VISIT 80299 09/19/11 OTHER GROUP THERAPY 94.44 10/17/11 RECREATIONAL THERAPY 93.81 10/17/11 Internal Medicine Assmt/Plan - Assessment Assessment: aggressive behavior schizoaffective disorder htn hypothyroidism dm copd noncompliant - Plan Plan: fall precautions monitor glucose continue current plan of care
[2018-04-09] MEDS: Fenofibrate, Micronized 134 mg Cap PO SCH (20:18)
--- NOTE | 2018-04-09 21:11 | Progress Notes ---
DATE: 04/09/2018 SUBJECTIVE: Chart reviewed and the patient interviewed. Also discussed the patient's condition with the staff and reviewed records and labs. The patient is still severely anxious and he is still in irritable mood. The patient also is still angry and he still have episodes of yelling and screaming. When I tried to carry on conversation with the patient, the patient was yelling and started to scream and wanted to be left alone. On the other hand, the patient did take Haldol 10 mg twice a day with no side effects. During the interview, the patient is disheveled and he is still rambling and loud tone of voice. He also is still having difficulty getting on coherent conversation because of his anger. ASSESSMENT: The patient is still agitated and still can be dangerous to others. TREATMENT PLAN: We will continue to monitor his behavior closely and continue to work on behavior modification. Also, we will increase Klonopin to 1 mg 3 times a day and will increase Haldol to 10 mg 3 times a day and we will continue to follow up closely. [facility]# [id number]
[2018-04-10] MEDS: INSULIN ASPART SLIDING SCALE 100 UNITS/ML UNIT SUBQ SCH ×4 (06:35→20:33)
[2018-04-10] MEDS: Levothyroxine 0.1 Mg Tab PO SCH (06:49)
[2018-04-10] MEDS: Pantoprazole 40 mg EC Tab PO SCH (06:49)
[2018-04-10] MEDS ORDERED: Haldol Oral Sol.(concentrate) 10 mg/5 mL Udc PO SCH (09:00)
[2018-04-10] MEDS: Haldol Oral Sol.(concentrate) 10 mg/5 mL Udc PO SCH ×3 (09:22→20:13)
[2018-04-10] MEDS: Vitamin B Complex w/Vitamin C Tab PO SCH (09:22)
[2018-04-10] MEDS: Vitamin D3 2,000 IU SGL PO SCH (09:22)
[2018-04-10] MEDS: Benztropine 1 MG TAB PO SCH ×2 (09:22→16:49)
[2018-04-10] MEDS: Multivitamin Tab PO SCH (09:28)
--- NOTE | 2018-04-10 12:37 | Internal Medicine Prog Note ---
Internal Medicine Subjective - Subjective Service Date: 04/10/18 Patient is:: awake, verbal, talking, confused Per staff patient has:: tolerating meds Internal Medicine Objective - Results Result Diagrams: 04/05/18 07:15 04/05/18 07:15 Recent Labs: Laboratory Last Values WBC 5.4 Th/cmm (4.8-10.8) 04/05/18 07:15 RBC 4.69 Mil/cmm (4.30-5.70) 04/05/18 07:15 Hgb 14.8 gm/dL (12-16) 04/05/18 07:15 Hct 43.2 % (41.0-60) 04/05/18 07:15 MCV 92.1 fl (80-99) 04/05/18 07:15 MCH 31.6 pg (26.0-30.0) H 04/05/18 07:15 MCHC Differential 34.3 pg (28.0-36.0) 04/05/18 07:15 RDW 12.3 % (11.5-20.0) 04/05/18 07:15 Plt Count 170 Th/cmm (150-400) 04/05/18 07:15 MPV 8.7 fl 04/05/18 07:15 Neutrophils % 58.9 % (40.0-80.0) 04/05/18 07:15 Lymphocytes % 26.7 % (20.0-50.0) 04/05/18 07:15 Monocytes % 10.1 % (2.0-10.0) H 04/05/18 07:15 Eosinophils % 4.1 % (0.0-5.0) 04/05/18 07:15 Basophils % 0.2 % (0.0-2.0) 04/05/18 07:15 Sodium 138 mEq/L (136-145) 04/05/18 07:15 Potassium 4.1 mEq/L (3.5-5.1) 04/05/18 07:15 Chloride 108 mEq/L (98-107) H 04/05/18 07:15 Carbon Dioxide 25.1 mEq/L (21.0-31.0) 04/05/18 07:15 Anion Gap 9.0 (7.0-16.0) 04/05/18 07:15 BUN 24 mg/dL (7-25) 04/05/18 07:15 Creatinine 1.5 mg/dL (0.7-1.3) H 04/05/18 07:15 Est GFR ( Amer) > 60.0 ml/min (>90) 04/05/18 07:15 Est GFR (Non-Af Amer) 50.6 ml/min 04/05/18 07:15 BUN/Creatinine Ratio 16.0 04/05/18 07:15 Glucose 173 mg/dL (70-105) H 04/05/18 07:15 POC Glucose 93 MG/DL (70 - 105) 04/08/18 20:20 Calcium 9.6 mg/dL (8.6-10.3) 04/05/18 07:15 Total Bilirubin 0.3 mg/dL (0.3-1.0) 04/05/18 07:15 AST 20 U/L (13-39) 04/05/18 07:15 ALT 14 U/L (7-52) 04/05/18 07:15 Alkaline Phosphatase 59 U/L (34-104) 04/05/18 07:15 Total Protein 6.5 gm/dL (6.0-8.3) 04/05/18 07:15 Albumin 3.8 gm/dL (4.2-5.5) L 04/05/18 07:15 Globulin 2.7 gm/dL 04/05/18 07:15 Albumin/Globulin Ratio 1.4 (1.0-1.8) 04/05/18 07:15 Triglycerides 167 mg/dL (<150) H 04/05/18 07:15 Cholesterol 141 mg/dL (<200) 04/05/18 07:15 LDL Cholesterol Direct 80 mg/dL (75-193) 04/05/18 07:15 HDL Cholesterol 33 mg/dL (23-92) 04/05/18 07:15 TSH 1.16 uIU/ml (0.34-5.60) 04/05/18 07:15 Urine Source CLEAN C 04/05/18 06:45 Urine Color YELLOW 04/05/18 06:45 Urine Clarity CLEAR (CLEAR) 04/05/18 06:45 Urine pH 6.0 (4.6 - 8.0) 04/05/18 06:45 Ur Specific [place] <= 1.005 (1.005-1.030) 04/05/18 06:45 Urine Protein NEGATIVE mg/dL (NEGATIVE) 04/05/18 06:45 Urine Glucose (UA) NEGATIVE mg/dL (NEGATIVE) 04/05/18 06:45 Urine Ketones NEGATIVE mg/dL (NEGATIVE) 04/05/18 06:45 Urine Blood NEGATIVE (NEGATIVE) 04/05/18 06:45 Urine Nitrate NEGATIVE (NEGATIVE) 04/05/18 06:45 Urine Bilirubin NEGATIVE (NEGATIVE) 04/05/18 06:45 Urine Urobilinogen 0.2 E.U./dL (0.2 - 1.0) 04/05/18 06:45 Ur Leukocyte Esterase NEGATIVE (NEGATIVE) 04/05/18 06:45 Urine RBC NONE SEEN /hpf (0-5) 04/05/18 06:45 Urine WBC 0-2 /hpf (0-5) 04/05/18 06:45 Ur Epithelial Cells RARE /lpf (FEW) 04/05/18 06:45 Urine Bacteria RARE /hpf (NONE SEEN) 04/05/18 06:45 Valproic Acid 29.4 ug/mL (50.0-100.0) L 04/06/18 18:39 - Physical Exam Vitals and I&O: Vital Signs Temp 0 F 04/10/18 06:09 Pulse 72 04/10/18 09:22 Resp 18 04/10/18 07:05 BP 124/72 04/10/18 09:22 Pulse Ox 98 04/10/18 07:05 Intake & Output 04/09/18 04/10/18 04/10/18 18:59 06:59 18:59 Intake Total 900 120 Balance 900 120 Intake: Oral 900 120 Other: # Voids 4 3 # Bowel Movements 1 0 Active Medications: Current Medications Acetaminophen (Tylenol) 650 mg PO Q4H PRN PRN Reason: Pain (Mild) Stop: 06/04/18 09:48 Acetaminophen (Tylenol) 650 mg PO Q4HR PRN PRN Reason: Fever > 101 Stop: 06/04/18 09:48 Al Hydrox/Mg Hydrox/Simethicone (Maalox) 30 ml PO Q4HR PRN PRN Reason: GI DISTRESS Stop: 06/04/18 09:48 Albuterol Sulfate (Albuterol 2.5mg/3ml Neb Ud) 2.5 mg HHN Q4HR PRN PRN Reason: Shortness of Breath Stop: 06/04/18 09:48 Benztropine Mesylate (Cogentin) 1 mg PO BID [facility] Stop: 06/04/18 16:59 Last Admin: 04/10/18 09:22 Dose: 1 mg Clonazepam (Klonopin) 1 mg PO TID [facility]; Protocol Stop: 06/08/18 08:59 Last Admin: 04/10/18 09:22 Dose: 1 mg Docusate Sodium (Colace) 100 mg PO BID [facility] Stop: 06/04/18 16:59 Last Admin: 04/09/18 16:22 Dose: 100 mg Fenofibrate (Tricor) 134 mg PO HS [facility] Stop: 06/04/18 20:59 Last Admin: 04/09/18 20:18 Dose: 134 mg Glipizide (Glucotrol) 10 mg PO BIDAC [facility] Stop: 06/04/18 16:29 Last Admin: 04/10/18 06:49 Dose: Not Given Glucagon (Glucagen) 1 mg IM PRN PRN PRN Reason: Blood Glucose Less Than 60 Stop: 06/04/18 09:48 Haloperidol Decanoate (Haldol Dec) 100 mg IM [id number] [facility] Stop: 06/04/18 11:59 Last Admin: 04/05/18 11:51 Dose: Not Given Haloperidol Lactate (Haldol Concentrate 10mg/5ml Susp) 10 mg PO TID [facility]; Protocol Stop: 06/09/18 08:59 Last Admin: 04/10/18 09:22 Dose: 10 mg Insulin Aspart (Novolog Insulin Sliding Scale) 0 units SUBQ ACHS [facility]; Protocol Stop: 06/04/18 11:29 Last Admin: 04/10/18 06:35 Dose: Not Given Levothyroxine Sodium (Synthroid) 0.1 mg PO QDAC [facility] Stop: 06/05/18 07:29 Last Admin: 04/10/18 06:49 Dose: Not Given Lisinopril (Zestril) 10 mg PO DAILY [facility] Stop: 06/05/18 08:59 Last Admin: 04/10/18 09:22 Dose: 10 mg Lorazepam (Ativan) 0.5 mg PO Q4HR PRN; Protocol PRN Reason: Agitation Stop: 05/05/18 11:08 Last Admin: 04/10/18 09:22 Dose: 0.5 mg Magnesium Hydroxide (Milk Of Magnesia) 30 ml PO HS PRN PRN Reason: Constipation Stop: 06/04/18 09:48 Multivitamins/Vitamin C (Theragran) 1 tab PO DAILY [facility] Stop: 06/05/18 08:59 Last Admin: 04/10/18 09:28 Dose: 1 tab Pantoprazole Sodium (Protonix) 40 mg PO QDAC [facility] Stop: 06/05/18 07:29 Last Admin: 04/10/18 06:49 Dose: Not Given Pioglitazone HCl (Actos) 30 mg PO QDAC [facility] Stop: 06/05/18 07:29 Last Admin: 04/10/18 06:49 Dose: Not Given Sodium Bicarbonate (Sodium Bicarbonate) 650 mg PO TID [facility]; Protocol Stop: 06/04/18 13:59 Last Admin: 04/10/18 09:28 Dose: 650 mg Trazodone HCl (Desyrel) 50 mg PO HS [facility]; Protocol Stop: 06/04/18 20:59 Last Admin: 04/09/18 20:17 Dose: 50 mg Valproate Sodium (Depakene) 1,000 mg PO BID [facility]; Protocol Stop: 06/09/18 08:59 Last Admin: 04/10/18 09:21 Dose: 1,000 mg Vitamin B Complex/Vit C/Folic Acid (Vitamin B Complex W/Vitamin C) 1 tab PO DAILY [facility] Stop: 06/05/18 08:59 Last Admin: 04/10/18 09:22 Dose: 1 tab Vitamin D (Vitamin D3) 2,000 iu PO DAILY [facility] Stop: 06/05/18 08:59 Last Admin: 04/10/18 09:22 Dose: 2,000 iu Zolpidem Tartrate (Ambien) 5 mg PO HS PRN PRN Reason: Insomnia Stop: 06/04/18 11:08 General: alert HEENT: NC/AT, PERRLA Neck: Supple Lungs: CTAB Cardiovascular: RRR, Normal S1, Normal S2, without murmur Abdomen: soft, non-tender, non-distended Extremities: excoriation Neurological: alert - Procedures Procedures: Procedures Procedure Code Date COLONOSCOPY 45.23 09/19/11 DIAGNOSTIC COLONOSCOPY 92167 09/19/11 DRAINAGE OF R LOW ARM SUBCU/FASCIA, OPEN APPROACH [id number] 02/28/17 DRAINAGE OF SKIN ABSCESS 17359 02/28/17 EMERGENCY DEPT VISIT 24246 09/19/11 OTHER GROUP THERAPY 94.44 10/17/11 RECREATIONAL THERAPY 93.81 10/17/11 Internal Medicine Assmt/Plan - Assessment Assessment: aggressive behavior schizoaffective disorder htn hypothyroidism dm copd noncompliant - Plan Plan: fall precautions monitor glucose continue current plan of care Nutritional Asmnt/Malnutr-PDOC - Dietary Evaluation Malnutrition Findings (Please click <Entered> for more info): Nutritional Asmnt/Malnutrition Start: 04/09/18 13: 30 Text: Status: Complete Freq: Protocol: Document 04/09/18 13:30 POORNIMA (Rec: 04/09/18 13:45 POORNIMA GODINEZ) Nutritional Asmnt/Malnutrition Patient General Information Nutritional Screening Moderate Risk Diagnosis psychosis NOS Pertinent Medical Hx/Surgical Hx HTN, DM, asthma/COPD, PUD/GERD , thyroid disorder, chronic renal disease, hypothyroidism, schizophrenia, anxiety, psychosis Subjective Information Pt not available at time of visit. Nursing noted PO intake : 100%. Current Diet Order/ Nutrition Support CCHO 60g Pertinent Medications maalox, colace, tricor, novolog, synthroid, MOM, theragran, protonix, Vit B complex w/ Vit C, Vit D3 Pertinent Labs 04/08: POC 93-209 04/05: Cl 108, Cr 1.5, Glucose 173, Alb 3.8, triglycerides 167 Nutritional Hx/Data Height 6 ft 3 in Height (Calculated Centimeters) 190.5 Current Weight (lbs) 185 lb Weight (Calculated Kilograms) 83.9 Weight (Calculated Grams) 47158.6 [place] Body Weight 196 lb Body Mass Index (BMI) 23.1 Weight Status Approriate GI Symptoms GI Symptoms None Last BM 04/08 Difficult in: None Food Allergies No Skin Integrity/Comment: intact, maribel 20 Current %PO Good (75-100%) Estimated Nutritional Goals BEE in Kcals: Using Current wt Calories/Kcals/Kg 25-30 Kcals Calculated Protein: Using Current wt Protein g/k-1.2 Protein Calculated 84-106 g Fluid: ml Nutritional Problem 1. Problem Problem Altered nutrition related lab values Etiology hx of DM Signs/Symptoms: glucose 173, POC 93-209 Malnutrition Alert Is there a minimum of two criteria No selected? Query Text:Check all the applicable criteria. A minimum of two criteria are recommended for diagnosis of either severe or non-severe malnutrition. Malnutrition Related to Morbid Obesity Malnutrition related to morbid obesity No Intervention/Recommendation Comments 1. Continue with CCHO 60g diet as ordered. MD to manage insulin regimen for optimal glycemic control 2. Monitor PO intake, wt, labs and skin integrity 3. F/U as low risk in 7 days, 04/16 Expected Outcomes/Goals Expected Outcomes/Goals 1. PO intake at least 75% of all meals. 2. Wt stability, skin to remain intact, labs to approach normal limits Reviewed by Hellen Crowell RD
[2018-04-10] MEDS: Fenofibrate, Micronized 134 mg Cap PO SCH (20:13)
--- NOTE | 2018-04-10 20:45 | Progress Notes ---
DATE: 04/10/2018 SUBJECTIVE: Chart reviewed and the patient interviewed. Also, discussed the patient's condition with the staff and reviewed the records and labs. The patient is still in irritable and angry mood, but seems to be slightly calmer and is slightly easier to redirect him. The patient also seems to be still responding and agitated but easier to redirect him. Still suspicious and paranoid. Otherwise, the patient is compliant with taking his medications and started to take his medication regularly. ASSESSMENT: The patient is still psychotic and agitated with poor impulse control. TREATMENT PLAN: We will monitor the patient's behavior closely. Also, we will monitor psychotropic medications and will also increase Depakote to 1000 mg twice a day. Depakote blood level was 29 upon admission. Also, we will work on his irritability and poor impulse control. JOB# [id number]
[2018-04-11] MEDS: Pantoprazole 40 mg EC Tab PO SCH (06:59)
[2018-04-11] MEDS: INSULIN ASPART SLIDING SCALE 100 UNITS/ML UNIT SUBQ SCH ×4 (06:59→20:11)
[2018-04-11] MEDS: Levothyroxine 0.1 Mg Tab PO SCH (06:59)
[2018-04-11] MEDS: Vitamin B Complex w/Vitamin C Tab PO SCH ×2 (08:51→08:58)
[2018-04-11] MEDS: Haldol Oral Sol.(concentrate) 10 mg/5 mL Udc PO SCH ×4 (08:51→20:11)
[2018-04-11] MEDS: Vitamin D3 2,000 IU SGL PO SCH ×2 (08:52→08:58)
[2018-04-11] MEDS: Benztropine 1 MG TAB PO SCH ×3 (08:52→16:26)
[2018-04-11] MEDS: Multivitamin Tab PO SCH ×2 (08:52→08:58)
--- NOTE | 2018-04-11 15:32 | Internal Medicine Prog Note ---
Internal Medicine Subjective - Subjective Service Date: 04/11/18 Patient is:: awake, verbal, talking, confused Per staff patient has:: tolerating meds Internal Medicine Objective - Results Result Diagrams: 04/05/18 07:15 04/05/18 07:15 Recent Labs: Laboratory Last Values WBC 5.4 Th/cmm (4.8-10.8) 04/05/18 07:15 RBC 4.69 Mil/cmm (4.30-5.70) 04/05/18 07:15 Hgb 14.8 gm/dL (12-16) 04/05/18 07:15 Hct 43.2 % (41.0-60) 04/05/18 07:15 MCV 92.1 fl (80-99) 04/05/18 07:15 MCH 31.6 pg (26.0-30.0) H 04/05/18 07:15 MCHC Differential 34.3 pg (28.0-36.0) 04/05/18 07:15 RDW 12.3 % (11.5-20.0) 04/05/18 07:15 Plt Count 170 Th/cmm (150-400) 04/05/18 07:15 MPV 8.7 fl 04/05/18 07:15 Neutrophils % 58.9 % (40.0-80.0) 04/05/18 07:15 Lymphocytes % 26.7 % (20.0-50.0) 04/05/18 07:15 Monocytes % 10.1 % (2.0-10.0) H 04/05/18 07:15 Eosinophils % 4.1 % (0.0-5.0) 04/05/18 07:15 Basophils % 0.2 % (0.0-2.0) 04/05/18 07:15 Sodium 138 mEq/L (136-145) 04/05/18 07:15 Potassium 4.1 mEq/L (3.5-5.1) 04/05/18 07:15 Chloride 108 mEq/L (98-107) H 04/05/18 07:15 Carbon Dioxide 25.1 mEq/L (21.0-31.0) 04/05/18 07:15 Anion Gap 9.0 (7.0-16.0) 04/05/18 07:15 BUN 24 mg/dL (7-25) 04/05/18 07:15 Creatinine 1.5 mg/dL (0.7-1.3) H 04/05/18 07:15 Est GFR ( Amer) > 60.0 ml/min (>90) 04/05/18 07:15 Est GFR (Non-Af Amer) 50.6 ml/min 04/05/18 07:15 BUN/Creatinine Ratio 16.0 04/05/18 07:15 Glucose 173 mg/dL (70-105) H 04/05/18 07:15 POC Glucose 154 MG/DL (70 - 105) H 04/10/18 19:44 Calcium 9.6 mg/dL (8.6-10.3) 04/05/18 07:15 Total Bilirubin 0.3 mg/dL (0.3-1.0) 04/05/18 07:15 AST 20 U/L (13-39) 04/05/18 07:15 ALT 14 U/L (7-52) 04/05/18 07:15 Alkaline Phosphatase 59 U/L (34-104) 04/05/18 07:15 Total Protein 6.5 gm/dL (6.0-8.3) 04/05/18 07:15 Albumin 3.8 gm/dL (4.2-5.5) L 04/05/18 07:15 Globulin 2.7 gm/dL 04/05/18 07:15 Albumin/Globulin Ratio 1.4 (1.0-1.8) 04/05/18 07:15 Triglycerides 167 mg/dL (<150) H 04/05/18 07:15 Cholesterol 141 mg/dL (<200) 04/05/18 07:15 LDL Cholesterol Direct 80 mg/dL (75-193) 04/05/18 07:15 HDL Cholesterol 33 mg/dL (23-92) 04/05/18 07:15 TSH 1.16 uIU/ml (0.34-5.60) 04/05/18 07:15 Urine Source CLEAN C 04/05/18 06:45 Urine Color YELLOW 04/05/18 06:45 Urine Clarity CLEAR (CLEAR) 04/05/18 06:45 Urine pH 6.0 (4.6 - 8.0) 04/05/18 06:45 Ur Specific [place] <= 1.005 (1.005-1.030) 04/05/18 06:45 Urine Protein NEGATIVE mg/dL (NEGATIVE) 04/05/18 06:45 Urine Glucose (UA) NEGATIVE mg/dL (NEGATIVE) 04/05/18 06:45 Urine Ketones NEGATIVE mg/dL (NEGATIVE) 04/05/18 06:45 Urine Blood NEGATIVE (NEGATIVE) 04/05/18 06:45 Urine Nitrate NEGATIVE (NEGATIVE) 04/05/18 06:45 Urine Bilirubin NEGATIVE (NEGATIVE) 04/05/18 06:45 Urine Urobilinogen 0.2 E.U./dL (0.2 - 1.0) 04/05/18 06:45 Ur Leukocyte Esterase NEGATIVE (NEGATIVE) 04/05/18 06:45 Urine RBC NONE SEEN /hpf (0-5) 04/05/18 06:45 Urine WBC 0-2 /hpf (0-5) 04/05/18 06:45 Ur Epithelial Cells RARE /lpf (FEW) 04/05/18 06:45 Urine Bacteria RARE /hpf (NONE SEEN) 04/05/18 06:45 Valproic Acid 29.4 ug/mL (50.0-100.0) L 04/06/18 18:39 - Physical Exam Vitals and I&O: Vital Signs Temp 0 F 04/10/18 19:59 Pulse 91 04/10/18 19:33 Resp 20 04/10/18 19:33 BP 124/72 04/10/18 09:22 Pulse Ox 97 04/10/18 19:33 Intake & Output 04/10/18 04/11/18 04/11/18 18:59 06:59 18:59 Intake Total 900 240 Balance 900 240 Intake: Oral 900 240 Other: # Voids 3 2 # Bowel Movements 1 0 Active Medications: Current Medications Acetaminophen (Tylenol) 650 mg PO Q4H PRN PRN Reason: Pain (Mild) Stop: 06/04/18 09:48 Acetaminophen (Tylenol) 650 mg PO Q4HR PRN PRN Reason: Fever > 101 Stop: 06/04/18 09:48 Al Hydrox/Mg Hydrox/Simethicone (Maalox) 30 ml PO Q4HR PRN PRN Reason: GI DISTRESS Stop: 06/04/18 09:48 Albuterol Sulfate (Albuterol 2.5mg/3ml Neb Ud) 2.5 mg HHN Q4HR PRN PRN Reason: Shortness of Breath Stop: 06/04/18 09:48 Benztropine Mesylate (Cogentin) 1 mg PO BID [facility] Stop: 06/04/18 16:59 Last Admin: 04/11/18 08:58 Dose: Not Given Clonazepam (Klonopin) 1 mg PO TID [facility]; Protocol Stop: 06/08/18 08:59 Last Admin: 04/11/18 13:33 Dose: 1 mg Docusate Sodium (Colace) 100 mg PO BID [facility] Stop: 06/04/18 16:59 Last Admin: 04/11/18 08:58 Dose: Not Given Fenofibrate (Tricor) 134 mg PO HS [facility] Stop: 06/04/18 20:59 Last Admin: 04/10/18 20:13 Dose: 134 mg Glipizide (Glucotrol) 10 mg PO BIDAC [facility] Stop: 06/04/18 16:29 Last Admin: 04/11/18 06:58 Dose: Not Given Glucagon (Glucagen) 1 mg IM PRN PRN PRN Reason: Blood Glucose Less Than 60 Stop: 06/04/18 09:48 Haloperidol Decanoate (Haldol Dec) 100 mg IM [id number] [facility]PL[facility] Stop: 06/04/18 11:59 Last Admin: 04/05/18 11:51 Dose: Not Given Haloperidol Lactate (Haldol Concentrate 10mg/5ml Susp) 10 mg PO TID [facility]; Protocol Stop: 06/09/18 08:59 Last Admin: 04/11/18 13:33 Dose: 10 mg Insulin Aspart (Novolog Insulin Sliding Scale) 0 units SUBQ ACHS [facility]; Protocol Stop: 06/04/18 11:29 Last Admin: 04/11/18 11:07 Dose: Not Given Levothyroxine Sodium (Synthroid) 0.1 mg PO QDAC [facility] Stop: 06/05/18 07:29 Last Admin: 04/11/18 06:59 Dose: Not Given Lisinopril (Zestril) 10 mg PO DAILY [facility] Stop: 06/05/18 08:59 Last Admin: 04/11/18 08:52 Dose: Not Given Lorazepam (Ativan) 0.5 mg PO Q4HR PRN; Protocol PRN Reason: Agitation Stop: 05/05/18 11:08 Last Admin: 04/10/18 19:51 Dose: 0.5 mg Magnesium Hydroxide (Milk Of Magnesia) 30 ml PO HS PRN PRN Reason: Constipation Stop: 06/04/18 09:48 Multivitamins/Vitamin C (Theragran) 1 tab PO DAILY [facility] Stop: 06/05/18 08:59 Last Admin: 04/11/18 08:58 Dose: Not Given Pantoprazole Sodium (Protonix) 40 mg PO QDAC [facility] Stop: 06/05/18 07:29 Last Admin: 04/11/18 06:59 Dose: Not Given Pioglitazone HCl (Actos) 30 mg PO QDAC [facility] Stop: 06/05/18 07:29 Last Admin: 04/11/18 07:00 Dose: Not Given Sodium Bicarbonate (Sodium Bicarbonate) 650 mg PO TID [facility]; Protocol Stop: 06/04/18 13:59 Last Admin: 04/11/18 13:33 Dose: 650 mg Trazodone HCl (Desyrel) 50 mg PO HS [facility]; Protocol Stop: 06/04/18 20:59 Last Admin: 04/10/18 20:14 Dose: 50 mg Valproate Sodium (Depakene) 1,000 mg PO BID [facility]; Protocol Stop: 06/09/18 08:59 Last Admin: 04/11/18 08:58 Dose: Not Given Vitamin B Complex/Vit C/Folic Acid (Vitamin B Complex W/Vitamin C) 1 tab PO DAILY [facility] Stop: 06/05/18 08:59 Last Admin: 04/11/18 08:58 Dose: Not Given Vitamin D (Vitamin D3) 2,000 iu PO DAILY [facility] Stop: 06/05/18 08:59 Last Admin: 04/11/18 08:58 Dose: Not Given Zolpidem Tartrate (Ambien) 5 mg PO HS PRN PRN Reason: Insomnia Stop: 06/04/18 11:08 General: alert HEENT: NC/AT, PERRLA Neck: Supple Lungs: CTAB Cardiovascular: RRR, Normal S1, Normal S2, without murmur Abdomen: soft, non-tender, non-distended Extremities: excoriation Neurological: alert - Procedures Procedures: Procedures Procedure Code Date COLONOSCOPY 45.23 09/19/11 DIAGNOSTIC COLONOSCOPY 38503 09/19/11 DRAINAGE OF R LOW ARM SUBCU/FASCIA, OPEN APPROACH [id number] 02/28/17 DRAINAGE OF SKIN ABSCESS 35284 02/28/17 EMERGENCY DEPT VISIT 75807 09/19/11 OTHER GROUP THERAPY 94.44 10/17/11 RECREATIONAL THERAPY 93.81 10/17/11 Internal Medicine Assmt/Plan - Assessment Assessment: aggressive behavior schizoaffective disorder htn hypothyroidism dm copd noncompliant - Plan Plan: fall precautions monitor glucose continue current plan of care Nutritional Asmnt/Malnutr-PDOC - Dietary Evaluation Malnutrition Findings (Please click <Entered> for more info): Nutritional Asmnt/Malnutrition Start: 04/09/18 13: 30 Text: Status: Complete Freq: Protocol: Document 04/09/18 13:30 POORNIMA (Rec: 04/09/18 13:45 POORNIMA GODINEZ) Nutritional Asmnt/Malnutrition Patient General Information Nutritional Screening Moderate Risk Diagnosis psychosis NOS Pertinent Medical Hx/Surgical Hx HTN, DM, asthma/COPD, PUD/GERD , thyroid disorder, chronic renal disease, hypothyroidism, schizophrenia, anxiety, psychosis Subjective Information Pt not available at time of visit. Nursing noted PO intake : 100%. Current Diet Order/ Nutrition Support CCHO 60g Pertinent Medications maalox, colace, tricor, novolog, synthroid, MOM, theragran, protonix, Vit B complex w/ Vit C, Vit D3 Pertinent Labs 04/08: POC 93-209 04/05: Cl 108, Cr 1.5, Glucose 173, Alb 3.8, triglycerides 167 Nutritional Hx/Data Height 6 ft 3 in Height (Calculated Centimeters) 190.5 Current Weight (lbs) 185 lb Weight (Calculated Kilograms) 83.9 Weight (Calculated Grams) 64440.6 [place] Body Weight 196 lb Body Mass Index (BMI) 23.1 Weight Status Approriate GI Symptoms GI Symptoms None Last BM 04/08 Difficult in: None Food Allergies No Skin Integrity/Comment: intact, maribel 20 Current %PO Good (75-100%) Estimated Nutritional Goals BEE in Kcals: Using Current wt Calories/Kcals/Kg 25-30 Kcals Calculated Protein: Using Current wt Protein g/k-1.2 Protein Calculated 84-106 g Fluid: ml Nutritional Problem 1. Problem Problem Altered nutrition related lab values Etiology hx of DM Signs/Symptoms: glucose 173, POC 93-209 Malnutrition Alert Is there a minimum of two criteria No selected? Query Text:Check all the applicable criteria. A minimum of two criteria are recommended for diagnosis of either severe or non-severe malnutrition. Malnutrition Related to Morbid Obesity Malnutrition related to morbid obesity No Intervention/Recommendation Comments 1. Continue with CCHO 60g diet as ordered. MD to manage insulin regimen for optimal glycemic control 2. Monitor PO intake, wt, labs and skin integrity 3. F/U as low risk in 7 days, 04/16 Expected Outcomes/Goals Expected Outcomes/Goals 1. PO intake at least 75% of all meals. 2. Wt stability, skin to remain intact, labs to approach normal limits Reviewed by Hellen Crowell RD
[2018-04-11] MEDS: Fenofibrate, Micronized 134 mg Cap PO SCH (20:11)
[2018-04-12] MEDS: Pantoprazole 40 mg EC Tab PO SCH (06:36)
[2018-04-12] MEDS: Levothyroxine 0.1 Mg Tab PO SCH (06:37)
[2018-04-12] MEDS: INSULIN ASPART SLIDING SCALE 100 UNITS/ML UNIT SUBQ SCH ×4 (06:40→21:20)
[2018-04-12] MEDS: Haldol Oral Sol.(concentrate) 10 mg/5 mL Udc PO SCH ×3 (09:18→21:12)
[2018-04-12] MEDS: Benztropine 1 MG TAB PO SCH ×2 (09:19→16:44)
[2018-04-12] MEDS: Vitamin B Complex w/Vitamin C Tab PO SCH (09:19)
[2018-04-12] MEDS: Vitamin D3 2,000 IU SGL PO SCH (09:20)
[2018-04-12] MEDS: Multivitamin Tab PO SCH (09:20)
[2018-04-12] MEDS ORDERED: Haloperidol Lactate 5 mg/mL 1mL Vial ONE (10:17)
[2018-04-12] MEDS ORDERED: Haloperidol Lactate 5 mg/mL 1mL Vial IM ONE (10:40)
--- NOTE | 2018-04-12 10:46 | Progress Notes ---
DATE: 04/11/2018 SUBJECTIVE: Chart reviewed and the patient interviewed. Also discussed the patient's condition with the staff and reviewed records and labs. The patient is still have episodes of yelling and screaming, but seems to be slightly calmer than before. The patient also still has episodes of demanding and is asking to have a smoke break all the time. He also is still suspicious and paranoid and he is agitated, but easier to redirect him. Also compliant with taking his medications with no side effects of medications. ASSESSMENT: The patient is still having episodes of agitation and still psychotic. TREATMENT PLAN: The patient seems to be slightly calmer than before and he is more compliant with taking his medications. We will continue at same dose and continue adjusting psychotropic medications and followup. [facility]# [id number]
--- NOTE | 2018-04-12 14:12 | Internal Medicine Prog Note ---
Internal Medicine Subjective - Subjective Service Date: 04/12/18 Patient is:: awake, verbal, talking, confused Per staff patient has:: tolerating meds Internal Medicine Objective - Results Result Diagrams: 04/05/18 07:15 04/05/18 07:15 Recent Labs: Laboratory Last Values WBC 5.4 Th/cmm (4.8-10.8) 04/05/18 07:15 RBC 4.69 Mil/cmm (4.30-5.70) 04/05/18 07:15 Hgb 14.8 gm/dL (12-16) 04/05/18 07:15 Hct 43.2 % (41.0-60) 04/05/18 07:15 MCV 92.1 fl (80-99) 04/05/18 07:15 MCH 31.6 pg (26.0-30.0) H 04/05/18 07:15 MCHC Differential 34.3 pg (28.0-36.0) 04/05/18 07:15 RDW 12.3 % (11.5-20.0) 04/05/18 07:15 Plt Count 170 Th/cmm (150-400) 04/05/18 07:15 MPV 8.7 fl 04/05/18 07:15 Neutrophils % 58.9 % (40.0-80.0) 04/05/18 07:15 Lymphocytes % 26.7 % (20.0-50.0) 04/05/18 07:15 Monocytes % 10.1 % (2.0-10.0) H 04/05/18 07:15 Eosinophils % 4.1 % (0.0-5.0) 04/05/18 07:15 Basophils % 0.2 % (0.0-2.0) 04/05/18 07:15 Sodium 138 mEq/L (136-145) 04/05/18 07:15 Potassium 4.1 mEq/L (3.5-5.1) 04/05/18 07:15 Chloride 108 mEq/L (98-107) H 04/05/18 07:15 Carbon Dioxide 25.1 mEq/L (21.0-31.0) 04/05/18 07:15 Anion Gap 9.0 (7.0-16.0) 04/05/18 07:15 BUN 24 mg/dL (7-25) 04/05/18 07:15 Creatinine 1.5 mg/dL (0.7-1.3) H 04/05/18 07:15 Est GFR ( Amer) > 60.0 ml/min (>90) 04/05/18 07:15 Est GFR (Non-Af Amer) 50.6 ml/min 04/05/18 07:15 BUN/Creatinine Ratio 16.0 04/05/18 07:15 Glucose 173 mg/dL (70-105) H 04/05/18 07:15 POC Glucose 138 MG/DL (70 - 105) H 04/11/18 16:08 Calcium 9.6 mg/dL (8.6-10.3) 04/05/18 07:15 Total Bilirubin 0.3 mg/dL (0.3-1.0) 04/05/18 07:15 AST 20 U/L (13-39) 04/05/18 07:15 ALT 14 U/L (7-52) 04/05/18 07:15 Alkaline Phosphatase 59 U/L (34-104) 04/05/18 07:15 Total Protein 6.5 gm/dL (6.0-8.3) 04/05/18 07:15 Albumin 3.8 gm/dL (4.2-5.5) L 04/05/18 07:15 Globulin 2.7 gm/dL 04/05/18 07:15 Albumin/Globulin Ratio 1.4 (1.0-1.8) 04/05/18 07:15 Triglycerides 167 mg/dL (<150) H 04/05/18 07:15 Cholesterol 141 mg/dL (<200) 04/05/18 07:15 LDL Cholesterol Direct 80 mg/dL (75-193) 04/05/18 07:15 HDL Cholesterol 33 mg/dL (23-92) 04/05/18 07:15 TSH 1.16 uIU/ml (0.34-5.60) 04/05/18 07:15 Urine Source CLEAN C 04/05/18 06:45 Urine Color YELLOW 04/05/18 06:45 Urine Clarity CLEAR (CLEAR) 04/05/18 06:45 Urine pH 6.0 (4.6 - 8.0) 04/05/18 06:45 Ur Specific [place] <= 1.005 (1.005-1.030) 04/05/18 06:45 Urine Protein NEGATIVE mg/dL (NEGATIVE) 04/05/18 06:45 Urine Glucose (UA) NEGATIVE mg/dL (NEGATIVE) 04/05/18 06:45 Urine Ketones NEGATIVE mg/dL (NEGATIVE) 04/05/18 06:45 Urine Blood NEGATIVE (NEGATIVE) 04/05/18 06:45 Urine Nitrate NEGATIVE (NEGATIVE) 04/05/18 06:45 Urine Bilirubin NEGATIVE (NEGATIVE) 04/05/18 06:45 Urine Urobilinogen 0.2 E.U./dL (0.2 - 1.0) 04/05/18 06:45 Ur Leukocyte Esterase NEGATIVE (NEGATIVE) 04/05/18 06:45 Urine RBC NONE SEEN /hpf (0-5) 04/05/18 06:45 Urine WBC 0-2 /hpf (0-5) 04/05/18 06:45 Ur Epithelial Cells RARE /lpf (FEW) 04/05/18 06:45 Urine Bacteria RARE /hpf (NONE SEEN) 04/05/18 06:45 Valproic Acid 29.4 ug/mL (50.0-100.0) L 04/06/18 18:39 RPR NONREACTIVE (NONREACTIVE) 04/05/18 07:15 - Physical Exam Vitals and I&O: Vital Signs Temp 0 F 04/10/18 19:59 Pulse 81 04/12/18 07:15 Resp 18 04/12/18 07:15 BP 124/72 04/10/18 09:22 Pulse Ox 97 04/12/18 07:15 Intake & Output 04/11/18 04/12/18 04/12/18 18:59 06:59 18:59 Intake Total 900 120 Balance 900 120 Intake: Oral 900 120 Other: # Voids 4 3 # Bowel Movements 1 Active Medications: Current Medications Acetaminophen (Tylenol) 650 mg PO Q4H PRN PRN Reason: Pain (Mild) Stop: 06/04/18 09:48 Acetaminophen (Tylenol) 650 mg PO Q4HR PRN PRN Reason: Fever > 101 Stop: 06/04/18 09:48 Al Hydrox/Mg Hydrox/Simethicone (Maalox) 30 ml PO Q4HR PRN PRN Reason: GI DISTRESS Stop: 06/04/18 09:48 Albuterol Sulfate (Albuterol 2.5mg/3ml Neb Ud) 2.5 mg HHN Q4HR PRN PRN Reason: Shortness of Breath Stop: 06/04/18 09:48 Benztropine Mesylate (Cogentin) [address] [facility] Stop: 06/04/18 16:59 Last Admin: 04/12/18 09:19 Dose: 1 mg Clonazepam (Klonopin) [address] [facility]; Protocol Stop: 06/08/18 08:59 Last Admin: 04/12/18 09:19 Dose: 1 mg Docusate Sodium (Colace) [address] [facility] Stop: 06/04/18 16:59 Last Admin: 04/12/18 09:20 Dose: 100 mg Fenofibrate (Tricor) [address] [facility] Stop: 06/04/18 20:59 Last Admin: 04/11/18 20:11 Dose: Not Given Glipizide (Glucotrol) [address] [facility] Stop: 06/04/18 16:29 Last Admin: 04/12/18 06:36 Dose: Not Given Glucagon (Glucagen) 1 mg IM PRN PRN PRN Reason: Blood Glucose Less Than 60 Stop: 06/04/18 09:48 Haloperidol Decanoate (Haldol Dec) [id number] [facility] Stop: 06/04/18 11:59 Last Admin: 04/05/18 11:51 Dose: Not Given Haloperidol Lactate (Haldol Concentrate 10mg/5ml Susp) [address] [facility]; Protocol Stop: 06/09/18 08:59 Last Admin: 04/12/18 09:18 Dose: 10 mg Insulin Aspart (Novolog Insulin Sliding Scale) [address] [facility]; Protocol Stop: 06/04/18 11:29 Last Admin: 04/12/18 11:57 Dose: Not Given Levothyroxine Sodium (Synthroid) 0.[address] [facility] Stop: 06/05/18 07:29 Last Admin: 04/12/18 06:37 Dose: Not Given Lisinopril (Zestril) [address] [facility] Stop: 06/05/18 08:59 Last Admin: 04/12/18 09:21 Dose: Not Given Lorazepam (Ativan) 0.5 mg PO Q4HR PRN; Protocol PRN Reason: Agitation Stop: 05/05/18 11:08 Last Admin: 04/12/18 13:50 Dose: 0.5 mg Magnesium Hydroxide (Milk Of Magnesia) 30 ml PO HS PRN PRN Reason: Constipation Stop: 06/04/18 09:48 Multivitamins/Vitamin C (Theragran) 1 tab PO DAILY [facility] Stop: 06/05/18 08:59 Last Admin: 04/12/18 09:20 Dose: 1 tab Pantoprazole Sodium (Protonix) 40 mg PO QDAC [facility] Stop: 06/05/18 07:29 Last Admin: 04/12/18 06:36 Dose: Not Given Pioglitazone HCl (Actos) 30 mg PO QDAC [facility] Stop: 06/05/18 07:29 Last Admin: 04/12/18 06:36 Dose: Not Given Sodium Bicarbonate (Sodium Bicarbonate) 650 mg PO TID [facility]; Protocol Stop: 06/04/18 13:59 Last Admin: 04/12/18 09:20 Dose: 650 mg Trazodone HCl (Desyrel) 50 mg PO HS [facility]; Protocol Stop: 06/04/18 20:59 Last Admin: 04/11/18 20:11 Dose: Not Given Valproate Sodium (Depakene) 1,000 mg PO BID [facility]; Protocol Stop: 06/09/18 08:59 Last Admin: 04/12/18 09:18 Dose: 1,000 mg Vitamin B Complex/Vit C/Folic Acid (Vitamin B Complex W/Vitamin C) 1 tab PO DAILY [facility] Stop: 06/05/18 08:59 Last Admin: 04/12/18 09:19 Dose: 1 tab Vitamin D (Vitamin D3) 2,000 iu PO DAILY [facility] Stop: 06/05/18 08:59 Last Admin: 04/12/18 09:20 Dose: 2,000 iu Zolpidem Tartrate (Ambien) 5 mg PO HS PRN PRN Reason: Insomnia Stop: 06/04/18 11:08 General: alert HEENT: NC/AT, PERRLA Neck: Supple Lungs: CTAB Cardiovascular: RRR, Normal S1, Normal S2, without murmur Abdomen: soft, non-tender, non-distended Extremities: excoriation Neurological: alert - Procedures Procedures: Procedures Procedure Code Date COLONOSCOPY 45.23 09/19/11 DIAGNOSTIC COLONOSCOPY 53986 09/19/11 DRAINAGE OF R LOW ARM SUBCU/FASCIA, OPEN APPROACH [id number] 02/28/17 DRAINAGE OF SKIN ABSCESS 96874 02/28/17 EMERGENCY DEPT VISIT 27100 09/19/11 OTHER GROUP THERAPY 94.44 10/17/11 RECREATIONAL THERAPY 93.81 10/17/11 Internal Medicine Assmt/Plan - Assessment Assessment: aggressive behavior schizoaffective disorder htn hypothyroidism dm copd noncompliant - Plan Plan: fall precautions monitor glucose continue current plan of care Nutritional Asmnt/Malnutr-PDOC - Dietary Evaluation Malnutrition Findings (Please click <Entered> for more info): Nutritional Asmnt/Malnutrition Start: 04/09/18 13: 30 Text: Status: Complete Freq: Protocol: Document 04/09/18 13:30 POORNIMA (Rec: 04/09/18 13:45 POORNIMA GODINEZ) Nutritional Asmnt/Malnutrition Patient General Information Nutritional Screening Moderate Risk Diagnosis psychosis NOS Pertinent Medical Hx/Surgical Hx HTN, DM, asthma/COPD, PUD/GERD , thyroid disorder, chronic renal disease, hypothyroidism, schizophrenia, anxiety, psychosis Subjective Information Pt not available at time of visit. Nursing noted PO intake : 100%. Current Diet Order/ Nutrition Support CCHO 60g Pertinent Medications maalox, colace, tricor, novolog, synthroid, MOM, theragran, protonix, Vit B complex w/ Vit C, Vit D3 Pertinent Labs 04/08: POC 93-209 04/05: Cl 108, Cr 1.5, Glucose 173, Alb 3.8, triglycerides 167 Nutritional Hx/Data Height 6 ft 3 in Height (Calculated Centimeters) 190.5 Current Weight (lbs) 185 lb Weight (Calculated Kilograms) 83.9 Weight (Calculated Grams) 59495.6 [place] Body Weight 196 lb Body Mass Index (BMI) 23.1 Weight Status Approriate GI Symptoms GI Symptoms None Last BM 04/08 Difficult in: None Food Allergies No Skin Integrity/Comment: maribel cotton 20 Current %PO Good (75-100%) Estimated Nutritional Goals BEE in Kcals: Using Current wt Calories/Kcals/Kg 25-30 Kcals Calculated Protein: Using Current wt Protein g/k-1.2 Protein Calculated 84-106 g Fluid: ml Nutritional Problem 1. Problem Problem Altered nutrition related lab values Etiology hx of DM Signs/Symptoms: glucose 173, POC 93-209 Malnutrition Alert Is there a minimum of two criteria No selected? Query Text:Check all the applicable criteria. A minimum of two criteria are recommended for diagnosis of either severe or non-severe malnutrition. Malnutrition Related to Morbid Obesity Malnutrition related to morbid obesity No Intervention/Recommendation Comments 1. Continue with CCHO 60g diet as ordered. MD to manage insulin regimen for optimal glycemic control 2. Monitor PO intake, wt, labs and skin integrity 3. F/U as low risk in 7 days, 04/16 Expected Outcomes/Goals Expected Outcomes/Goals 1. PO intake at least 75% of all meals. 2. Wt stability, skin to remain intact, labs to approach normal limits Reviewed by Hellen Crowell RD
[2018-04-12] MEDS: Fenofibrate, Micronized 134 mg Cap PO SCH (21:12)
--- NOTE | 2018-04-12 21:43 | Progress Notes ---
DATE: 04/12/2018 SUBJECTIVE: Chart reviewed and the patient interviewed. Also discussed the patient's condition with the staff and reviewed records and labs. The patient is still extremely angry and extremely agitated. The patient also is still restless and still has difficulty controlling his temper. He is yelling and screaming at staff. Also, I tried to interview the patient. The patient was yelling and screaming and he is still extremely irritable and extremely agitated and "get out of here" was his response to my questions. Also for some reason, he refused to take his medications yesterday. ASSESSMENT: The patient is still psychotic and is still extremely agitated. TREATMENT PLAN: Continue to monitor his behavior and his condition closely. Also, continue to work on his poor impulse control and his anger. Also, continue adjusting psychotropic medications and follow up closely. JOB# [id number]
[2018-04-13] MEDS: INSULIN ASPART SLIDING SCALE 100 UNITS/ML UNIT SUBQ SCH ×3 (06:30→16:30)
[2018-04-13] MEDS: Levothyroxine 0.1 Mg Tab PO SCH (06:32)
[2018-04-13] MEDS: Pantoprazole 40 mg EC Tab PO SCH (06:32)
[2018-04-13] MEDS: Vitamin B Complex w/Vitamin C Tab PO SCH (08:26)
[2018-04-13] MEDS: Vitamin D3 2,000 IU SGL PO SCH (08:28)
[2018-04-13] MEDS: Multivitamin Tab PO SCH (08:29)
[2018-04-13] MEDS: Benztropine 1 MG TAB PO SCH ×2 (08:31→17:47)
[2018-04-13] MEDS: Haldol Oral Sol.(concentrate) 10 mg/5 mL Udc PO SCH ×2 (09:41→13:28)
--- NOTE | 2018-04-13 10:13 | Discharge Summary ---
DATE OF DISCHARGE: 04/13/2018 DATE OF DISCHARGE: 04/13/2018. AGE: 62. SEX: Male. PHYSICIAN: Dr. Anguiano. FINAL DIAGNOSIS: PRIMARY DIAGNOSIS: Schizoaffective disorder, bipolar type, with psychotic features. HOSPITAL COURSE: The patient continued to be extremely irritable and agitated. The patient was also having difficulty with his mood. The patient was given Klonopin in a dose of 1 mg 3 times a day and that was increased to 2 mg 3 times a day. He also was taking Haldol and Haldol was given in a dose of 10 mg 3 times a day. The patient was still having source of agitation and irritability. The patient also continued to take Haldol Decanoate injection. The patient was not agitated, but he still has episodes of anger and irritability. There were no side effects of medications and the patient was discharged from the hospital. Also, the patient was taking Depakote. Depakote blood level was ordered, but results not yet known. AFTER DISCHARGE PLANS: The patient discharged from the hospital with plans for followup in [facility]. EXPECTED OUTCOME AFTER DISCHARGE: Guarded on this patient; will be more compliant with taking medications and follow up with discharge plans. [facility]# [id number]
--- NOTE | 2018-04-13 12:52 | Internal Medicine Prog Note ---
Internal Medicine Subjective - Subjective Service Date: 04/13/18 Patient is:: awake, verbal, talking, confused Per staff patient has:: tolerating meds Internal Medicine Objective - Results Result Diagrams: 04/05/18 07:15 04/05/18 07:15 Recent Labs: Laboratory Last Values WBC 5.4 Th/cmm (4.8-10.8) 04/05/18 07:15 RBC 4.69 Mil/cmm (4.30-5.70) 04/05/18 07:15 Hgb 14.8 gm/dL (12-16) 04/05/18 07:15 Hct 43.2 % (41.0-60) 04/05/18 07:15 MCV 92.1 fl (80-99) 04/05/18 07:15 MCH 31.6 pg (26.0-30.0) H 04/05/18 07:15 MCHC Differential 34.3 pg (28.0-36.0) 04/05/18 07:15 RDW 12.3 % (11.5-20.0) 04/05/18 07:15 Plt Count 170 Th/cmm (150-400) 04/05/18 07:15 MPV 8.7 fl 04/05/18 07:15 Neutrophils % 58.9 % (40.0-80.0) 04/05/18 07:15 Lymphocytes % 26.7 % (20.0-50.0) 04/05/18 07:15 Monocytes % 10.1 % (2.0-10.0) H 04/05/18 07:15 Eosinophils % 4.1 % (0.0-5.0) 04/05/18 07:15 Basophils % 0.2 % (0.0-2.0) 04/05/18 07:15 Sodium 138 mEq/L (136-145) 04/05/18 07:15 Potassium 4.1 mEq/L (3.5-5.1) 04/05/18 07:15 Chloride 108 mEq/L (98-107) H 04/05/18 07:15 Carbon Dioxide 25.1 mEq/L (21.0-31.0) 04/05/18 07:15 Anion Gap 9.0 (7.0-16.0) 04/05/18 07:15 BUN 24 mg/dL (7-25) 04/05/18 07:15 Creatinine 1.5 mg/dL (0.7-1.3) H 04/05/18 07:15 Est GFR ( Amer) > 60.0 ml/min (>90) 04/05/18 07:15 Est GFR (Non-Af Amer) 50.6 ml/min 04/05/18 07:15 BUN/Creatinine Ratio 16.0 04/05/18 07:15 Glucose 173 mg/dL (70-105) H 04/05/18 07:15 POC Glucose 138 MG/DL (70 - 105) H 04/11/18 16:08 Calcium 9.6 mg/dL (8.6-10.3) 04/05/18 07:15 Total Bilirubin 0.3 mg/dL (0.3-1.0) 04/05/18 07:15 AST 20 U/L (13-39) 04/05/18 07:15 ALT 14 U/L (7-52) 04/05/18 07:15 Alkaline Phosphatase 59 U/L (34-104) 04/05/18 07:15 Total Protein 6.5 gm/dL (6.0-8.3) 04/05/18 07:15 Albumin 3.8 gm/dL (4.2-5.5) L 04/05/18 07:15 Globulin 2.7 gm/dL 04/05/18 07:15 Albumin/Globulin Ratio 1.4 (1.0-1.8) 04/05/18 07:15 Triglycerides 167 mg/dL (<150) H 04/05/18 07:15 Cholesterol 141 mg/dL (<200) 04/05/18 07:15 LDL Cholesterol Direct 80 mg/dL (75-193) 04/05/18 07:15 HDL Cholesterol 33 mg/dL (23-92) 04/05/18 07:15 TSH 1.16 uIU/ml (0.34-5.60) 04/05/18 07:15 Urine Source CLEAN C 04/05/18 06:45 Urine Color YELLOW 04/05/18 06:45 Urine Clarity CLEAR (CLEAR) 04/05/18 06:45 Urine pH 6.0 (4.6 - 8.0) 04/05/18 06:45 Ur Specific [place] <= 1.005 (1.005-1.030) 04/05/18 06:45 Urine Protein NEGATIVE mg/dL (NEGATIVE) 04/05/18 06:45 Urine Glucose (UA) NEGATIVE mg/dL (NEGATIVE) 04/05/18 06:45 Urine Ketones NEGATIVE mg/dL (NEGATIVE) 04/05/18 06:45 Urine Blood NEGATIVE (NEGATIVE) 04/05/18 06:45 Urine Nitrate NEGATIVE (NEGATIVE) 04/05/18 06:45 Urine Bilirubin NEGATIVE (NEGATIVE) 04/05/18 06:45 Urine Urobilinogen 0.2 E.U./dL (0.2 - 1.0) 04/05/18 06:45 Ur Leukocyte Esterase NEGATIVE (NEGATIVE) 04/05/18 06:45 Urine RBC NONE SEEN /hpf (0-5) 04/05/18 06:45 Urine WBC 0-2 /hpf (0-5) 04/05/18 06:45 Ur Epithelial Cells RARE /lpf (FEW) 04/05/18 06:45 Urine Bacteria RARE /hpf (NONE SEEN) 04/05/18 06:45 Valproic Acid 29.4 ug/mL (50.0-100.0) L 04/06/18 18:39 RPR NONREACTIVE (NONREACTIVE) 04/05/18 07:15 - Physical Exam Vitals and I&O: Vital Signs Temp 98 F 04/12/18 20:15 Pulse 67 04/13/18 09:41 Resp 19 04/12/18 20:15 BP 142/83 04/13/18 09:41 Pulse Ox 97 04/12/18 20:15 Intake & Output 04/12/18 04/13/18 04/13/18 18:59 06:59 18:59 Intake Total 1200 480 Balance 1200 480 Intake: Oral 1200 480 Other: # Voids 4 2 # Bowel Movements 1 Active Medications: Current Medications Acetaminophen (Tylenol) 650 mg PO Q4H PRN PRN Reason: Pain (Mild) Stop: 06/04/18 09:48 Acetaminophen (Tylenol) 650 mg PO Q4HR PRN PRN Reason: Fever > 101 Stop: 06/04/18 09:48 Al Hydrox/Mg Hydrox/Simethicone (Maalox) 30 ml PO Q4HR PRN PRN Reason: GI DISTRESS Stop: 06/04/18 09:48 Albuterol Sulfate (Albuterol 2.5mg/3ml Neb Ud) 2.5 mg HHN Q4HR PRN PRN Reason: Shortness of Breath Stop: 06/04/18 09:48 Benztropine Mesylate (Cogentin) 1 mg PO BID [facility] Stop: 06/04/18 16:59 Last Admin: 04/13/18 08:31 Dose: 1 mg Clonazepam (Klonopin) 2 mg PO TID [facility]; Protocol Stop: 06/12/18 08:59 Docusate Sodium (Colace) 100 mg PO BID [facility] Stop: 06/04/18 16:59 Last Admin: 04/13/18 08:28 Dose: 100 mg Fenofibrate (Tricor) 134 mg PO HS [facility] Stop: 06/04/18 20:59 Last Admin: 04/12/18 21:12 Dose: 134 mg Glipizide (Glucotrol) 10 mg PO BIDAC [facility] Stop: 06/04/18 16:29 Last Admin: 04/13/18 06:32 Dose: Not Given Glucagon (Glucagen) 1 mg IM PRN PRN PRN Reason: Blood Glucose Less Than 60 Stop: 06/04/18 09:48 Haloperidol Decanoate (Haldol Dec) 100 mg IM [id number] [facility] Stop: 06/04/18 11:59 Last Admin: 04/05/18 11:51 Dose: Not Given Haloperidol Lactate (Haldol Concentrate 10mg/5ml Susp) 10 mg PO TID [facility]; Protocol Stop: 06/09/18 08:59 Last Admin: 04/13/18 09:41 Dose: 10 mg Insulin Aspart (Novolog Insulin Sliding Scale) 0 units SUBQ ACHS [facility]; Protocol Stop: 06/04/18 11:29 Last Admin: 04/13/18 11:34 Dose: Not Given Levothyroxine Sodium (Synthroid) 0.1 mg PO QDAC [facility] Stop: 06/05/18 07:29 Last Admin: 04/13/18 06:32 Dose: Not Given Lisinopril (Zestril) 10 mg PO DAILY [facility] Stop: 06/05/18 08:59 Last Admin: 04/13/18 09:41 Dose: 10 mg Lorazepam (Ativan) 0.5 mg PO Q4HR PRN; Protocol PRN Reason: Agitation Stop: 05/05/18 11:08 Last Admin: 04/13/18 08:30 Dose: 0.5 mg Magnesium Hydroxide (Milk Of Magnesia) 30 ml PO HS PRN PRN Reason: Constipation Stop: 06/04/18 09:48 Multivitamins/Vitamin C (Theragran) 1 tab PO DAILY [facility] Stop: 06/05/18 08:59 Last Admin: 04/13/18 08:29 Dose: 1 tab Pantoprazole Sodium (Protonix) 40 mg PO QDAC [facility] Stop: 06/05/18 07:29 Last Admin: 04/13/18 06:32 Dose: Not Given Pioglitazone HCl (Actos) 30 mg PO QDAC [facility] Stop: 06/05/18 07:29 Last Admin: 04/13/18 06:32 Dose: Not Given Sodium Bicarbonate (Sodium Bicarbonate) 650 mg PO TID [facility]; Protocol Stop: 06/04/18 13:59 Last Admin: 04/13/18 08:26 Dose: 650 mg Trazodone HCl (Desyrel) 50 mg PO HS [facility]; Protocol Stop: 06/04/18 20:59 Last Admin: 04/12/18 21:20 Dose: 50 mg Valproate Sodium (Depakene) 1,000 mg PO BID [facility]; Protocol Stop: 06/09/18 08:59 Last Admin: 04/13/18 08:32 Dose: 1,000 mg Vitamin B Complex/Vit C/Folic Acid (Vitamin B Complex W/Vitamin C) 1 tab PO DAILY [facility] Stop: 06/05/18 08:59 Last Admin: 04/13/18 08:26 Dose: 1 tab Vitamin D (Vitamin D3) 2,000 iu PO DAILY [facility] Stop: 06/05/18 08:59 Last Admin: 04/13/18 08:28 Dose: 2,000 iu Zolpidem Tartrate (Ambien) 5 mg PO HS PRN PRN Reason: Insomnia Stop: 06/04/18 11:08 Last Admin: 04/12/18 22:32 Dose: 5 mg General: alert HEENT: NC/AT, PERRLA Neck: Supple Lungs: CTAB Cardiovascular: RRR, Normal S1, Normal S2, without murmur Abdomen: soft, non-tender, non-distended Extremities: excoriation Neurological: alert - Procedures Procedures: Procedures Procedure Code Date COLONOSCOPY 45.23 09/19/11 DIAGNOSTIC COLONOSCOPY 25983 09/19/11 DRAINAGE OF R LOW ARM SUBCU/FASCIA, OPEN APPROACH [id number] 02/28/17 DRAINAGE OF SKIN ABSCESS 68875 02/28/17 EMERGENCY DEPT VISIT 60171 09/19/11 OTHER GROUP THERAPY 94.44 10/17/11 RECREATIONAL THERAPY 93.81 10/17/11 Internal Medicine Assmt/Plan - Assessment Assessment: aggressive behavior schizoaffective disorder htn hypothyroidism dm copd noncompliant - Plan Plan: fall precautions monitor glucose continue current plan of care Nutritional Asmnt/Malnutr-PDOC - Dietary Evaluation Malnutrition Findings (Please click <Entered> for more info): Nutritional Asmnt/Malnutrition Start: 04/09/18 13: 30 Text: Status: Complete Freq: Protocol: Document 04/09/18 13:30 POORNIMA (Rec: 04/09/18 13:45 POORNIMA GODINEZ) Nutritional Asmnt/Malnutrition Patient General Information Nutritional Screening Moderate Risk Diagnosis psychosis NOS Pertinent Medical Hx/Surgical Hx HTN, DM, asthma/COPD, PUD/GERD , thyroid disorder, chronic renal disease, hypothyroidism, schizophrenia, anxiety, psychosis Subjective Information Pt not available at time of visit. Nursing noted PO intake : 100%. Current Diet Order/ Nutrition Support CCHO 60g Pertinent Medications maalox, colace, tricor, novolog, synthroid, MOM, theragran, protonix, Vit B complex w/ Vit C, Vit D3 Pertinent Labs 04/08: POC 93-209 04/05: Cl 108, Cr 1.5, Glucose 173, Alb 3.8, triglycerides 167 Nutritional Hx/Data Height 6 ft 3 in Height (Calculated Centimeters) 190.5 Current Weight (lbs) 185 lb Weight (Calculated Kilograms) 83.9 Weight (Calculated Grams) 89371.6 [place] Body Weight 196 lb Body Mass Index (BMI) 23.1 Weight Status Approriate GI Symptoms GI Symptoms None Last BM 04/08 Difficult in: None Food Allergies No Skin Integrity/Comment: maribel cotton 20 Current %PO Good (75-100%) Estimated Nutritional Goals BEE in Kcals: Using Current wt Calories/Kcals/Kg 25-30 Kcals Calculated Protein: Using Current wt Protein g/k-1.2 Protein Calculated 84-106 g Fluid: ml Nutritional Problem 1. Problem Problem Altered nutrition related lab values Etiology hx of DM Signs/Symptoms: glucose 173, POC 93-209 Malnutrition Alert Is there a minimum of two criteria No selected? Query Text:Check all the applicable criteria. A minimum of two criteria are recommended for diagnosis of either severe or non-severe malnutrition. Malnutrition Related to Morbid Obesity Malnutrition related to morbid obesity No Intervention/Recommendation Comments 1. Continue with CCHO 60g diet as ordered. MD to manage insulin regimen for optimal glycemic control 2. Monitor PO intake, wt, labs and skin integrity 3. F/U as low risk in 7 days, 04/16 Expected Outcomes/Goals Expected Outcomes/Goals 1. PO intake at least 75% of all meals. 2. Wt stability, skin to remain intact, labs to approach normal limits Reviewed by Hellen Crowell RD
== END 2018-04-13 19:00 | DRG 885 ==
LOC: ER 06:33 → GERO 07:48
PROVIDERS: ADMIT Psychiatry & Neurology Psychiatry; ATTEND Psychiatry & Neurology Psychiatry
DX: F25.0 Schizoaffective disorder, bipolar type (principal); N18.9 Chronic kidney disease, unspecified; E11.65 Type 2 diabetes mellitus with hyperglycemia; E03.9 Hypothyroidism, unspecified; J44.9 Chronic obstructive pulmonary disease, unspecified; K21.9 Gastro-esophageal reflux disease without esophagitis; I12.9 Hypertensive chronic kidney disease with stage 1 through stage 4 chronic kidney disease, or unspecified chronic kidney disease; E11.22 Type 2 diabetes mellitus with diabetic chronic kidney disease; M19.90 Unspecified osteoarthritis, unspecified site; F29 Unspecified psychosis not due to a substance or known physiological condition; Z79.84 Long term (current) use of oral hypoglycemic drugs; Z91.14 Patient's other noncompliance with medication regimen; Z88.0 Allergy status to penicillin
CPT/HCPCS: 36415-UA; 80053-TC; 80061-TC; 80164-TC; 81001-TC; 82948-90; 83036-90; 84443-TC; 85025-TC; 86592-TC; 94760; G0410; J1200; J1630; J1815; J2060; Z7610